=== PATIENT | female | born 1980 | race Caucasian/White ===

== ENCOUNTER 2020-06-25 10:57 | Emergency (ER) | payer MEDICAID, SELFPAY ==
[2020-06-25 11:21] VITALS: BP 126/80; PULSE 76; RESP 18; TEMP 36.8; O2SAT 98; BMI 48.7
--- NOTE | 2020-06-25 11:25 | CT_ITS ---
EXAMINATION: CT ABDOMEN AND PELVIS WITH CONTRAST CLINICAL INFORMATION: Diffuse abdominal pain with nausea, vomiting, and diarrhea COMPARISON: None TECHNIQUE: Multidetector volumetric images were obtained from the superior aspect of the liver through the pubic symphysis following administration 85 mL of Omnipaque 350 intravenous contrast. Sagittal and coronal reformatted images were obtained on the technologist's workstation. Oral contrast: No This CT examination was performed using dose optimization techniques as appropriate, variously including the following: *Automated exposure control *Adjustment of mA and/or kV according to patient size (this includes techniques or standardized protocols for targeted exams where dose is matched to indication/reason for exam; i.e. extremities or head) *Use of iterative reconstruction technique DLP: 1203 mGy-cm FINDINGS: LUNG BASES: The visualized lung bases are unremarkable. LIVER, GALLBLADDER, AND BILIARY TREE: The liver is normal in size, shape, and attenuation. A 0.4 cm calcified granuloma in the right hepatic lobe. No suspicious focal hepatic lesion or biliary ductal dilatation is present. The gallbladder is surgically absent. PANCREAS: Mild fatty atrophy of the pancreas. No evidence for pancreatic necrosis or peripancreatic fluid. SPLEEN: There are a few calcified granulomas within the spleen. No focal lesion. ADRENAL GLANDS: Unremarkable. KIDNEYS AND URETERS: The kidneys are normal in size, shape, and attenuation. No hydronephrosis, hydroureter, or calculi seen. No perinephric stranding. BLADDER: Unremarkable. GASTROINTESTINAL TRACT: There are postsurgical changes around the gastroesophageal junction. The small bowel is normal in appearance and is not dilated. There is a small to moderate amount of stool within the colon. No pericolonic inflammatory changes. The appendix is not clearly identified, but there are no pericecal inflammatory changes. ABDOMINAL WALL: No significant hernia is appreciated. LYMPH NODES: Normal. VASCULAR: Normal caliber of the abdominal aorta. Normal appearance of the inferior vena cava and portal venous system. PELVIC VISCERA: The uterus and adnexa are unremarkable. There are bilateral Essure devices in place. OSSEOUS STRUCTURES: No acute or suspicious osseous lesions. Multilevel degenerative changes of the spine. CT/CT abdomen pelvis w con IMPRESSION: No acute intra-abdominal pathology. Postsurgical changes around the gastroesophageal junction. No evidence for bowel obstruction or inflammation.
[2020-06-25 11:59] LABS: Basophils Percent Auto 0.4 % (0-2); Eosinophils Absolute Auto 0.9 X10*3/uL (0.0-0.4); Eosinophils Percent Auto 12.4 % (0-4); Hematocrit 39.7 % (37-47); Hemoglobin 12.8 g/dl (12.0-16.0); Imm Gran Abs Auto 0.03 X10*3/uL (0.00-0.03); Imm Gran Pct Auto 0.4 % (0.0-0.4); Lymphocytes Absolute Auto 1.9 X10*3/uL (1.2-4.9); Lymphocytes Percent Auto 27.5 % (20-40); MANUAL DIFF FLAG NO; Mean Corpuscular HGB Conc 32.2 g/dl (31.0-35.0); Mean Corpuscular Volume 96.1 fL (80-98); Mean Platelet Volume 11.3 fL (9.4-12.3); Monocytes Absolute Auto 0.5 X10*3/uL (0.1-1.2); Monocytes Percent Auto 6.7 % (2-11); Neutrophils Absolute Auto 3.6 X10*3/uL (2.0-8.3); Neutrophils Percent Auto 52.6 % (45-73); Platelet Count 223 X10*3/uL (160-400); Red Blood Count 4.13 X10*6/uL (4.20-5.50); Red Cell Distribution Width 12.8 % (11.0-16.0); White Blood Count 6.9 X10*3/uL (4.8-10.8)
[2020-06-25] MEDS: ondansetron HCL 4 MG/2 ML VIAL IVPUSH (12:02)
[2020-06-25] MEDS: Ketorolac Tromethamine 15 MG/ML VIAL 30 MG IV (12:02)
[2020-06-25] MEDS: 0.9 % Sodium Chloride 1,000 ML 999 ML IVCONT (12:02)
[2020-06-25 12:04] LABS: Glucose Urine UA NEG (NEG); Leukocyte Esterase Urine 1+ (NEG); Nitrite Urine NEG (NEG); PH 6.5 (5.0-8.0); Urine Blood NEG (NEG); Urine Ketones NEG (NEG); Urine Protein NEG (NEG-TRACE)
[2020-06-25 12:05] LABS: Appearance Urine HAZY; Color Urine YELLOW
[2020-06-25 12:06] LABS: Prothrombin Time 12.1 SEC (10.8-13.0)
[2020-06-25 12:11] LABS: UPreg QC Valid YES; Urine Pregnancy NEGATIVE (NEGATIVE)
[2020-06-25 12:24] LABS: Alanine Aminotransferase 12 U/L (0-31); Alkaline Phosphatase 65 U/L (39-117); Aspartate Amino Transferase 9 U/L (5-31); Bilirubin Direct 0.2 mg/dL (0.0-0.5); Bilirubin Total 0.4 mg/dL (0.0-1.0); Blood Urea Nitrogen 13 mg/dL (9-16); Calcium 8.6 mg/dL (8.4-10.2); Estimated Glomerular Filt Rate 59; Glucose Random 113 mg/dL (60-115); Magnesium 2.2 mg/dL (1.6-2.6); Total Protein 6.8 g/dL (6.5-8.0)
[2020-06-25 12:29] LABS: Bacteria Urine 1+ /LPF; RBC Urine 0 /HPF (0); Squamous Epithelial Cell Urine 3+ /LPF
--- NOTE | 2020-06-25 12:29 | ED.ABDPAIN ---
HPI - Abdominal Pain General Chief Complaint: Abdominal Pain Stated Complaint: MULTIPLE ISSUES Time Seen by Provider: 06/25/20 11:24 Source: patient Mode of arrival: ambulatory Limitations: no limitations History of Present Illness HPI narrative: 40yoF c PMHx of anxiety, hernia and PSHx of lap band, appendectomy and cholecystectomy presenting to the ED with complaints of diffuse abdominal pain for the past 3 days with associated N/V/D and feeling bloated. Denies any other associated symptoms. Denies recent travel or sick contacts. Denies bad food exposure. Related Data Allergies Allergy/AdvReac Type Severity Reaction Status Date / Time Penicillins [PENICILLINS] Allergy Severe HIVES Unverified 04/27/20 16:51 prochlorperazine Allergy Severe HIVES Unverified 04/27/20 16:51 [From COMPAZINE] promethazine [PROMETHAZINE] Allergy Intermediate HEADACHES Unverified 04/27/20 16:51 haloperidol [From HALDOL] AdvReac Severe HIVES Unverified 04/27/20 16:51 Review of Systems Review of Systems Constitutional : No Weight loss, No Fever, No Chills, No Night Sweats, No Fatigue, No Malaise ENT/Mouth: No ear pain, No sore throat, No Difficulty swallowing Cardiovascular : No Chest Pain, No SOB Respiratory : No Cough, No Sputum Gastrointestinal : + Nausea, + Vomiting, + Diarrhea, + abdominal Pain, No Hematochezia, No Melena Genitourinary : No irregular bleeding, No Dysuria, No Urinary Frequency, No Hematuria,No Urinary Incontinence, No Urgency, No Flank Pain Musculoskeletal : No joint pain, No Myalgias, No Joint Swelling Skin : No Skin Lesions, No rash Neuro : No Weakness, No Numbness, No Paresthesias, No Loss of Consciousness, NoDizziness, No Headache Psych : No Social Issues, Heme/Lymph: No Bruising, No Bleeding,No Lymphadenopathy Endocrine : No Polyuria, No Polydipsia, No Temperature Intolerance Yes all other systems are reviewed and are negative Physical Exam Vital Signs: Vital Signs: Last Vital Signs Temp 98.2 F 06/25/20 11:21 Pulse 79 06/25/20 12:56 Resp 18 06/25/20 12:56 BP 133/79 06/25/20 12:56 Pulse Ox 98 06/25/20 11:21 Body Mass Index 48.7 vital signs have been reviewed as normal and appeared to be correct. Blood pressure normal. Heart rate normal. Respiration rate normal. Temperature normal. Oxygen saturation normal. Appearance: Alert. Oriented X3. No acute distress. Head: Normal external exam. Normocephalic. Eyes: PERRLA. EOMI. Conjunctiva and sclera normal. Eyelids normal. ENT: Pharynx normal. Uvula midline. Moist mucous membranes. Neck: Normal inspection. Neck supple. FROM. No adenopathy. No meningeal signs. CVS: Normal heart rate and rhythm. Heart sound normal. No murmurs noted. Pulses normal throughout. Respiratory: No respiratory distress. Painless inspiration. Breath sounds normal. No wheezes/rales/rhonchi noted. Chest nontender. No accessory muscle usage noted or decreased air movement noted. Abdomen: Soft and TTP diffusely. No rigidity noted. Bowel sounds normal in all 4 quadrants. No distention noted. No organomegaly noted. No visible injury noted. Back: No CVA tenderness. Full range of motion noted. Skin: Skin warm and dry. Normal skin color. Normal skin turgor. No rashes/lesions/lacerations noted. Extremities: Extremities exhibit normal range of motion. Extremities nontender. Neuro: Oriented X 3. No motor deficit. No sensory deficit. Reflexes normal. Course Course Course Narrative: 11:25am - 40yoF c PMHx of anxiety, hernia and PSHx of lap band, appendectomy and cholecystectomy presenting to the ED with complaints of diffuse abdominal pain for the past 3 days with associated N/V/D and feeling bloated. - Concern for Viral syndrome vs Bowel obstruction. - Plan: Labs, UA, UHCG, CT scan of abd/pelvis c IV contrast. Provide a L of IV fluids, 30 mg of Toradol and 4 mg of Zofran and re-evaluate. Reevaluation(s) Reevaluation #1: All labs within normal limits. CT scan of abdomen and pelvis within normal limits chronic changes no acute processes noted. Patient is now tolerating p.o. fluids requesting to leave at this time. I offered the patient a COVID swab and she also declined. Will DC home with symptomatic treatment long instructions return if any new or worsening symptoms to follow-up with primary care provider. Patient understands agrees the plan. Time: 14:35 [facility] - Abdominal Pain Medical Records Attestation: I reviewed the patient's medical records. Lab Data Attestation: I reviewed the patient's lab results. Result diagrams: 06/25/20 11:54 06/25/20 11:54 Labs: Lab Results 06/25/20 06/25/20 06/25/20 Range/Units 11:46 11:54 11:54 WBC 6.9 (4.8-10.8) X10*3/uL RBC 4.13 L (4.20-5.50) X10*6/uL Hgb 12.8 (12.0-16.0) g/dl Hct 39.7 (37-47) % MCV 96.1 (80-98) fL MCH 31.0 (27.0-33.0) pg MCHC 32.2 (31.0-35.0) g/dl RDW 12.8 (11.0-16.0) % Plt Count 223 (160-400) X10*3/uL MPV 11.3 (9.4-12.3) fL Immature Gran % (Auto) 0.4 (0.0-0.4) % Neut % (Auto) 52.6 (45-73) % Lymph % (Auto) 27.5 (20-40) % Overton % (Auto) 6.7 (2-11) % Eos % (Auto) 12.4 H (0-4) % Baso % (Auto) 0.4 (0-2) % Lymph # (Auto) 1.9 (1.2-4.9) X10*3/uL Overton # (Auto) 0.5 (0.1-1.2) X10*3/uL Eos # (Auto) 0.9 H (0.0-0.4) X10*3/uL Baso # (Auto) 0.0 (0.0-0.2) X10*3/uL Abs Immat Gran (auto) 0.03 (0.00-0.03) X10*3/uL Absolute Neuts (auto) 3.6 (2.0-8.3) X10*3/uL Absolute Nucleated RBC 0.000 (0.0-0.012) X10*3/uL Nucleated RBC % (auto) 0.0 (0.0-0.2) /100WBC Hold Purple Top SEE NOTE PT (10.8-13.0) SEC INR (0.9-1.1) Sodium (135-145) mmol/L Potassium (3.3-5.1) mmol/l Chloride (96-108) mmol/L Carbon Dioxide (22-29) mmol/L Anion Gap (12-20) BUN (9-16) mg/dL Creatinine (0.5-1.4) mg/dL Estim Creat Clear Calc Estimated GFR Random Glucose (60-115) mg/dL Calcium (8.4-10.2) mg/dL Magnesium (1.6-2.6) mg/dL Total Bilirubin (0.0-1.0) mg/dL Direct Bilirubin (0.0-0.5) mg/dL AST (5-31) U/L ALT (0-31) U/L Alkaline Phosphatase (39-117) U/L Total Protein (6.5-8.0) g/dL Albumin (3.5-5.0) g/dL Urine Color YELLOW Urine Appearance HAZY Urine pH 6.5 (5.0-8.0) Ur Specific [place] 1.020 (1.005-1.025) Urine Protein NEG (NEG-TRACE) MG/DL Urine Glucose (UA) NEG (NEG) MG/DL Urine Ketones NEG (NEG) MG/DL Urine Blood NEG (NEG) Urine Nitrite NEG (NEG) Ur Leukocyte Esterase 1+ H (NEG) Urine RBC 0 (0) /HPF Urine WBC 1-4 (0-4) /HPF Ur Squamous Epith Cells 3+ /LPF Urine Bacteria 1+ /LPF Urine Test NEGATIVE (NEGATIVE) 06/25/20 06/25/20 Range/Units 11:54 11:54 WBC (4.8-10.8) X10*3/uL RBC (4.20-5.50) X10*6/uL Hgb (12.0-16.0) g/dl Hct (37-47) % MCV (80-98) fL MCH (27.0-33.0) pg MCHC (31.0-35.0) g/dl RDW (11.0-16.0) % Plt Count (160-400) X10*3/uL MPV (9.4-12.3) fL Immature Gran % (Auto) (0.0-0.4) % Neut % (Auto) (45-73) % Lymph % (Auto) (20-40) % Overton % (Auto) (2-11) % Eos % (Auto) (0-4) % Baso % (Auto) (0-2) % Lymph # (Auto) (1.2-4.9) X10*3/uL Overton # (Auto) (0.1-1.2) X10*3/uL Eos # (Auto) (0.0-0.4) X10*3/uL Baso # (Auto) (0.0-0.2) X10*3/uL Abs Immat Gran (auto) (0.00-0.03) X10*3/uL Absolute Neuts (auto) (2.0-8.3) X10*3/uL Absolute Nucleated RBC (0.0-0.012) X10*3/uL Nucleated RBC % (auto) (0.0-0.2) /100WBC Hold Purple Top PT 12.1 (10.8-13.0) SEC INR 1.0 (0.9-1.1) Sodium 138 (135-145) mmol/L Potassium 3.8 (3.3-5.1) mmol/l Chloride 104 (96-108) mmol/L Carbon Dioxide 27 (22-29) mmol/L Anion Gap 11 L (12-20) BUN 13 (9-16) mg/dL Creatinine 1.03 (0.5-1.4) mg/dL Estim Creat Clear Calc 113.0 Estimated GFR 59 Random Glucose 113 (60-115) mg/dL Calcium 8.6 (8.4-10.2) mg/dL Magnesium 2.2 (1.6-2.6) mg/dL Total Bilirubin 0.4 (0.0-1.0) mg/dL Direct Bilirubin 0.2 (0.0-0.5) mg/dL AST 9 (5-31) U/L ALT 12 (0-31) U/L Alkaline Phosphatase 65 (39-117) U/L Total Protein 6.8 (6.5-8.0) g/dL Albumin 4.0 (3.5-5.0) g/dL Urine Color Urine Appearance Urine pH (5.0-8.0) Ur Specific [place] (1.005-1.025) Urine Protein (NEG-TRACE) MG/DL Urine Glucose (UA) (NEG) MG/DL Urine Ketones (NEG) MG/DL Urine Blood (NEG) Urine Nitrite (NEG) Ur Leukocyte Esterase (NEG) Urine RBC (0) /HPF Urine WBC (0-4) /HPF Ur Squamous Epith Cells /LPF Urine Bacteria /LPF Urine Test (NEGATIVE) Imaging Data CT scan - abdomen: Attestation: I personally reviewed and interpreted this imaging study as follows: Radiologist's impression: FINDINGS: LUNG BASES: The visualized lung bases are unremarkable. LIVER, GALLBLADDER, AND BILIARY TREE: The liver is normal in size, shape, and attenuation. A 0.4 cm calcified granuloma in the right hepatic lobe. No suspicious focal hepatic lesion or biliary ductal dilatation is present. The gallbladder is surgically absent. PANCREAS: Mild fatty atrophy of the pancreas. No evidence for pancreatic necrosis or peripancreatic fluid. SPLEEN: There are a few calcified granulomas within the spleen. No focal lesion. ADRENAL GLANDS: Unremarkable. KIDNEYS AND URETERS: The kidneys are normal in size, shape, and attenuation. No hydronephrosis, hydroureter, or calculi seen. No perinephric stranding. BLADDER: Unremarkable. GASTROINTESTINAL TRACT: There are postsurgical changes around the gastroesophageal junction. The small bowel is normal in appearance and is not dilated. There is a small to moderate amount of stool within the colon. No pericolonic inflammatory changes. The appendix is not clearly identified, but there are no pericecal inflammatory changes. ABDOMINAL WALL: No significant hernia is appreciated. LYMPH NODES: Normal. VASCULAR: Normal caliber of the abdominal aorta. Normal appearance of the inferior vena cava and portal venous system. PELVIC VISCERA: The uterus and adnexa are unremarkable. There are bilateral Essure devices in place. OSSEOUS STRUCTURES: No acute or suspicious osseous lesions. Multilevel degenerative changes of the spine. CT/CT abdomen pelvis w con IMPRESSION: No acute intra-abdominal pathology. Postsurgical changes around the gastroesophageal junction. No evidence for bowel obstruction or inflammation. Discharge Plan Discharge Clinical Impression: Acute viral syndrome, Abdominal pain, Nausea & vomiting, Diarrhea Patient Disposition: Home, Self-Care Instructions: Acute Nausea and Vomiting (ED), Viral Syndrome (ED) PMFSH Past Medical History Attestation statement: The following information was validated with the patient. Medical History Anxiety Hernia Surgical History History of appendectomy LAP-BAND surgery status Social History Social History Alcohol intake: unknown Smoking Status: Unknown if ever smoked Use of substances other than those prescribed or required for medical reasons: Unknown Advance Directives: No Advance Directives Information Provided: Yes
[2020-06-25 12:34] LABS: Anion Gap 11 (12-20); Carbon Dioxide 27 mmol/L (22-29); Chloride 104 mmol/L (96-108); Potassium 3.8 mmol/l (3.3-5.1); Sodium 138 mmol/L (135-145)
[2020-06-25 12:56] VITALS: BP 133/79; PULSE 79; RESP 18
[2020-06-25] MEDS: iohexoL 350 MG/ML 100 ML INFUS..BTL IV (13:32)
[2020-06-25 14:49] VITALS: BP 133/79; PULSE 76; RESP 14; TEMP 36.8; O2SAT 98
== END 2020-06-25 15:01 | disposition home or self-care (01) ==
PROVIDERS: Physician Assistant Medical; Emergency Provider Emergency Medicine
DX: B34.9 Viral infection, unspecified (principal); R10.9 Unspecified abdominal pain; R11.2 Nausea with vomiting, unspecified; F41.1 Generalized anxiety disorder; F43.0 Acute stress reaction; Z98.84 Bariatric surgery status
CPT/HCPCS: 36415; 74177; 80048; 80076; 81001; 81025; 83735; 85025; 85610; 87086; 87147; 96361; 96374; 96375; 99284; J1885; J2405; Q9967

== ENCOUNTER 2021-05-23 01:02 | Inpatient (IN) | payer OTHER, SELFPAY ==
[2021-05-23 01:37] VITALS: BMI 53.1
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
[2021-05-23 06:00] VITALS: BP 123/89; PULSE 95; RESP 16; TEMP 36.6; O2SAT 98
[2021-05-23] MEDS: busPIRone HCl 5 MG TABLET 15 MG PO ×2 (08:51→20:56)
[2021-05-23] MEDS: Topiramate 100 MG TABLET PO ×2 (08:52→20:53)
[2021-05-23 10:16] VITALS: BP 106/53; PULSE 72
--- NOTE | 2021-05-23 10:27 | P.HPPS_ITS ---
[facility] Date of Service: 05/23/21 Chief Complaint: Schizoaffective disorder, bipolar Sources of Information: patient interviewed, chart reviewed and crisis/core team assessment reviewed Additional Sources of Information: Patient is a 41-year-old female with history of depression, PTSD, panic attacks, substance abuse mostly in sustained remission and carries a diagnosis of bipolar disorder who presents for depression, auditory hallucinations and fleeting SI in the face of psychosocial stressors. Patient reports that she has done well on the current medication regimen for years, including Seroquel 400 at bedtime Topamax, propranolol and trazodone. The patient has been sober from substance abuse for 1 and half years except 1 time just prior to this admission. Patient has been living with her boyfriend for the past year while her parents have custody of her children whom she visits regularly; patient says that this relationship has worked well and again she has remained stable. Unfortunately her boyfriend was incarcerated on March 15; they lost their car and she had to move into her parent's home where her child also lives. Patient said this is been very triggering as there is a long history of troubled relationships (Not only is she currently homeless and without her boyfriend, but she is now living with her parents who have custody of her child making for a very complicated and triggering environment). Patient said that 2 and half weeks ago depression returned, auditory hallucinations return saying you should not be here and panic attacks also resumed. Patient did use crack cocaine 1 time to stop the voices but has otherwise remained sober. Patient said that she has had ephemoral thoughts of suicidality but they have remained just thoughts with no intent or plans. Patient assumed that her medications which had worked for years suddenly stopped working and wanted medication change. Upon further discussion patient agrees that it is very possible that she has recently decompensated because of the numerous stressors in her life and that her medications are still effective. Patient added that when her father dropped her off at [place] [facility] he said to the staff there she is not my daughter... she is not allowed to return... she is driving me crazy... Patient agrees to wait a couple days on the unit, allowing her anxiety to subside and process her feelings before making a decision to stop Seroquel and started other medication. Patient endorses extensive history of trauma but this was not discussed; she says she has a history of being diagnosed with bipolar disorder however it is currently unclear if her episodes are due to combination of PTSD and substance abuse or organic bipolar disorder. Patient is complaining of extreme sciatic pain. She is currently in physical therapy having completed 3/12 sessions after which she will receive a steroid injection if she remains in pain. She is asking for either Vicodin or prednisone to treat her discomfort while on the unit. Patient says BuSpar is not helping for anxiety and agreed to low-dose Thorazine for anxiety as a p.r.n.. Patient is currently not suicidal. HPI Subjective Notes: Leach Warning and Conditional Voluntary Past Psychiatric History: last hospitalization 7 years ago Medical Evaluation Reviewed: Hospitalist Rosana Pending [facility] Medical History (Updated 05/23/21 @ 14:53 by Juancarlos Cr MD) Anxiety Bipolar disorder Cocaine abuse Hernia Opioid abuse PTSD (post-traumatic stress disorder) Surgical History History of appendectomy LAP-BAND surgery status Family History: deferred Social History: Has 3 children youngest 8-year-old all 3 in the custody of parents Lives with boyfriend for the past year who was recently incarcerated now patient is homeless; hopefully he is returning in a few weeks Patient currently not working receives disability Substance History: Sober for the past 1.5 years; used crack cocaine 1 time just prior to admission to get rid of the voices Trauma History: Extensive, severe childhood and adult Diagnostics Vital Signs (24Hr): Vital Signs - 24 hr 05/23/21 06:00 05/23/21 10:16 Temperature 97.8 F Pulse Rate 95 72 Respiratory Rate 16 Blood Pressure 123/89 106/53 L Pulse Oximetry 98 Body Mass Index 53.1 Meds/Allergies Meds Home Medications Acetaminophen (Acetaminophen 325 Mg Tablet) 650 mg PO Q6H PRN PRN Reason: Headache/Pain Mild Scale (1-3) Last Admin: 05/23/21 12:53 Dose: 650 mg Documented by: Al Hydroxide/Mg Hydroxide (Magnesium Hydrox/Alum Hydrox 30 Ml Oral.Susp) 30 ml PO Q6H PRN PRN Reason: Heartburn/Nausea Buspirone HCl (Buspirone Hcl 5 Mg Tablet) 15 mg PO BID [facility] Last Admin: 05/23/21 08:51 Dose: 15 mg Documented by: Fluticasone Propionate (Fluticasone Propionate Nasal 16 Gm Shirley) 2 spray NOSTRIL-B DAILY [facility] Last Admin: 05/23/21 10:58 Dose: Not Given Documented by: Hydroxyzine HCl (Hydroxyzine Hcl 25 Mg Tablet) 25 mg PO Q6H PRN PRN Reason: Anxiety Magnesium Hydroxide (Milk Of Magnesia 30 Ml Oral.Susp) 30 ml PO DAILY PRN PRN Reason: Constipation Prazosin HCl (Prazosin Hcl 1 Mg Capsule) 2 mg PO BEDTIME NIKHIL; Protocol Propranolol HCl (Propranolol Hcl 20 Mg Tablet) 40 mg PO BID NIKHIL; Protocol Last Admin: 05/23/21 10:16 Dose: Not Given Documented by: Quetiapine Fumarate (Quetiapine Fumarate 400 Mg Tablet) 400 mg PO BEDTIME NIKHIL Topiramate (Topiramate 100 Mg Tablet) 100 mg PO BID [facility] Last Admin: 05/23/21 08:52 Dose: 100 mg Documented by: Trazodone HCl (Trazodone Hcl 50 Mg Tablet) 50 mg PO BEDTIME PRN PRN Reason: Insomnia Trazodone HCl (Trazodone Hcl 50 Mg Tablet) 150 mg PO BEDTIME [facility] Allergies Allergies Allergy/AdvReac Type Severity Reaction Status Date / Time Penicillins [PENICILLINS] Allergy Severe HIVES Unverified 04/27/20 16:51 prochlorperazine Allergy Severe HIVES Unverified 04/27/20 16:51 [From COMPAZINE] promethazine [PROMETHAZINE] Allergy Intermediate HEADACHES Unverified 04/27/20 16:51 haloperidol [From HALDOL] AdvReac Severe HIVES Unverified 04/27/20 16:51 Mental Status Exam Mental Status Exam Narrative: Pt is alert and oriented; behavior is cooperative but in emotional distress; dressed in casual attire; unkempt; mood is described as depressed and anxious and affect congruent; eye contact appropriate; Speech is normal rate, volume and prosody and not pressured; no psychomotor agitation/retardation present; thought process is organized and goal directed; Thought content is on getting tx; otherwise pertinent to relevant topics and without any delusional content, paranoid ideations or grandiosity; denies any SI/HI. Pt has AH that say mean things; Patients insight and judgment appear impaired. Assessment & Plan Assessment & Plan (1) PTSD (post-traumatic stress disorder): Status: Acute Code(s): F43.10 - Post-traumatic stress disorder, unspecified (2) Bipolar disorder: Status: Chronic Code(s): F31.9 - Bipolar disorder, unspecified (3) Cocaine abuse: Status: Acute Code(s): F14.10 - Cocaine abuse, uncomplicated Assessment and Plan: IMPRESSION: Patient is a 41-year-old female with history of depression, PTSD, panic attacks, substance abuse mostly in sustained remission and carries a diagnosis of bipolar disorder who presents for depression, auditory hallucinations and fleeting SI in the face of psychosocial stressors. SI is currently resolved Patient reports that she has been stable on current med regimen for close to 7 years. Suddenly about 2 and half weeks ago, patient decompensated and got depressed with panic attacks and auditory hallucinations. It is unlikely that her medications would suddenly stop working and seems much more likely that this decompensation is due to situational events of losing her boyfriend, losing housing and moving back in to her parent's house which is an exceedingly triggering environment given their relational history and the fact that they have custody of her 8-year-old child who was also living there. Patient agrees to remain on current med regimen for now to see if once she has gotten some rest and distance from her family she can better assess her medication regimens effectiveness. -patient complains of severe sciatic pain; she is currently in physical therapy as an outpatient; she wants either Vicodin or prednisone. [employer] called hospitalist who recommended waiting for hospitalist to do admission physical (patient says Tylenol, ibuprofen, gabapentin, muscle relaxants all did not work) PLAN: Patient on CV Q 15 minutes checks for safety Continue current medication regimen Propranolol 40 mg b.i.d. Trazodone 150 mg Prazosin 2 mg; patient says this stopped working a few months ago BuSpar 15 mg b.i.d.; patient says this is not very helpful Seroquel 400 mg q.h.s. Will add Thorazine 25 mg q.i.d. p.r.n. for anxiety; may titrate to clinical need. Hospitalist consult placed Reason for continued inpatient stay Substantial Risk for: rapid decompensation
--- NOTE | 2021-05-23 10:36 | PC.NURSE ---
Addendum entered by Mariya Eden RN 05/23/21 13:04: Pt continues to complain of pain due to really bad sciatica. Tylenol 650mg administered. Pt requesting Vicodin or anything stronger than tylenol. Pt showing signs of discomfort when transitioning from lying to sitting in bed. Prescribing doctor notified. This nurse also suggested walking/stretching and showering as non-medicinal interventions. Original Note: When assessed for pain, pt reports back pain 05/20. Reports taking Vicodin in the ER and states she understands there should be an order for every four hours. No order listed. This nurses observes pt rising from lying to sitting, getting up out of bed to use the bathroom, and returning to lying position in bed without obvious signs of distress (no crying out or grimacing, no hesitation or accommodation in movement, appears to have normal gait). Pt. refuses Tylenol, No just the Vicodin. I'll talk to the doctor.
[2021-05-23] MEDS: Acetaminophen 325 MG TABLET 650 MG PO (12:53)
[2021-05-23] MEDS: predniSONE 20 MG TABLET PO (16:19)
[2021-05-23 17:13] LABS: Appearance Urine CLEAR; Color Urine YELLOW; Glucose Urine UA NEG (NEG); Leukocyte Esterase Urine NEG (NEG); Nitrite Urine NEG (NEG); PH 7.5 (5.0-8.0); Urine Blood TRACE (NEG); Urine Ketones NEG (NEG); Urine Protein NEG (NEG-TRACE)
[2021-05-23 17:15] LABS: UPreg QC Valid YES; Urine Pregnancy NEGATIVE (NEGATIVE)
[2021-05-23 17:24] LABS: Bacteria Urine TRACE /LPF; Squamous Epithelial Cell Urine TRACE /LPF
[2021-05-23 17:25] LABS: Amorphous Sediment Urine TRACE /LPF; WBC Urine 0-2 /HPF (0-4)
[2021-05-23 18:00] VITALS: BP 179/84; PULSE 85; RESP 16; TEMP 36.3; O2SAT 100
[2021-05-23 20:51] VITALS: BP 167/117; PULSE 120; RESP 17; TEMP 36.5; O2SAT 97
[2021-05-23] MEDS: QUEtiapine Fumarate 400 MG TABLET PO (20:53)
[2021-05-23] MEDS: traZODone HCL 50 MG TABLET 150 MG PO (20:54)
[2021-05-23 20:55] VITALS: BP 167/117; PULSE 120
[2021-05-23] MEDS: Propranolol HCL 20 MG TABLET 40 MG PO (20:55)
[2021-05-23 20:57] VITALS: BP 167/117; PULSE 120
[2021-05-23] MEDS: Prazosin HCL 1 MG CAPSULE 2 MG PO (20:57)
[2021-05-24 06:00] VITALS: BP 136/80; PULSE 85; RESP 18; TEMP 36.3; O2SAT 98
[2021-05-24 07:00] VITALS: BMI 52.4
[2021-05-24 08:16] VITALS: BP 145/83; PULSE 92
[2021-05-24] MEDS: Propranolol HCL 20 MG TABLET 40 MG PO ×2 (08:16→21:44)
[2021-05-24] MEDS: Topiramate 100 MG TABLET PO ×2 (08:16→21:42)
[2021-05-24] MEDS: busPIRone HCl 5 MG TABLET 15 MG PO ×2 (08:17→21:40)
[2021-05-24 08:43] LABS: MANUAL DIFF FLAG SCAN; PLT CLUMP 1; SCAN SMEAR FLAG 1
[2021-05-24 08:45] LABS: Basophils Percent Auto 0.4 % (0-2); Eosinophils Absolute Auto 0.1 X10*3/uL (0.0-0.4); Eosinophils Percent Auto 0.8 % (0-4); Hematocrit 44.8 % (37-47); Hemoglobin 14.7 g/dl (12.0-16.0); Imm Gran Abs Auto 0.04 X10*3/uL (0.00-0.03); Imm Gran Pct Auto 0.4 % (0.0-0.4); Lymphocytes Absolute Auto 2.3 X10*3/uL (1.2-4.9); Lymphocytes Percent Auto 20.5 % (20-40); Mean Corpuscular HGB Conc 32.8 g/dl (31.0-35.0); Mean Corpuscular Volume 94.5 fL (80-98); Monocytes Absolute Auto 0.8 X10*3/uL (0.1-1.2); Neutrophils Absolute Auto 7.9 X10*3/uL (2.0-8.3); Neutrophils Percent Auto 70.9 % (45-73); PLT ABN DIST 1; Red Blood Count 4.74 X10*6/uL (4.20-5.50); White Blood Count 11.1 X10*3/uL (4.8-10.8)
[2021-05-24 08:56] LABS: Estimated Average Glucose 108 mg/dL; Hemoglobin A1c % 5.4 %
[2021-05-24 09:04] LABS: SLIDE REVIEW VERIFIED
[2021-05-24 09:16] LABS: Alanine Aminotransferase 19 U/L (0-31); Albumin Level 4.2 g/dL (3.5-5.0); Alkaline Phosphatase 67 U/L (39-117); Anion Gap 11 (12-20); Aspartate Amino Transferase 12 U/L (5-31); Bilirubin Direct < 0.2 mg/dL (0.0-0.5); Bilirubin Total 0.2 mg/dL (0.0-1.0); Blood Urea Nitrogen 9 mg/dL (9-16); Carbon Dioxide 22 mmol/L (22-29); Chloride 108 mmol/L (96-108); Cholesterol 182 mg/dL; Creatinine Clr Calc Pharmacy 154.4; Estimated Glomerular Filt Rate > 60; HDL Cholesterol 53 mg/dL; LDL Cholesterol Calculated 109 mg/dl; Potassium 4.3 mmol/L (3.3-5.1); Sodium 137 mmol/L (135-145); Total Protein 7.2 g/dL (6.5-8.0); Triglycerides 100 mg/dL
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
[2021-05-24] MEDS: oxyCODONE HCl Immed Release 5 MG TABLET PO (16:51)
--- NOTE | 2021-05-24 17:28 | HO.PSYCHPN ---
Subjective Subjective Date of Service: 05/24/21 Reason For Visit: Schizoaffective disorder, bipolar Subjective Notes: Conditional Voluntary Interim History: Pt resting in bed reporting back pain. She has asked for steroids. Dr. Kumari has seen pt and made several recommendations. PT consult ordered, steroids are NOT suggested, Oxycodone 5 mg tid with Tylenol or Ibuprofen 600-800 mg tid with meals along with obtaining MRI results from [facility] (completed 2020). Pt reports the origin of psychiatric sx is untreated pain. She would like no psychotropic changes until pain is better managed so she can sort through symptoms and review each agent with us. Reports mood to be depressed, sleep poor due to pain and discomfort in bed. Encouraged pt to begin to get involved in milieu, groups and with team to begin to identify what changes she needs to work with. Medication Compliance: Yes Side effects from medications: No Attending Groups: No Review of Systems Acute medical concerns: No Medical Review of Systems: unchanged Review of Systems Musculoskeletal: Reports back pain (Arthritis L3-6) Reports behavioral changes Psychiatric: Reports abnormal sleep pattern, Reports anxiety, Reports behavioral changes, Reports depression, Reports difficulty concentrating, Reports hopelessness, Reports irritability, Reports anhedonia and Reports suicidal ideation Mental Status Exam Mental Status Exam Patient Appearance: Appropriate Patient Orientation: Person, Place, Time and Situation Level of Consciousness: Awake and Alert Patient Behavior: Talkative, Cooperative, Restless, Anxious, Fatigued and Good Eye Contact Mood Description: Constricted Affect Description: Constricted Patient Cognition Impaired: No Ability to Follow Directions: Good Speech Pattern: Clear, Appropriate and Spontaneous Speech Memory Description: Intact Hallucinations: None Delusions: Not Present Thought Process: Intact Thought Content: positive for Intact, positive for Circumstantial and positive for Suicidal Ideation Depressive Symptoms: Increased Anxiety, Insomnia, Increased Irritability, Difficulty Sleeping, Loss of Int. in Activity, Hopelessness, Unhappiness, Increased Fatigue, Thoughts of /Suicide and Loss of Energy Abnormal Motor Activity Signs and Symptoms: Restlessness Judgement: Fair Diagnostics Vital Signs (24Hr): Vital Signs - 24 hr 05/23/21 18:00 05/23/21 20:51 05/23/21 20:55 Temperature 97.4 F 97.7 F Pulse Rate 85 120 H 120 H Respiratory Rate 16 17 Blood Pressure 179/84 H 167/117 H 167/117 H Pulse Oximetry 100 97 05/23/21 20:57 05/24/21 06:00 05/24/21 08:16 Temperature 97.3 F Pulse Rate 120 H 85 92 Respiratory Rate 18 Blood Pressure 167/117 H 136/80 145/83 H Pulse Oximetry 98 Body Mass Index 52.4 Labs Results: 05/24/21 08:08 05/24/21 08:08 Labs: Laboratory Results - last 48 hr 05/23/21 05/23/21 05/24/21 16:57 16:58 08:08 WBC RBC Hgb Hct MCV MCH MCHC RDW Plt Count MPV Immature Gran % (Auto) Neut % (Auto) Lymph % (Auto) [place] % (Auto) Eos % (Auto) Baso % (Auto) Lymph # (Auto) [place] # (Auto) Eos # (Auto) Baso # (Auto) Abs Immat Gran (auto) Absolute Neuts (auto) Absolute Nucleated RBC Nucleated RBC % (auto) Smear Tech's Comments Sodium Potassium Chloride Carbon Dioxide Anion Gap BUN Creatinine Estim Creat Clear Calc Estimated GFR Estimat Average Glucose 108 Hemoglobin A1c % 5.4 Total Bilirubin Direct Bilirubin AST ALT Alkaline Phosphatase Total Protein Albumin Triglycerides Cholesterol LDL Cholesterol, Calc HDL Cholesterol Urine Color YELLOW Urine Appearance CLEAR Urine pH 7.5 Ur Specific [place] 1.010 Urine Protein NEG Urine Glucose (UA) NEG Urine Ketones NEG Urine Blood TRACE Urine Nitrite NEG Ur Leukocyte Esterase NEG Urine RBC 1-4 Urine WBC 0-2 Ur Squamous Epith Cells TRACE Amorphous Sediment TRACE Urine Bacteria TRACE Urine Test NEGATIVE 05/24/21 05/24/21 08:08 08:08 WBC 11.1 H RBC 4.74 Hgb 14.7 Hct 44.8 MCV 94.5 MCH 31.0 MCHC 32.8 RDW 13.0 Plt Count TNP MPV Not Reportable Immature Gran % (Auto) 0.4 Neut % (Auto) 70.9 Lymph % (Auto) 20.5 [place] % (Auto) 7.0 Eos % (Auto) 0.8 Baso % (Auto) 0.4 Lymph # (Auto) 2.3 [place] # (Auto) 0.8 Eos # (Auto) 0.1 Baso # (Auto) 0.0 Abs Immat Gran (auto) 0.04 H Absolute Neuts (auto) 7.9 Absolute Nucleated RBC 0.000 Nucleated RBC % (auto) 0.0 Smear Tech's Comments VERIFIED Sodium 137 Potassium 4.3 Chloride 108 Carbon Dioxide 22 Anion Gap 11 L BUN 9 Creatinine 0.78 Estim Creat Clear Calc 154.4 Estimated GFR > 60 Estimat Average Glucose Hemoglobin A1c % Total Bilirubin 0.2 Direct Bilirubin < 0.2 AST 12 ALT 19 Alkaline Phosphatase 67 Total Protein 7.2 Albumin 4.2 Triglycerides 100 Cholesterol 182 LDL Cholesterol, Calc 109 HDL Cholesterol 53 Urine Color Urine Appearance Urine pH Ur Specific [place] Urine Protein Urine Glucose (UA) Urine Ketones Urine Blood Urine Nitrite Ur Leukocyte Esterase Urine RBC Urine WBC Ur Squamous Epith Cells Amorphous Sediment Urine Bacteria Urine Test Medications Medications Current Medications Acetaminophen (Acetaminophen 325 Mg Tablet) 975 mg PO TID PRN PRN Reason: Headache/Pain Mild Scale (1-3) Al Hydroxide/Mg Hydroxide (Magnesium Hydrox/Alum Hydrox 30 Ml Oral.Susp) 30 ml PO Q6H PRN PRN Reason: Heartburn/Nausea Buspirone HCl (Buspirone Hcl 5 Mg Tablet) 15 mg PO BID [facility] Last Admin: 05/24/21 08:17 Dose: 15 mg Documented by: Calcium Carbonate (Calcium Carbonate 750 Mg Tab.Chew) 750 mg PO Q4H PRN PRN Reason: Heartburn Chlorpromazine HCl (Chlorpromazine Hcl 25 Mg Tablet) 25 mg PO QID PRN PRN Reason: Anxiety Diphenhydramine HCl (Diphenhydramine Hcl 25 Mg Tablet) 50 mg PO Q6H PRN PRN Reason: for hives; also for anxiety Fluticasone Propionate (Fluticasone Propionate Nasal 16 Gm [place]) 2 spray NOSTRIL-B DAILY [facility] Last Admin: 05/24/21 08:18 Dose: Not Given Documented by: Magnesium Hydroxide (Milk Of Magnesia 30 Ml Oral.Susp) 30 ml PO DAILY PRN PRN Reason: Constipation Omeprazole (Omeprazole 20 Mg Capsule.Dr) 20 mg PO DAILY@0630 [facility] Oxycodone HCl (Oxycodone Hcl Immed Release 5 Mg Tablet) 5 mg PO Q8H PRN PRN Reason: back pain Last Admin: 05/24/21 16:51 Dose: 5 mg Documented by: Prazosin HCl (Prazosin Hcl 1 Mg Capsule) 2 mg PO BEDTIME [facility]; Protocol Last Admin: 05/23/21 20:57 Dose: 2 mg Documented by: Propranolol HCl (Propranolol Hcl 20 Mg Tablet) 40 mg PO BID [facility]; Protocol Last Admin: 05/24/21 08:16 Dose: 40 mg Documented by: Quetiapine Fumarate (Quetiapine Fumarate 400 Mg Tablet) 400 mg PO BEDTIME [facility] Last Admin: 05/23/21 20:53 Dose: 400 mg Documented by: Topiramate (Topiramate 100 Mg Tablet) 100 mg PO BID [facility] Last Admin: 05/24/21 08:16 Dose: 100 mg Documented by: Trazodone HCl (Trazodone Hcl 50 Mg Tablet) 50 mg PO BEDTIME PRN PRN Reason: Insomnia Trazodone HCl (Trazodone Hcl 50 Mg Tablet) 150 mg PO BEDTIME [facility] Last Admin: 05/23/21 20:54 Dose: 150 mg Documented by: Allergies Allergies Allergy/AdvReac Type Severity Reaction Status Date / Time Penicillins [PENICILLINS] Allergy Severe HIVES Unverified 04/27/20 16:51 prochlorperazine Allergy Severe HIVES Unverified 04/27/20 16:51 [From COMPAZINE] promethazine [PROMETHAZINE] Allergy Intermediate HEADACHES Unverified 04/27/20 16:51 haloperidol [From HALDOL] AdvReac Severe HIVES Unverified 04/27/20 16:51 Assessment & Plan Assessment & Plan (1) Cocaine abuse: Status: Acute Code(s): F14.10 - Cocaine abuse, uncomplicated (2) Bipolar disorder: Status: Chronic Code(s): F31.9 - Bipolar disorder, unspecified (3) PTSD (post-traumatic stress disorder): Status: Acute Code(s): F43.10 - Post-traumatic stress disorder, unspecified (4) Anxiety: Status: Acute Code(s): F41.9 - Anxiety disorder, unspecified Assessment and Plan: 41 yo female, hx of Bipolar Disorder, depression, PTSD, panic disorder, substance abuse with stable medicine regime for 6.5 years. Recent sudden sx of decompensation-depression, SI, AH, panic with persistance of sx for approx 2 wks. Pt identifies several losses recently-boyfriend, housing, needing to move back in with parents which is difficult as they have custody of her 8 yo child. Pt is using the inital portion of the admission to gather some distance from these stressors and clarify her perspective. Today she was seen by Dr. Kumari and received a pain mgt plan with PT, Ibuprofen and Oxycontin/Tylenol. We will begin to work on her psychotropics when she had addressed these issues. -No changes in psychotropics today. Greater than 50% of the session was spent on counseling and/or coordination of care Patient educated on: diagnosis, medication risk/benefits, therapeutic strategies and medical condition Informed Consent: understands Reason for contiued inpatient stay Substantial Risk for: harm to self, inability to function, rapid decompensation and med/psych decompensation
[2021-05-24 21:40] VITALS: BP 142/90; PULSE 110; RESP 16; TEMP 36.4; O2SAT 95
[2021-05-24] MEDS: QUEtiapine Fumarate 400 MG TABLET PO (21:40)
[2021-05-24 21:43] VITALS: BP 142/90; PULSE 110
[2021-05-24] MEDS: Prazosin HCL 1 MG CAPSULE 2 MG PO (21:43)
[2021-05-24 21:44] VITALS: BP 142/90; PULSE 110
[2021-05-24] MEDS: traZODone HCL 50 MG TABLET 150 MG PO (21:45)
[2021-05-25] MEDS: oxyCODONE HCl Immed Release 5 MG TABLET PO ×3 (05:39→21:33)
[2021-05-25] MEDS: Omeprazole 20 MG CAPSULE.DR PO (05:40)
[2021-05-25 06:00] VITALS: BP 116/69; PULSE 80; RESP 16; TEMP 36.6; O2SAT 98
[2021-05-25 09:08] VITALS: BP 138/76; PULSE 91
[2021-05-25] MEDS: Topiramate 100 MG TABLET PO ×2 (09:08→20:25)
[2021-05-25] MEDS: busPIRone HCl 5 MG TABLET 15 MG PO ×2 (09:08→20:24)
[2021-05-25] MEDS: Propranolol HCL 20 MG TABLET 40 MG PO ×2 (09:08→20:25)
[2021-05-25] MEDS: Docusate Sodium 100 MG CAPSULE PO ×2 (11:31→20:25)
[2021-05-25] MEDS: Acetaminophen 325 MG TABLET 975 MG PO ×2 (13:28→21:32)
[2021-05-25] MEDS: chlorproMAZINE HCl 25 MG TABLET PO ×2 (14:38→21:33)
--- NOTE | 2021-05-25 15:39 | P.PNPSI_ITS ---
Subjective Subjective Date of Service: 05/25/21 Reason For Visit: Schizoaffective disorder, bipolar Subjective Notes: Conditional Voluntary Medical Problems Affecting Mental Status: Yes (Back Pain) Interim History: Reports chronic back pain. MRI results received from [facility], exam 11/18/20 with impression of degenerative changes of the lower thoracic and lumbar spine with no evidence of nerve root impingement. Pt seen by physical therapy. Review of medication regime with pt who plans to utilize prn Chlorpromazine however does not want to make any other changes. Reports regime to be stable for years, believes current situational changes and crisis have precipitated sx. Message left for OP team with [facility]. Pt pleased with plan for [facility] referral and snf options presented as she does not believe living with parents is a solid plan for her. Medication Compliance: Yes Side effects from medications: No Attending Groups: No Review of Systems Acute medical concerns: No Chronic back pain Medical Review of Systems: unchanged Review of Systems Musculoskeletal: Reports back pain (Arthritis L3-6) Reports behavioral changes Psychiatric: Reports abnormal sleep pattern, Reports anxiety, Reports behavioral changes, Reports depression, Reports difficulty concentrating, Reports hopelessness, Reports irritability, Reports anhedonia and Reports suicidal ideation Mental Status Exam Mental Status Exam Patient Appearance: Appropriate Patient Orientation: Person, Place, Time and Situation Level of Consciousness: Awake and Alert Patient Behavior: Talkative, Cooperative, Restless, Anxious, Fatigued and Good Eye Contact Mood Description: Constricted Affect Description: Constricted Patient Cognition Impaired: No Ability to Follow Directions: Good Speech Pattern: Clear, Appropriate and Spontaneous Speech Memory Description: Intact Hallucinations: None Delusions: Not Present Thought Process: Intact Thought Content: positive for Intact, positive for Circumstantial and positive for Suicidal Ideation Depressive Symptoms: Increased Anxiety, Insomnia, Increased Irritability, Difficulty Sleeping, Loss of Int. in Activity, Hopelessness, Unhappiness, Incre ased Fatigue, Thoughts of /Suicide and Loss of Energy Abnormal Motor Activity Signs and Symptoms: Restlessness Judgement: Fair Diagnostics Vital Signs (24Hr): Vital Signs - 24 hr 05/24/21 21:40 05/24/21 21:43 05/24/21 21:44 Temperature 97.5 F Pulse Rate 110 H 110 H 110 H Respiratory Rate 16 Blood Pressure 142/90 H 142/90 H 142/90 H Pulse Oximetry 95 05/25/21 06:00 05/25/21 09:08 Temperature 98 F Pulse Rate 80 91 Respiratory Rate 16 Blood Pressure 116/69 138/76 Pulse Oximetry 98 Body Mass Index 52.4 Labs Results: 05/24/21 08:08 05/24/21 08:08 Labs: Laboratory Results - last 48 hr 05/23/21 05/23/21 05/24/21 16:57 16:58 08:08 WBC RBC Hgb Hct MCV MCH MCHC RDW Plt Count MPV Immature Gran % (Auto) Neut % (Auto) Lymph % (Auto) [place] % (Auto) Eos % (Auto) Baso % (Auto) Lymph # (Auto) [place] # (Auto) Eos # (Auto) Baso # (Auto) Abs Immat Gran (auto) Absolute Neuts (auto) Absolute Nucleated RBC Nucleated RBC % (auto) Smear Tech's Comments Sodium Potassium Chloride Carbon Dioxide Anion Gap BUN Creatinine Estim Creat Clear Calc Estimated GFR Estimat Average Glucose 108 Hemoglobin A1c % 5.4 Total Bilirubin Direct Bilirubin AST ALT Alkaline Phosphatase Total Protein Albumin Triglycerides Cholesterol LDL Cholesterol, Calc HDL Cholesterol Urine Color YELLOW Urine Appearance CLEAR Urine pH 7.5 Ur Specific [place] 1.010 Urine Protein NEG Urine Glucose (UA) NEG Urine Ketones NEG Urine Blood TRACE Urine Nitrite NEG Ur Leukocyte Esterase NEG Urine RBC 1-4 Urine WBC 0-2 Ur Squamous Epith Cells TRACE Amorphous Sediment TRACE Urine Bacteria TRACE Urine Test NEGATIVE 05/24/21 05/24/21 08:08 08:08 WBC 11.1 H RBC 4.74 Hgb 14.7 Hct 44.8 MCV 94.5 MCH 31.0 MCHC 32.8 RDW 13.0 Plt Count TNP MPV Not Reportable Immature Gran % (Auto) 0.4 Neut % (Auto) 70.9 Lymph % (Auto) 20.5 [place] % (Auto) 7.0 Eos % (Auto) 0.8 Baso % (Auto) 0.4 Lymph # (Auto) 2.3 [place] # (Auto) 0.8 Eos # (Auto) 0.1 Baso # (Auto) 0.0 Abs Immat Gran (auto) 0.04 H Absolute Neuts (auto) 7.9 Absolute Nucleated RBC 0.000 Nucleated RBC % (auto) 0.0 Smear Tech's Comments VERIFIED Sodium 137 Potassium 4.3 Chloride 108 Carbon Dioxide 22 Anion Gap 11 L BUN 9 Creatinine 0.78 Estim Creat Clear Calc 154.4 Estimated GFR > 60 Estimat Average Glucose Hemoglobin A1c % Total Bilirubin 0.2 Direct Bilirubin < 0.2 AST 12 ALT 19 Alkaline Phosphatase 67 Total Protein 7.2 Albumin 4.2 Triglycerides 100 Cholesterol 182 LDL Cholesterol, Calc 109 HDL Cholesterol 53 Urine Color Urine Appearance Urine pH Ur Specific [place] Urine Protein Urine Glucose (UA) Urine Ketones Urine Blood Urine Nitrite Ur Leukocyte Esterase Urine RBC Urine WBC Ur Squamous Epith Cells Amorphous Sediment Urine Bacteria Urine Test Medications Medications Current Medications Acetaminophen (Acetaminophen 325 Mg Tablet) 975 mg PO TID PRN PRN Reason: Headache/Pain Mild Scale (1-3) Last Admin: 05/25/21 13:28 Dose: 975 mg Documented by: Al Hydroxide/Mg Hydroxide (Magnesium Hydrox/Alum Hydrox 30 Ml Oral.Susp) 30 ml PO Q6H PRN PRN Reason: Heartburn/Nausea Buspirone HCl (Buspirone Hcl 5 Mg Tablet) 15 mg PO BID [facility] Last Admin: 05/25/21 09:08 Dose: 15 mg Documented by: Calcium Carbonate (Calcium Carbonate 750 Mg Tab.Chew) 750 mg PO Q4H PRN PRN Reason: Heartburn Chlorpromazine HCl (Chlorpromazine Hcl 25 Mg Tablet) 25 mg PO QID PRN PRN Reason: Anxiety Last Admin: 05/25/21 14:38 Dose: 25 mg Documented by: Diphenhydramine HCl (Diphenhydramine Hcl 25 Mg Tablet) 50 mg PO Q6H PRN PRN Reason: for hives; also for anxiety Docusate Sodium (Docusate Sodium 100 Mg Capsule) 100 mg PO BID [facility] Last Admin: 05/25/21 11:31 Dose: 100 mg Documented by: Fluticasone Propionate (Fluticasone Propionate Nasal 16 Gm [place]) 2 spray NOSTRIL-B DAILY [facility] Last Admin: 05/25/21 09:11 Dose: Not Given Documented by: Ibuprofen (Ibuprofen 800 Mg Tablet) 800 mg PO TIDWM PRN PRN Reason: back pain Magnesium Hydroxide (Milk Of Magnesia 30 Ml Oral.Susp) 30 ml PO DAILY PRN PRN Reason: Constipation Omeprazole (Omeprazole 20 Mg Capsule.Dr) 20 mg PO DAILY@0630 [facility] Last Admin: 05/25/21 05:40 Dose: 20 mg Documented by: Oxycodone HCl (Oxycodone Hcl Immed Release 5 Mg Tablet) 5 mg PO Q8H PRN PRN Reason: back pain Last Admin: 05/25/21 13:28 Dose: 5 mg Documented by: Prazosin HCl (Prazosin Hcl 1 Mg Capsule) 2 mg PO BEDTIME [facility]; Protocol Last Admin: 05/24/21 21:43 Dose: 2 mg Documented by: Propranolol HCl (Propranolol Hcl 20 Mg Tablet) 40 mg PO BID [facility]; Protocol Last Admin: 05/25/21 09:08 Dose: 40 mg Documented by: Quetiapine Fumarate (Quetiapine Fumarate 400 Mg Tablet) 400 mg PO BEDTIME [facility] Last Admin: 05/24/21 21:40 Dose: 400 mg Documented by: Topiramate (Topiramate 100 Mg Tablet) 100 mg PO BID [facility] Last Admin: 05/25/21 09:08 Dose: 100 mg Documented by: Trazodone HCl (Trazodone Hcl 50 Mg Tablet) 50 mg PO BEDTIME PRN PRN Reason: Insomnia Trazodone HCl (Trazodone Hcl 50 Mg Tablet) 150 mg PO BEDTIME [facility] Last Admin: 05/24/21 21:45 Dose: 150 mg Documented by: Allergies Allergies Allergy/AdvReac Type Severity Reaction Status Date / Time Penicillins [PENICILLINS] Allergy Severe HIVES Unverified 04/27/20 16:51 prochlorperazine Allergy Severe HIVES Unverified 04/27/20 16:51 [From COMPAZINE] promethazine [PROMETHAZINE] Allergy Intermediate HEADACHES Unverified 04/27/20 16:51 haloperidol [From HALDOL] AdvReac Severe HIVES Unverified 04/27/20 16:51 Assessment & Plan Assessment & Plan (1) Cocaine abuse: Status: Acute Code(s): F14.10 - Cocaine abuse, uncomplicated (2) Bipolar disorder: Status: Chronic Code(s): F31.9 - Bipolar disorder, unspecified (3) PTSD (post-traumatic stress disorder): Status: Acute Code(s): F43.10 - Post-traumatic stress disorder, unspecified (4) Anxiety: Status: Acute Code(s): F41.9 - Anxiety disorder, unspecified Assessment and Plan: 41 yo female, hx of Bipolar Disorder, depression, PTSD, panic disorder, substance abuse with stable medicine regime for 6.5 years. Recent sudden sx of decompensation-depression, SI, AH, panic with persistance of sx for approx 2 wks. Pt identifies several losses recently-boyfriend, housing, needing to move back in with parents which is difficult as they have custody of her 8 yo child. Pt is using the inital portion of the admission to gather some distance from these stressors and clarify her perspective. Today she was seen by Dr. Kumari and received a pain mgt plan with PT, Ibuprofen and Oxycontin/Tylenol. We will begin to work on her psychotropics when she had addressed these issues. -No changes in psychotropics today. 05/25/21: Continue current regime. Pt to utilize prn chlorpromazine in trial for symptom mgt. Greater than 50% of the session was spent on counseling and/or coordination of care Patient educated on: medication risk/benefits and therapeutic strategies Informed Consent: understands Reason for contiued inpatient stay Substantial Risk for: harm to self, inability to function, rapid decompensation and med/psych decompensation
[2021-05-25] MEDS: traZODone HCL 50 MG TABLET 150 MG PO (20:24)
[2021-05-25 20:25] VITALS: BP 134/96; PULSE 111
[2021-05-25] MEDS: Prazosin HCL 1 MG CAPSULE 2 MG PO (20:25)
[2021-05-25] MEDS: QUEtiapine Fumarate 400 MG TABLET PO (20:25)
[2021-05-25 20:28] VITALS: BP 134/96; PULSE 111; RESP 20; TEMP 35.9; O2SAT 100
[2021-05-26] MEDS: oxyCODONE HCl Immed Release 5 MG TABLET PO ×3 (05:43→21:22)
[2021-05-26 06:00] VITALS: BP 127/59; PULSE 84; RESP 18; TEMP 36.3; O2SAT 95
[2021-05-26] MEDS: Omeprazole 20 MG CAPSULE.DR PO (06:19)
[2021-05-26] MEDS: Topiramate 100 MG TABLET PO ×2 (08:38→21:16)
[2021-05-26] MEDS: Docusate Sodium 100 MG CAPSULE PO ×2 (08:38→21:16)
[2021-05-26 08:39] VITALS: BP 117/64; PULSE 73
[2021-05-26] MEDS: Propranolol HCL 20 MG TABLET 40 MG PO ×2 (08:39→21:21)
[2021-05-26] MEDS: busPIRone HCl 5 MG TABLET 15 MG PO ×2 (08:39→21:22)
[2021-05-26] MEDS: Acetaminophen 325 MG TABLET 975 MG PO ×2 (13:21→21:17)
[2021-05-26] MEDS: chlorproMAZINE HCl 25 MG TABLET PO ×2 (13:22→21:22)
[2021-05-26 21:15] VITALS: BP 119/67; PULSE 99; TEMP 36.6
[2021-05-26] MEDS: traZODone HCL 50 MG TABLET 150 MG PO (21:18)
[2021-05-26 21:19] VITALS: BP 119/67; PULSE 99
[2021-05-26] MEDS: Prazosin HCL 1 MG CAPSULE 3 MG PO (21:19)
[2021-05-26 21:21] VITALS: BP 119/67; PULSE 99
[2021-05-26] MEDS: QUEtiapine Fumarate 400 MG TABLET PO (21:23)
--- NOTE | 2021-05-26 21:48 | P.PNPSI_ITS ---
Subjective Subjective Date of Service: 05/26/21 Reason For Visit: Schizoaffective disorder, bipolar Subjective Notes: Conditional Voluntary Healthcare Proxy: No Guardianship: No Interim History: Patient isolative and anxious dysphoric. Reports auditory hallucinations of a derogatory nature possibly more dissociated the nature Complains of severe nightmares and insomnia that is quite triggering for her. States that higher doses of prazosin were helpful feels Thorazine p.r.n. has been helpful Medication Compliance: Yes Side effects from medications: Yes Attending Groups: No Review of Systems Medical Review of Systems: unchanged Mental Status Exam Mental Status Exam Patient Appearance: Appropriate Patient Orientation: Person, Place, Time and Situation Level of Consciousness: Awake and Alert Patient Behavior: Talkative, Cooperative, Restless, Anxious, Fatigued and Good Eye Contact Mood Description: Constricted and Depressed Affect Description: Constricted Patient Cognition Impaired: No Ability to Follow Directions: Good Speech Pattern: Clear, Appropriate and Spontaneous Speech Memory Description: Intact Hallucinations: Auditory Delusions: Not Present Thought Process: Intact Thought Content: positive for Intact, positive for Circumstantial and positive for Suicidal Ideation Depressive Symptoms: Increased Anxiety, Insomnia, Increased Irritability, Difficulty Sleeping, Loss of Int. in Activity, Hopelessness, Unhappiness, Increased Fatigue, Thoughts of /Suicide and Loss of Energy Abnormal Motor Activity Signs and Symptoms: Restlessness Judgement: Fair Diagnostics Vital Signs (24Hr): Vital Signs - 24 hr 05/26/21 06:00 05/26/21 08:39 05/26/21 21:19 Temperature 97.3 F Pulse Rate 84 73 99 Respiratory Rate 18 Blood Pressure 127/59 L 117/64 119/67 Pulse Oximetry 95 05/26/21 21:21 Temperature Pulse Rate 99 Respiratory Rate Blood Pressure 119/67 Pulse Oximetry Body Mass Index 52.4 Labs Results: 05/24/21 08:08 05/24/21 08:08 Medications Medications Current Medications Acetaminophen (Acetaminophen 325 Mg Tablet) 975 mg PO TID PRN PRN Reason: Headache/Pain Mild Scale (1-3) Last Admin: 05/26/21 21:17 Dose: 975 mg Documented by: Al Hydroxide/Mg Hydroxide (Magnesium Hydrox/Alum Hydrox 30 Ml Oral.Susp) 30 ml PO Q6H PRN PRN Reason: Heartburn/Nausea Buspirone HCl (Buspirone Hcl 5 Mg Tablet) 15 mg PO BID [facility] Last Admin: 05/26/21 21:22 Dose: 15 mg Documented by: Calcium Carbonate (Calcium Carbonate 750 Mg Tab.Chew) 750 mg PO Q4H PRN PRN Reason: Heartburn Chlorpromazine HCl (Chlorpromazine Hcl 25 Mg Tablet) 25 mg PO QID PRN PRN Reason: Anxiety Last Admin: 05/26/21 21:22 Dose: 25 mg Documented by: Diphenhydramine HCl (Diphenhydramine Hcl 25 Mg Tablet) 50 mg PO Q6H PRN PRN Reason: for hives; also for anxiety Docusate Sodium (Docusate Sodium 100 Mg Capsule) 100 mg PO BID [facility] Last Admin: 05/26/21 21:16 Dose: 100 mg Documented by: Fluticasone Propionate (Fluticasone Propionate Nasal 16 Gm [place]) 2 spray N OSTRIL-B DAILY [facility] Last Admin: 05/26/21 08:43 Dose: Not Given Documented by: Ibuprofen (Ibuprofen 800 Mg Tablet) 800 mg PO TIDWM PRN PRN Reason: back pain Magnesium Hydroxide (Milk Of Magnesia 30 Ml Oral.Susp) 30 ml PO DAILY PRN PRN Reason: Constipation Omeprazole (Omeprazole 20 Mg Capsule.Dr) 20 mg PO DAILY@0630 [facility] Last Admin: 05/26/21 06:19 Dose: 20 mg Documented by: Oxycodone HCl (Oxycodone Hcl Immed Release 5 Mg Tablet) 5 mg PO Q8H PRN PRN Reason: back pain Last Admin: 05/26/21 21:22 Dose: 5 mg Documented by: Prazosin HCl (Prazosin Hcl 1 Mg Capsule) 3 mg PO BEDTIME [facility]; Protocol Last Admin: 05/26/21 21:19 Dose: 3 mg Documented by: Propranolol HCl (Propranolol Hcl 20 Mg Tablet) 40 mg PO BID [facility]; Protocol Last Admin: 05/26/21 21:21 Dose: 40 mg Documented by: Quetiapine Fumarate (Quetiapine Fumarate 400 Mg Tablet) 400 mg PO BEDTIME [facility] Last Admin: 05/26/21 21:23 Dose: 400 mg Documented by: Topiramate (Topiramate 100 Mg Tablet) 100 mg PO BID [facility] Last Admin: 05/26/21 21:16 Dose: 100 mg Documented by: Trazodone HCl (Trazodone Hcl 50 Mg Tablet) 50 mg PO BEDTIME PRN PRN Reason: Insomnia Trazodone HCl (Trazodone Hcl 50 Mg Tablet) 150 mg PO BEDTIME [facility] Last Admin: 05/26/21 21:18 Dose: 150 mg Documented by: Allergies Allergies Allergy/AdvReac Type Severity Reaction Status Date / Time Penicillins [PENICILLINS] Allergy Severe HIVES Unverified 04/27/20 16:51 prochlorperazine Allergy Severe HIVES Unverified 04/27/20 16:51 [From COMPAZINE] promethazine [PROMETHAZINE] Allergy Intermediate HEADACHES Unverified 04/27/20 16:51 haloperidol [From HALDOL] AdvReac Severe HIVES Unverified 04/27/20 16:51 Assessment & Plan Assessment & Plan (1) Cocaine abuse: Status: Acute Code(s): F14.10 - Cocaine abuse, uncomplicated (2) Bipolar disorder: Status: Chronic Code(s): F31.9 - Bipolar disorder, unspecified (3) PTSD (post-traumatic stress disorder): Status: Acute Code(s): F43.10 - Post-traumatic stress disorder, unspecified (4) Anxiety: Status: Acute Code(s): F41.9 - Anxiety disorder, unspecified Assessment and Plan: 41 yo female, hx of Bipolar Disorder, depression, PTSD, panic disorder, sub stance abuse with stable medicine regime for 6.5 years. Recent sudden sx of decompensation-depression, SI, AH, panic with persistance of sx for approx 2 wks. Pt identifies several losses recently-boyfriend, housing, needing to move back in with parents which is difficult as they have custody of her 8 yo child. Patient isolated to room reports intrusive nightmares mood anxious of overwhelmed trying to figure out her living situation her parents are very much not supportive emotionally Plan increase prazosin to 3 mg daily Consider Latuda for bipolar depression consider Lamictal given patient's bipolar diagnosis and PTSD Continue Seroquel Topamax monitor safety Greater than 50% of the session was spent on counseling and/or coordination of care Reason for contiued inpatient stay Substantial Risk for: harm to self and rapid decompensation
[2021-05-27] MEDS: Omeprazole 20 MG CAPSULE.DR PO (06:05)
[2021-05-27] MEDS: Acetaminophen 325 MG TABLET 975 MG PO ×3 (06:05→22:03)
[2021-05-27] MEDS: oxyCODONE HCl Immed Release 5 MG TABLET PO ×3 (06:06→22:03)
[2021-05-27] MEDS: busPIRone HCl 5 MG TABLET 15 MG PO ×2 (08:13→20:32)
[2021-05-27] MEDS: Docusate Sodium 100 MG CAPSULE PO ×2 (08:13→20:31)
[2021-05-27] MEDS: Topiramate 100 MG TABLET PO ×2 (08:13→20:33)
[2021-05-27 08:15] VITALS: BP 122/59; PULSE 87
[2021-05-27] MEDS: Propranolol HCL 20 MG TABLET 40 MG PO ×2 (08:15→20:32)
[2021-05-27 08:24] VITALS: RESP 16; TEMP 36.6; O2SAT 97
[2021-05-27] MEDS: OXcarbazepine 150 MG TABLET PO (12:54)
[2021-05-27] MEDS: Ibuprofen 800 MG TABLET PO (16:12)
--- NOTE | 2021-05-27 19:28 | HO.PSYCHPN ---
Subjective Subjective Date of Service: 05/27/21 Reason For Visit: Schizoaffective disorder, bipolar Subjective Notes: Conditional Voluntary Healthcare Proxy: No Guardianship: No Interim History: Patient reports a history of manic and impulsive behavior also ruminating on self-destructive and impulsive behavior. Has been diagnosed with bipolar disorder PTSD substance abuse was on lithium in the past Seroquel use to work for or auditory hallucinations appears no longer to be effective Patient hopeless helpless complains of nightmares negative voice telling her she should harm herself or to leave not otherwise psychotic Medication Compliance: Yes Mental Status Exam Mental Status Exam Patient Appearance: Well Grooomed and Appropriate Patient Orientation: Person, Place, Time and Situation Level of Consciousness: Awake and Alert Patient Behavior: Talkative, Cooperative, Restless, Anxious, Fatigued and Good Eye Contact Mood Description: Constricted and Depressed Affect Description: Constricted Patient Cognition Impaired: No Ability to Follow Directions: Good Speech Pattern: Clear, Appropriate and Spontaneous Speech Memory Description: Intact Hallucinations: Auditory Delusions: Not Present Thought Process: Intact Thought Content: positive for Intact, positive for Circumstantial and positive for Suicidal Ideation Depressive Symptoms: Increased Anxiety, Insomnia, Increased Irritability, Difficulty Sleeping, Loss of Int. in Activity, Hopelessness, Unhappiness, Increased Fatigue, Thoughts of /Suicide and Loss of Energy Abnormal Motor Activity Signs and Symptoms: Restlessness Judgement: Fair Diagnostics Vital Signs (24Hr): Vital Signs - 24 hr 05/26/21 21:15 05/26/21 21:19 05/26/21 21:21 Temperature 97.8 F Pulse Rate 99 99 99 Respiratory Rate Blood Pressure 119/67 119/67 119/67 Pulse Oximetry 05/27/21 08:15 05/27/21 08:24 Temperature 97.8 F Pulse Rate 87 Respiratory Rate 16 Blood Pressure 122/59 L Pulse Oximetry 97 Body Mass Index 52.4 Labs Results: 05/24/21 08:08 05/24/21 08:08 Medications Medications Current Medications Acetaminophen (Acetaminophen 325 Mg Tablet) 975 mg PO TID PRN PRN Reason: Headache/Pain Mild Scale (1-3) Last Admin: 05/27/21 14:12 Dose: 975 mg Documented by: Al Hydroxide/Mg Hydroxide (Magnesium Hydrox/Alum Hydrox 30 Ml Oral.Susp) 30 ml PO Q6H PRN PRN Reason: Heartburn/Nausea Buspirone HCl (Buspirone Hcl 5 Mg Tablet) 15 mg PO BID [facility] Last Admin: 05/27/21 08:13 Dose: 15 mg Documented by: Calcium Carbonate (Calcium Carbonate 750 Mg Tab.Chew) 750 mg PO Q4H PRN PRN Reason: Heartburn Chlorpromazine HCl (Chlorpromazine Hcl 25 Mg Tablet) 25 mg PO QID PRN PRN Reason: Anxiety Last Admin: 05/26/21 21:22 Dose: 25 mg Documented by: Diphenhydramine HCl (Diphenhydramine Hcl 25 Mg Tablet) 50 mg PO Q6H PRN PRN Reason: for hives; also for anxiety Docusate Sodium (Docusate Sodium 100 Mg Capsule) 100 mg PO BID [facility] Last Admin: 05/27/21 08:13 Dose: 100 mg Documented by: Fluticasone Propionate (Fluticasone Propionate Nasal 16 Gm [place]) 2 spray NOSTRIL-B DAILY [facility] Last Admin: 05/27/21 08:18 Dose: Not Given Documented by: Ibuprofen (Ibuprofen 800 Mg Tablet) 800 mg PO TIDWM PRN PRN Reason: back pain Last Admin: 05/27/21 16:12 Dose: 800 mg Documented by: Magnesium Hydroxide (Milk Of Magnesia 30 Ml Oral.Susp) 30 ml PO DAILY PRN PRN Reason: Constipation Omeprazole (Omeprazole 20 Mg Capsule.Dr) 20 mg PO DAILY@0630 [facility] Last Admin: 05/27/21 06:05 Dose: 20 mg Documented by: Oxcarbazepine (Oxcarbazepine 300 Mg Tablet) 300 mg PO BEDTIME [facility] Oxcarbazepine (Oxcarbazepine 150 Mg Tablet) 150 mg PO DAILY [facility] Last Admin: 05/27/21 12:54 Dose: 150 mg Documented by: Oxycodone HCl (Oxycodone Hcl Immed Release 5 Mg Tablet) 5 mg PO Q8H PRN PRN Reason: back pain Last Admin: 05/27/21 14:13 Dose: 5 mg Documented by: Prazosin HCl (Prazosin Hcl 1 Mg Capsule) 4 mg PO BEDTIME [facility]; Protocol Propranolol HCl (Propranolol Hcl 20 Mg Tablet) 40 mg PO BID [facility]; Protocol Last Admin: 05/27/21 08:15 Dose: 40 mg Documented by: Quetiapine Fumarate (Quetiapine Fumarate 400 Mg Tablet) 400 mg PO BEDTIME [facility] Last Admin: 05/26/21 21:23 Dose: 400 mg Documented by: Topiramate (Topiramate 100 Mg Tablet) 100 mg PO BID [facility] Last Admin: 05/27/21 08:13 Dose: 100 mg Documented by: Trazodone HCl (Trazodone Hcl 50 Mg Tablet) 50 mg PO BEDTIME PRN PRN Reason: Insomnia Trazodone HCl (Trazodone Hcl 50 Mg Tablet) 150 mg PO BEDTIME [facility] Last Admin: 05/26/21 21:18 Dose: 150 mg Documented by: Allergies Allergies Allergy/AdvReac Type Severity Reaction Status Date / Time Penicillins [PENICILLINS] Allergy Severe HIVES Unverified 04/27/20 16:51 prochlorperazine Allergy Severe HIVES Unverified 04/27/20 16:51 [From COMPAZINE] promethazine [PROMETHAZINE] Allergy Intermediate HEADACHES Unverified 04/27/20 16:51 haloperidol [From HALDOL] AdvReac Severe HIVES Unverified 04/27/20 16:51 Assessment & Plan Assessment & Plan (1) Cocaine abuse: Status: Acute Code(s): F14.10 - Cocaine abuse, uncomplicated (2) Bipolar disorder: Status: Chronic Code(s): F31.9 - Bipolar disorder, unspecified Assessment and Plan: Start Trileptal Education given should be helpful for mood disorder and PTSD strongly consider Latuda (3) PTSD (post-traumatic stress disorder): Status: Acute Code(s): F43.10 - Post-traumatic stress disorder, unspecified Assessment and Plan: Continue Topamax gabapentin prazosin increase prazosin to 4 mg at bedtime monitor for hypotension (4) Anxiety: Status: Acute Code(s): F41.9 - Anxiety disorder, unspecified Assessment and Plan: 41 yo female, hx of Bipolar Disorder, depression, PTSD, panic disorder, substance abuse with stable medicine regime for 6.5 years. Recent sudden sx of decompensation-depression, SI, AH, panic with persistance of sx for approx 2 wks. Pt identifies several losses recently-boyfriend, housing, needing to move back in with parents which is difficult as they have custody of her 8 yo child. Patient isolated to room reports intrusive nightmares mood anxious of overwhelmed trying to figure out her living situation her parents are very much not supportive emotionally Plan increase prazosin to 3 mg daily Consider Latuda for bipolar depression consider Lamictal given patient's bipolar diagnosis and PTSD Continue Seroquel Topamax monitor safety Greater than 50% of the session was spent on counseling and/or coordination of care Reason for contiued inpatient stay Substantial Risk for: harm to self and rapid decompensation
[2021-05-27] MEDS: OXcarbazepine 300 MG TABLET PO (20:32)
[2021-05-27] MEDS: traZODone HCL 50 MG TABLET 150 MG PO (20:32)
[2021-05-27] MEDS: Prazosin HCL 1 MG CAPSULE 4 MG PO (20:33)
[2021-05-27] MEDS: QUEtiapine Fumarate 400 MG TABLET PO (20:33)
[2021-05-27] MEDS: chlorproMAZINE HCl 25 MG TABLET PO (20:35)
[2021-05-27] MEDS: traZODone HCL 50 MG TABLET PO (22:03)
[2021-05-28] MEDS: oxyCODONE HCl Immed Release 5 MG TABLET PO ×3 (05:42→21:57)
[2021-05-28] MEDS: Omeprazole 20 MG CAPSULE.DR PO (05:43)
[2021-05-28 06:00] VITALS: BP 120/73; PULSE 79; RESP 18; TEMP 36.1; O2SAT 100
[2021-05-28 08:33] VITALS: BP 121/61; PULSE 77
[2021-05-28] MEDS: Fluticasone Propionate Nasal 16 GM SPRAY 2 SPRAY NOSTRIL-B (08:33)
[2021-05-28] MEDS: busPIRone HCl 5 MG TABLET 15 MG PO ×2 (08:33→20:12)
[2021-05-28] MEDS: Propranolol HCL 20 MG TABLET 40 MG PO ×2 (08:33→20:11)
[2021-05-28] MEDS: OXcarbazepine 150 MG TABLET PO (08:33)
[2021-05-28] MEDS: Topiramate 100 MG TABLET PO ×2 (08:34→20:13)
[2021-05-28] MEDS: Docusate Sodium 100 MG CAPSULE PO ×2 (08:34→20:13)
[2021-05-28] MEDS: Ibuprofen 800 MG TABLET PO (10:20)
--- NOTE | 2021-05-28 13:07 | HO.PSYCHPN ---
Subjective Subjective Date of Service: 05/28/21 Reason For Visit: Schizoaffective disorder, bipolar Interim History: Patient seen on 05/28 Patient reports continued depression and says she is waiting for new medication Trileptal to kick in. Patient has been on this for a few days and agrees to increase to 300 b.i.d.. Patient says she still gets intermittent and suicidal ideation and auditory hallucinations; she says they come and go and she has been using her coping skills such as journaling and other distractions which she says helps. Patient says this is not uncommon. She denies any active SI. Patient shared that she prefers to go to a assisted rather than return to live with her parents as that environment is just too triggering for her. Patient reports she did have a nightmare last night even though prazosin had been increased to 4 mg. She says it is probably just she because she was having a tough day and hopes that tonight will be nightmare free. Mental Status Exam Mental Status Exam Narrative: Patient Appearance:?adequately Groomed Patient Orientation:?Person, Place, Time and Situation Level of Consciousness:?Awake and Alert Patient Behavior:?Cooperative, calm; Good Eye Contact Mood Description:?depressed Affect Description:?Constricted Patient Cognition Impaired:?No Ability to Follow Directions:?Good Speech Pattern:?Clear, Appropriate and Spontaneous Speech Memory Description:?Intact Hallucinations:?Auditory Hallucinations saying mean things about her Delusions:?Not Present Thought Process:?Intact; linear, goal oriented Thought Content:? SI but passive; no HI; otherwise on treatment; no delusional content Abnormal Motor Activity Signs and Symptoms:?some psychomotor retardation Judgment/insight:?Fair Diagnostics Vital Signs (24Hr): Vital Signs - 24 hr 05/28/21 06:00 05/28/21 08:33 Temperature 96.9 F Pulse Rate 79 77 Respiratory Rate 18 Blood Pressure 120/73 121/61 Pulse Oximetry 100 Body Mass Index 52.4 Labs Results: 05/24/21 08:08 05/24/21 08:08 Medications Medications Current Medications Acetaminophen (Acetaminophen 325 Mg Tablet) 975 mg PO TID PRN PRN Reason: Headache/Pain Mild Scale (1-3) Last Admin: 05/27/21 22:03 Dose: 975 mg Documented by: Al Hydroxide/Mg Hydroxide (Magnesium Hydrox/Alum Hydrox 30 Ml Oral.Susp) 30 ml PO Q6H PRN PRN Reason: Heartburn/Nausea Buspirone HCl (Buspirone Hcl 5 Mg Tablet) 15 mg PO BID [facility] Last Admin: 05/28/21 08:33 Dose: 15 mg Documented by: Calcium Carbonate (Calcium Carbonate 750 Mg Tab.Chew) 750 mg PO Q4H PRN PRN Reason: Heartburn Chlorpromazine HCl (Chlorpromazine Hcl 25 Mg Tablet) 25 mg PO QID PRN PRN Reason: Anxiety Last Admin: 05/27/21 20:35 Dose: 25 mg Documented by: Diphenhydramine HCl (Diphenhydramine Hcl 25 Mg Tablet) 50 mg PO Q6H PRN PRN Reason: for hives; also for anxiety Docusate Sodium (Docusate Sodium 100 Mg Capsule) 100 mg PO BID [facility] Last Admin: 05/28/21 08:34 Dose: 100 mg Documented by: Fluticasone Propionate (Fluticasone Propionate Nasal 16 Gm [place]) 2 spray NOSTRIL-B DAILY [facility] Last Admin: 05/28/21 08:33 Dose: 2 spray Documented by: Ibuprofen (Ibuprofen 800 Mg Tablet) 800 mg PO TIDWM PRN PRN Reason: back pain Last Admin: 05/28/21 10:20 Dose: 800 mg Documented by: Magnesium Hydroxide (Milk Of Magnesia 30 Ml Oral.Susp) 30 ml PO DAILY PRN PRN Reason: Constipation Omeprazole (Omeprazole 20 Mg Capsule.Dr) 20 mg PO DAILY@0630 [facility] Last Admin: 05/28/21 05:43 Dose: 20 mg Documented by: Oxcarbazepine (Oxcarbazepine 300 Mg Tablet) 300 mg PO BEDTIME [facility] Last Admin: 05/27/21 20:32 Dose: 300 mg Documented by: Oxcarbazepine (Oxcarbazepine 150 Mg Tablet) 150 mg PO DAILY [facility] Last Admin: 05/28/21 08:33 Dose: 150 mg Documented by: Oxycodone HCl (Oxycodone Hcl Immed Release 5 Mg Tablet) 5 mg PO Q8H PRN PRN Reason: back pain Last Admin: 05/28/21 05:42 Dose: 5 mg Documented by: Prazosin HCl (Prazosin Hcl 1 Mg Capsule) 4 mg PO BEDTIME [facility]; Protocol Last Admin: 05/27/21 20:33 Dose: 4 mg Documented by: Propranolol HCl (Propranolol Hcl 20 Mg Tablet) 40 mg PO BID [facility]; Protocol Last Admin: 05/28/21 08:33 Dose: 40 mg Documented by: Quetiapine Fumarate (Quetiapine Fumarate 400 Mg Tablet) 400 mg PO BEDTIME [facility] Last Admin: 05/27/21 20:33 Dose: 400 mg Documented by: Topiramate (Topiramate 100 Mg Tablet) 100 mg PO BID [facility] Last Admin: 05/28/21 08:34 Dose: 100 mg Documented by: Trazodone HCl (Trazodone Hcl 50 Mg Tablet) 50 mg PO BEDTIME PRN PRN Reason: Insomnia Last Admin: 05/27/21 22:03 Dose: 50 mg Documented by: Trazodone HCl (Trazodone Hcl 50 Mg Tablet) 150 mg PO BEDTIME [facility] Last Admin: 05/27/21 20:32 Dose: 150 mg Documented by: Allergies Allergies Allergy/AdvReac Type Severity Reaction Status Date / Time Penicillins [PENICILLINS] Allergy Severe HIVES Unverified 04/27/20 16:51 prochlorperazine Allergy Severe HIVES Unverified 04/27/20 16:51 [From COMPAZINE] promethazine [PROMETHAZINE] Allergy Intermediate HEADACHES Unverified 04/27/20 16:51 haloperidol [From HALDOL] AdvReac Severe HIVES Unverified 04/27/20 16:51 Assessment & Plan Assessment & Plan (1) Cocaine abuse: Status: Acute Code(s): F14.10 - Cocaine abuse, uncomplicated (2) Bipolar disorder: Status: Chronic Code(s): F31.9 - Bipolar disorder, unspecified Assessment and Plan: Start Trileptal Education given should be helpful for mood disorder and PTSD strongly consider Latuda (3) PTSD (post-traumatic stress disorder): Status: Acute Code(s): F43.10 - Post-traumatic stress disorder, unspecified Assessment and Plan: Continue Topamax gabapentin prazosin increase prazosin to 4 mg at bedtime monitor for hypotension (4) Anxiety: Status: Acute Code(s): F41.9 - Anxiety disorder, unspecified Assessment and Plan: 41 yo female, hx of Bipolar Disorder, depression, PTSD, panic disorder, substance abuse with stable medicine regime for 6.5 years. Recent sudden sx of decompensation-depression, SI, AH, panic with persistance of sx for approx 2 wks. Pt identifies several losses recently-boyfriend, housing, needing to move back in with parents which is difficult as they have custody of her 8 yo child. Patient isolated to room reports intrusive nightmares mood anxious of overwhelmed trying to figure out her living situation her parents are very much not supportive emotionally Plan increase prazosin to 4mg daily Trileptal (had Consider Latuda for bipolar depression consider Lamictal) given patient's bipolar diagnosis and PTSD Continue Seroquel Topamax monitor safety PLAN Patient on CV Q 15 minutes checks Will increase Trileptal to 300 mg b.i.d. for ongoing mood dysregulation. Greater than 50% of the session was spent on counseling and/or coordination of care Reason for contiued inpatient stay Substantial Risk for: med/psych decompensation
[2021-05-28 20:00] VITALS: BP 121/79; PULSE 85; TEMP 35.8; O2SAT 100
[2021-05-28 20:11] VITALS: BP 121/79; PULSE 85
[2021-05-28] MEDS: traZODone HCL 50 MG TABLET 150 MG PO (20:11)
[2021-05-28 20:12] VITALS: BP 121/79; PULSE 85
[2021-05-28] MEDS: Prazosin HCL 1 MG CAPSULE 4 MG PO (20:12)
[2021-05-28] MEDS: OXcarbazepine 300 MG TABLET PO (20:13)
[2021-05-28] MEDS: QUEtiapine Fumarate 400 MG TABLET PO (20:13)
[2021-05-28] MEDS: Acetaminophen 325 MG TABLET 975 MG PO (21:56)
[2021-05-28] MEDS: chlorproMAZINE HCl 25 MG TABLET PO (21:56)
[2021-05-29 06:00] VITALS: BP 107/57; PULSE 74; RESP 18; TEMP 36.1; O2SAT 97
[2021-05-29] MEDS: Omeprazole 20 MG CAPSULE.DR PO (06:20)
[2021-05-29] MEDS: oxyCODONE HCl Immed Release 5 MG TABLET PO ×3 (06:20→22:37)
[2021-05-29 08:28] VITALS: BP 118/68; PULSE 78
[2021-05-29 08:31] VITALS: BP 118/68; PULSE 78
[2021-05-29] MEDS: Docusate Sodium 100 MG CAPSULE PO ×2 (08:31→22:05)
[2021-05-29] MEDS: busPIRone HCl 5 MG TABLET 15 MG PO ×2 (08:31→22:05)
[2021-05-29] MEDS: Topiramate 100 MG TABLET PO ×2 (08:31→22:07)
[2021-05-29] MEDS: Propranolol HCL 20 MG TABLET 40 MG PO ×2 (08:31→22:06)
[2021-05-29] MEDS: OXcarbazepine 300 MG TABLET PO ×2 (08:31→22:06)
[2021-05-29] MEDS: Ibuprofen 800 MG TABLET PO (09:01)
[2021-05-29] MEDS: chlorproMAZINE HCl 25 MG TABLET PO ×2 (16:14→22:38)
[2021-05-29 21:45] VITALS: BP 134/82; PULSE 90; TEMP 35.8; O2SAT 100
[2021-05-29 22:06] VITALS: BP 134/82; PULSE 90
[2021-05-29] MEDS: Prazosin HCL 1 MG CAPSULE 4 MG PO (22:06)
[2021-05-29] MEDS: QUEtiapine Fumarate 400 MG TABLET PO (22:07)
[2021-05-29] MEDS: traZODone HCL 50 MG TABLET 150 MG PO (22:08)
[2021-05-30 06:00] VITALS: BP 124/73; PULSE 99; TEMP 36.1; O2SAT 97
[2021-05-30 08:01] VITALS: BP 124/73; PULSE 99
[2021-05-30] MEDS: busPIRone HCl 5 MG TABLET 15 MG PO ×2 (08:01→20:22)
[2021-05-30] MEDS: oxyCODONE HCl Immed Release 5 MG TABLET PO ×2 (08:01→15:55)
[2021-05-30] MEDS: Topiramate 100 MG TABLET PO ×2 (08:01→20:23)
[2021-05-30] MEDS: Propranolol HCL 20 MG TABLET 40 MG PO ×2 (08:01→20:20)
[2021-05-30] MEDS: Omeprazole 20 MG CAPSULE.DR PO (08:01)
[2021-05-30] MEDS: Docusate Sodium 100 MG CAPSULE PO ×2 (08:01→20:22)
[2021-05-30] MEDS: OXcarbazepine 300 MG TABLET PO ×2 (08:02→20:24)
--- NOTE | 2021-05-30 09:11 | HO.PSYCHPN ---
Subjective Subjective Date of Service: 05/29/21 Reason For Visit: Schizoaffective disorder, bipolar Interim History: pt seen on 05/29 Patient reports that she still has intermittent SI and intermittent AH but that it is decreased in intensity; she feels that her mood is getting better little by little and any SI remains passive without intent or plans. Patient feels that coming to the unit was the right thing to do and she feels like she is getting her emotions under control. Patient asked web content writer if her team could help get her son Cali to bring her belongings so she could be prepared for discharge at the end of this week. She says she told her family but is worried that they will procrastinate. Hydrographer agreed to help. Patient denies medication side effects and has no other complaints or requests. She remains in good behavioral control, appropriate with peers and staff, attending groups. Mental Status Exam Mental Status Exam Narrative: Patient Appearance:?adequately Groomed Patient Orientation:?Person, Place, Time and Situation Level of Consciousness:?Awake and Alert Patient Behavior:?Cooperative, calm; Good Eye Contact Mood Description:?depressed but less so Affect Description:?euthymic Patient Cognition Impaired:?No Ability to Follow Directions:?Good Speech Pattern:?Clear, Appropriate and Spontaneous Speech Memory Description:?Intact Hallucinations:?intermittent Auditory Hallucinations saying mean things about her but less so Delusions:?Not Present Thought Process:?Intact; linear, goal oriented Thought Content:?intermittent SI but passive; no HI; otherwise on treatment; no delusional content Abnormal Motor Activity Signs and Symptoms:?some psychomotor retardation Judgment/insight:?Fair Diagnostics Vital Signs (24Hr): Vital Signs - 24 hr 05/29/21 21:45 05/29/21 22:06 05/30/21 06:00 Temperature 96.5 F L 96.9 F Pulse Rate 90 90 99 Blood Pressure 134/82 134/82 124/73 Pulse Oximetry 100 97 05/30/21 08:01 Temperature Pulse Rate 99 Blood Pressure 124/73 Pulse Oximetry Body Mass Index 52.4 Labs Results: 05/24/21 08:08 05/24/21 08:08 Medications Medications Current Medications Acetaminophen (Acetaminophen 325 Mg Tablet) 975 mg PO TID PRN PRN Reason: Headache/Pain Mild Scale (1-3) Last Admin: 05/28/21 21:56 Dose: 975 mg Documented by: Al Hydroxide/Mg Hydroxide (Magnesium Hydrox/Alum Hydrox 30 Ml Oral.Susp) 30 ml PO Q6H PRN PRN Reason: Heartburn/Nausea Buspirone HCl (Buspirone Hcl 5 Mg Tablet) 15 mg PO BID [facility] Last Admin: 05/30/21 08:01 Dose: 15 mg Documented by: Calcium Carbonate (Calcium Carbonate 750 Mg Tab.Chew) 750 mg PO Q4H PRN PRN Reason: Heartburn Chlorpromazine HCl (Chlorpromazine Hcl 25 Mg Tablet) 25 mg PO QID PRN PRN Reason: Anxiety Last Admin: 05/29/21 22:38 Dose: 25 mg Documented by: Diphenhydramine HCl (Diphenhydramine Hcl 25 Mg Tablet) 50 mg PO Q6H PRN PRN Reason: for hives; also for anxiety Docusate Sodium (Docusate Sodium 100 Mg Capsule) 100 mg PO BID [facility] Last Admin: 05/30/21 08:01 Dose: 100 mg Documented by: Fluticasone Propionate (Fluticasone Propionate Nasal 16 Gm [place]) 2 spray NOSTRIL-B DAILY [facility] Last Admin: 05/30/21 08:43 Dose: Not Given Documented by: Ibuprofen (Ibuprofen 800 Mg Tablet) 800 mg PO TIDWM PRN PRN Reason: back pain Last Admin: 05/29/21 09:01 Dose: 800 mg Documented by: Magnesium Hydroxide (Milk Of Magnesia 30 Ml Oral.Susp) 30 ml PO DAILY PRN PRN Reason: Constipation Omeprazole (Omeprazole 20 Mg Capsule.Dr) 20 mg PO DAILY@0630 [facility] Last Admin: 05/30/21 08:01 Dose: 20 mg Documented by: Oxcarbazepine (Oxcarbazepine 300 Mg Tablet) 300 mg PO BID [facility] Last Admin: 05/30/21 08:02 Dose: 300 mg Documented by: Oxycodone HCl (Oxycodone Hcl Immed Release 5 Mg Tablet) 5 mg PO Q8H PRN PRN Reason: Pain, Severe (Pain Scale 7-10) Last Admin: 05/30/21 08:01 Dose: 5 mg Documented by: Prazosin HCl (Prazosin Hcl 1 Mg Capsule) 4 mg PO BEDTIME [facility]; Protocol Last Admin: 05/29/21 22:06 Dose: 4 mg Documented by: Propranolol HCl (Propranolol Hcl 20 Mg Tablet) 40 mg PO BID [facility]; Protocol Last Admin: 05/30/21 08:01 Dose: 40 mg Documented by: Quetiapine Fumarate (Quetiapine Fumarate 400 Mg Tablet) 400 mg PO BEDTIME [facility] Last Admin: 05/29/21 22:07 Dose: 400 mg Documented by: Topiramate (Topiramate 100 Mg Tablet) 100 mg PO BID [facility] Last Admin: 05/30/21 08:01 Dose: 100 mg Documented by: Trazodone HCl (Trazodone Hcl 50 Mg Tablet) 50 mg PO BEDTIME PRN PRN Reason: Insomnia Last Admin: 05/27/21 22:03 Dose: 50 mg Documented by: Trazodone HCl (Trazodone Hcl 50 Mg Tablet) 150 mg PO BEDTIME [facility] Last Admin: 05/29/21 22:08 Dose: 150 mg Documented by: Allergies Allergies Allergy/AdvReac Type Severity Reaction Status Date / Time Penicillins [PENICILLINS] Allergy Severe HIVES Unverified 04/27/20 16:51 prochlorperazine Allergy Severe HIVES Unverified 04/27/20 16:51 [From COMPAZINE] promethazine [PROMETHAZINE] Allergy Intermediate HEADACHES Unverified 04/27/20 16:51 haloperidol [From HALDOL] AdvReac Severe HIVES Unverified 04/27/20 16:51 Assessment & Plan Assessment & Plan (1) Cocaine abuse: Status: Acute Code(s): F14.10 - Cocaine abuse, uncomplicated (2) Bipolar disorder: Status: Chronic Code(s): F31.9 - Bipolar disorder, unspecified Assessment and Plan: Start Trileptal Education given should be helpful for mood disorder and PTSD strongly consider Latuda (3) PTSD (post-traumatic stress disorder): Status: Acute Code(s): F43.10 - Post-traumatic stress disorder, unspecified Assessment and Plan: Continue Topamax gabapentin prazosin increase prazosin to 4 mg at bedtime monitor for hypotension (4) Anxiety: Status: Acute Code(s): F41.9 - Anxiety disorder, unspecified Assessment and Plan: 41 yo female, hx of Bipolar Disorder, depression, PTSD, panic disorder, substance abuse with stable medicine regime for 6.5 years. Recent sudden sx of decompensation-depression, SI, AH, panic with persistance of sx for approx 2 wks. Pt identifies several losses recently-boyfriend, housing, needing to move back in with parents which is difficult as they have custody of her 8 yo child. Patient isolated to room reports intrusive nightmares mood anxious of overwhelmed trying to figure out her living situation her parents are very much not supportive emotionally Plan increase prazosin to 4mg daily Trileptal well tolerated, seems to be helpful(had Consider Latuda for bipolar depression consider Lamictal) given patient's bipolar diagnosis and PTSD Continue Seroquel Topamax monitor safety Patient continues to have intermittent SI and AH however she says that she is able to cope with them and they are approaching baseline level PLAN Patient on CV Q 15 minutes checks Will increase Trileptal to 300 mg b.i.d. for ongoing mood dysregulation. I spent minutes with the patient and/or on the patient floor today, greater than?50% of which was spent counseling/coordinating care. Reason for contiued inpatient stay Substantial Risk for: med/psych decompensation
--- NOTE | 2021-05-30 10:24 | HO.PSYCHPN ---
Subjective Subjective Date of Service: 05/30/21 Reason For Visit: Schizoaffective disorder, bipolar Interim History: reports mood is better and that meds seem to be working; no side-effects; denies any SI. She says she still has intermittent negative AH which she says she can ignore. Pt says she feels ready for discharge; she [facility] saying it's too triggering and so prefers to go to alf which SW is helping set up. Mental Status Exam Mental Status Exam Narrative: atient Appearance:?adequately Groomed Patient Orientation:?Person, Place, Time and Situation Level of Consciousness:?Awake and Alert Patient Behavior:?Cooperative, calm; Good Eye Contact Mood Description:?euthymic Affect Description:?calm, appropriate Patient Cognition Impaired:?No Ability to Follow Directions:?Good Speech Pattern:?Clear, Appropriate and Spontaneous Speech Memory Description:?Intact Hallucinations:?intermittent Auditory Hallucinations but less so Delusions:?Not Present Thought Process:?Intact; linear, goal oriented Thought Content:?No SI; no HI; on treatment, discharge plans; no delusional content Abnormal Motor Activity Signs and Symptoms:?no psychomotor retardation Judgment/insight:?Fair Diagnostics Vital Signs (24Hr): Vital Signs - 24 hr 05/29/21 21:45 05/29/21 22:06 05/30/21 06:00 Temperature 96.5 F L 96.9 F Pulse Rate 90 90 99 Blood Pressure 134/82 134/82 124/73 Pulse Oximetry 100 97 05/30/21 08:01 Temperature Pulse Rate 99 Blood Pressure 124/73 Pulse Oximetry Body Mass Index 52.4 Labs Results: 05/24/21 08:08 05/24/21 08:08 Medications Medications Current Medications Acetaminophen (Acetaminophen 325 Mg Tablet) 975 mg PO TID PRN PRN Reason: Headache/Pain Mild Scale (1-3) Last Admin: 05/28/21 21:56 Dose: 975 mg Documented by: Al Hydroxide/Mg Hydroxide (Magnesium Hydrox/Alum Hydrox 30 Ml Oral.Susp) 30 ml PO Q6H PRN PRN Reason: Heartburn/Nausea Buspirone HCl (Buspirone Hcl 5 Mg Tablet) 15 mg PO BID [facility] Last Admin: 05/30/21 08:01 Dose: 15 mg Documented by: Calcium Carbonate (Calcium Carbonate 750 Mg Tab.Chew) 750 mg PO Q4H PRN PRN Reason: Heartburn Chlorpromazine HCl (Chlorpromazine Hcl 25 Mg Tablet) 25 mg PO QID PRN PRN Reason: Anxiety Last Admin: 05/29/21 22:38 Dose: 25 mg Documented by: Diphenhydramine HCl (Diphenhydramine Hcl 25 Mg Tablet) 50 mg PO Q6H PRN PRN Reason: for hives; also for anxiety Docusate Sodium (Docusate Sodium 100 Mg Capsule) 100 mg PO BID [facility] Last Admin: 05/30/21 08:01 Dose: 100 mg Documented by: Fluticasone Propionate (Fluticasone Propionate Nasal 16 Gm [place]) 2 spray NOSTRIL-B DAILY [facility] Last Admin: 05/30/21 08:43 Dose: Not Given Documented by: Ibuprofen (Ibuprofen 800 Mg Tablet) 800 mg PO TIDWM PRN PRN Reason: back pain Last Admin: 05/29/21 09:01 Dose: 800 mg Documented by: Magnesium Hydroxide (Milk Of Magnesia 30 Ml Oral.Susp) 30 ml PO DAILY PRN PRN Reason: Constipation Omeprazole (Omeprazole 20 Mg Capsule.Dr) 20 mg PO DAILY@0630 [facility] Last Admin: 05/30/21 08:01 Dose: 20 mg Documented by: Oxcarbazepine (Oxcarbazepine 300 Mg Tablet) 300 mg PO BID [facility] Last Admin: 05/30/21 08:02 Dose: 300 mg Documented by: Oxycodone HCl (Oxycodone Hcl Immed Release 5 Mg Tablet) 5 mg PO Q8H PRN PRN Reason: Pain, Severe (Pain Scale 7-10) Last Admin: 05/30/21 08:01 Dose: 5 mg Documented by: Prazosin HCl (Prazosin Hcl 1 Mg Capsule) 4 mg PO BEDTIME [facility]; Protocol Last Admin: 05/29/21 22:06 Dose: 4 mg Documented by: Propranolol HCl (Propranolol Hcl 20 Mg Tablet) 40 mg PO BID [facility]; Protocol Last Admin: 05/30/21 08:01 Dose: 40 mg Documented by: Quetiapine Fumarate (Quetiapine Fumarate 400 Mg Tablet) 400 mg PO BEDTIME [facility] Last Admin: 05/29/21 22:07 Dose: 400 mg Documented by: Topiramate (Topiramate 100 Mg Tablet) 100 mg PO BID [facility] Last Admin: 05/30/21 08:01 Dose: 100 mg Documented by: Trazodone HCl (Trazodone Hcl 50 Mg Tablet) 50 mg PO BEDTIME PRN PRN Reason: Insomnia Last Admin: 05/27/21 22:03 Dose: 50 mg Documented by: Trazodone HCl (Trazodone Hcl 50 Mg Tablet) 150 mg PO BEDTIME [facility] Last Admin: 05/29/21 22:08 Dose: 150 mg Documented by: Allergies Allergies Allergy/AdvReac Type Severity Reaction Status Date / Time Penicillins [PENICILLINS] Allergy Severe HIVES Unverified 04/27/20 16:51 prochlorperazine Allergy Severe HIVES Unverified 04/27/20 16:51 [From COMPAZINE] promethazine [PROMETHAZINE] Allergy Intermediate HEADACHES Unverified 04/27/20 16:51 haloperidol [From HALDOL] AdvReac Severe HIVES Unverified 04/27/20 16:51 Assessment & Plan Assessment & Plan (1) Cocaine abuse: Status: Acute Code(s): F14.10 - Cocaine abuse, uncomplicated (2) Bipolar disorder: Status: Chronic Code(s): F31.9 - Bipolar disorder, unspecified Assessment and Plan: Start Trileptal Education given should be helpful for mood disorder and PTSD strongly consider Latuda (3) PTSD (post-traumatic stress disorder): Status: Acute Code(s): F43.10 - Post-traumatic stress disorder, unspecified Assessment and Plan: Continue Topamax gabapentin prazosin increase prazosin to 4 mg at bedtime monitor for hypotension (4) Anxiety: Status: Acute Code(s): F41.9 - Anxiety disorder, unspecified Assessment and Plan: 41 yo female, hx of Bipolar Disorder, depression, PTSD, panic disorder, substance abuse with stable medicine regime for 6.5 years. Recent sudden sx of decompensation-depression, SI, AH, panic with persistance of sx for approx 2 wks. Pt identifies several losses recently-boyfriend, housing, needing to move back in with parents which is difficult as they have custody of her 8 yo child. Patient isolated to room reports intrusive nightmares mood anxious of overwhelmed trying to figure out her living situation her parents are very much not supportive emotionally Plan increase prazosin to 4mg daily Trileptal well tolerated, seems to be helpful(had Consider Latuda for bipolar depression consider Lamictal) given patient's bipolar diagnosis and PTSD Continue Seroquel Topamax monitor safety no SI; intermittent but ignorable AH; pt says meds are working, mood is better; she is feeling ready for discharge, just waiting for a bed. PLAN Patient on CV Q 15 minutes checks Trileptal to 300 mg b.i.d. I spent minutes with the patient and/or on the patient floor today, greater than?50% of which was spent counseling/coordinating care. Reason for contiued inpatient stay Substantial Risk for: stable for discharge
[2021-05-30] MEDS: chlorproMAZINE HCl 25 MG TABLET PO ×2 (15:53→20:25)
[2021-05-30 20:11] VITALS: BP 134/84; PULSE 86; RESP 16; TEMP 35.7; O2SAT 99
[2021-05-30 20:20] VITALS: BP 134/82; PULSE 86
[2021-05-30 20:21] VITALS: BP 134/82; PULSE 86
[2021-05-30] MEDS: Prazosin HCL 1 MG CAPSULE 4 MG PO (20:21)
[2021-05-30] MEDS: QUEtiapine Fumarate 400 MG TABLET PO (20:24)
[2021-05-30] MEDS: traZODone HCL 50 MG TABLET 150 MG PO (20:25)
[2021-05-31] MEDS: oxyCODONE HCl Immed Release 5 MG TABLET PO ×3 (03:11→19:36)
[2021-05-31 06:00] VITALS: RESP 16; TEMP 36.4; O2SAT 100
[2021-05-31 07:00] VITALS: BMI 54.6
[2021-05-31 08:10] VITALS: BP 132/88; PULSE 84
[2021-05-31] MEDS: OXcarbazepine 300 MG TABLET PO ×2 (08:10→22:01)
[2021-05-31] MEDS: Docusate Sodium 100 MG CAPSULE PO ×2 (08:10→22:01)
[2021-05-31] MEDS: Propranolol HCL 20 MG TABLET 40 MG PO ×2 (08:10→21:59)
[2021-05-31] MEDS: Topiramate 100 MG TABLET PO ×2 (08:11→22:01)
[2021-05-31] MEDS: busPIRone HCl 5 MG TABLET 15 MG PO ×2 (08:11→21:59)
[2021-05-31] MEDS: Omeprazole 20 MG CAPSULE.DR PO (08:11)
[2021-05-31] MEDS: Ibuprofen 800 MG TABLET PO ×2 (08:20→22:00)
[2021-05-31] MEDS: Acetaminophen 325 MG TABLET 975 MG PO (11:42)
--- NOTE | 2021-05-31 16:24 | HO.PSYCHPN ---
Subjective Subjective Date of Service: 05/31/21 Reason For Visit: Schizoaffective disorder, bipolar Interim History: Patient says ?I am getting there. ?. Patient reports that mood remains improved and anxiety lessened. No SI; intermittent AH that is ignore bowl and remains mood congruent. Patient was happy that she received her belongings from parent's house and feels ready for discharge tomorrow. She remains focused on going to a alf instead of returning to her parent's house which she finds triggering. Patient has no other complaints and is tolerating her medication regimen without side effects. Mental Status Exam Mental Status Exam Narrative: patient Appearance:?adequately Groomed Patient Orientation:?Person, Place, Time and Situation Level of Consciousness:?Awake and Alert Patient Behavior:?Cooperative, calm; Good Eye Contact Mood Description:? getting there Affect Description:?calm, appropriate Patient Cognition Impaired:?No Ability to Follow Directions:?Good Speech Pattern:?Clear, Appropriate and Spontaneous Speech Memory Description:?Intact Hallucinations:?intermittent Auditory Hallucinations? but less so and ignorable Delusions:?Not Present Thought Process:?Intact; linear, goal oriented Thought Content:?No SI; no HI; on treatment, discharge plans;? no delusional content Abnormal Motor Activity Signs and Symptoms:?no psychomotor retardation Judgment/insight:?Fair Diagnostics Vital Signs (24Hr): Vital Signs - 24 hr 05/30/21 20:11 05/30/21 20:20 05/30/21 20:21 Temperature 96.2 F L Pulse Rate 86 86 86 Respiratory Rate 16 Blood Pressure 134/84 134/82 134/82 Pulse Oximetry 99 05/31/21 06:00 05/31/21 08:10 Temperature 97.6 F Pulse Rate 84 Respiratory Rate 16 Blood Pressure 132/88 Pulse Oximetry 100 Body Mass Index 54.6 Labs Results: 05/24/21 08:08 05/24/21 08:08 Medications Medications Current Medications Acetaminophen (Acetaminophen 325 Mg Tablet) 975 mg PO TID PRN PRN Reason: Headache/Pain Mild Scale (1-3) Last Admin: 05/31/21 11:42 Dose: 975 mg Documented by: Al Hydroxide/Mg Hydroxide (Magnesium Hydrox/Alum Hydrox 30 Ml Oral.Susp) 30 ml PO Q6H PRN PRN Reason: Heartburn/Nausea Buspirone HCl (Buspirone Hcl 5 Mg Tablet) 15 mg PO BID [facility] Last Admin: 05/31/21 08:11 Dose: 15 mg Documented by: Calcium Carbonate (Calcium Carbonate 750 Mg Tab.Chew) 750 mg PO Q4H PRN PRN Reason: Heartburn Chlorpromazine HCl (Chlorpromazine Hcl 25 Mg Tablet) 25 mg PO QID PRN PRN Reason: Anxiety Last Admin: 05/30/21 20:25 Dose: 25 mg Documented by: Diphenhydramine HCl (Diphenhydramine Hcl 25 Mg Tablet) 50 mg PO Q6H PRN PRN Reason: for hives; also for anxiety Docusate Sodium (Docusate Sodium 100 Mg Capsule) 100 mg PO BID [facility] Last Admin: 05/31/21 08:10 Dose: 100 mg Documented by: Fluticasone Propionate (Fluticasone Propionate Nasal 16 Gm [place]) 2 spray NOSTRIL-B DAILY [facility] Last Admin: 05/31/21 08:38 Dose: Not Given Documented by: Ibuprofen (Ibuprofen 800 Mg Tablet) 800 mg PO TIDWM PRN PRN Reason: back pain Last Admin: 05/31/21 08:20 Dose: 800 mg Documented by: Magnesium Hydroxide (Milk Of Magnesia 30 Ml Oral.Susp) 30 ml PO DAILY PRN PRN Reason: Constipation Omeprazole (Omeprazole 20 Mg Capsule.Dr) 20 mg PO DAILY@0630 [facility] Last Admin: 05/31/21 08:11 Dose: 20 mg Documented by: Oxcarbazepine (Oxcarbazepine 300 Mg Tablet) 300 mg PO BID [facility] Last Admin: 05/31/21 08:10 Dose: 300 mg Documented by: Oxycodone HCl (Oxycodone Hcl Immed Release 5 Mg Tablet) 5 mg PO Q8H PRN PRN Reason: Pain, Severe (Pain Scale 7-10) Last Admin: 05/31/21 11:42 Dose: 5 mg Documented by: Prazosin HCl (Prazosin Hcl 1 Mg Capsule) 4 mg PO BEDTIME [facility]; Protocol Last Admin: 05/30/21 20:21 Dose: 4 mg Documented by: Propranolol HCl (Propranolol Hcl 20 Mg Tablet) 40 mg PO BID [facility]; Protocol Last Admin: 05/31/21 08:10 Dose: 40 mg Documented by: Quetiapine Fumarate (Quetiapine Fumarate 400 Mg Tablet) 400 mg PO BEDTIME [facility] Last Admin: 05/30/21 20:24 Dose: 400 mg Documented by: Topiramate (Topiramate 100 Mg Tablet) 100 mg PO BID [facility] Last Admin: 05/31/21 08:11 Dose: 100 mg Documented by: Trazodone HCl (Trazodone Hcl 50 Mg Tablet) 50 mg PO BEDTIME PRN PRN Reason: Insomnia Last Admin: 05/27/21 22:03 Dose: 50 mg Documented by: Trazodone HCl (Trazodone Hcl 50 Mg Tablet) 150 mg PO BEDTIME [facility] Last Admin: 05/30/21 20:25 Dose: 150 mg Documented by: Allergies Allergies Allergy/AdvReac Type Severity Reaction Status Date / Time Penicillins [PENICILLINS] Allergy Severe HIVES Unverified 04/27/20 16:51 prochlorperazine Allergy Severe HIVES Unverified 04/27/20 16:51 [From COMPAZINE] promethazine [PROMETHAZINE] Allergy Intermediate HEADACHES Unverified 04/27/20 16:51 haloperidol [From HALDOL] AdvReac Severe HIVES Unverified 04/27/20 16:51 Assessment & Plan Assessment & Plan (1) Cocaine abuse: Status: Acute Code(s): F14.10 - Cocaine abuse, uncomplicated (2) Bipolar disorder: Status: Chronic Code(s): F31.9 - Bipolar disorder, unspecified Assessment and Plan: Start Trileptal Education given should be helpful for mood disorder and PTSD strongly consider Latuda (3) PTSD (post-traumatic stress disorder): Status: Acute Code(s): F43.10 - Post-traumatic stress disorder, unspecified Assessment and Plan: Continue Topamax gabapentin prazosin increase prazosin to 4 mg at bedtime monitor for hypotension (4) Anxiety: Status: Acute Code(s): F41.9 - Anxiety disorder, unspecified Assessment and Plan: 41 yo female, hx of Bipolar Disorder, depression, PTSD, panic disorder, substance abuse with stable medicine regime for 6.5 years. Recent sudden sx of decompensation-depression, SI, AH, panic with persistance of sx for approx 2 wks. Pt identifies several losses recently-boyfriend, housing, needing to move back in with parents which is difficult as they have custody of her 8 yo child. Patient isolated to room reports intrusive nightmares mood anxious of overwhelmed trying to figure out her living situation her parents are very much not supportive emotionally Plan increase prazosin to 4mg daily Trileptal well tolerated, seems to be helpful(had Consider Latuda for bipolar depression consider Lamictal) given patient's bipolar diagnosis and PTSD Continue Seroquel Topamax monitor safety no SI; intermittent but ignorable AH; pt says meds are working, mood is better; she is feeling ready for discharge, just waiting for a bed. Remains stable and feels ready for discharge PLAN Patient on CV Q 15 minutes checks Trileptal to 300 mg b.i.d. I spent minutes with the patient and/or on the patient floor today, greater than?50% of which was spent counseling/coordinating care. Reason for contiued inpatient stay Substantial Risk for: stable for discharge
[2021-05-31] MEDS: chlorproMAZINE HCl 25 MG TABLET PO (19:36)
[2021-05-31 21:59] VITALS: BP 136/73; PULSE 73
[2021-05-31] MEDS: traZODone HCL 50 MG TABLET 150 MG PO (21:59)
[2021-05-31 22:00] VITALS: BP 136/80; PULSE 73
[2021-05-31] MEDS: Prazosin HCL 1 MG CAPSULE 4 MG PO (22:00)
[2021-05-31] MEDS: QUEtiapine Fumarate 400 MG TABLET PO (22:01)
[2021-06-01] MEDS: oxyCODONE HCl Immed Release 5 MG TABLET PO ×2 (02:54→11:07)
[2021-06-01 06:00] VITALS: BP 99/55; PULSE 73; RESP 20; TEMP 36.5; O2SAT 98
[2021-06-01] MEDS: Ibuprofen 800 MG TABLET PO (06:28)
[2021-06-01] MEDS: Omeprazole 20 MG CAPSULE.DR PO (06:28)
[2021-06-01 08:48] VITALS: BP 122/84; PULSE 84
[2021-06-01] MEDS: Propranolol HCL 20 MG TABLET 40 MG PO (08:48)
[2021-06-01] MEDS: busPIRone HCl 5 MG TABLET 15 MG PO (08:48)
[2021-06-01] MEDS: Topiramate 100 MG TABLET PO (08:49)
[2021-06-01] MEDS: OXcarbazepine 300 MG TABLET PO (08:49)
[2021-06-01] MEDS: Docusate Sodium 100 MG CAPSULE PO (08:49)
[2021-06-01 09:25] LABS: COVID-19 Test Negative (Negative)
--- NOTE | 2021-06-01 09:40 | PM.PSYDC ---
DS: Providers Provider Date of Service: 06/01/21 Date of admission: 05/23/21 01:02 Date of discharge: 06/01/21 Primary care physician: Unknown Physician Attending physician on admission: Juancarlos Cr Consults: 05/23/21 03:56 Consult to Hospitalist Routine Consulting Provider: Hospitalist Reason For Exam: new admit from [place] [facility] Attending physician on discharge: Juancarlos Cr DS: Diagnosis Discharge Diagnosis (1) PTSD (post-traumatic stress disorder): Status: Acute (2) Bipolar disorder: Status: Chronic (3) Cocaine abuse: Status: Acute (4) Anxiety: Status: Inactive DS: Medications Discharge Medications Home Medications: Previous Rx's Medication Instructions Recorded acetaminophen 325 mg tablet 975 mg PO TID PRN 7 Days #21 tab 06/01/21 buspirone 15 mg tablet 15 mg PO BID 30 Days #60 tab 06/01/21 chlorpromazine 25 mg tablet 25 mg PO QID PRN 30 Days #90 tab 06/01/21 fluticasone propionate 50 2 spray INTRANASAL DAILY PRN 30 06/01/21 mcg/actuation nasal Days #16 g spray,suspension ibuprofen 800 mg tablet 800 mg PO TIDWM PRN 7 Days #20 tab 06/01/21 omeprazole 20 mg capsule,delayed 20 mg PO DAILY@0630 30 Days #30 cap 06/01/21 release oxcarbazepine 300 mg tablet 300 mg PO BID 30 Days #60 tab 06/01/21 oxycodone 5 mg tablet 5 mg PO Q8H PRN 7 Days #18 tab 06/01/21 prazosin 1 mg capsule 4 mg PO BEDTIME 30 Days #120 cap 06/01/21 propranolol 40 mg tablet 40 mg PO BID 30 Days #60 tab 06/01/21 quetiapine 400 mg tablet 400 mg PO BEDTIME 30 Days #30 tab 06/01/21 topiramate 100 mg tablet 100 mg PO BID 30 Days #60 tab 06/01/21 trazodone 50 mg tablet 150 mg PO BEDTIME 30 Days #90 tab 06/01/21 Mental Status Exam Mental Status Exam Narrative: patient Appearance:?adequately Groomed Patient Orientation:?Person, Place, Time and Situation Level of Consciousness:?Awake and Alert Patient Behavior:?Cooperative, calm; Good Eye Contact Mood Description:? good' Affect Description:?calm, appropriate Patient Cognition Impaired:?No Ability to Follow Directions:?Good Speech Pattern:?Clear, Appropriate and Spontaneous Speech Memory Description:?Intact Hallucinations:?none Delusions:?Not Present Thought Process:?Intact; linear, goal oriented Thought Content:?No SI; no HI; , discharge plans;? no delusional content Abnormal Motor Activity Signs and Symptoms:?no psychomotor retardation Judgment/insight:?intact Data Data Completed and Pending Completed studies during hospitalization [Text1]: 06/01/21 08:57 COVID-19 ([facility]) Negative COVID-19 Clin Com See Note DS: Summary Hospital Course Hospital Course: 41 yo female, hx of Bipolar Disorder, depression, PTSD, panic disorder, substance abuse with stable medicine regime for 6.5 years. Recent sudden sx of decompensation-depression, SI, AH, panic with persistence of sx for approx 2 wks. Pt identifies several losses recently-boyfriend, housing, needing to move back in with parents which is difficult as they have custody of her? 8 yo child.? pt signed cV; SI resolved; she was at first continued on current med regimen to see if she'd stabilize with milue therapy; she remained reporting feeling depression and so she was eventually started on Trileptal which was titrated, tolerated and effective. Pt c/o nightmares and Prazosin increased to 4mg which was helpful. Pt's mood improved; passive SI and mood congruent AH would intermittently occur but pt said it was at baseline level and able to be ignored. Pt attended groups, got along well with staff and peers and demonstrated good behavioral and impulse control throughout admission. Pt said she felt ready to discharge and that she preferred to go to a prison instead of returning to live with parents, saying the environment is too triggering. She was in a good mood, without SI or AH, future oriented and looking forward to reuniting with boyfriend (who apparently is going to same prison). She was not in imminent risk for harm to self or others and request for discharge honored. . Status at Discharge Functional status at discharge: independent ambulation Overall status at discharge: patient is back to baseline Time Spent with Patient Time attestation: Total time spent providing and/or coordinating discharge services: Time spent: Less than 30 minutes Discharge Plan Discharge Patient Disposition: [facility] Discharge Diagnosis: PTSD, acute on chronic Referrals: SANDIRNE LANCE [Other] - 10/28/21 11:00 am (IN OFFICE fax [phone]) Amaury Roth [facility] (Respite) [Other] - 06/01/21 12:00 pm (You are being discharged to [facility] for continued stabilization and treatment) Department of Mental Health ([facility]) [Other] - 1 Week (You have been referred for [facility] Services. [facility] will contact you directly to complete the needs/means assessment within the next couple weeks.) Blossom Mejia (psychiatry) [Other] - 10/02/21 10:00 am (This is a Telehealth appointment) Psychiatry follow-up [Other] - 1 Week (You will be contacted directly sometime next week to schedule a follow-up psychiatry appointment within 30 days of your hospital discharge.) Discharge Medications: New prazosin 1 mg Capsule 4 mg PO BEDTIME 30 Days Qty: 120 RF: 0 acetaminophen 325 mg Tablet 975 mg PO TID PRN (Reason: Headache/Pain Mild Scale (1-3)) 7 Days Qty: 21 RF: 0 buspirone 15 mg tablet 15 mg PO BID 30 Days Qty: 60 RF: 0 propranolol 40 mg tablet 40 mg PO BID 30 Days Qty: 60 RF: 0 chlorpromazine 25 mg Tablet 25 mg PO QID PRN (Reason: Anxiety) 30 Days Qty: 90 RF: 0 oxcarbazepine 300 mg Tablet 300 mg PO BID 30 Days Qty: 60 RF: 0 quetiapine 400 mg Tablet 400 mg PO BEDTIME 30 Days Qty: 30 RF: 0 topiramate 100 mg Tablet 100 mg PO BID 30 Days Qty: 60 RF: 0 trazodone 50 mg Tablet 150 mg PO BEDTIME 30 Days Qty: 90 RF: 0 fluticasone propionate 50 mcg/actuation [place],Suspension 2 spray intranasal DAILY PRN (Reason: nasal congestion) 30 Days Qty: 16 RF: 0 omeprazole 20 mg Capsule,Delayed Release(Dr/Ec) 20 mg PO DAILY@0630 30 Days Qty: 30 RF: 0 ibuprofen 800 mg Tablet 800 mg PO TIDWM PRN (Reason: back pain) 7 Days Qty: 20 RF: 0 oxycodone 5 mg capsule 5 mg PO Q8H PRN (Reason: severe pain (scale score 7-10)) 7 Days Qty: 18 RF: 0 Discontinued hydrocodone-acetaminophen [Vicodin HP] 10-300 mg tablet 1 tab PO Q8H PRN (Reason: pain) Qty: 10 RF: 0 ondansetron HCl [Zofran] 4 mg tablet 4 mg PO Q8H PRN (Reason: nausea and vomiting) Qty: 10 RF: 0 Discharge Orders: Discharge Order (Routine); Ordered 06/01/21 Ordered By: Juancarlos Cr Diet: regular diet Activity on Discharge: As tolerated Stand Alone Forms: Patient Portal Discharge page, Community Support Care Plan Goals: Maintain mood and safe behaviors Take medications as prescribed Continue to pursue sobriety Practice coping skills Continue with outpatient providers and reach out to them as needed Health Concerns: Mood stability and behaviors Sobriety Sciatic pain Plan of Treatment: Follow up with your PCP, psychiatric provider and other outpatient providers regarding above concerns Take medications as prescribed Assessment: Risk assessment at time of discharge:? Patient was interviewed prior to discharge and found to be fully oriented and without any SI or HI. Patient has insight and demonstrates good judgment in terms of wanting to pursue treatment. Patient is not in imminent risk of harm to self or others and has a safety plan that includes presenting to the closest ER or calling 911 if feeling unsafe.? Patient has been observed closely by nursing and unit staff throughout admission; patient has not engaged in any behaviors that suggest dangerousness to self or others and has demonstrated appropriate behaviors and impulse control Discharge Date/Time: 06/01/21 11:30
[2021-06-01] MEDS: Naloxone HCl Nasal TAKE HOME 4 MG SPRAY NOSTRILALT (10:27)
[2021-06-01] MEDS: chlorproMAZINE HCl 25 MG TABLET PO (11:07)
[2021-06-01] MEDS: Acetaminophen 325 MG TABLET 975 MG PO (11:08)
== END 2021-06-01 11:30 | disposition home or self-care (01) | DRG 755 ==
PROVIDERS: Registered Nurse; Admitting Provider Psychiatry & Neurology Psychiatry; Visit Provider Psychiatry & Neurology Psychiatry
DX: F43.10 Post-traumatic stress disorder, unspecified (principal); R45.851 Suicidal ideations; R44.0 Auditory hallucinations; F31.9 Bipolar disorder, unspecified; F41.9 Anxiety disorder, unspecified; F14.10 Cocaine abuse, uncomplicated; M51.26 Other intervertebral disc displacement, lumbar region; K59.00 Constipation, unspecified; R12 Heartburn; F41.0 Panic disorder [episodic paroxysmal anxiety]; G89.29 Other chronic pain; M54.40 Lumbago with sciatica, unspecified side; F11.90 Opioid use, unspecified, uncomplicated; Z20.822 Contact with and (suspected) exposure to COVID-19; Z79.899 Other long term (current) drug therapy
CPT/HCPCS: 36415; 80051; 80061; 80076; 81001; 81025; 82565; 83036; 84520; 85025; 87635; 97161

== ENCOUNTER 2021-12-02 20:35 | Emergency (ER) | payer MEDICAID, SELFPAY ==
[2021-12-02 22:06] VITALS: PULSE 86; RESP 18; TEMP 37.1; O2SAT 97; BMI 55.0
[2021-12-02 22:26] LABS: MANUAL DIFF FLAG NO
[2021-12-02 22:36] LABS: Appearance Urine HAZY; Color Urine YELLOW; Glucose Urine UA NEG (NEG); Leukocyte Esterase Urine 2+ (NEG); Nitrite Urine NEG (NEG); Specific Gravity - Urine >= 1.030 (1.005-1.025); UACC Culture Trigger YES; Urine Blood NEG (NEG); Urine Ketones 5 MG/DL (NEG); Urine Protein TRACE MG/DL (NEG-TRACE)
[2021-12-02 22:37] LABS: Basophils Percent Auto 0.3 % (0-2); Eosinophils Absolute Auto 0.7 X10*3/uL (0.0-0.4); Eosinophils Percent Auto 10.1 % (0-4); Hematocrit 38.9 % (37.0-47.0); Hemoglobin 12.5 g/dl (12.0-16.0); Imm Gran Abs Auto 0.02 X10*3/uL (0.00-0.03); Imm Gran Pct Auto 0.3 % (0.0-0.4); Lymphocytes Absolute Auto 2.1 X10*3/uL (1.2-4.9); Lymphocytes Percent Auto 31.1 % (20-40); Mean Corpuscular HGB Conc 32.1 g/dl (31.0-35.0); Mean Corpuscular Hemoglobin 30.9 pg (27.0-33.0); Mean Corpuscular Volume 96.3 fL (80.0-98.0); Mean Platelet Volume 12.5 fL (9.4-12.3); Monocytes Absolute Auto 0.6 X10*3/uL (0.1-1.2); Monocytes Percent Auto 8.6 % (2-11); Neutrophils Absolute Auto 3.3 x10*3/uL (2.0-8.3); Neutrophils Percent Auto 49.6 % (45-73); Platelet Count 198 X10*3/uL (160-400); Red Blood Count 4.04 X10*6/uL (4.20-5.50); Red Cell Distribution Width 13.2 % (11.0-16.0); White Blood Count 6.7 X10*3/uL (4.8-10.8)
[2021-12-02 22:44] LABS: Bacteria Urine 2+ /LPF; Calcium Oxalate Crystals Urine 4+ /LPF; Mucus Urine 2+ /LPF; Squamous Epithelial Cell Urine 2+ /LPF
[2021-12-02 22:45] LABS: COVID-19 Test Negative (Negative)
[2021-12-02 22:45] LABS: Granular Casts Urine 0-2 /LPF
[2021-12-02 22:55] LABS: Alanine Aminotransferase 19 U/L (0-31); Albumin Level 3.5 g/dL (3.5-5.0); Alkaline Phosphatase 56 U/L (39-117); Anion Gap 8 (12-20); Aspartate Amino Transferase 10 U/L (5-31); Bilirubin Total 0.3 mg/dL (0.0-1.0); Blood Urea Nitrogen 9 mg/dL (9-16); Calcium 9.2 mg/dL (8.4-10.2); Carbon Dioxide 29 mmol/L (22-29); Chloride 108 mmol/L (96-108); Creatinine Clr Calc Pharmacy 147.7; Estimated Glomerular Filt Rate > 60; Glucose Random 115 mg/dL (60-115); Potassium 3.9 mmol/L (3.3-5.1); Sodium 141 mmol/L (135-145); Total Protein 6.2 g/dL (6.5-8.0)
--- NOTE | 2021-12-02 23:43 | ED_ITS ---
HPI - General Adult General Chief complaint: Dizziness Stated complaint: Blood sugar is low? Time Seen by Provider: 12/02/21 23:43 Source: patient Mode of arrival: ambulatory Limitations: no limitations History of Present Illness HPI narrative: Patient history of PTSD bipolar disorder start on metformin for weighted reduction been constipated for last 2 weeks complaining of dizzy nausea multiple complaints tired weak sleepy has not gained any extra weight Related Data Previous Rx's Medication Instructions Recorded acetaminophen 325 mg tablet 975 mg PO TID PRN 7 Days #21 tab 06/01/21 buspirone 15 mg tablet 15 mg PO BID 30 Days #60 tab 06/01/21 chlorpromazine 25 mg tablet 25 mg PO QID PRN 30 Days #90 tab 06/01/21 fluticasone propionate 50 2 spray INTRANASAL DAILY PRN 30 06/01/21 mcg/actuation nasal Days #16 g spray,suspension ibuprofen 800 mg tablet 800 mg PO TIDWM PRN 7 Days #20 tab 06/01/21 omeprazole 20 mg capsule,delayed 20 mg PO DAILY@0630 30 Days #30 cap 06/01/21 release oxcarbazepine 300 mg tablet 300 mg PO BID 30 Days #60 tab 06/01/21 oxycodone 5 mg capsule 5 mg PO Q8H PRN 7 Days #18 cap 06/01/21 prazosin 1 mg capsule 4 mg PO BEDTIME 30 Days #120 cap 06/01/21 propranolol 40 mg tablet 40 mg PO BID 30 Days #60 tab 06/01/21 quetiapine 400 mg tablet 400 mg PO BEDTIME 30 Days #30 tab 06/01/21 topiramate 100 mg tablet 100 mg PO BID 30 Days #60 tab 06/01/21 trazodone 50 mg tablet 150 mg PO BEDTIME 30 Days #90 tab 06/01/21 cefpodoxime 200 mg tablet 200 mg PO BID #14 tab 12/03/21 polyethylene glycol 3350 17 17 g PO DAILY PRN #510 g 12/03/21 gram/dose oral powder (Miralax) Allergies Allergy/AdvReac Type Severity Reaction Status Date / Time Penicillins [PENICILLINS] Allergy Severe HIVES Unverified 04/27/20 16:51 prochlorperazine Allergy Severe HIVES Unverified 04/27/20 16:51 [From COMPAZINE] promethazine [PROMETHAZINE] Allergy Intermediate HEADACHES Unverified 04/27/20 16:51 haloperidol [From HALDOL] AdvReac Severe HIVES Unverified 04/27/20 16:51 Review of Systems Review of Systems: Yes all other systems are reviewed and are negative [facility] Past Medical History Medical History Anxiety Bipolar disorder Cocaine abuse Hernia Opioid abuse PTSD (post-traumatic stress disorder) Surgical History History of appendectomy History of cholecystectomy LAP-BAND surgery status Social History Social History Household Members: Family Housing: House Do you presently have visiting nurse or other home services: No Alcohol intake: never Patient Tobacco Use Status: Current everyday Tobacco user Smoked in Last 30 Days: Yes Use of substances other than those prescribed or required for medical reasons: No Substance Use Type: Heroin Advance Directives: No service: No Sexual orientation: Did not discuss Physical Exam ED Vital Signs: Vital Signs - 24 hr 12/02/21 22:06 12/02/21 23:47 Temperature 98.7 F Pulse Rate 86 83 Respiratory Rate 18 18 Blood Pressure 125/85 Pulse Oximetry 97 100 BMI result Body Mass Index 55.0 Appearance: Alert. Oriented X3. No acute distress. Obese patient Eyes: PERRLA, No Nystagmus ENT: Pharynx normal. Oral Mucosa moist Neck: Normal inspection. Neck supple. CVS: Normal heart rate and rhythm. Pulses normal. Respiratory: No respiratory distress. Equal air entry bilateral, no wheezing/rales/rhonchi Abdomen: Soft and nontender. Bowel sounds are present, no mass palpable, no CVA tenderness Skin: Skin warm and dry. Normal skin color. Normal skin turgor. Extremities: No lower extremity edema. No calf tenderness Neuro: Oriented X 3. No motor deficit. No sensory deficit.No cerebellar signs , cranial nerves II-XII intact Medical Decision Making MDM Narrative Medical decision making narrative: Patient with chronic constipation multiple other complaint workup is negative will give her MiraLax and cefpodoxime Lab Data Lab results reviewed: Yes I reviewed the patient's lab results. Result diagrams: 12/02/21 22:22 12/02/21 22:22 Labs: Lab Results 12/02/21 12/02/21 12/02/21 Range/Units 22:22 22:22 22:22 WBC 6.7 (4.8-10.8) X10*3/uL RBC 4.04 L (4.20-5.50) X10*6/uL Hgb 12.5 (12.0-16.0) g/dl Hct 38.9 (37.0-47.0) % MCV 96.3 (80.0-98.0) fL MCH 30.9 (27.0-33.0) pg MCHC 32.1 (31.0-35.0) g/dl RDW 13.2 (11.0-16.0) % Plt Count 198 (160-400) X10*3/uL MPV 12.5 H (9.4-12.3) fL Immature Gran % (Auto) 0.3 (0.0-0.4) % Neut % (Auto) 49.6 (45-73) % Lymph % (Auto) 31.1 (20-40) % [place] % (Auto) 8.6 (2-11) % Eos % (Auto) 10.1 H (0-4) % Baso % (Auto) 0.3 (0-2) % Lymph # (Auto) 2.1 (1.2-4.9) X10*3/uL [place] # (Auto) 0.6 (0.1-1.2) X10*3/uL Eos # (Auto) 0.7 H (0.0-0.4) X10*3/uL Baso # (Auto) 0.0 (0.0-0.2) X10*3/uL Abs Immat Gran (auto) 0.02 (0.00-0.03) X10*3/uL Absolute Neuts (auto) 3.3 (2.0-8.3) x10*3/uL Absolute Nucleated RBC 0.000 (0.0-0.012) X10*3/uL Nucleated RBC % (auto) 0.0 (0.0-0.2) /100WBC Sodium 141 (135-145) mmol/L Potassium 3.9 (3.3-5.1) mmol/L Chloride 108 (96-108) mmol/L Carbon Dioxide 29 (22-29) mmol/L Anion Gap 8 L (12-20) BUN 9 (9-16) mg/dL Creatinine 0.84 (0.5-1.4) mg/dL Estim Creat Clear Calc 147.7 Estimated GFR > 60 Random Glucose 115 (60-115) mg/dL Calcium 9.2 D (8.4-10.2) mg/dL Total Bilirubin 0.3 (0.0-1.0) mg/dL AST 10 (5-31) U/L ALT 19 (0-31) U/L Alkaline Phosphatase 56 (39-117) U/L Total Protein 6.2 L (6.5-8.0) g/dL Albumin 3.5 (3.5-5.0) g/dL TSH 1.34 (0.32-4.0) uIU/mL Urine Color Urine Appearance Urine pH (5.0-8.0) Ur Specific [place] (1.005-1.025) Urine Protein (NEG-TRACE) MG/DL Urine Glucose (UA) (NEG) MG/DL Urine Ketones (NEG) MG/DL Urine Blood (NEG) Urine Nitrite (NEG) Ur Leukocyte Esterase (NEG) Urine RBC (0) /HPF Urine WBC (0-4) /HPF Ur Squamous Epith Cells /LPF Calcium Oxalate Crystal /LPF Urine Bacteria /LPF Granular Casts /LPF Urine Mucus /LPF COVID-19 ([facility]) Negative (Negative) COVID-19 Clin Com See Note 12/02/21 Range/Units 22:29 WBC (4.8-10.8) X10*3/uL RBC (4.20-5.50) X10*6/uL Hgb (12.0-16.0) g/dl Hct (37.0-47.0) % MCV (80.0-98.0) fL MCH (27.0-33.0) pg MCHC (31.0-35.0) g/dl RDW (11.0-16.0) % Plt Count (160-400) X10*3/uL MPV (9.4-12.3) fL Immature Gran % (Auto) (0.0-0.4) % Neut % (Auto) (45-73) % Lymph % (Auto) (20-40) % [place] % (Auto) (2-11) % Eos % (Auto) (0-4) % Baso % (Auto) (0-2) % Lymph # (Auto) (1.2-4.9) X10*3/uL [place] # (Auto) (0.1-1.2) X10*3/uL Eos # (Auto) (0.0-0.4) X10*3/uL Baso # (Auto) (0.0-0.2) X10*3/uL Abs Immat Gran (auto) (0.00-0.03) X10*3/uL Absolute Neuts (auto) (2.0-8.3) x10*3/uL Absolute Nucleated RBC (0.0-0.012) X10*3/uL Nucleated RBC % (auto) (0.0-0.2) /100WBC Sodium (135-145) mmol/L Potassium (3.3-5.1) mmol/L Chloride (96-108) mmol/L Carbon Dioxide (22-29) mmol/L Anion Gap (12-20) BUN (9-16) mg/dL Creatinine (0.5-1.4) mg/dL Estim Creat Clear Calc Estimated GFR Random Glucose (60-115) mg/dL Calcium (8.4-10.2) mg/dL Total Bilirubin (0.0-1.0) mg/dL AST (5-31) U/L ALT (0-31) U/L Alkaline Phosphatase (39-117) U/L Total Protein (6.5-8.0) g/dL Albumin (3.5-5.0) g/dL TSH (0.32-4.0) uIU/mL Urine Color YELLOW Urine Appearance HAZY Urine pH 6.0 (5.0-8.0) Ur Specific [place] >= 1.030 H (1.005-1.025) Urine Protein TRACE (NEG-TRACE) MG/DL Urine Glucose (UA) NEG (NEG) MG/DL Urine Ketones 5 (NEG) MG/DL Urine Blood NEG (NEG) Urine Nitrite NEG (NEG) Ur Leukocyte Esterase 2+ H (NEG) Urine RBC 1-4 (0) /HPF Urine WBC 1-4 (0-4) /HPF Ur Squamous Epith Cells 2+ /LPF Calcium Oxalate Crystal 4+ /LPF Urine Bacteria 2+ /LPF Granular Casts 0-2 /LPF Urine Mucus 2+ /LPF COVID-19 ([facility]) (Negative) COVID-19 Clin Com Discharge Plan Discharge Clinical Impression: UTI (urinary tract infection), Constipation Patient Disposition: Home, Self-Care Instructions: Constipation (ED), Urinary Tract Infection in Women (ED) Additional Instructions: Drink plenty of fluids Medicine for constipation daily Antibiotic as advised for urinary tract infection Follow-up with PCP Prescriptions: New polyethylene glycol 3350 [Miralax] 17 gram/dose powder 17 g PO DAILY PRN (Reason: constipation) Qty: 510 0RF cefpodoxime 200 mg tablet 200 mg PO BID Qty: 14 0RF Rx Instructions: must administer with a meal/food No Action prazosin 1 mg Capsule 4 mg PO BEDTIME 30 Days Qty: 120 0RF Protocol: Hold for SBP< HOLD for SBP < : 90 Rx Instructions: deliver to [place] [facility] acetaminophen 325 mg Tablet 975 mg PO TID PRN (Reason: Headache/Pain Mild Scale (1-3)) 7 Days Qty: 21 0RF Rx Instructions: DELIVER TO [place] [facility] buspirone 15 mg tablet 15 mg PO BID 30 Days Qty: 60 0RF propranolol 40 mg tablet 40 mg PO BID 30 Days Qty: 60 0RF Rx Instructions: DELIVER TO [place] [facility] chlorpromazine 25 mg Tablet 25 mg PO QID PRN (Reason: Anxiety) 30 Days Qty: 90 0RF oxcarbazepine 300 mg Tablet 300 mg PO BID 30 Days Qty: 60 0RF quetiapine 400 mg Tablet 400 mg PO BEDTIME 30 Days Qty: 30 0RF topiramate 100 mg Tablet 100 mg PO BID 30 Days Qty: 60 0RF trazodone 50 mg Tablet 150 mg PO BEDTIME 30 Days Qty: 90 0RF fluticasone propionate 50 mcg/actuation [place],Suspension 2 spray intranasal DAILY PRN (Reason: nasal congestion) 30 Days Qty: 16 0RF omeprazole 20 mg Capsule,Delayed Release(Dr/Ec) 20 mg PO DAILY@0630 30 Days Qty: 30 0RF ibuprofen 800 mg Tablet 800 mg PO TIDWM PRN (Reason: back pain) 7 Days Qty: 20 0RF oxycodone 5 mg capsule 5 mg PO Q8H PRN (Reason: severe pain (scale score 7-10)) 7 Days Qty: 18 0RF Interventions: ED Discharge Assessment Last Done: 12/03/21 00:46 Discharge Date/Time: 12/03/21 00:50
[2021-12-02 23:47] VITALS: BP 125/85; PULSE 83; RESP 18; O2SAT 100
[2021-12-02] MEDS: Magnesium Citrate 300 ML SOLUTION PO (23:53)
[2021-12-03 00:22] LABS: Thyroid Stimulating Hormone 1.34 uIU/mL (0.32-4.0)
[2021-12-07 12:15] LABS: Glucose, Whole Blood 103 mg/dL (60-115)
[2021-12-10 07:58] LABS: Glucose, Whole Blood 103 mg/dL (60-115)
== END 2021-12-03 00:50 | disposition home or self-care (01) ==
PROVIDERS: Emergency Provider Internal Medicine
DX: N39.0 Urinary tract infection, site not specified (principal); R42 Dizziness and giddiness; K59.00 Constipation, unspecified; F17.200 Nicotine dependence, unspecified, uncomplicated; Z20.822 Contact with and (suspected) exposure to COVID-19; Z79.899 Other long term (current) drug therapy; Z71.6 Tobacco abuse counseling
CPT/HCPCS: 80053; 81001; 82947; 84443; 85025; 87086; 87635; 99283; 99285

== ENCOUNTER 2021-12-09 19:26 | Emergency (ER) | payer MEDICAID, SELFPAY ==
[2021-12-09 20:44] VITALS: BP 138/82; PULSE 88; RESP 19; TEMP 36.7; O2SAT 99; BMI 52.1
== END 2021-12-10 01:16 | disposition left against medical advice (07) ==
LOC: HO.ED 12-10 01:15
PROVIDERS: Emergency Provider Emergency Medicine
DX: M79.89 Other specified soft tissue disorders (principal)
CPT/HCPCS: 99282; 99284

== ENCOUNTER 2022-10-16 01:00 | Emergency (ER) | payer MEDICAID, SELFPAY ==
[2022-10-16 01:06] VITALS: BP 146/94; PULSE 76; RESP 18; TEMP 37.2; O2SAT 95; BMI 49.2
--- NOTE | 2022-10-16 01:43 | ED_ITS ---
HPI - Skin/Abscess/Foreign Bdy General Chief complaint: Skin/Abscess/Foreign Body Stated complaint: Rash on entire body Time Seen by Provider: 10/16/22 01:34 Source: patient Mode of arrival: ambulatory Limitations: no limitations History of Present Illness HPI narrative: Patient comes with eczematous rash over abdominal wall and lower extremity for a month unknown cause patient is homeless sleeping on a couch near Cats no history of psoriasis in the past Related Data Previous Rx's Medication Instructions Recorded acetaminophen 325 mg tablet 975 mg PO TID PRN Headache/Pain 06/01/21 Mild Scale (1-3) 7 days #21 tabs buspirone 15 mg tablet 15 mg PO BID 30 days #60 tabs 06/01/21 chlorpromazine 25 mg tablet 25 mg PO QID PRN Anxiety 30 days 06/01/21 #90 tabs fluticasone propionate 50 2 spray intranasal DAILY PRN nasal 06/01/21 mcg/actuation nasal congestion 30 days #16 grams spray,suspension ibuprofen 800 mg tablet 800 mg PO TIDWM PRN back pain 7 06/01/21 days #20 tabs omeprazole 20 mg capsule,delayed 20 mg PO DAILY@0630 30 days #30 06/01/21 release caps oxcarbazepine 300 mg tablet 300 mg PO BID 30 days #60 tabs 06/01/21 oxycodone 5 mg capsule 5 mg PO Q8H PRN severe pain (scale 06/01/21 score 7-10) 7 days #18 caps prazosin 1 mg capsule 4 mg PO BEDTIME 30 days #120 caps 06/01/21 propranolol 40 mg tablet 40 mg PO BID 30 days #60 tabs 06/01/21 quetiapine 400 mg tablet 400 mg PO BEDTIME 30 days #30 tabs 06/01/21 topiramate 100 mg tablet 100 mg PO BID 30 days #60 tabs 06/01/21 trazodone 50 mg tablet 150 mg PO BEDTIME 30 days #90 tabs 06/01/21 cefpodoxime 200 mg tablet 200 mg PO BID #14 tabs 12/03/21 polyethylene glycol 3350 17 17 g PO DAILY PRN constipation 12/03/21 gram/dose oral powder (Miralax) #510 grams diphenhydramine HCl 25 mg capsule 50 mg PO TID PRN itching #30 caps 10/16/22 (Benadryl) prednisone 20 mg tablet 40 mg PO DAILY #10 tabs 10/16/22 Allergies Allergy/AdvReac Type Severity Reaction Status Date / Time Penicillins [PENICILLINS] Allergy Severe HIVES Verified 10/16/22 01:05 prochlorperazine Allergy Severe HIVES Verified 10/16/22 01:05 [From COMPAZINE] promethazine [PROMETHAZINE] Allergy Intermediate HEADACHES Verified 10/16/22 01:05 haloperidol [From HALDOL] AdvReac Severe HIVES Verified 10/16/22 01:05 Review of Systems Review of Systems: Yes all other systems are reviewed and are negative [facility] Past Medical History Medical History Anxiety Bipolar disorder Cocaine abuse Hernia Opioid abuse PTSD (post-traumatic stress disorder) Surgical History History of appendectomy History of cholecystectomy LAP-BAND surgery status Social History Social History Household Members: Family Housing: House Do you presently have visiting nurse or other home services: No Alcohol intake: never Patient Tobacco Use Status: Current everyday Tobacco user Substance Use Type: Heroin service: No Sexual orientation: Did not discuss Physical Exam Vital Signs: Vital Signs: Last Vital Signs Temp 98.9 F 10/16/22 01:06 Pulse 76 10/16/22 01:06 Resp 18 10/16/22 01:06 BP 146/94 H 10/16/22 01:06 Pulse Ox 95 10/16/22 01:06 O2 Del Method 10/16/22 01:06 BMI result Body Mass Index 49.2 Appearance: Alert. Oriented X3. No acute distress. ENT: Pharynx normal. Oral Mucosa moist Neck: Normal inspection. Neck supple. CVS: Normal heart rate and rhythm. Pulses normal. Respiratory: No respiratory distress. Equal air entry bilateral, no wheezing/rales/rhonchi Abdomen: Soft and nontender. Bowel sounds are present, no mass palpable Skin: Skin warm and dry. Eczematous lesion on abdominal wall Extremities: No lower extremity edema. Neuro: Oriented X 3. No motor deficit. Medical Decision Making Medical Decision Making MDM Narrative: Patient has eczematous lesion/parapsoriatic lesion will give a course of prednisone Discharge Plan Discharge Clinical Impression: Eczematous dermatitis Patient Disposition: Home, Self-Care Instructions: Dermatitis (ED) Additional Instructions: Benadryl for itching Prednisone as advised Follow-up with PCP if not better Prescriptions: New prednisone 20 mg tablet 40 mg PO DAILY Qty: 10 0RF diphenhydramine HCl [Benadryl] 25 mg capsule 50 mg PO TID PRN (Reason: itching) Qty: 30 0RF No Action prazosin 1 mg Capsule 4 mg PO BEDTIME 30 Days Qty: 120 0RF Protocol: Hold for SBP< HOLD for SBP < : 90 Rx Instructions: deliver to [facility] acetaminophen 325 mg Tablet 975 mg PO TID PRN (Reason: Headache/Pain Mild Scale (1-3)) 7 Days Qty: 21 0RF Rx Instructions: DELIVER TO [place] buspirone 15 mg tablet 15 mg PO BID 30 Days Qty: 60 0RF propranolol 40 mg tablet 40 mg PO BID 30 Days Qty: 60 0RF Rx Instructions: DELIVER TO [place] [facility] chlorpromazine 25 mg Tablet 25 mg PO QID PRN (Reason: Anxiety) 30 Days Qty: 90 0RF oxcarbazepine 300 mg Tablet 300 mg PO BID 30 Days Qty: 60 0RF quetiapine 400 mg Tablet 400 mg PO BEDTIME 30 Days Qty: 30 0RF topiramate 100 mg Tablet 100 mg PO BID 30 Days Qty: 60 0RF trazodone 50 mg Tablet 150 mg PO BEDTIME 30 Days Qty: 90 0RF fluticasone propionate 50 mcg/actuation [facility],Suspension 2 spray intranasal DAILY PRN (Reason: nasal congestion) 30 Days Qty: 16 0RF omeprazole 20 mg Capsule,Delayed Release(Dr/Ec) 20 mg PO DAILY@0630 30 Days Qty: 30 0RF ibuprofen 800 mg Tablet 800 mg PO TIDWM PRN (Reason: back pain) 7 Days Qty: 20 0RF oxycodone 5 mg capsule 5 mg PO Q8H PRN (Reason: severe pain (scale score 7-10)) 7 Days Qty: 18 0RF polyethylene glycol 3350 [Miralax] 17 gram/dose powder 17 g PO DAILY PRN (Reason: constipation) Qty: 510 0RF cefpodoxime 200 mg tablet 200 mg PO BID Qty: 14 0RF Rx Instructions: must administer with a meal/food
--- NOTE | 2022-10-16 01:44 | PC.NURSE ---
provider into assess pt, Will continue to monitor.
[2022-10-16] MEDS: dexAMETHasone 2 MG TABLET 10 MG PO (02:00)
[2022-10-16 02:10] VITALS: BP 156/56; PULSE 63; RESP 16; O2SAT 98
--- NOTE | 2022-10-16 02:12 | PC.NURSE ---
pt a&o, no sob or chest pain, medicated per mar, Reviewed discharge instructions wiht pt, pt verbalized understanding.
== END 2022-10-16 02:13 | disposition home or self-care (01) ==
LOC: HO.ED 02:05
PROVIDERS: Emergency Provider Internal Medicine
DX: L30.9 Dermatitis, unspecified (principal)
CPT/HCPCS: 99283; 99284; J8540

== ENCOUNTER 2022-10-23 14:27 | Emergency (ER) | payer MEDICAID, SELFPAY ==
--- NOTE | ~2022-10-23 | XR_ITS ---
EXAMINATION: XR CHEST CLINICAL INFORMATION: Cough. Difficulty breathing COMPARISON: None available. TECHNIQUE: Frontal view of the chest was obtained. FINDINGS: Lungs grossly are clear. Heart and pulmonary vessels normal. No congestive change. XR/XR chest 1V IMPRESSION: No active disease.
--- NOTE | 2022-10-23 15:15 | ED_ITS ---
HPI - URI/Sore Throat General Chief Complaint: Upper Respiratory Symptoms Stated Complaint: Cough Time Seen by Provider: 10/23/22 17:55 Source: patient Mode of arrival: ambulatory History of Present Illness HPI Narrative: 42yo w/PMHx anxiety, bipolar, PTSD, opiate abuse c/o dry cough cough, rhinorrhea, chest congestion x 1week. Taking OTC meds without relief. Denies fever, chills, chest pain, shortness of breath, abdominal pain, recent travel, sick contacts. Admits dander/cats exacerbate symptoms MD elicited complaint: cough and rhinorrhea Related Data Previous Rx's Medication Instructions Recorded acetaminophen 325 mg tablet 975 mg PO TID PRN Headache/Pain 06/01/21 Mild Scale (1-3) 7 days #21 tabs buspirone 15 mg tablet 15 mg PO BID 30 days #60 tabs 06/01/21 chlorpromazine 25 mg tablet 25 mg PO QID PRN Anxiety 30 days 06/01/21 #90 tabs fluticasone propionate 50 2 spray intranasal DAILY PRN nasal 06/01/21 mcg/actuation nasal congestion 30 days #16 grams spray,suspension ibuprofen 800 mg tablet 800 mg PO TIDWM PRN back pain 7 06/01/21 days #20 tabs omeprazole 20 mg capsule,delayed 20 mg PO DAILY@0630 30 days #30 06/01/21 release caps oxcarbazepine 300 mg tablet 300 mg PO BID 30 days #60 tabs 06/01/21 oxycodone 5 mg capsule 5 mg PO Q8H PRN severe pain (scale 06/01/21 score 7-10) 7 days #18 caps prazosin 1 mg capsule 4 mg PO BEDTIME 30 days #120 caps 06/01/21 propranolol 40 mg tablet 40 mg PO BID 30 days #60 tabs 06/01/21 quetiapine 400 mg tablet 400 mg PO BEDTIME 30 days #30 tabs 06/01/21 topiramate 100 mg tablet 100 mg PO BID 30 days #60 tabs 06/01/21 trazodone 50 mg tablet 150 mg PO BEDTIME 30 days #90 tabs 06/01/21 cefpodoxime 200 mg tablet 200 mg PO BID #14 tabs 12/03/21 polyethylene glycol 3350 17 17 g PO DAILY PRN constipation 04/25/22 gram/dose oral powder (Miralax) #510 grams diphenhydramine HCl 25 mg capsule 50 mg PO TID PRN itching #30 caps 10/16/22 (Benadryl) prednisone 20 mg tablet 40 mg PO DAILY #10 tabs 10/16/22 albuterol sulfate 90 mcg/actuation 2 puff inhalation Q4-6H PRN 10/23/22 aerosol inhaler shortness of breath or wheezing #6.7 grams benzonatate 100 mg capsule 100 mg PO TID PRN cough #14 caps 10/23/22 prednisone 20 mg tablet 40 mg PO DAILY 5 days #10 tabs 10/23/22 Allergies Allergy/AdvReac Type Severity Reaction Status Date / Time Penicillins [PENICILLINS] Allergy Severe HIVES Verified 10/23/22 15:16 prochlorperazine Allergy Severe HIVES Verified 10/23/22 15:16 [From COMPAZINE] promethazine [PROMETHAZINE] Allergy Intermediate HEADACHES Verified 10/23/22 15:16 haloperidol [From HALDOL] AdvReac Severe HIVES Verified 10/23/22 15:16 Review of Systems Review of Systems: Constitutional: No Fever, No Chills ENT/Mouth: No Ear Pain, No Nasal Congestion, No Sinus Pain, No Hoarseness, No s ore throat, + Rhinorrhea, No Swallowing Difficulty Cardiovascular: No Chest Pain, No SOB Respiratory: +Cough, No Sputum, No Wheezing Gastrointestinal: No Nausea, No Vomiting, No Diarrhea, No Constipation, No Abdominal pain Genitourinary: No Dysuria, No Urinary Frequency, No Hematuria, No Flank Pain Musculoskeletal: No joint pain, No Myalgias, No Joint Swelling Skin: No Skin Lesions, No rash Neuro: No Weakness Yes all other systems are reviewed and are negative Constitutional: Constitutional: Reports as per [facility] Past Medical History Attestation statement: The following information was validated with the patient. Medical History Anxiety Bipolar disorder Cocaine abuse Hernia Opioid abuse PTSD (post-traumatic stress disorder) Surgical History History of appendectomy History of cholecystectomy LAP-BAND surgery status Social History Social History Household Members: Family Housing: House Do you presently have visiting nurse or other home services: No Alcohol intake: never Patient Tobacco Use Status: Current everyday Tobacco user Substance Use Type: Heroin Advance Directives: No Advance Directives Information Provided: No service: No Sexual orientation: Did not discuss Physical Exam Vital Signs: Vital Signs: Last Vital Signs Temp 99.3 F 10/23/22 17:31 Pulse 99 10/23/22 17:31 Resp 18 10/23/22 17:31 BP 131/91 H 10/23/22 17:31 Pulse Ox 98 10/23/22 17:31 O2 Del Method 10/23/22 17:31 BMI result Body Mass Index 49.1 Const: General: cooperative, healthy appearing and no acute distress Orientation/consciousness: patient oriented x3 Limitations: no limitations HEENT: Head: Yes normal to inspection and Yes atraumatic Ears: hearing grossly normal bilaterally General nose exam: Normal external nose present Face and sinus: Yes normal facial exam Throat: Yes posterior oropharynx normal, Yes tonsils normal, Yes uvula midline, No uvula laterally displaced and No uvular edema Eyes: General: appearance normal, both eyes and all related structures EOM: EOMs intact bilaterally Neck: Neck: Yes normal visual inspection and Yes no meningeal signs Resp: Effort & Inspection: normal respiratory effort and no respiratory distress Auscultation: clear to auscultation bilaterally, no crackles, no rales, no rhonchi and no wheezes Cardio: Rate: regular rate Heart sounds: S1 normal heart sound present and S2 normal heart sound present Skin: Rashes: no rashes Wounds: no wounds Neuro: General: patient oriented x3, tone normal and no meningeal signs Gait exam (Neuro): Normal gait present Extrem: General: Yes normal to inspection Course Course Course Narrative: RME-- 42yo w/PMHx anxiety, bipolar, PTSD c/o cough, rhinorrhea, chest congestion x 1week. Taking OTC meds without relief Lungs CTA COVID/FLU, CXR ordered -1800--COVID and influenza negative. CXR unremarkable Results discussed with patient including worrisome signs and symptoms and strict return precautions, and when to return to the emergency department. They verbalized understanding and feel safe for discharge at this time. Medical Decision Making Medical Decision Making MDM Narrative: 42yo w/PMHx anxiety, bipolar, PTSD, opiate abuse c/o dry cough cough, rhinorrhea, chest congestion x 1week. On exam vital signs stable, NAD, nontoxic appearing, lungs CTA, or pharynx WNL. Concern for viral illness versus bronchitis. Lower suspicion for pneumonia, ACS, PE, CHF Plan: COVID-19/influenza testing, CXR Please refer to course for remaining clinical decision making, interpretation of labs/imaging results, and discussions with consultants and/or family members. Differential Diagnosis Differential Diagnoses: The differential diagnosis associated with the presentation includes As above Admission/Observation Consideration of admission/observation: Escalation of care including admission/observation considered Lab Data MDM Lab Attestation statement: I reviewed the patient's lab results. Labs: Lab Results 10/23/22 10/23/22 Range/Units 16:33 16:33 COVID-19 (VIOLETTE) Negative (Negative) COVID-19 Clin Com See Note Influenza Type A (MADELIN) Negative (Negative) Influenza Type B (MADELIN) Negative (Negative) Influenza A & B Note See Note Radiology Impression Discussion of test interpretation with radiology: I have reviewed the radiologist's reading. External Record Review External record reviewed: Inpatient record, Office record, Outpatient record, Prior outpatient labs, Prior outpatient radiology, Primary care record and Outside ED record Discharge Plan Discharge Clinical Impression: Bronchitis Patient Disposition: Home, Self-Care Instructions: Acute Bronchitis (ED) Additional Instructions: You tested negative for COVID in the flu Your x-rays unremarkable. You likely have bronchitis Prednisone as a steroid please take as prescribed Claudio Rodríguez for cough. Albuterol inhaler can be used or shortness of breath/wheezing Follow-up with your Dr. If symptoms persist or worsen return to the ED Prescriptions: New prednisone 20 mg tablet 40 mg PO DAILY 5 Days Qty: 10 0RF benzonatate 100 mg capsule 100 mg PO TID PRN (Reason: cough) Qty: 14 0RF albuterol sulfate 90 mcg/actuation HFA aerosol inhaler 2 puff inhalation Q4-6H PRN (Reason: shortness of breath or wheezing) Qty: 6.7 0RF No Action prazosin 1 mg Capsule 4 mg PO BEDTIME 30 Days Qty: 120 0RF Protocol: Hold for SBP< HOLD for SBP < : 90 Rx Instructions: deliver to [facility] acetaminophen 325 mg Tablet 975 mg PO TID PRN (Reason: Headache/Pain Mild Scale (1-3)) 7 Days Qty: 21 0RF Rx Instructions: DELIVER TO [place] [facility] buspirone 15 mg tablet 15 mg PO BID 30 Days Qty: 60 0RF propranolol 40 mg tablet 40 mg PO BID 30 Days Qty: 60 0RF Rx Instructions: DELIVER TO [place] [facility] chlorpromazine 25 mg Tablet 25 mg PO QID PRN (Reason: Anxiety) 30 Days Qty: 90 0RF oxcarbazepine 300 mg Tablet 300 mg PO BID 30 Days Qty: 60 0RF quetiapine 400 mg Tablet 400 mg PO BEDTIME 30 Days Qty: 30 0RF topiramate 100 mg Tablet 100 mg PO BID 30 Days Qty: 60 0RF trazodone 50 mg Tablet 150 mg PO BEDTIME 30 Days Qty: 90 0RF fluticasone propionate 50 mcg/actuation [facility],Suspension 2 spray intranasal DAILY PRN (Reason: nasal congestion) 30 Days Qty: 16 0RF omeprazole 20 mg Capsule,Delayed Release(Dr/Ec) 20 mg PO DAILY@0630 30 Days Qty: 30 0RF ibuprofen 800 mg Tablet 800 mg PO TIDWM PRN (Reason: back pain) 7 Days Qty: 20 0RF oxycodone 5 mg capsule 5 mg PO Q8H PRN (Reason: severe pain (scale score 7-10)) 7 Days Qty: 18 0RF polyethylene glycol 3350 [Miralax] 17 gram/dose powder 17 g PO DAILY PRN (Reason: constipation) Qty: 510 0RF cefpodoxime 200 mg tablet 200 mg PO BID Qty: 14 0RF Rx Instructions: must administer with a meal/food prednisone 20 mg tablet 40 mg PO DAILY Qty: 10 0RF diphenhydramine HCl [Benadryl] 25 mg capsule 50 mg PO TID PRN (Reason: itching) Qty: 30 0RF Referrals: Physician,Unknown J [Primary Care Provider] - 5 days
[2022-10-23 15:16] VITALS: BP 138/101; PULSE 98; RESP 16; TEMP 36.9; O2SAT 99; BMI 49.1
[2022-10-23 17:05] LABS: IDNOW Serial# 55D5AD1C; Influenza A Negative (Negative); Influenza B2 Negative (Negative)
[2022-10-23 17:06] LABS: COVID-19 Test Negative (Negative); IDNOW Serial# BCCEAD1C
[2022-10-23 17:31] VITALS: BP 131/91; PULSE 99; RESP 18; TEMP 37.4; O2SAT 98
== END 2022-10-23 18:13 | disposition home or self-care (01) ==
PROVIDERS: Physician Assistant; Emergency Provider Emergency Medicine
DX: J40 Bronchitis, not specified as acute or chronic (principal); R05.9 Cough, unspecified; R09.89 Other specified symptoms and signs involving the circulatory and respiratory systems; Z79.899 Other long term (current) drug therapy; F17.200 Nicotine dependence, unspecified, uncomplicated; Z71.6 Tobacco abuse counseling; Z20.822 Contact with and (suspected) exposure to COVID-19; Z20.828 Contact with and (suspected) exposure to other viral communicable diseases
CPT/HCPCS: 71045; 87502; 87635; 99282; 99283

== ENCOUNTER 2022-10-29 16:35 | Emergency (ER) | payer MEDICAID, SELFPAY ==
--- NOTE | ~2022-10-29 | XR_ITS ---
EXAMINATION: XR LUMBOSACRAL SPINE CLINICAL INFORMATION: Back pain, status post fall COMPARISON: None available. TECHNIQUE: Three views of the lumbosacral spine. FINDINGS: Vertebral body alignment is maintained. Vertebral body heights are maintained. No evidence of acute compression deformities. There is lumbar spondylosis. Moderate L3-L4 disc degeneration. Mild-moderate L4-L5 disc degeneration. Multilevel facet degeneration.. Surgical clips in the right mid abdomen. Essure devices seen in the pelvis.. Nonobstructive bowel gas pattern. XR/XR lumbar spine 2-3V IMPRESSION: No evidence of acute fracture. Lumbar spondylosis. Moderate L3-L4 disc degeneration.
--- NOTE | 2022-10-29 16:38 | ED_ITS ---
HPI - General Adult General Chief complaint: Back Pain/Injury <CHRISTIAN Guerrero - Last Filed: 10/29/22 16:42> Stated complaint: Fall/Back pain <CHRISTIAN Guerrero - Last Filed: 10/29/22 16:42> Time Seen by Provider: 10/29/22 18:19 <CHRISTIAN Guerrero - Last Filed: 10/29/22 16:42> Source: patient <Sera Yousif NP - Last Filed: 10/30/22 01:16> Mode of arrival: ambulatory <Sera Yousif NP - Last Filed: 10/30/22 01:16> Limitations: no limitations <Sera Yousif NP - Last Filed: 10/30/22 01:16> History of Present Illness HPI narrative: 42-year-old female presents for evaluation of lower back pain after falling down 4 steps. Patient states she slipped landed on her buttocks went down 4 stairs. She does have a history of degenerative disc disease, and when she throws her back out she normally requires stronger medications than muscle relaxers. Patient does not report any symptoms indicating cauda equina, did not hit her head or lose consciousness. Patient does not report any prodromal events prior to the fall. <Sera Yousif NP - Last Filed: 10/30/22 01:16> Location: back <Sera Yousif NP - Last Filed: 10/30/22 01:16> Severity: moderate <Sera Yousif NP - Last Filed: 10/30/22 01:16> Severity scale (1-10): 7 <Sera Yousif NP - Last Filed: 10/30/22 01:16> Quality: aching and constant <Sera Yousif NP - Last Filed: 10/30/22 01:16> Pain Consistency: constant <Sera Yousif NP - Last Filed: 10/30/22 01:16> Relieving factors: none <Sera Yousif NP - Last Filed: 10/30/22 01:16> Exacerbating factors: movement <Sera Yousif NP - Last Filed: 10/30/22 01:16> Associated symptoms: denies other symptoms <Sera Yousif NP - Last Filed: 10/30/22 01:16> Treatments prior to arrival: NSAID, cold therapy and heat therapy <Sera Yousif NP - Last Filed: 10/30/22 01:16> Related Data Home medications: Previous Rx's Medication Instructions Recorded acetaminophen 325 mg tablet 975 mg PO TID PRN Headache/Pain 06/01/21 Mild Scale (1-3) 7 days #21 tabs buspirone 15 mg tablet 15 mg PO BID 30 days #60 tabs 06/01/21 chlorpromazine 25 mg tablet 25 mg PO QID PRN Anxiety 30 days 06/01/21 #90 tabs fluticasone propionate 50 2 spray intranasal DAILY PRN nasal 06/01/21 mcg/actuation nasal congestion 30 days #16 grams spray,suspension ibuprofen 800 mg tablet 800 mg PO TIDWM PRN back pain 7 06/01/21 days #20 tabs omeprazole 20 mg capsule,delayed 20 mg PO DAILY@0630 30 days #30 06/01/21 release caps oxcarbazepine 300 mg tablet 300 mg PO BID 30 days #60 tabs 06/01/21 oxycodone 5 mg capsule 5 mg PO Q8H PRN severe pain (scale 06/01/21 score 7-10) 7 days #18 caps prazosin 1 mg capsule 4 mg PO BEDTIME 30 days #120 caps 06/01/21 propranolol 40 mg tablet 40 mg PO BID 30 days #60 tabs 06/01/21 quetiapine 400 mg tablet 400 mg PO BEDTIME 30 days #30 tabs 06/01/21 topiramate 100 mg tablet 100 mg PO BID 30 days #60 tabs 06/01/21 trazodone 50 mg tablet 150 mg PO BEDTIME 30 days #90 tabs 06/01/21 cefpodoxime 200 mg tablet 200 mg PO BID #14 tabs 12/03/21 polyethylene glycol 3350 17 17 g PO DAILY PRN constipation 12/03/21 gram/dose oral powder (Miralax) #510 grams diphenhydramine HCl 25 mg capsule 50 mg PO TID PRN itching #30 caps 10/16/22 (Benadryl) prednisone 20 mg tablet 40 mg PO DAILY #10 tabs 10/16/22 albuterol sulfate 90 mcg/actuation 2 puff inhalation Q4-6H PRN 10/23/22 aerosol inhaler shortness of breath or wheezing #6.7 grams benzonatate 100 mg capsule 100 mg PO TID PRN cough #14 caps 10/23/22 prednisone 20 mg tablet 40 mg PO DAILY 5 days #10 tabs 10/23/22 hydrocodone 5 mg-acetaminophen 325 1 tab PO DAILY PRN pain #3 tabs 10/29/22 mg tablet hydrocodone 5 mg-acetaminophen 325 1 tab PO DAILY PRN pain #3 tabs 10/29/22 mg tablet <CHRISTIAN Guerrero - Last Filed: 10/29/22 16:42> Allergies/adverse reactions: Allergies Allergy/AdvReac Type Severity Reaction Status Date / Time Penicillins [PENICILLINS] Allergy Severe HIVES Verified 10/29/22 16:43 prochlorperazine Allergy Severe HIVES Verified 10/29/22 16:43 [From COMPAZINE] promethazine [PROMETHAZINE] Allergy Intermediate HEADACHES Verified 10/29/22 16:43 haloperidol [From HALDOL] AdvReac Severe HIVES Verified 10/29/22 16:43 <CHRISTIAN Guerrero - Last Filed: 10/29/22 16:42> Review of Systems Review of Systems: Constitutional: No Fever, No Chills Cardiovascular: No Chest Pain, No SOB Respiratory: No Cough, No Dyspnea Gastrointestinal: No Nausea, No Vomiting, No Diarrhea, No abdominal Pain Genitourinary: No Dysuria, No Hematuria Musculoskeletal: positive lower back pain, No Myalgias, No Joint Swelling Skin: No Skin lacerations, No rash Neuro: No Weakness, No Numbness, No Paresthesias, No Dizziness, No Headache <Sera Yousif NP - Last Filed: 10/30/22 01:16> Yes all other systems are reviewed and are negative <Sera Yousif NP - Last Filed: 10/30/22 01:16> PMFSH Past Medical History Attestation statement: The following information was validated with the patient. <ANDRESSA Rasmussen Last Filed: 10/30/22 01:16> Source: old records reviewed <Sera Yousif NP - Last Filed: 10/30/22 01:16> Medical History: Medical History Anxiety Bipolar disorder Cocaine abuse Hernia Opioid abuse PTSD (post-traumatic stress disorder) <CHRISTIAN Guerrero - Last Filed: 10/29/22 16:42> Surgical History: Surgical History History of appendectomy History of cholecystectomy LAP-BAND surgery status <CHRISTIAN Guerrero - Last Filed: 10/29/22 16:42> Social History Social History: Social History Household Members: Family Housing: House Do you presently have visiting nurse or other home services: No Alcohol intake: never Patient Tobacco Use Status: Current everyday Tobacco user Substance Use Type: Heroin Advance Directives: No Advance Directives Information Provided: No service: No Sexual orientation: Did not discuss <CHRISTIAN Guerrero - Last Filed: 10/29/22 16:42> Physical Exam ED Vital Signs: Vital Signs - 24 hr 10/29/22 16:39 Temperature 97 F Pulse Rate 81 Respiratory Rate 18 Blood Pressure 137/80 Pulse Oximetry 98 Oxygen Delivery Method Room Air BMI result Body Mass Index 49.1 <CHRISTIAN Guerrero - Last Filed: 10/29/22 16:42> Vital Signs - 24 hr 10/29/22 16:39 Temperature 97 F Pulse Rate 81 Respiratory Rate 18 Blood Pressure 137/80 Pulse Oximetry 98 Oxygen Delivery Method Room Air BMI result Body Mass Index 49.1 <Sera Yousif NP - Last Filed: 10/30/22 01:16> Appearance: Alert. Oriented X3. Moderate distress. Eyes: Pupils equal, round and reactive to light. Neck: Normal inspection. Neck supple. CVS: Normal heart rate and rhythm. Pulses normal. Respiratory: No respiratory distress. Breath sounds normal. Abdomen: Soft and nontender. Skin: Skin warm and dry. Normal skin color. Normal skin turgor. Extremities: No lower extremity edema. Awkward but steady gait. Neuro: No motor deficit. No sensory deficit. Cranial nerves 2-12 intact. <Sera Yousif NP - Last Filed: 10/30/22 01:16> Course Course Course Narrative: This is an RME: Additional HPI, ROS, PE not included below will be deferred to primary provider. 42-year-old female history of bipolar disorder, PTSD, lap band surgery, presenting to the emergency department for evaluation of bilateral lower back pain status post tripping and falling down 4 stairs, patient tells me she fell onto her back, since then has been having pain. Intermittently radiates down both legs just above the knee. Difficulty with walking. Denies numbness, tingling, urine/bowel incontinence/retention, saddle paresthesias, weakness, fevers, chills. Patient tells me she has history of issues with L3-L5. No head strike, loss of consciousness. Not on blood thinners Pain with palpation to bilateral paraspinous lumbar regions. Plan imaging of lower back. Will give Toradol for pain. Lidoderm patch. <CHRISTIAN Guerrero - Last Filed: 10/29/22 16:42> This is an RME: Additional HPI, ROS, PE not included below will be deferred to primary provider. 42-year-old female history of bipolar disorder, PTSD, lap band surgery, presenting to the emergency department for evaluation of bilateral lower back pain status post tripping and falling down 4 stairs, patient tells me she fell onto her back, since then has been having pain. Intermittently radiates down both legs just above the knee. Difficulty with walking. Denies numbness, tingling, urine/bowel incontinence/retention, saddle paresthesias, weakness, fevers, chills. Patient tells me she has history of issues with L3-L5. No head strike, loss of consciousness. Not on blood thinner s Pain with palpation to bilateral paraspinous lumbar regions. Plan imaging of lower back. Will give Toradol for pain. Lidoderm patch. 18:30 42-year-old female presents with injuries sustained from a fall. Patient tripped down 4 stairs landing on her bottom. She does not have any symptoms indicating cauda equina, has full range of motion to all of her extremities, states to have sciatica like feelings radiating down both of her legs. Patient does have chronic pain, secondary to degenerative disc disease. Pain management Toradol and lidocaine patch given to patient while she was in the emergency department waiting room, lumbar spine x-rays negative. Review of records indicates that patient receives Vicodin on a regular basis, usually less than 10 tablets per time. Patient does seems sincere and is respectfully declining muscle relaxers. I did tell her that I would only give her 3 tablets of the medication that she requested and that this is not a general standard of practic e. Patient is in visible distress, and is having a difficult time ambulating. Palpable spasms noted to bilateral latissimus Banuelos. Patient did understand the significant dangers of narcotic medications. Patient verbalized understanding of discharge instructions. Verbalized understandings of signs and symptoms indicating need for emergent intervention. <Sera Yousif NP - Last Filed: 10/30/22 01:16> Medications Administered Discontinued Medications Generic Name Dose Route Start Last Admin Trade Name Freq PRN Reason Stop Dose Admin Ketorolac Tromethamine 30 mg 10/29/22 16:39 10/29/22 18:10 Ketorolac Tromethamine 15 Mg/Ml Vial IM 10/29/22 16:40 30 mg ONCE ONE Administration Lidocaine 1 patch 10/29/22 16:40 10/29/22 18:11 Lidocaine 4 % Patch Adh..Patch TRANSDERMA 10/29/22 16:41 1 patch ONCE ONE Administration Protocol <CHRISTIAN Guerrero - Last Filed: 10/29/22 16:42> Medications Administered Discontinued Medications Generic Name Dose Route Start Last Admin Trade Name Freq PRN Reason Stop Dose Admin Ketorolac Tromethamine 30 mg 10/29/22 16:39 10/29/22 18:10 Ketorolac Tromethamine 15 Mg/Ml Vial IM 10/29/22 16:40 30 mg ONCE ONE Administration Lidocaine 1 patch 10/29/22 16:40 10/29/22 18:11 Lidocaine 4 % Patch Adh..Patch TRANSDERMA 10/29/22 16:41 1 patch ONCE ONE Administration Protocol <Sera Yousif NP - Last Filed: 10/30/22 01:16> Medical Decision Making Differential Diagnosis Differential Diagnoses: The differential diagnosis associated with the presentation includes <Sera Yousif NP - Last Filed: 10/30/22 01:16> Degenerative disc disease, fracture, muscle spasm <Sera Yousif NP - Last Filed: 10/30/22 01:16> Independent Interpretation I performed an independent interpretation of an: Plain X-Ray <Sera Yousif NP - Last Filed: 10/30/22 01:16> Radiology Impression Discussion of test interpretation with radiology: I have reviewed the radiologist's reading. <ANDRESSA Rasmussen Last Filed: 10/30/22 01:16> Radiologist Impression: EXAMINATION: XR LUMBOSACRAL SPINE CLINICAL INFORMATION: Back pain, status post fall COMPARISON: None available. TECHNIQUE: Three views of the lumbosacral spine. FINDINGS: Vertebral body alignment is maintained. Vertebral body heights are maintained. No evidence of acute compression deformities. There is lumbar spondylosis. Moderate L3-L4 disc degeneration. Mild-moderate L4-L5 disc degeneration. Multilevel facet degeneration.. Surgical clips in the right mid abdomen. Essure devices seen in the pelvis.. Nonobstructive bowel gas pattern. XR/XR lumbar spine 2-3V IMPRESSION: No evidence of acute fracture. Lumbar spondylosis. Moderate L3-L4 disc degeneration. <ANDRESSA Rasmussen Last Filed: 10/30/22 01:16> Independent Historian Clinical information obtained from an independent historian. History obtained from or confirmed by: Spouse <Sera Yousif NP - Last Filed: 10/30/22 01:16> External Record Review External record reviewed: Inpatient record, Outpatient record, Prior outpatient labs and Prior outpatient radiology <Sera Yousif NP - Last Filed: 10/30/22 01:16> Prescription Management I considered prescription management with: Pain Medication <ANDRESSA Rasmussen Last Filed: 10/30/22 01:16> Chronic Conditions Patient?s care impacted by: Hypertension <Sera Yousif NP - Last Filed: 10/30/22 01:16> Social Determinants Patient?s care significantly limited by Social Determinants of Health including: Other Social Determinant of Health <ANDRESSA Rasmussen Last Filed: 10/30/22 01:16> Discharge Plan Discharge Clinical Impression: Degenerative disc disease, lumbar, Fall, Acute exacerbation of chronic low back pain <CHRISTIAN Guerrero - Last Filed: 10/29/22 16:42> Patient Disposition: Home, Self-Care <CHRISTIAN Guerrero - Last Filed: 10/29/22 16:42> Instructions: Acute Low Back Pain (ED), Back Pain (ED), Opioid Safety (ED), Non- pharmacological Pain Management Therapies for Adults (ED) <CHRISTIAN Guerrero - Last Filed: 10/29/22 16:42> Additional Instructions: You were evaluated for lower back pain after a fall. X-rays redemonstrate lumbar disc degeneration. I prescribed 3 tablets of Vicodin to help you with pain management. This medication is a narcotic and has high risk for addiction and abuse. Do not drive or operate machinery while taking this medication. This medication can delay reaction time, increased risk for falls, cause drowsiness, and co nstipation. Drink plenty of fluids and consider using MiraLax while taking this medication. Alternate Tylenol 650 mg every 6 hours as needed for pain management. Write down what time you take these medications to prevent accidental overdose. Tylenol is the same medication as acetaminophen. Thank you for choosing this emergency department for evaluation. Please follow-up with primary care physician as needed. Return to the emergency department for any new, concerning, or worsening symptoms. <CHRISTIAN Guerrero - Last Filed: 10/29/22 16:42> Prescriptions: New hydrocodone-acetaminophen 5-325 mg tablet 1 tab PO DAILY PRN (Reason: pain) Qty: 3 0RF Rx Instructions: Partial Fill upon patient request. hydrocodone-acetaminophen 5-325 mg tablet 1 tab PO DAILY PRN (Reason: pain) Qty: 3 0RF Rx Instructions: Partial Fill upon patient request. No Action prazosin 1 mg Capsule 4 mg PO BEDTIME 30 Days Qty: 120 0RF Protocol: Hold for SBP< HOLD for SBP < : 90 Rx Instructions: deliver to [facility] acetaminophen 325 mg Tablet 975 mg PO TID PRN (Reason: Headache/Pain Mild Scale (1-3)) 7 Days Qty: 21 0RF Rx Instructions: DELIVER TO [facility] buspirone 15 mg tablet 15 mg PO BID 30 Days Qty: 60 0RF propranolol 40 mg tablet 40 mg PO BID 30 Days Qty: 60 0RF Rx Instructions: DELIVER TO [facility] chlorpromazine 25 mg Tablet 25 mg PO QID PRN (Reason: Anxiety) 30 Days Qty: 90 0RF oxcarbazepine 300 mg Tablet 300 mg PO BID 30 Days Qty: 60 0RF quetiapine 400 mg Tablet 400 mg PO BEDTIME 30 Days Qty: 30 0RF topiramate 100 mg Tablet 100 mg PO BID 30 Days Qty: 60 0RF trazodone 50 mg Tablet 150 mg PO BEDTIME 30 Days Qty: 90 0RF fluticasone propionate 50 mcg/actuation [place],Suspension 2 spray intranasal DAILY PRN (Reason: nasal congestion) 30 Days Qty: 16 0RF omeprazole 20 mg Capsule,Delayed Release(Dr/Ec) 20 mg PO DAILY@0630 30 Days Qty: 30 0RF ibuprofen 800 mg Tablet 800 mg PO TIDWM PRN (Reason: back pain) 7 Days Qty: 20 0RF oxycodone 5 mg capsule 5 mg PO Q8H PRN (Reason: severe pain (scale score 7-10)) 7 Days Qty: 18 0RF prednisone 20 mg tablet 40 mg PO DAILY 5 Days Qty: 10 0RF benzonatate 100 mg capsule 100 mg PO TID PRN (Reason: cough) Qty: 14 0RF albuterol sulfate 90 mcg/actuation HFA aerosol inhaler 2 puff inhalation Q4-6H PRN (Reason: shortness of breath or wheezing) Qty: 6.7 0RF polyethylene glycol 3350 [Miralax] 17 gram/dose powder 17 g PO DAILY PRN (Reason: constipation) Qty: 510 0RF cefpodoxime 200 mg tablet 200 mg PO BID Qty: 14 0RF Rx Instructions: must administer with a meal/food prednisone 20 mg tablet 40 mg PO DAILY Qty: 10 0RF diphenhydramine HCl [Benadryl] 25 mg capsule 50 mg PO TID PRN (Reason: itching) Qty: 30 0RF <CHRISTIAN Guerrero - Last Filed: 10/29/22 16:42> Interventions: ED Discharge Assessment Last Done: 10/29/22 18:57 <CHRISTIAN Guerrero - Last Filed: 10/29/22 16:42> Discharge Date/Time: 10/29/22 18:58 <CHRISTIAN Guerrero - Last Filed: 10/29/22 16:42>
[2022-10-29 16:39] VITALS: BP 137/80; PULSE 81; RESP 18; TEMP 36.1; O2SAT 98; BMI 49.1
[2022-10-29] MEDS: Ketorolac Tromethamine 15 MG/ML VIAL 30 MG IM (18:10)
[2022-10-29] MEDS: Lidocaine 4 % Patch ADH..PATCH 1 PATCH TRANSDERMA (18:11)
== END 2022-10-29 18:58 | disposition home or self-care (01) ==
PROVIDERS: Emergency Provider Emergency Medicine
DX: M51.36 Other intervertebral disc degeneration, lumbar region (principal); M54.50 Low back pain, unspecified; Z79.899 Other long term (current) drug therapy
CPT/HCPCS: 72100; 96372; 99283; 99284; J1885

== ENCOUNTER 2023-04-15 01:06 | Emergency (ER) | payer OTHER, SELFPAY ==
[2023-04-15] VITALS (7 sets, daily range): BP systolic 128–142; BP diastolic 64–99; PULSE 79–98; RESP 16–25; TEMP 36.6; O2SAT 94–99; BMI 49.9
--- NOTE | ~2023-04-15 | CT_ITS ---
EXAMINATION: CT ANGIOGRAM OF THE CHEST WITH AND WITHOUT CONTRAST (CT PULMONARY ANGIOGRAM FOR PE) CLINICAL INFORMATION: Shortness of breath, suspect PE. COMPARISON: None available. TECHNIQUE: Prior to contrast administration, noncontrast localization images were obtained. Subsequently, multidetector volumetric imaging was performed from the thoracic inlet to below the diaphragms following the administration of 85 mL Omnipaque 350 intravenous contrast. No contrast reaction reported Sagittal, coronal, and MIP oblique sagittal reformatted images were obtained on the CT workstation, uploaded to PACS, and reviewed. This CT examination was performed using dose optimization techniques as appropriate, variously including the following: *Automated exposure control *Adjustment of mA and/or kV according to patient size (this includes techniques or standardized protocols for targeted exams where dose is matched to indication/reason for exam; i.e. extremities or head) *Use of iterative reconstruction technique Total exam dose-length product 349 mGy-cm FINDINGS: QUALITY OF STUDY/CONTRAST BOLUS: Satisfactory. The peripheral pulmonary arteries are attenuated. PULMONARY ARTERIES: No central pulmonary emboli or filling defects within the proximal pulmonary branches. THORACIC AORTA: No aneurysm. LUNG: No focal consolidation, nodules or masses. PLEURA: No pleural effusion or pneumothorax. MEDIASTINUM: Normal heart size. No pericardial effusion. No hilar or mediastinal lymphadenopathy. No evidence of septal bowing or right heart strain. CORONARY ARTERY CALCIFICATION: None visualized on this study. CHEST WALL/AXILLA: No axillary or internal mammary lymphadenopathy. OSSEOUS STRUCTURES: No acute or suspicious osseous abnormality. UPPER ABDOMEN: Unremarkable. No reflux of contrast into the hepatic veins to suggest elevated right heart pressures. CT/CT angio chest PE protocol IMPRESSION: No evidence for pulmonary embolism. No active cardiopulmonary disease. VTE:
--- NOTE | ~2023-04-15 | XR_ITS ---
EXAMINATION: XR CHEST CLINICAL INFORMATION: Shortness of breath. COMPARISON: 10/23/2022 TECHNIQUE: Frontal view of the chest was obtained. FINDINGS: The cardiomediastinal silhouette is stable. There is no focal lung consolidation or pleural effusion. The bony structures and the soft tissues are unremarkable. XR/XR chest 1V IMPRESSION: No active cardiopulmonary disease.
--- NOTE | 2023-04-15 01:11 | ECG_ITS ---
Test Reason : SOB Blood Pressure : / mmHG Vent. Rate : 094 BPM Atrial Rate : 094 BPM P-R Int : 190 ms QRS Dur : 096 ms QT Int : 366 ms P-R-T Axes : 055 040 025 degrees QTc Int : 457 ms Normal sinus rhythm Incomplete right bundle branch block Borderline ECG No previous ECGs available Referred By: Blossom Kelly Electronically Signed By:MELLISSA FONTAINE
--- NOTE | 2023-04-15 01:22 | ED.SOB ---
HPI - SOB/Dyspnea General Chief Complaint: Dyspnea Stated Complaint: SoB Time Seen by Provider: 04/15/23 01:10 Source: patient Mode of arrival: EMS History of Present Illness HPI Narrative: 43-year-old female who denies any history of asthma or COPD but she is noted to have an albuterol inhaler on her prescription list, she states that she began feeling short of breath approximately 5-6 hours ago without associated fever, chills, new cough denies any chest pain/palpitations or abdominal discomfort. She does report that she does completed a long driving trip with her daughter down to [place]. In addition, she complains of edematous right foot. Related Data Previous Rx's Medication Instructions Recorded acetaminophen 325 mg tablet 975 mg PO TID PRN Headache/Pain 06/01/21 Mild Scale (1-3) 7 days #21 tabs buspirone 15 mg tablet 15 mg PO BID 30 days #60 tabs 06/01/21 chlorpromazine 25 mg tablet 25 mg PO QID PRN Anxiety 30 days 06/01/21 #90 tabs fluticasone propionate 50 2 spray intranasal DAILY PRN nasal 06/01/21 mcg/actuation nasal congestion 30 days #16 grams spray,suspension ibuprofen 800 mg tablet 800 mg PO TIDWM PRN back pain 7 06/01/21 days #20 tabs omeprazole 20 mg capsule,delayed 20 mg PO DAILY@0630 30 days #30 06/01/21 release caps oxcarbazepine 300 mg tablet 300 mg PO BID 30 days #60 tabs 06/01/21 oxycodone 5 mg capsule 5 mg PO Q8H PRN severe pain (scale 06/01/21 score 7-10) 7 days #18 caps prazosin 1 mg capsule 4 mg PO BEDTIME 30 days #120 caps 06/01/21 propranolol 40 mg tablet 40 mg PO BID 30 days #60 tabs 06/01/21 quetiapine 400 mg tablet 400 mg PO BEDTIME 30 days #30 tabs 06/01/21 topiramate 100 mg tablet 100 mg PO BID 30 days #60 tabs 06/01/21 trazodone 50 mg tablet 150 mg PO BEDTIME 30 days #90 tabs 06/01/21 cefpodoxime 200 mg tablet 200 mg PO BID #14 tabs 12/03/21 polyethylene glycol 3350 17 17 g PO DAILY PRN constipation 12/03/21 gram/dose oral powder (Miralax) #510 grams diphenhydramine HCl 25 mg capsule 50 mg PO TID PRN itching #30 caps 10/16/22 (Benadryl) prednisone 20 mg tablet 40 mg PO DAILY #10 tabs 10/16/22 albuterol sulfate 90 mcg/actuation 2 puff inhalation Q4-6H PRN 10/23/22 aerosol inhaler shortness of breath or wheezing #6.7 grams benzonatate 100 mg capsule 100 mg PO TID PRN cough #14 caps 10/23/22 prednisone 20 mg tablet 40 mg PO DAILY 5 days #10 tabs 10/23/22 hydrocodone 5 mg-acetaminophen 325 1 tab PO DAILY PRN pain #3 tabs 10/29/22 mg tablet hydrocodone 5 mg-acetaminophen 325 1 tab PO DAILY PRN pain #3 tabs 10/29/22 mg tablet prednisone 50 mg tablet 50 mg PO DAILY 4 days #4 tabs 04/15/23 Allergies Allergy/AdvReac Type Severity Reaction Status Date / Time Penicillins [PENICILLINS] Allergy Severe HIVES Verified 10/29/22 16:43 prochlorperazine Allergy Severe HIVES Verified 10/29/22 16:43 [From COMPAZINE] promethazine [PROMETHAZINE] Allergy Intermediate HEADACHES Verified 10/29/22 16:43 haloperidol [From HALDOL] AdvReac Severe HIVES Verified 10/29/22 16:43 Review of Systems Review of Systems: Pertinent positives and negatives as stated in [facility] Past Medical History Source: nursing notes reviewed Medical History Anxiety Bipolar disorder Cocaine abuse Hernia Opioid abuse PTSD (post-traumatic stress disorder) Surgical History History of appendectomy History of cholecystectomy LAP-BAND surgery status Social History Social History Household Members: Family Housing: House Do you presently have visiting nurse or other home services: No Alcohol intake: former Patient Tobacco Use Status: Current everyday Tobacco user Smoked in Last 30 Days: No Use of substances other than those prescribed or required for medical reasons: No Substance Use Type: Heroin Advance Directives: No Advance Directives Information Provided: Yes service: No Sexual orientation: Did not discuss Physical Exam Vital Signs: Vital Signs: Last Vital Signs Temp 97.9 F 04/15/23 01:18 Pulse 79 04/15/23 04:47 Resp 19 04/15/23 04:47 BP 128/64 04/15/23 04:47 Pulse Ox 94 04/15/23 04:47 O2 Del Method Room Air 04/15/23 04:47 BMI result Body Mass Index 49.9 VITAL SIGNS: Reviewed. GENERAL: Elevated BMI, Well developed, well nourished, in no acute distress. HEAD: Normocephalic/atraumatic EYES: PERRLA, EOMI EARS: Ext canals without abnormality NOSE: Nares patent bilateral OROPHARYNX: no oral lesions noted, posterior pharynx clear NECK: Supple, no adenopathy LUNGS: Decreased breath sounds with significant expiratory wheeze bilaterally, tachypnea is present. SpO2<95> CARDIOVASCULAR: Regular rate and rhythm without noted murmurs, no JVD or lower extremity edema. ABDOMEN: Soft, non-tender, non-distended with bowel sounds. MUSCULOSKELETAL: No tenderness, deformities, or effusions noted on gross inspection. EXTREMITIES: No cyanosis, clubbing or edema. Bilateral lower extremities are large appearing but no pitting appreciated. SKIN: Inspection of the skin reveals no rashes, ulcerations, jaundice, pallor, or petechiae. NEUROLOGIC: Alert and oriented x 4. Strength and sensation to light touch were grossly intact x 4. Medications Administered Discontinued Medications Generic Name Dose Route Start Last Admin Trade Name Freq PRN Reason Stop Dose Admin Albuterol Sulfate 10 mg 04/15/23 01:21 04/15/23 01:32 Albuterol Sulfate (0.083%) 2.5 Mg/3 Ml Vial.Neb INHALE 04/15/23 01:22 10 mg ONCE ONE Administration Iohexol 85 ml 04/15/23 05:53 04/15/23 05:54 Iohexol 350 Mg/Ml 100 Ml Infus..Btl IV 04/15/23 05:54 85 ml ONCE ONE Administration Medical Decision Making Medical Decision Making MDM Narrative: 43-year-old female with history and clinical presentation, DDX: Acute asthma exacerbation, PE, viral syndrome and lower clinical suspicion for ACS or pneumonia INTERVENTION: 10 mg albuterol, patient is already received steroids by EMS. On re-evaluation patient has had improvement in expiratory wheeze. D-dimer was noted to be elevated and will pursue with CT angio for PE. I reviewed all investigations and hematologic indices do not indicate a evidence of systemic infection is there is no leukocytosis with left shift, there is no anemia or thrombocytopenia. As stated above D-dimer-287. Chemistry indices negative for a electrolyte or liver enzyme abnormalities and there is no ANNEMARIE. Otherwise, chemistry indices are not relevant to current presentation. Chest x-ray negative for infiltrate and otherwise my interpretation is in agreement with radiology's impression. EKG not significant for STEMI. I reviewed the results of CT angio for PE protocol, no VTE and otherwise my interpretation is in agreement with radiology's impression. Patient will go home with a Ventolin inhaler and a short course of steroids instructions to follow-up with primary care provider. Differential Diagnosis Differential Diagnoses: The differential diagnosis associated with the presentation includes Please see the discussion above Admission/Observation Consideration of admission/observation: Escalation of care including admission/observation considered Please see the discussion above Lab Data MDM Lab Attestation statement: I reviewed the patient's lab results. Please see the discussion above 04/15/23 01:37 04/15/23 01:37 Labs: Lab Results 04/15/23 04/15/23 04/15/23 Range/Units 01:37 01:37 01:37 WBC 10.4 (4.8-10.8) X10*3/uL RBC 4.13 L (4.20-5.50) X10*6/uL Hgb 12.5 (12.0-16.0) g/dl Hct 38.5 (37.0-47.0) % MCV 93.2 (80.0-98.0) fL MCH 30.3 (27.0-33.0) pg MCHC 32.5 (31.0-35.0) g/dl RDW 14.2 (11.0-16.0) % Plt Count 219 (160-400) X10*3/uL MPV 12.8 H (9.4-12.3) fL Immature Gran % (Auto) 0.3 (0.0-0.4) % Neut % (Auto) 61.9 (45-73) % Lymph % (Auto) 25.0 (20-40) % Cooper % (Auto) 5.2 (2-11) % Eos % (Auto) 7.0 H (0-4) % Baso % (Auto) 0.6 (0-2) % Lymph # (Auto) 2.6 (1.2-4.9) X10*3/uL Cooper # (Auto) 0.5 (0.1-1.2) X10*3/uL Eos # (Auto) 0.7 H (0.0-0.4) X10*3/uL Baso # (Auto) 0.1 (0.0-0.2) X10*3/uL Abs Immat Gran (auto) 0.03 (0.00-0.03) X10*3/uL Absolute Neuts (auto) 6.5 (2.0-8.3) x10*3/uL Absolute Nucleated RBC 0.000 (0.0-0.012) X10*3/uL Nucleated RBC % (auto) 0.0 (0.0-0.2) /100WBC D-Dimer High Sensitivty NG/ML Sodium 139 (135-145) mmol/L Potassium 3.9 (3.3-5.1) mmol/L Chloride 112 H (96-108) mmol/L Carbon Dioxide 20 L (22-29) mmol/L Anion Gap 11 L (12-20) BUN 11 (9-16) mg/dL Creatinine 0.97 (0.5-1.4) mg/dL Estim Creat Clear Calc 118.0 Estimated GFR > 60 Random Glucose 139 H (60-115) mg/dL Calcium 8.8 (8.4-10.2) mg/dL Total Bilirubin 0.3 (0.0-1.0) mg/dL AST 7 (5-31) U/L ALT 8 (0-31) U/L Alkaline Phosphatase 58 (39-117) U/L Total Protein 6.4 L (6.5-8.0) g/dL Albumin 3.7 (3.5-5.0) g/dL Beta HCG, Quant < 2 mIU/mL COVID-19 (VIOLETTE) (Negative) COVID-19 Clin Com Influenza Type A (MADELIN) Negative (Negative) Influenza Type B (MADELIN) Negative (Negative) Influenza A & B Note See Note 04/15/23 04/15/23 Range/Units 01:37 01:37 WBC (4.8-10.8) X10*3/uL RBC (4.20-5.50) X10*6/uL Hgb (12.0-16.0) g/dl Hct (37.0-47.0) % MCV (80.0-98.0) fL MCH (27.0-33.0) pg MCHC (31.0-35.0) g/dl RDW (11.0-16.0) % Plt Count (160-400) X10*3/uL MPV (9.4-12.3) fL Immature Gran % (Auto) (0.0-0.4) % Neut % (Auto) (45-73) % Lymph % (Auto) (20-40) % Cooper % (Auto) (2-11) % Eos % (Auto) (0-4) % Baso % (Auto) (0-2) % Lymph # (Auto) (1.2-4.9) X10*3/uL Cooper # (Auto) (0.1-1.2) X10*3/uL Eos # (Auto) (0.0-0.4) X10*3/uL Baso # (Auto) (0.0-0.2) X10*3/uL Abs Immat Gran (auto) (0.00-0.03) X10*3/uL Absolute Neuts (auto) (2.0-8.3) x10*3/uL Absolute Nucleated RBC (0.0-0.012) X10*3/uL Nucleated RBC % (auto) (0.0-0.2) /100WBC D-Dimer High Sensitivty 287 NG/ML Sodium (135-145) mmol/L Potassium (3.3-5.1) mmol/L Chloride (96-108) mmol/L Carbon Dioxide (22-29) mmol/L Anion Gap (12-20) BUN (9-16) mg/dL Creatinine (0.5-1.4) mg/dL Estim Creat Clear Calc Estimated GFR Random Glucose (60-115) mg/dL Calcium (8.4-10.2) mg/dL Total Bilirubin (0.0-1.0) mg/dL AST (5-31) U/L ALT (0-31) U/L Alkaline Phosphatase (39-117) U/L Total Protein (6.5-8.0) g/dL Albumin (3.5-5.0) g/dL Beta HCG, Quant mIU/mL COVID-19 (VIOLETTE) Negative (Negative) COVID-19 Clin Com See Note Influenza Type A (MADELIN) (Negative) Influenza Type B (MADELIN) (Negative) Influenza A & B Note Independent Interpretation I performed an independent interpretation of an: EKG Interpretation: Normal sinus rhythm, HR-94, no STEMI, MD/QRS/QTC is within normal limits. Radiology Impression Discussion of test interpretation with radiology: I have reviewed the radiologist's reading. Radiologist Impression: Please see the discussion above External Record Review External record reviewed: Outpatient record, Prior outpatient labs and Prior outpatient radiology Critical Care Time Critical Care Time Critical Care Time: Yes Total Critical Care Time: 30 Attestation: I personally attest to this time spent taking care of the patient. Discharge Plan Discharge Clinical Impression: Asthma exacerbation Patient Disposition: Home, Self-Care Instructions: Asthma (ED) Additional Instructions: 1. Resume all home medications as prescribed. 2. Please complete the short course of steroids. 3. Follow-up with your primary care provider next 1-2 days. Return to the ER for any worsening symptoms. Prescriptions: New prednisone 50 mg tablet 50 mg PO DAILY 4 Days Qty: 4 0RF No Action prazosin 1 mg Capsule 4 mg PO BEDTIME 30 Days Qty: 120 0RF Protocol: Hold for SBP< HOLD for SBP < : 90 Rx Instructions: deliver to [facility] acetaminophen 325 mg Tablet 975 mg PO TID PRN (Reason: Headache/Pain Mild Scale (1-3)) 7 Days Qty: 21 0RF Rx Instructions: DELIVER TO [place] [facility] buspirone 15 mg tablet 15 mg PO BID 30 Days Qty: 60 0RF propranolol 40 mg tablet 40 mg PO BID 30 Days Qty: 60 0RF Rx Instructions: DELIVER TO [place] [facility] chlorpromazine 25 mg Tablet 25 mg PO QID PRN (Reason: Anxiety) 30 Days Qty: 90 0RF oxcarbazepine 300 mg Tablet 300 mg PO BID 30 Days Qty: 60 0RF quetiapine 400 mg Tablet 400 mg PO BEDTIME 30 Days Qty: 30 0RF topiramate 100 mg Tablet 100 mg PO BID 30 Days Qty: 60 0RF trazodone 50 mg Tablet 150 mg PO BEDTIME 30 Days Qty: 90 0RF fluticasone propionate 50 mcg/actuation [place],Suspension 2 spray intranasal DAILY PRN (Reason: nasal congestion) 30 Days Qty: 16 0RF omeprazole 20 mg Capsule,Delayed Release(Dr/Ec) 20 mg PO DAILY@0630 30 Days Qty: 30 0RF ibuprofen 800 mg Tablet 800 mg PO TIDWM PRN (Reason: back pain) 7 Days Qty: 20 0RF oxycodone 5 mg capsule 5 mg PO Q8H PRN (Reason: severe pain (scale score 7-10)) 7 Days Qty: 18 0RF prednisone 20 mg tablet 40 mg PO DAILY 5 Days Qty: 10 0RF benzonatate 100 mg capsule 100 mg PO TID PRN (Reason: cough) Qty: 14 0RF albuterol sulfate 90 mcg/actuation HFA aerosol inhaler 2 puff inhalation Q4-6H PRN (Reason: shortness of breath or wheezing) Qty: 6.7 0RF hydrocodone-acetaminophen 5-325 mg tablet 1 tab PO DAILY PRN (Reason: pain) Qty: 3 0RF Rx Instructions: Partial Fill upon patient request. hydrocodone-acetaminophen 5-325 mg tablet 1 tab PO DAILY PRN (Reason: pain) Qty: 3 0RF Rx Instructions: Partial Fill upon patient request. polyethylene glycol 3350 [Miralax] 17 gram/dose powder 17 g PO DAILY PRN (Reason: constipation) Qty: 510 0RF cefpodoxime 200 mg tablet 200 mg PO BID Qty: 14 0RF Rx Instructions: must administer with a meal/food prednisone 20 mg tablet 40 mg PO DAILY Qty: 10 0RF diphenhydramine HCl [Benadryl] 25 mg capsule 50 mg PO TID PRN (Reason: itching) Qty: 30 0RF
[2023-04-15] MEDS: Albuterol Sulfate (0.083%) 2.5 MG/3 ML VIAL.NEB 10 MG INHALE (01:32)
--- NOTE | 2023-04-15 01:42 | MHC.EDTECH ---
This Tech assumed care of this pt upon arrival. EKG completed and handed to provider, Pt placed on radiation monitor Labs drawn and sent for processing. Red fall risk precaution wristband and socks placed on pt
[2023-04-15 01:43] LABS: MANUAL DIFF FLAG NO
[2023-04-15 01:44] LABS: Basophils Absolute Auto 0.1 X10*3/uL (0.0-0.2); Basophils Percent Auto 0.6 % (0-2); Eosinophils Absolute Auto 0.7 X10*3/uL (0.0-0.4); Hematocrit 38.5 % (37.0-47.0); Hemoglobin 12.5 g/dl (12.0-16.0); Imm Gran Abs Auto 0.03 X10*3/uL (0.00-0.03); Imm Gran Pct Auto 0.3 % (0.0-0.4); Lymphocytes Absolute Auto 2.6 X10*3/uL (1.2-4.9); Mean Corpuscular HGB Conc 32.5 g/dl (31.0-35.0); Mean Corpuscular Hemoglobin 30.3 pg (27.0-33.0); Mean Corpuscular Volume 93.2 fL (80.0-98.0); Mean Platelet Volume 12.8 fL (9.4-12.3); Monocytes Absolute Auto 0.5 X10*3/uL (0.1-1.2); Monocytes Percent Auto 5.2 % (2-11); Neutrophils Absolute Auto 6.5 x10*3/uL (2.0-8.3); Neutrophils Percent Auto 61.9 % (45-73); Platelet Count 219 X10*3/uL (160-400); Red Blood Count 4.13 X10*6/uL (4.20-5.50); Red Cell Distribution Width 14.2 % (11.0-16.0); White Blood Count 10.4 X10*3/uL (4.8-10.8)
[2023-04-15 01:52] LABS: D Dimer High Sensitivity 287 NG/ML
[2023-04-15 02:05] LABS: IDNOW Serial# 08D9AD1C; IDNOW Serial# BCCEAD1C; Influenza A Negative (Negative); Influenza B2 Negative (Negative)
[2023-04-15 02:06] LABS: COVID-19 Test Negative (Negative)
[2023-04-15 02:59] LABS: Alanine Aminotransferase 8 U/L (0-31); Albumin Level 3.7 g/dL (3.5-5.0); Alkaline Phosphatase 58 U/L (39-117); Anion Gap 11 (12-20); Aspartate Amino Transferase 7 U/L (5-31); Bilirubin Total 0.3 mg/dL (0.0-1.0); Blood Urea Nitrogen 11 mg/dL (9-16); Calcium 8.8 mg/dL (8.4-10.2); Carbon Dioxide 20 mmol/L (22-29); Chloride 112 mmol/L (96-108); Estimated Glomerular Filt Rate > 60; Glucose Random 139 mg/dL (60-115); Potassium 3.9 mmol/L (3.3-5.1); Sodium 139 mmol/L (135-145); Total Protein 6.4 g/dL (6.5-8.0)
[2023-04-15 03:08] LABS: HCG Quantitative < 2 mIU/mL
[2023-04-15] MEDS: iohexoL 350 MG/ML 100 ML INFUS..BTL 85 ML IV (05:54)
--- NOTE | 2023-04-15 07:31 | PC.NURSE ---
RT called and notified that provider wants t to receive breathing treatment before leaving. states that they will be here shortly. will discharge pt after pt receives full treatment.
[2023-04-15] MEDS: Albuterol Sulfate 90 MCG 8 GM INHALER 2 PUFF INHALE (07:39)
--- NOTE | 2023-04-15 07:42 | PC.NURSE ---
RT bedside w/ pt.
== END 2023-04-15 08:09 | disposition home or self-care (01) ==
PROVIDERS: Emergency Provider Student in an Organized Health Care Education/Training Program
DX: J45.901 Unspecified asthma with (acute) exacerbation (principal); R06.02 Shortness of breath; Z20.822 Contact with and (suspected) exposure to COVID-19; Z20.828 Contact with and (suspected) exposure to other viral communicable diseases; Z79.899 Other long term (current) drug therapy
CPT/HCPCS: 36415; 71045; 71275; 80053; 84702; 85025; 85379; 87502; 87635; 93005; 94640; 99284; 99285; Q9967

== ENCOUNTER 2023-12-09 14:20 | Inpatient (IN) | payer OTHER, SELFPAY ==
--- NOTE | 2023-12-09 14:37 | ED.PSYCH ---
HPI - Psych General Chief Complaint: Psychiatric Symptoms Stated Complaint: Crisis Time Seen by Provider: 12/09/23 14:34 Source: patient Mode of arrival: ambulatory Limitations: no limitations History of Present Illness HPI Narrative: Patient is a 43-year-old female with history of polysubstance use disorder, PTSD, bipolar disorder, anxiety presenting to the emergency department with complaint of increasing anxiety over the past few months. States that her symptoms were acutely exacerbated when her friend completed a suicide over the weekend. She states that the friends family has been sending her threatening text messages blaming her for his . She reports auditory and visual hallucinations but states this is her baseline and denies any command hallucinations to harm herself. She denies any suicidal or homicidal ideation. States that she has been stable on her medications for approximately the past 10 years. Does admit to using crack cocaine recently due to increased stress. States she has history of heroin use but has not used since 2018. Denies any alcohol use. MD complaint: feels depressed and anxiety Onset (ago): month(s) Duration: getting worse History of same: Yes Context: significant life stressor Associated psychiatric symptoms: depression Associated symptoms: denies other symptoms Treatments prior to arrival: none Related Data Home Medications ?Medication ?Instructions ?Recorded ?Confirmed buspirone 15 mg tablet 15 mg PO BID 12/09/23 12/09/23 cetirizine 10 mg tablet 10 mg PO DAILY 12/09/23 12/09/23 famotidine 20 mg tablet 20 mg PO BID 12/09/23 12/09/23 ibuprofen 800 mg tablet 800 mg PO TID PRN back pain 12/09/23 12/09/23 propranolol 40 mg tablet 40 mg PO BID 12/09/23 12/09/23 quetiapine 400 mg tablet 400 mg PO BEDTIME 12/09/23 12/09/23 sumatriptan succinate 100 mg tablet 100 mg PO 12/09/23 Previous Rx's ?Medication ?Instructions ?Recorded fluticasone propionate 50 2 spray intranasal DAILY PRN nasal 06/01/21 mcg/actuation nasal congestion 30 days #16 grams spray,suspension topiramate 100 mg tablet 100 mg PO BID 30 days #60 tabs 06/01/21 trazodone 50 mg tablet 150 mg (3 x 50 mg) PO BEDTIME 30 06/01/21 days #90 tabs Allergies Allergy/AdvReac Type Severity Reaction Status Date / Time Penicillins [PENICILLINS] Allergy Severe HIVES Verified 12/09/23 14:56 prochlorperazine Allergy Severe HIVES Verified 12/09/23 14:56 [From COMPAZINE] promethazine [PROMETHAZINE] Allergy Intermediate HEADACHES Verified 12/09/23 14:56 haloperidol [From HALDOL] AdvReac Severe HIVES Verified 12/09/23 14:56 morphine AdvReac Flushing Verified 12/09/23 14:56 Review of Systems Review of Systems: As per HPI. Yes all other systems are reviewed and are negative Constitutional: Constitutional: Reports as per HPI PMFSH Past Medical History Medical History Anxiety Bipolar disorder Cocaine abuse Hernia Opioid abuse PTSD (post-traumatic stress disorder) Surgical History History of appendectomy History of cholecystectomy LAP-BAND surgery status Social History Social History Household Members: Family Housing: House Do you presently have visiting nurse or other home services: No Alcohol intake: current Alcohol intake frequency: holidays/special occasions only Patient Tobacco Use Status: Current everyday Tobacco user Smoked in Last 30 Days: No Use of substances other than those prescribed or required for medical reasons: No Substance Use Type: Heroin Patient : No service: No Sexual orientation: Did not discuss Physical Exam Vital Signs: Vital Signs: Last Vital Signs Temp 97.8 F 12/09/23 14:54 Pulse 87 12/09/23 14:54 Resp 18 12/09/23 14:57 BP 138/100 H 12/09/23 14:54 Pulse Ox 96 12/09/23 14:54 O2 Del Method Room Air 12/09/23 14:54 BMI result Body Mass Index 51.7 Vital signs have been reviewed and appear to be correct. Blood pressure elevated. Heart rate normal. Respiratory rate normal. Temperature normal. Oxygen saturation normal. Const: General: cooperative, healthy appearing and no acute distress Orientation/consciousness: oriented to person, oriented to place, oriented to time and patient oriented x3 Limitations: no limitations HEENT: Head: Yes normocephalic and Yes atraumatic Ears: external ears normal General nose exam: Normal external nose present Face and sinus: Yes face symmetric Mouth: oropharynx normal and moist mucous membranes Throat: Yes uvula midline Eyes: Pupils: Equal, round and reactive pupils present Neck: Neck: Yes normal visual inspection and Yes supple Resp: Effort & Inspection: normal respiratory effort and able to speak in complete sentences Auscultation: clear to auscultation bilaterally Cardio: Rate: regular rate Rhythm: regular rhythm Heart sounds: S1 normal heart sound present and S2 normal heart sound present GI: Palpation (GI): Soft to palpation and nontender Auscultation: normoactive bowel sounds : General: Yes no CVA tenderness Back/Spine/Pelvis: Back: no CVA tenderness Skin: General skin exam: elasticity normal and turgor normal Neuro: General: oriented to person, oriented to place, oriented to time, patient oriented x3, moves all extremities, no focal motor deficits and CN's II-XI intact bilaterally Cranial nerves: Yes Equal, round and reactive pupils present Cognition (Neuro): normal cognition Extrem: General: Yes full ROM, Yes no pedal edema and Yes no calf tenderness Psych: Appearance: grossly normal Mental Status: mental status grossly normal Speech and movement: Normal speech and movement present Affect: Sad affect present Attitude: cooperative Thought process: Normal thought process present Thought content: suicidality, no homicidality, Hallucination(s) present auditory and visual and Depressive thoughts present Insight: Fair insight present (Psych) Judgement: Fair judgement present (Psych) Medical Decision Making Medical Decision Making MDM Narrative: Patient is a 43-year-old female with history of polysubstance use disorder, PTSD, bipolar disorder, anxiety presenting to the emergency department with complaint of increasing anxiety over the past few months. On exam patient is awake, A+Ox3, BP elevated, VS otherwise WNL, afebrile, normal neurological exam without focal deficits, physical exam findings as above. Given reported symptoms and physical exam findings, initial differential includes anxiety, depression, bipolar disorder. Plan: med clearance then CARE team eval UA notable for 1+ leukocytes, patient denies any urinary complaints. Urine drug screen positive for cocaine. Patient signed out to CHRISTIAN Jalloh pending labs/med clearance. Differential Diagnosis Differential Diagnoses: The differential diagnosis associated with the presentation includes As per MDM. Admission/Observation Consideration of admission/observation: Escalation of care including admission/observation considered Consult Healthcare Provider Management of the patient was discussed with: Behavioral Health Provider Lab Data [facility] Lab Attestation statement: I reviewed the patient's lab results. As per [facility]. Labs: Lab Results 12/09/23 Range/Units 14:56 Urine Color Yellow Urine Appearance Cloudy Urine pH 7.0 (5.0-9.0) Ur Specific [place] 1.020 (1.005-1.025) Urine Protein Negative (Neg-Trace) mg/dL Urine Glucose (UA) Negative (Negative) mg/dL Urine Ketones Negative (Negative) mg/dL Urine Blood Trace (Negative) Urine Nitrite Negative (Negative) Ur Leukocyte Esterase Small (1+) H (Negative) Urine RBC 0-2 (0-2) /HPF Urine WBC 0-5 (0-5) /HPF Ur Squamous Epith Cells 3-5 (0-2) /HPF Urine Bacteria 2+ (None Seen) Hyaline Casts 0-2 (0-2) /LPF Urine Opiates Screen Not Detected (Not Detect) Ur Buprenorphine Scrn Not Detected (Not Detect) ng/mL Ur Oxycodone Screen Not Detected (Not Detect) ng/mL Urine Methadone Screen Not Detected (Not Detect) ng/mL Urine Fentanyl Screen Not Detected (Not Detect) Ur Barbiturates Screen Not Detected (Not Detect) Ur Phencyclidine Scrn Not Detected (Not Detect) Ur Amphetamines Screen Not Detected (Not Detect) U Benzodiazepines Scrn Not Detected (Not Detect) Urine Cocaine Screen POSITIVE H (Not Detect) U Marijuana (THC) Screen Not Detected (Not Detect) External Record Review External record reviewed: Inpatient record, Office record and Outpatient record Discharge Plan Discharge Clinical Impression: Bipolar disorder, Depression Patient Disposition: Still a Patient Prescriptions: No Action topiramate 100 mg Tablet 100 mg PO BID 30 Days Qty: 60 0RF trazodone 50 mg Tablet 150 mg PO BEDTIME 30 Days Qty: 90 0RF fluticasone propionate 50 mcg/actuation Margaret,Suspension 2 spray intranasal DAILY PRN (Reason: nasal congestion) 30 Days Qty: 16 0RF cetirizine 10 mg tablet 10 mg PO DAILY sumatriptan succinate 100 mg tablet 100 mg PO propranolol 40 mg tablet 40 mg PO BID famotidine 20 mg tablet 20 mg PO BID buspirone 15 mg tablet 15 mg PO BID quetiapine 400 mg tablet 400 mg PO BEDTIME ibuprofen 800 mg tablet 800 mg PO TID PRN (Reason: back pain) Interventions: [place]-Suicide Risk Severity Scale Last Done: 12/09/23 14:59 Print Language: Nigerian
[2023-12-09 14:54] VITALS: BP 138/100; PULSE 87; RESP 16; TEMP 36.6; O2SAT 96; BMI 51.7
[2023-12-09 14:57] VITALS: RESP 18
[2023-12-09 15:06] LABS: Appearance Urine Cloudy; Color Urine Yellow; Glucose Urine UA Negative (Negative); Leukocyte Esterase Urine Small (1+) (Negative); Nitrite Urine Negative (Negative); UMIC TRIGGER UACC YES; Urine Blood Trace (Negative); Urine Ketones Negative (Negative); Urine Protein Negative (Neg-Trace)
[2023-12-09 15:39] LABS: Amphetamine Screen Urine Not Detected (Not Detect); Barbiturates, Urine Not Detected (Not Detect); Benzodiazepines Screen Urine Not Detected (Not Detect); Buprenorphine Scr Not Detected (Not Detect); Cannabinoid Screen Urine Not Detected (Not Detect); Cocaine Screen Urine POSITIVE (Not Detect); Fentanyl, urine Not Detected (Not Detect); Methadone Screen, Urine Not Detected (Not Detect); Opiate Screen Urine Not Detected (Not Detect); Oxycodone Screen Urine Not Detected (Not Detect); Phencyclidine Screen Urine Not Detected (Not Detect)
[2023-12-09 15:44] LABS: Bacteria Urine 2+ (None Seen); RBC Urine 0-2 /HPF (0-2); UACC Culture Trigger YES; WBC Urine 0-5 /HPF (0-5)
[2023-12-09 15:45] LABS: Hyaline Casts Urine 0-2 /LPF (0-2)
--- NOTE | 2023-12-09 19:13 | PC.NURSE ---
patient appears to remain at rest at present respirations are even and unlabored patient appears in no distress.
[2023-12-09 19:57] LABS: MANUAL DIFF FLAG NO
[2023-12-09 20:06] LABS: Basophils Percent Auto 0.5 % (0-2); Eosinophils Absolute Auto 0.4 X10*3/uL (0.0-0.4); Eosinophils Percent Auto 5.3 % (0-4); Hemoglobin 13.2 g/dl (12.0-16.0); Imm Gran Abs Auto 0.01 X10*3/uL (0.00-0.03); Imm Gran Pct Auto 0.1 % (0.0-0.4); Lymphocytes Absolute Auto 2.5 X10*3/uL (1.2-4.9); Lymphocytes Percent Auto 33.6 % (20-40); Mean Corpuscular HGB Conc 33.8 g/dl (31.0-35.0); Mean Corpuscular Hemoglobin 31.4 pg (27.0-33.0); Mean Corpuscular Volume 92.6 fL (80.0-98.0); Mean Platelet Volume 12.6 fL (9.4-12.3); Monocytes Absolute Auto 0.4 X10*3/uL (0.1-1.2); Neutrophils Absolute Auto 4.1 x10*3/uL (2.0-8.3); Neutrophils Percent Auto 55.5 % (45-73); Platelet Count 241 X10*3/uL (160-400); Red Blood Count 4.21 X10*6/uL (4.20-5.50); Red Cell Distribution Width 13.2 % (11.0-16.0); White Blood Count 7.4 X10*3/uL (4.8-10.8)
[2023-12-09 20:22] LABS: Alanine Aminotransferase 9 U/L (0-31); Albumin Level 3.8 g/dL (3.5-5.0); Alkaline Phosphatase 54 U/L (39-117); Anion Gap 12 (12-20); Aspartate Amino Transferase 7 U/L (5-31); Bilirubin Total 0.3 mg/dL (0.0-1.0); Blood Urea Nitrogen 10 mg/dL (9-16); Calcium 8.5 mg/dL (8.4-10.2); Carbon Dioxide 21 mmol/L (22-29); Chloride 111 mmol/L (96-108); Ethanol < 10 mg/dL; Glucose Random 103 mg/dL (60-115); Potassium 3.7 mmol/L (3.3-5.1); Sodium 140 mmol/L (135-145); Total Protein 6.8 g/dL (6.5-8.0)
[2023-12-09 20:24] LABS: Creatinine Clr Calc Pharmacy 147.2; Estimated Glomerular Filt Rate > 60
[2023-12-09 22:15] VITALS: BP 151/100; PULSE 68; RESP 20; TEMP 36.4; O2SAT 99
[2023-12-09 22:29] VITALS: BP 150/100; PULSE 80
[2023-12-09] MEDS: QUEtiapine Fumarate 400 MG TABLET PO (22:29)
[2023-12-09] MEDS: Propranolol HCL 40 MG TABLET PO (22:29)
[2023-12-09] MEDS: traZODone HCL 50 MG TABLET 150 MG PO (22:30)
[2023-12-09] MEDS: Topiramate 100 MG TABLET PO (22:30)
[2023-12-09] MEDS: busPIRone HCl 5 MG TABLET 15 MG PO (22:30)
[2023-12-09] MEDS: Famotidine 20 MG TABLET PO (22:30)
--- NOTE | 2023-12-10 | ECG_ITS ---
Test Reason : check qt Blood Pressure : / mmHG Vent. Rate : 059 BPM Atrial Rate : 059 BPM P-R Int : 180 ms QRS Dur : 098 ms QT Int : 434 ms P-R-T Axes : 037 057 042 degrees QTc Int : 429 ms Sinus bradycardia Otherwise normal ECG When compared with ECG of 15-APR-2023 01:14, Vent. rate has decreased BY 35 BPM Incomplete right bundle branch block is no longer Present Referred By: Tammy Bowles Electronically Signed By:LUCIUS BRADY
[2023-12-10 02:39] VITALS: BP 145/81; PULSE 77; RESP 18; TEMP 36.8; O2SAT 98
[2023-12-10 07:21] VITALS: BP 130/81; PULSE 65; RESP 12; TEMP 36.4; O2SAT 97
[2023-12-10 08:42] VITALS: BP 130/81; PULSE 65
[2023-12-10] MEDS: Propranolol HCL 40 MG TABLET PO ×2 (08:42→21:09)
[2023-12-10] MEDS: Topiramate 100 MG TABLET PO ×2 (08:42→21:10)
[2023-12-10] MEDS: LORazepam 1 MG TABLET PO (08:42)
[2023-12-10] MEDS: Famotidine 20 MG TABLET PO ×2 (08:44→21:09)
[2023-12-10] MEDS: busPIRone HCl 5 MG TABLET 15 MG PO ×2 (08:44→21:10)
[2023-12-10] MEDS: Loratadine 10 MG TABLET PO (08:44)
--- NOTE | 2023-12-10 08:58 | PC.NURSE ---
Assumed care of patient at 0645, patient awake sitting upright in bed, took all morning medications without issue. patient was reporting increased anxiety, MD ordered Ativan which was also given per MAR. Patient offers no complaints to this RN, respirations even and unlabored, patient aware of plan of care for inpatient bedsearch
[2023-12-10 12:18] VITALS: BP 121/85; PULSE 62; RESP 16; TEMP 36.6; O2SAT 98
[2023-12-10 12:59] VITALS: BMI 49.5
--- NOTE | 2023-12-10 14:12 | PC.ADMIT ---
Shavon was admitted to at 1210 from? [facility] on CV for treatment of AVH and depression. The precipitants of admission include the completion of suicide by a man she had been speaking to online (but states she had never met in real life) over the past six months. Apparently he left a note blaming her before sliting his wrists and hanging himself and now his family members are blaming her for the and threatening legal action. In addition, Shavon is at a moment of housing transition and is unable/unwilling to return to the home of the friend she had been staying with. She is cooperative with admission process, pleasant and able to engage in humor. Patient reports mood is depressed. She experiences auditory hallucinations of derogatory speech about herself, but no command SI. She also has occasional frightening VH. Her thought process is linear. Appetite is normal and she reports oversleeping due to depression. She has intermittent history of crack cocaine use last use 2 days ago.. Tox screen is positive for cocaine only.. Her only physical complaint is back pain due to multiple buldging lumbar discs. She denies ideation, plan or intent to harm self or others, but wanted to address her deteriorating mental health before reaching the point of SI. Patient is placed on 15 minute checks for safety.?
[2023-12-10] MEDS: Ibuprofen 800 MG TABLET PO ×2 (14:20→21:09)
[2023-12-10] MEDS: hydrOXYzine HCL 25 MG TABLET PO ×2 (14:20→21:09)
[2023-12-10] MEDS: Ketorolac Tromethamine 10 MG TABLET PO (15:51)
[2023-12-10] MEDS: LORazepam 0.5 MG TABLET PO (15:51)
[2023-12-10 20:00] VITALS: BP 148/80; PULSE 73; TEMP 36.6; O2SAT 100
[2023-12-10 21:09] VITALS: BP 148/80; PULSE 73
[2023-12-10] MEDS: QUEtiapine Fumarate 400 MG TABLET PO (21:10)
[2023-12-10] MEDS: traZODone HCL 50 MG TABLET 150 MG PO (21:10)
[2023-12-11 08:33] VITALS: PULSE 80; RESP 18; TEMP 36.1; O2SAT 99
[2023-12-11] MEDS: Ketorolac Tromethamine 10 MG TABLET PO (08:33)
[2023-12-11] MEDS: Topiramate 100 MG TABLET PO ×2 (08:34→22:44)
[2023-12-11] MEDS: busPIRone HCl 5 MG TABLET 15 MG PO ×2 (08:34→22:44)
[2023-12-11] MEDS: Loratadine 10 MG TABLET PO (08:34)
[2023-12-11] MEDS: Famotidine 20 MG TABLET PO ×2 (08:34→22:44)
[2023-12-11 08:59] LABS: Cholesterol 130 mg/dL (<200); HDL Cholesterol 35 mg/dL (>40); LDL Cholesterol Calculated 57 mg/dL (<100); Magnesium 2.1 mg/dL (1.6-2.6); Triglycerides 193 mg/dL (<150)
[2023-12-11 09:13] LABS: Estimated Average Glucose 103 mg/dL; Hemoglobin A1c % 5.2 % (<6.0)
[2023-12-11 09:15] LABS: Free T4 (Free Thyroxine) 0.83 ng/dL (0.71-1.85); Thyroid Stimulating Hormone 1.27 uIU/mL (0.32-4.0)
[2023-12-11 09:26] LABS: Folate 3.8 ng/mL (> or = 4.0); Vitamin B12 236 pg/mL (200-900)
[2023-12-11 10:04] VITALS: BP 122/78; PULSE 92
[2023-12-11] MEDS: Propranolol HCL 40 MG TABLET PO ×2 (10:04→22:43)
[2023-12-11] MEDS: Acetaminophen 325 MG TABLET 650 MG PO (14:55)
[2023-12-11] MEDS: LORazepam 0.5 MG TABLET PO (14:56)
[2023-12-11] MEDS: HYDROcodone Bit/Acetam 5/325 TABLET 1 TAB PO (16:42)
--- NOTE | 2023-12-11 19:09 | HO.PSYADMNOT ---
HPI Date of Service: 12/11/23 Chief Complaint: Bipolar Disorder Sources of Information: patient interviewed, chart reviewed and crisis/core team assessment reviewed Additional Sources of Information: Prescriber, Blossom Mejia APRN, [facility]- who reports pt has been on a stable regime for years, missed last appt. No suggestions offered at this time. HPI Subjective Notes: Leach Warning and 3 Day Healthcare Proxy: No Guardianship: No Medical Problems Affecting Mental Status: No Narrative: 43 yo female, history of Bipolar Disorder, PTSD, Polysubstance use presents to ER with reports of an increase in anxiety and decrease in medication efficacy over the past few months. Over the weekend, a friend she had been talking with online committed suicide. This friends' family began to send her threatening text messages, holding her responsible for his . Denies SI/HI. Reports AH, non command to harm herself. Reports crack-cocaine use recently. Pt states that she feels meds are not effective and have not been for a while with sx of depression, anxiety, AH, VH. She adds that she is newly homeless and did discuss the recent loss of her friend Past Psychiatric History: IP: [facility] 2020 OP: [facility]- Blossom Mejia APRN-Psychopharmacology Trials:Buspar, Lorazepam, Seroquel, Topamax, Trazodone, Propranolol, Abilify, Wellbutrin, Latuda. Medical Evaluation Reviewed: Yes [facility] Medical History (Updated 12/12/23 @ 14:14 by Argentina Goldsmith APRN) Cocaine use disorder Opioid abuse Cocaine abuse Bipolar disorder PTSD (post-traumatic stress disorder) Hernia Anxiety Surgical History History of cholecystectomy History of appendectomy LAP-BAND surgery status Family History: bipolar disorder, addiction Social History: Has 3 children youngest 8-year-old all 3 in the custody of parents. Pt is an only child Currently on SSDI Substance History: cocaine hx opiates, alcohol Reports hx of several detox admissions Trauma History: Extensive, severe childhood and adult Diagnostics Vital Signs (24Hr): Vital Signs - 24 hr 12/10/23 20:00 12/10/23 21:09 12/11/23 08:33 Temperature 97.8 F 97 F Pulse Rate 73 73 80 Respiratory Rate 18 Blood Pressure 148/80 H 148/80 H Pulse Oximetry 100 99 Oxygen Delivery Method Room Air Room Air 12/11/23 10:04 Temperature Pulse Rate 92 Respiratory Rate Blood Pressure 122/78 Pulse Oximetry Oxygen Delivery Method BMI result Body Mass Index 49.5 Labs 12/09/23 19:52 12/09/23 19:52 Labs: Laboratory Results - last 48 hr 12/09/23 12/09/23 12/11/23 14:56 19:52 08:28 WBC 7.4 RBC 4.21 Hgb 13.2 Hct 39.0 MCV 92.6 MCH 31.4 MCHC 33.8 RDW 13.2 Plt Count 241 MPV 12.6 H Immature Gran % (Auto) 0.1 Neut % (Auto) 55.5 Lymph % (Auto) 33.6 [place] % (Auto) 5.0 Eos % (Auto) 5.3 H Baso % (Auto) 0.5 Lymph # (Auto) 2.5 [place] # (Auto) 0.4 Eos # (Auto) 0.4 Baso # (Auto) 0.0 Abs Immat Gran (auto) 0.01 Absolute Neuts (auto) 4.1 Absolute Nucleated RBC 0.000 Nucleated RBC % (auto) 0.0 Sodium 140 Potassium 3.7 Chloride 111 H Carbon Dioxide 21 L Anion Gap 12 BUN 10 Creatinine 0.77 Estim Creat Clear Calc 147.2 Estimated GFR > 60 Random Glucose 103 Estimat Average Glucose 103 Hemoglobin A1c % 5.2 Calcium 8.5 Magnesium 2.1 Total Bilirubin 0.3 AST 7 ALT 9 Alkaline Phosphatase 54 Total Protein 6.8 Albumin 3.8 Triglycerides 193 H Cholesterol 130 LDL Cholesterol, Calc 57 HDL Cholesterol 35 L Vitamin B12 236 Folate 3.8 L TSH 1.27 Free T4 0.83 Urine Test NEGATIVE Ethyl Alcohol < 10 Meds/Allergies Meds Home Medications ?Medication ?Instructions ?Recorded ?Confirmed ?Type buspirone 15 mg tablet 15 mg PO BID 12/09/23 12/09/23 History cetirizine 10 mg tablet 10 mg PO DAILY 12/09/23 12/09/23 History famotidine 20 mg tablet 20 mg PO BID 12/09/23 12/09/23 History ibuprofen 800 mg tablet 800 mg PO TID PRN back pain 12/09/23 12/09/23 History propranolol 40 mg tablet 40 mg PO BID 12/09/23 12/09/23 History quetiapine 400 mg tablet 400 mg PO BEDTIME 12/09/23 12/09/23 History sumatriptan succinate 100 mg tablet 100 mg PO 12/09/23 History Allergies Allergies Allergy/AdvReac Type Severity Reaction Status Date / Time Penicillins [PENICILLINS] Allergy Severe HIVES Verified 12/09/23 14:56 prochlorperazine Allergy Severe HIVES Verified 12/09/23 14:56 [From COMPAZINE] promethazine [PROMETHAZINE] Allergy Intermediate HEADACHES Verified 12/09/23 14:56 haloperidol [From HALDOL] AdvReac Severe HIVES Verified 12/09/23 14:56 morphine AdvReac Flushing Verified 12/09/23 14:56 Mental Status Exam Mental Status Exam Patient Appearance: Fatigued and Appropriate Patient Orientation: Person, Place, Time and Situation Level of Consciousness: Alert Patient Behavior: Talkative and Good Eye Contact Mood Description: Depressed Affect Description: Flat Patient Cognition Impaired: No Ability to Follow Directions: Good Speech Pattern: Spontaneous Speech Memory Description: Intact Hallucinations: Auditory and Visual Perceptual Disturbances: Depersonalization and Derealization Thought Process: Rumination Thought Content: positive for Circumstantial Depressive Symptoms: Hopelessness, Unhappiness and Low Self Esteem Judgement: Fair Assessment & Plan Assessment & Plan (1) PTSD (post-traumatic stress disorder): Status: Acute Code(s): F43.10 - Post-traumatic stress disorder, unspecified (2) Bipolar disorder: Status: Chronic Code(s): F31.9 - Bipolar disorder, unspecified (3) Cocaine use disorder: Status: Acute Code(s): F14.10 - Cocaine abuse, uncomplicated Plan 43 yo female, history of PTSD, Bipolar Disorder, Substance use with recent relapse on cocaine. Pt reports inefficacy of regime, losing her housing, and over the weekend a friend she had been talking on line who suicided. She also has chronic pain from bulging discs which she has not yet implemented a suggested PT treatment plan. Plan: Contact with OP provider Vicodin for pain prn q12h Re-eval meds for titration, changes. Referral resources for housing assistance. Patient educated on: medication risk/benefits, therapeutic strategies and medical condition Informed Consent: understands Reason for continued inpatient stay Substantial Risk for: rapid decompensation and med/psych decompensation Statement Statement: I have reviewed the history and physical and performed a pertinent examination on my patient. No changes have occurred unless specified. If the History and Physical was not performed prior to admission, the Hospitalist's service will be consulted for completing the admission physical. Time Spent With Patient Time: Total time managing care of this patient today ____ minutes.
[2023-12-11 20:00] VITALS: BP 119/58; PULSE 84; TEMP 36.4; O2SAT 100
[2023-12-11] MEDS: traZODone HCL 50 MG TABLET 150 MG PO (22:42)
[2023-12-11 22:43] VITALS: BP 119/58; PULSE 84
[2023-12-11] MEDS: QUEtiapine Fumarate 400 MG TABLET PO (22:44)
[2023-12-12] MEDS: HYDROcodone Bit/Acetam 5/325 TABLET 1 TAB PO ×3 (02:11→18:31)
[2023-12-12 09:08] VITALS: BP 123/60; PULSE 72; RESP 16; TEMP 36.3; O2SAT 99
[2023-12-12 09:16] VITALS: BP 123/60
[2023-12-12] MEDS: Topiramate 100 MG TABLET PO ×2 (09:16→21:01)
[2023-12-12] MEDS: busPIRone HCl 5 MG TABLET 15 MG PO ×3 (09:16→21:00)
[2023-12-12] MEDS: Propranolol HCL 40 MG TABLET PO ×2 (09:16→21:01)
[2023-12-12] MEDS: Famotidine 20 MG TABLET PO ×2 (09:16→21:01)
[2023-12-12] MEDS: Loratadine 10 MG TABLET PO (09:16)
[2023-12-12] MEDS: Cariprazine HCl 1.5 MG CAPSULE PO (12:05)
[2023-12-12] MEDS: LORazepam 0.5 MG TABLET 0.25 MG PO (13:33)
--- NOTE | 2023-12-12 14:33 | HO.PSYCHPN ---
Subjective Subjective Date of Service: 12/12/23 Reason For Visit: Bipolar Disorder Subjective Notes: Conditional Voluntary Healthcare Proxy: No Guardianship: No Medical Problems Affecting Mental Status: No Interim History: Review of medications with pt and of message from out patient provider. Currently taking buspirone, lorazepam, propranolol, seroquel, topiramate, trazodone. Reports hx of abilify, wellbutrin, latuda, trileptal, chlorpromazine, prazosin. Discussed lamictal/vraylar combination. Pt will consider. Medication Compliance: Yes Side effects from medications: No Attending Groups: No Review of Systems Acute medical concerns: No Medical Review of Systems: unchanged Review of Systems Review of Systems chronic pain-bulging discs-pt reports she needs to complete a course of PT, then is eligible for steroid injections for her pain mgt. Mental Status Exam Mental Status Exam Patient Appearance: Fatigued and Appropriate Patient Orientation: Person, Place, Time and Situation Level of Consciousness: Alert Patient Behavior: Talkative and Good Eye Contact Mood Description: Depressed Affect Description: Flat Patient Cognition Impaired: No Ability to Follow Directions: Good Speech Pattern: Spontaneous Speech Memory Description: Intact Hallucinations: Auditory and Visual Perceptual Disturbances: Depersonalization and Derealization Thought Process: Rumination Thought Content: positive for Circumstantial Depressive Symptoms: Hopelessness, Unhappiness and Low Self Esteem Judgement: Fair Diagnostics Vital Signs (24Hr): Vital Signs - 24 hr 12/11/23 20:00 12/11/23 22:43 12/12/23 09:08 Temperature 97.5 F 97.3 F Pulse Rate 84 84 72 Respiratory Rate 16 Blood Pressure 119/58 L 119/58 L 123/60 Pulse Oximetry 100 99 Oxygen Delivery Method Room Air 12/12/23 09:16 Temperature Pulse Rate Respiratory Rate Blood Pressure 123/60 Pulse Oximetry Oxygen Delivery Method BMI result Body Mass Index 49.5 Labs 12/09/23 19:52 12/09/23 19:52 Labs: Laboratory Results - last 48 hr 12/11/23 08:28 Estimat Average Glucose 103 Hemoglobin A1c % 5.2 Magnesium 2.1 Triglycerides 193 H Cholesterol 130 LDL Cholesterol, Calc 57 HDL Cholesterol 35 L Vitamin B12 236 Folate 3.8 L TSH 1.27 Free T4 0.83 Medications Medications Current Medications Acetaminophen (Acetaminophen 325 Mg Tablet) 650 mg PO Q6H PRN PRN Reason: Headache/Pain Mild Scale (1-3) Last Admin: 12/11/23 14:55 Dose: 650 mg Hydrocodone Bitart/Acetaminophen (Hydrocodone Bit/Acetam 5/325 Tablet) 1 tab PO Q8H PRN PRN Reason: disc pain Last Admin: 12/12/23 10:11 Dose: 1 tab Al Hydroxide/Mg Hydroxide (Magnesium Hydrox/Alum Hydrox 30 Ml Oral.Susp) 30 ml PO Q6H PRN PRN Reason: Heartburn/Nausea Buspirone HCl (Buspirone Hcl 5 Mg Tablet) 15 mg PO TID [facility] Cariprazine (Cariprazine Hcl 1.5 Mg Capsule) 1.5 mg PO DAILY [facility] Last Admin: 12/12/23 12:05 Dose: 1.5 mg Famotidine (Famotidine 20 Mg Tablet) 20 mg PO BID [facility] Last Admin: 12/12/23 09:16 Dose: 20 mg Hydroxyzine HCl (Hydroxyzine Hcl 25 Mg Tablet) 25 mg PO Q6H PRN PRN Reason: Anxiety Last Admin: 12/10/23 21:09 Dose: 25 mg Ibuprofen (Ibuprofen 800 Mg Tablet) 800 mg PO TID PRN PRN Reason: back pain Last Admin: 12/10/23 21:09 Dose: 800 mg Lamotrigine (Lamotrigine 25 Mg Tablet) 25 mg PO BEDTIME [facility] Loratadine (Loratadine 10 Mg Tablet) 10 mg PO DAILY [facility] Last Admin: 12/12/23 09:16 Dose: 10 mg Lorazepam (Lorazepam 0.5 Mg Tablet) 0.25 mg PO BID PRN PRN Reason: Anxiety Last Admin: 12/12/23 13:33 Dose: 0.25 mg Magnesium Hydroxide (Milk Of Magnesia 30 Ml Oral.Susp) 30 ml PO DAILY PRN PRN Reason: Constipation Propranolol HCl (Propranolol Hcl 40 Mg Tablet) 40 mg PO BID [facility]; Protocol Last Admin: 12/12/23 09:16 Dose: 40 mg Quetiapine Fumarate (Quetiapine Fumarate 400 Mg Tablet) 400 mg PO BEDTIME [facility] Last Admin: 12/11/23 22:44 Dose: 400 mg Topiramate (Topiramate 100 Mg Tablet) 100 mg PO BID [facility] Last Admin: 12/12/23 09:16 Dose: 100 mg Trazodone HCl (Trazodone Hcl 50 Mg Tablet) 150 mg PO BEDTIME [facility] Last Admin: 12/11/23 22:42 Dose: 150 mg Trazodone HCl (Trazodone Hcl 50 Mg Tablet) 50 mg PO BEDTIME MRX1 PRN PRN Reason: Insomnia Allergies Allergies Allergy/AdvReac Type Severity Reaction Status Date / Time Penicillins [PENICILLINS] Allergy Severe HIVES Verified 12/09/23 14:56 prochlorperazine Allergy Severe HIVES Verified 12/09/23 14:56 [From COMPAZINE] promethazine [PROMETHAZINE] Allergy Intermediate HEADACHES Verified 12/09/23 14:56 haloperidol [From HALDOL] AdvReac Severe HIVES Verified 12/09/23 14:56 morphine AdvReac Flushing Verified 12/09/23 14:56 Assessment & Plan Assessment & Plan (1) PTSD (post-traumatic stress disorder): Status: Acute Code(s): F43.10 - Post-traumatic stress disorder, unspecified (2) Bipolar disorder: Status: Chronic Code(s): F31.9 - Bipolar disorder, unspecified (3) Cocaine use disorder: Status: Acute Code(s): F14.10 - Cocaine abuse, uncomplicated Plan 43 yo female, history of PTSD, Bipolar Disorder, Substance use with recent relapse on cocaine. Pt reports inefficacy of regime, losing her housing, and over the weekend a friend she had been talking on line who suicided. She also has chronic pain from bulging discs which she has not yet implemented a suggested PT treatment plan. Plan: Contact with OP provider Vicodin for pain prn q12h Re-eval meds for titration, changes. Referral resources for housing assistance. 12/11/24: Change Lorazepam to 0.25 mg bid Increase Buspirone to 15 mg tid Lamictal 25 mg HS Vraylar 1.5 mg a.m. Informed Consent: understands and further education needed Reason for continued inpatient stay Substantial Risk for: rapid decompensation Time Spent With Patient Time: Total time managing care of this patient today ____ minutes.
[2023-12-12] MEDS: Ibuprofen 800 MG TABLET PO (17:41)
[2023-12-12 20:00] VITALS: BP 120/64; PULSE 76; RESP 17; TEMP 36.6; O2SAT 98
[2023-12-12] MEDS: QUEtiapine Fumarate 400 MG TABLET PO (21:01)
[2023-12-12] MEDS: nitrofurantoin macrocrystaL 50 MG CAPSULE 100 MG PO (21:02)
[2023-12-12] MEDS: traZODone HCL 50 MG TABLET 150 MG PO (21:02)
[2023-12-12] MEDS: lamoTRIgine 25 MG TABLET PO (21:03)
[2023-12-13] MEDS: HYDROcodone Bit/Acetam 5/325 TABLET 1 TAB PO ×3 (01:57→18:04)
[2023-12-13] MEDS: Ibuprofen 800 MG TABLET PO (06:03)
[2023-12-13 07:50] VITALS: BP 129/66; PULSE 62; RESP 16; TEMP 36.6; O2SAT 98
[2023-12-13] MEDS: Cariprazine HCl 1.5 MG CAPSULE PO (08:43)
[2023-12-13] MEDS: nitrofurantoin macrocrystaL 50 MG CAPSULE 100 MG PO ×2 (08:43→20:45)
[2023-12-13] MEDS: Topiramate 100 MG TABLET PO ×2 (08:43→20:46)
[2023-12-13] MEDS: Famotidine 20 MG TABLET PO ×2 (08:43→20:46)
[2023-12-13] MEDS: Propranolol HCL 40 MG TABLET PO ×2 (08:43→20:46)
[2023-12-13] MEDS: Loratadine 10 MG TABLET PO (08:43)
[2023-12-13] MEDS: busPIRone HCl 5 MG TABLET 15 MG PO ×3 (08:43→20:45)
[2023-12-13] MEDS: LORazepam 0.5 MG TABLET 0.25 MG PO (12:13)
--- NOTE | 2023-12-13 15:30 | P.PNPSI_ITS ---
Subjective Subjective Date of Service: 12/13/23 Reason For Visit: Bipolar Disorder Interim History: Met with patient. Discussed with Nursing. Overall ongoing anxiety and non command auditory hallucinations. Endorses nightmares. We did discuss increasing prazosin. Pain under reasonable control with Vicodin. Feeling safe. Hopeful as hallucinations will improve as medication has just been started and therefore some time for effect Medication Compliance: Yes Side effects from medications: No Attending Groups: No Review of Systems Acute medical concerns: No Review of Systems Review of Systems unremarkable Mental Status Exam Mental Status Exam Patient Appearance: Fatigued and Appropriate Patient Orientation: Person, Place, Time and Situation Level of Consciousness: Alert Patient Behavior: Talkative and Good Eye Contact Mood Description: Depressed Affect Description: Flat Patient Cognition Impaired: No Ability to Follow Directions: Good Speech Pattern: Spontaneous Speech Memory Description: Intact Hallucinations: Auditory and Visual Thought Process: Rumination Thought Content: positive for Circumstantial Depressive Symptoms: Hopelessness, Unhappiness and Low Self Esteem Judgement: Fair Diagnostics Vital Signs (24Hr): Vital Signs - 24 hr 12/12/23 20:00 12/13/23 07:50 Temperature 97.9 F 98 F Pulse Rate 76 62 Respiratory Rate 17 16 Blood Pressure 120/64 129/66 Pulse Oximetry 98 98 Oxygen Delivery Method Room Air Room Air BMI result Body Mass Index 49.5 Labs 12/09/23 19:52 12/09/23 19:52 Medications Medications Current Medications Acetaminophen (Acetaminophen 325 Mg Tablet) 650 mg PO Q6H PRN PRN Reason: Headache/Pain Mild Scale (1-3) Last Admin: 12/11/23 14:55 Dose: 650 mg Hydrocodone Bitart/Acetaminophen (Hydrocodone Bit/Acetam 5/325 Tablet) 1 tab PO Q8H PRN PRN Reason: disc pain Last Admin: 12/13/23 10:03 Dose: 1 tab Al Hydroxide/Mg Hydroxide (Magnesium Hydrox/Alum Hydrox 30 Ml Oral.Susp) 30 ml PO Q6H PRN PRN Reason: Heartburn/Nausea Buspirone HCl (Buspirone Hcl 5 Mg Tablet) 15 mg PO TID [facility] Last Admin: 12/13/23 14:40 Dose: 15 mg Cariprazine (Cariprazine Hcl 1.5 Mg Capsule) 1.5 mg PO DAILY [facility] Last Admin: 12/13/23 08:43 Dose: 1.5 mg Famotidine (Famotidine 20 Mg Tablet) 20 mg PO BID [facility] Last Admin: 12/13/23 08:43 Dose: 20 mg Hydroxyzine HCl (Hydroxyzine Hcl 25 Mg Tablet) 25 mg PO Q6H PRN PRN Reason: Anxiety Last Admin: 12/10/23 21:09 Dose: 25 mg Ibuprofen (Ibuprofen 800 Mg Tablet) 800 mg PO TID PRN PRN Reason: back pain Last Admin: 12/13/23 06:03 Dose: 800 mg Lamotrigine (Lamotrigine 25 Mg Tablet) 25 mg PO BEDTIME [facility] Last Admin: 12/12/23 21:03 Dose: 25 mg Loratadine (Loratadine 10 Mg Tablet) 10 mg PO DAILY [facility] Last Admin: 12/13/23 08:43 Dose: 10 mg Lorazepam (Lorazepam 0.5 Mg Tablet) 0.25 mg PO BID PRN PRN Reason: Anxiety Last Admin: 12/13/23 12:13 Dose: 0.25 mg Magnesium Hydroxide (Milk Of Magnesia 30 Ml Oral.Susp) 30 ml PO DAILY PRN PRN Reason: Constipation Nitrofurantoin Macrocrystals (Nitrofurantoin Macrocrystal 50 Mg Capsule) 100 mg PO BID [facility] Stop: 12/20/23 21:00 Last Admin: 12/13/23 08:43 Dose: 100 mg Propranolol HCl (Propranolol Hcl 40 Mg Tablet) 40 mg PO BID [facility]; Protocol Last Admin: 12/13/23 08:43 Dose: 40 mg Quetiapine Fumarate (Quetiapine Fumarate 400 Mg Tablet) 400 mg PO BEDTIME [facility] Last Admin: 12/12/23 21:01 Dose: 400 mg Topiramate (Topiramate 100 Mg Tablet) 100 mg PO BID [facility] Last Admin: 12/13/23 08:43 Dose: 100 mg Trazodone HCl (Trazodone Hcl 50 Mg Tablet) 150 mg PO BEDTIME [facility] Last Admin: 12/12/23 21:02 Dose: 150 mg Trazodone HCl (Trazodone Hcl 50 Mg Tablet) 50 mg PO BEDTIME MRX1 PRN PRN Reason: Insomnia Allergies Allergies Allergy/AdvReac Type Severity Reaction Status Date / Time Penicillins [PENICILLINS] Allergy Severe HIVES Verified 12/09/23 14:56 prochlorperazine Allergy Severe HIVES Verified 12/09/23 14:56 [From COMPAZINE] promethazine [PROMETHAZINE] Allergy Intermediate HEADACHES Verified 12/09/23 14:56 haloperidol [From HALDOL] AdvReac Severe HIVES Verified 12/09/23 14:56 morphine AdvReac [place] Verified 12/09/23 14:56 Assessment & Plan Assessment & Plan (1) PTSD (post-traumatic stress disorder): Status: Acute Code(s): F43.10 - Post-traumatic stress disorder, unspecified (2) Bipolar disorder: Status: Chronic Code(s): F31.9 - Bipolar disorder, unspecified (3) Cocaine use disorder: Status: Acute Code(s): F14.10 - Cocaine abuse, uncomplicated Plan 43 yo female, history of PTSD, Bipolar Disorder, Substance use with recent relapse on cocaine. Pt reports inefficacy of regime, losing her housing, and over the weekend a friend she had been talking on line who suicided. She also has chronic pain from bulging discs which she has not yet implemented a suggested PT treatment plan. Plan: Contact with OP provider Vicodin for pain prn q12h Re-eval meds for titration, changes. Referral resources for housing assistance. 12/11/24: Change Lorazepam to 0.25 mg bid Increase Buspirone to 15 mg tid Lamictal 25 mg HS Vraylar 1.5 mg a.m. 12/13/2023: Will schedule prazosin 5 mg at bedtime. Patient reports being on 1- 2 mg pre-admission. Ongoing night terrors Reason for continued inpatient stay Substantial Risk for: inability to function Time Spent With Patient Time: Total time managing care of this patient today ____ minutes.
[2023-12-13 20:00] VITALS: BP 120/71; PULSE 80; RESP 18; TEMP 36.9; O2SAT 98
[2023-12-13 20:45] VITALS: BP 120/71
[2023-12-13] MEDS: traZODone HCL 50 MG TABLET 150 MG PO (20:45)
[2023-12-13] MEDS: Prazosin HCL 5 MG CAPSULE PO (20:45)
[2023-12-13 20:46] VITALS: BP 120/71; PULSE 80
[2023-12-13] MEDS: lamoTRIgine 25 MG TABLET PO (20:46)
[2023-12-13] MEDS: QUEtiapine Fumarate 400 MG TABLET PO (20:46)
[2023-12-14] MEDS: HYDROcodone Bit/Acetam 5/325 TABLET 1 TAB PO ×3 (02:06→18:19)
[2023-12-14 07:55] VITALS: BP 105/61; PULSE 69; RESP 16; TEMP 36.6; O2SAT 96
[2023-12-14] MEDS: Topiramate 100 MG TABLET PO ×2 (08:50→20:40)
[2023-12-14] MEDS: Loratadine 10 MG TABLET PO (08:50)
[2023-12-14] MEDS: busPIRone HCl 5 MG TABLET 15 MG PO ×3 (08:50→20:41)
[2023-12-14] MEDS: Cariprazine HCl 1.5 MG CAPSULE PO (08:50)
[2023-12-14] MEDS: nitrofurantoin macrocrystaL 50 MG CAPSULE 100 MG PO ×2 (08:50→20:41)
[2023-12-14] MEDS: Famotidine 20 MG TABLET PO ×2 (08:50→20:42)
[2023-12-14] MEDS: Propranolol HCL 40 MG TABLET PO ×2 (08:51→20:39)
--- NOTE | 2023-12-14 10:39 | P.PNPSI_ITS ---
Subjective Subjective Date of Service: 12/14/23 Reason For Visit: Bipolar Disorder Interim History: Met with patient. Discussed with Nursing. Overall ongoing anxiety and non command auditory hallucinations. Endorses nightmares. Prazosin given last night, still having nightmares, but will continue to try prazosin again tonight, Feeling safe. Will increase Seroquel at nighttime for hallucinations, which patient reports were worse last night. Medication Compliance: Yes Side effects from medications: No Attending Groups: No Review of Systems Acute medical concerns: No Review of Systems Review of Systems unremarkable Mental Status Exam Mental Status Exam Patient Appearance: Fatigued and Appropriate Patient Orientation: Person, Place, Time and Situation Level of Consciousness: Alert Patient Behavior: Talkative and Good Eye Contact Mood Description: Depressed Affect Description: Flat Patient Cognition Impaired: No Ability to Follow Directions: Good Speech Pattern: Spontaneous Speech Memory Description: Intact Perceptual Disturbances: Hallucinations Diagnostics Vital Signs (24Hr): Vital Signs - 24 hr 12/13/23 20:00 12/13/23 20:45 12/13/23 20:46 Temperature 98.5 F Pulse Rate 80 80 Respiratory Rate 18 Blood Pressure 120/71 120/71 120/71 Pulse Oximetry 98 Oxygen Delivery Method Room Air 12/14/23 07:55 Temperature 97.8 F Pulse Rate 69 Respiratory Rate 16 Blood Pressure 105/61 Pulse Oximetry 96 Oxygen Delivery Method Room Air BMI result Body Mass Index 49.5 Labs 12/09/23 19:52 12/09/23 19:52 Medications Medications Current Medications Acetaminophen (Acetaminophen 325 Mg Tablet) 650 mg PO Q6H PRN PRN Reason: Headache/Pain Mild Scale (1-3) Last Admin: 12/11/23 14:55 Dose: 650 mg Hydrocodone Bitart/Acetaminophen (Hydrocodone Bit/Acetam 5/325 Tablet) 1 tab PO Q8H PRN PRN Reason: disc pain Last Admin: 12/14/23 10:07 Dose: 1 tab Al Hydroxide/Mg Hydroxide (Magnesium Hydrox/Alum Hydrox 30 Ml Oral.Susp) 30 ml PO Q6H PRN PRN Reason: Heartburn/Nausea Buspirone HCl (Buspirone Hcl 5 Mg Tablet) 15 mg PO TID [facility] Last Admin: 12/14/23 08:50 Dose: 15 mg Cariprazine (Cariprazine Hcl 1.5 Mg Capsule) 1.5 mg PO DAILY [facility] Last Admin: 12/14/23 08:50 Dose: 1.5 mg Famotidine (Famotidine 20 Mg Tablet) 20 mg PO BID [facility] Last Admin: 12/14/23 08:50 Dose: 20 mg Hydroxyzine HCl (Hydroxyzine Hcl 25 Mg Tablet) 25 mg PO Q6H PRN PRN Reason: Anxiety Last Admin: 12/10/23 21:09 Dose: 25 mg Ibuprofen (Ibuprofen 800 Mg Tablet) 800 mg PO TID PRN PRN Reason: back pain Last Admin: 12/13/23 06:03 Dose: 800 mg Lamotrigine (Lamotrigine 25 Mg Tablet) 25 mg PO BEDTIME [facility] Last Admin: 12/13/23 20:46 Dose: 25 mg Loratadine (Loratadine 10 Mg Tablet) 10 mg PO DAILY [facility] Last Admin: 12/14/23 08:50 Dose: 10 mg Lorazepam (Lorazepam 0.5 Mg Tablet) 0.25 mg PO BID PRN PRN Reason: Anxiety Last Admin: 12/13/23 12:13 Dose: 0.25 mg Magnesium Hydroxide (Milk Of Magnesia 30 Ml Oral.Susp) 30 ml PO DAILY PRN PRN Reason: Constipation Nitrofurantoin Macrocrystals (Nitrofurantoin Macrocrystal 50 Mg Capsule) 100 mg PO BID [facility] Stop: 12/20/23 21:00 Last Admin: 12/14/23 08:50 Dose: 100 mg Prazosin HCl (Prazosin Hcl 5 Mg Capsule) 5 mg PO BEDTIME [facility]; Protocol Last Admin: 12/13/23 20:45 Dose: 5 mg Propranolol HCl (Propranolol Hcl 40 Mg Tablet) 40 mg PO BID [facility]; Protocol Last Admin: 12/14/23 08:51 Dose: 40 mg Quetiapine Fumarate (Quetiapine Fumarate 400 Mg Tablet) 400 mg PO BEDTIME [facility] Last Admin: 12/13/23 20:46 Dose: 400 mg Topiramate (Topiramate 100 Mg Tablet) 100 mg PO BID [facility] Last Admin: 12/14/23 08:50 Dose: 100 mg Trazodone HCl (Trazodone Hcl 50 Mg Tablet) 150 mg PO BEDTIME [facility] Last Admin: 12/13/23 20:45 Dose: 150 mg Trazodone HCl (Trazodone Hcl 50 Mg Tablet) 50 mg PO BEDTIME MRX1 PRN PRN Reason: Insomnia Allergies Allergies Allergy/AdvReac Type Severity Reaction Status Date / Time Penicillins [PENICILLINS] Allergy Severe HIVES Verified 12/09/23 14:56 prochlorperazine Allergy Severe HIVES Verified 12/09/23 14:56 [From COMPAZINE] promethazine [PROMETHAZINE] Allergy Intermediate HEADACHES Verified 12/09/23 14:56 haloperidol [From HALDOL] AdvReac Severe HIVES Verified 12/09/23 14:56 morphine AdvReac Flushing Verified 12/09/23 14:56 Assessment & Plan Assessment & Plan (1) PTSD (post-traumatic stress disorder): Status: Acute Code(s): F43.10 - Post-traumatic stress disorder, unspecified (2) Bipolar disorder: Status: Chronic Code(s): F31.9 - Bipolar disorder, unspecified (3) Cocaine use disorder: Status: Acute Code(s): F14.10 - Cocaine abuse, uncomplicated Plan 43 yo female, history of PTSD, Bipolar Disorder, Substance use with recent relapse on cocaine. Pt reports inefficacy of regime, losing her housing, and over the weekend a friend she had been talking on line who suicided. She also has chronic pain from bulging discs which she has not yet implemented a suggested PT treatment plan. Plan: Contact with OP provider Vicodin for pain prn q12h Re-eval meds for titration, changes. Referral resources for housing assistance. 12/11/24: Change Lorazepam to 0.25 mg bid Increase Buspirone to 15 mg tid Lamictal 25 mg HS Vraylar 1.5 mg a.m. 12/13/2023: Will schedule prazosin 5 mg at bedtime. Patient reports being on 1- 2 mg pre-admission. Ongoing night terrors 12/14/2023: Continue with prazosin 5 mg. Increase Seroquel to 500 mg at bedtime Reason for continued inpatient stay Substantial Risk for: inability to function Time Spent With Patient Time: Total time managing care of this patient today ____ minutes.
[2023-12-14] MEDS: Acetaminophen 325 MG TABLET 650 MG PO (18:21)
[2023-12-14 20:39] VITALS: BP 130/79; PULSE 77
[2023-12-14] MEDS: LORazepam 0.5 MG TABLET 0.25 MG PO (20:39)
[2023-12-14 20:40] VITALS: BP 130/79; BP 146/92; PULSE 77; RESP 19; TEMP 36.5; O2SAT 100
[2023-12-14] MEDS: Prazosin HCL 5 MG CAPSULE PO (20:40)
[2023-12-14] MEDS: lamoTRIgine 25 MG TABLET PO (20:40)
[2023-12-14] MEDS: QUEtiapine Fumarate 100 MG TABLET 500 MG PO (20:41)
[2023-12-14] MEDS: Ibuprofen 800 MG TABLET PO (20:41)
[2023-12-14] MEDS: traZODone HCL 50 MG TABLET 150 MG PO (20:41)
[2023-12-15] MEDS: HYDROcodone Bit/Acetam 5/325 TABLET 1 TAB PO ×3 (03:49→20:12)
[2023-12-15 08:00] VITALS: BP 106/62; PULSE 76; RESP 16; TEMP 36.4; O2SAT 98
[2023-12-15] MEDS: Famotidine 20 MG TABLET PO ×2 (09:44→20:13)
[2023-12-15] MEDS: busPIRone HCl 5 MG TABLET 15 MG PO ×3 (09:44→20:15)
[2023-12-15] MEDS: Topiramate 100 MG TABLET PO ×2 (09:44→20:15)
[2023-12-15] MEDS: Propranolol HCL 40 MG TABLET PO ×2 (09:44→20:17)
[2023-12-15] MEDS: Loratadine 10 MG TABLET PO (09:44)
[2023-12-15] MEDS: nitrofurantoin macrocrystaL 50 MG CAPSULE 100 MG PO ×2 (09:45→20:18)
[2023-12-15] MEDS: Cariprazine HCl 1.5 MG CAPSULE PO (09:45)
--- NOTE | 2023-12-15 10:15 | P.PNPSI_ITS ---
Subjective Subjective Date of Service: 12/15/23 Reason For Visit: Bipolar Disorder Subjective Notes: Conditional Voluntary Healthcare Proxy: No Guardianship: No Medical Problems Affecting Mental Status: No Interim History: Reports ongoing sx of depression, anxiety, AH. Reports poor sleep, one nightmare last evening with restart of Prazosin, and being awake q 1.5-2 hours. States she is reversing her sleep scheduled to 4am-12pm and wanting to interrupt this pattern as I will function better being awake all day. Seroquel increase over the weekend, discussed making some timing changes and adding Melatonin. Medication Compliance: Yes Side effects from medications: No Attending Groups: Intermittent Review of Systems Acute medical concerns: No Medical Review of Systems: unchanged Review of Systems Review of Systems UTI Resolving Mental Status Exam Mental Status Exam Patient Appearance: Fatigued and Appropriate Patient Orientation: Person, Place, Time and Situation Level of Consciousness: Alert Patient Behavior: Talkative and Good Eye Contact Mood Description: Depressed Affect Description: Flat Patient Cognition Impaired: No Ability to Follow Directions: Good Speech Pattern: Spontaneous Speech Memory Description: Intact Perceptual Disturbances: Hallucinations Diagnostics Vital Signs (24Hr): Vital Signs - 24 hr 12/14/23 20:39 12/14/23 20:40 12/14/23 20:40 Temperature 97.7 F Pulse Rate 77 77 Respiratory Rate 19 Blood Pressure 130/79 130/79 146/92 H Pulse Oximetry 100 Oxygen Delivery Method Room Air BMI result Body Mass Index 49.5 Labs 12/09/23 19:52 12/09/23 19:52 Medications Medications Current Medications Acetaminophen (Acetaminophen 325 Mg Tablet) 650 mg PO Q6H PRN PRN Reason: Headache/Pain Mild Scale (1-3) Last Admin: 12/14/23 18:21 Dose: 650 mg Hydrocodone Bitart/Acetaminophen (Hydrocodone Bit/Acetam 5/325 Tablet) 1 tab PO Q8H PRN PRN Reason: disc pain Last Admin: 12/15/23 03:49 Dose: 1 tab Al Hydroxide/Mg Hydroxide (Magnesium Hydrox/Alum Hydrox 30 Ml Oral.Susp) 30 ml PO Q6H PRN PRN Reason: Heartburn/Nausea Buspirone HCl (Buspirone Hcl 5 Mg Tablet) 15 mg PO TID [facility] Last Admin: 12/15/23 09:44 Dose: 15 mg Cariprazine (Cariprazine Hcl 1.5 Mg Capsule) 1.5 mg PO DAILY [facility] Last Admin: 12/15/23 09:45 Dose: 1.5 mg Famotidine (Famotidine 20 Mg Tablet) 20 mg PO BID [facility] Last Admin: 12/15/23 09:44 Dose: 20 mg Hydroxyzine HCl (Hydroxyzine Hcl 25 Mg Tablet) 25 mg PO Q6H PRN PRN Reason: Anxiety Last Admin: 12/10/23 21:09 Dose: 25 mg Ibuprofen (Ibuprofen 800 Mg Tablet) 800 mg PO TID PRN PRN Reason: back pain Last Admin: 12/14/23 20:41 Dose: 800 mg Lamotrigine (Lamotrigine 25 Mg Tablet) 25 mg PO BEDTIME [facility] Last Admin: 12/14/23 20:40 Dose: 25 mg Loratadine (Loratadine 10 Mg Tablet) 10 mg PO DAILY [facility] Last Admin: 12/15/23 09:44 Dose: 10 mg Lorazepam (Lorazepam 0.5 Mg Tablet) 0.25 mg PO BID PRN PRN Reason: Anxiety Last Admin: 12/14/23 20:39 Dose: 0.25 mg Magnesium Hydroxide (Milk Of Magnesia 30 Ml Oral.Susp) 30 ml PO DAILY PRN PRN Reason: Constipation Nitrofurantoin Macrocrystals (Nitrofurantoin Macrocrystal 50 Mg Capsule) 100 mg PO BID [facility] Stop: 12/20/23 21:00 Last Admin: 12/15/23 09:45 Dose: 100 mg Prazosin HCl (Prazosin Hcl 5 Mg Capsule) 5 mg PO BEDTIME [facility]; Protocol Last Admin: 12/14/23 20:40 Dose: 5 mg Propranolol HCl (Propranolol Hcl 40 Mg Tablet) 40 mg PO BID [facility]; Protocol Last Admin: 12/15/23 09:44 Dose: 40 mg Quetiapine Fumarate (Quetiapine Fumarate 100 Mg Tablet) 500 mg PO BEDTIME [facility] Last Admin: 12/14/23 20:41 Dose: 500 mg Topiramate (Topiramate 100 Mg Tablet) 100 mg PO BID [facility] Last Admin: 12/15/23 09:44 Dose: 100 mg Trazodone HCl (Trazodone Hcl 50 Mg Tablet) 150 mg PO BEDTIME [facility] Last Admin: 12/14/23 20:41 Dose: 150 mg Trazodone HCl (Trazodone Hcl 50 Mg Tablet) 50 mg PO BEDTIME MRX1 PRN PRN Reason: Insomnia Allergies Allergies Allergy/AdvReac Type Severity Reaction Status Date / Time Penicillins [PENICILLINS] Allergy Severe HIVES Verified 12/09/23 14:56 prochlorperazine Allergy Severe HIVES Verified 12/09/23 14:56 [From COMPAZINE] promethazine [PROMETHAZINE] Allergy Intermediate HEADACHES Verified 12/09/23 14:56 haloperidol [From HALDOL] AdvReac Severe HIVES Verified 12/09/23 14:56 morphine AdvReac Flushing Verified 12/09/23 14:56 Assessment & Plan Assessment & Plan (1) PTSD (post-traumatic stress disorder): Status: Acute Code(s): F43.10 - Post-traumatic stress disorder, unspecified (2) Bipolar disorder: Status: Chronic Code(s): F31.9 - Bipolar disorder, unspecified (3) Cocaine use disorder: Status: Acute Code(s): F14.10 - Cocaine abuse, uncomplicated Plan 43 yo female, history of PTSD, Bipolar Disorder, Substance use with recent relapse on cocaine. Pt reports inefficacy of regime, losing her housing, and over the weekend a friend she had been talking on line who suicided. She also has chronic pain from bulging discs which she has not yet implemented a suggested PT treatment plan. Plan: Contact with OP provider Vicodin for pain prn q12h Re-eval meds for titration, changes. Referral resources for housing assistance. 12/11/24: Change Lorazepam to 0.25 mg bid Increase Buspirone to 15 mg tid Lamictal 25 mg HS Vraylar 1.5 mg a.m. 12/13/2023: Will schedule prazosin 5 mg at bedtime. Patient reports being on 1- 2 mg pre-admission. Ongoing night terrors 12/14/2023: Continue with prazosin 5 mg. Increase Seroquel to 500 mg at bedtime 12/15/23: Change HS med schedule to 1999. Melatonin 6 mg hs Patient educated on: medication risk/benefits and therapeutic strategies Informed Consent: understands Reason for continued inpatient stay Substantial Risk for: rapid decompensation Time Spent With Patient Time: Total time managing care of this patient today ____ minutes.
[2023-12-15] MEDS: LORazepam 0.5 MG TABLET 0.25 MG PO (14:05)
--- NOTE | 2023-12-15 14:38 | P.PNPSI_ITS ---
Subjective Subjective Reason For Visit: Bipolar Disorder Diagnostics Vital Signs (24Hr): Vital Signs - 24 hr 12/14/23 20:39 12/14/23 20:40 12/14/23 20:40 Temperature 97.7 F Pulse Rate 77 77 Respiratory Rate 19 Blood Pressure 130/79 130/79 146/92 H Pulse Oximetry 100 Oxygen Delivery Method Room Air 12/15/23 08:00 Temperature 97.5 F Pulse Rate 76 Respiratory Rate 16 Blood Pressure 106/62 Pulse Oximetry 98 Oxygen Delivery Method Room Air BMI result Body Mass Index 49.5 Labs 12/09/23 19:52 12/09/23 19:52 Medications Medications Current Medications Acetaminophen (Acetaminophen 325 Mg Tablet) 650 mg PO Q6H PRN PRN Reason: Headache/Pain Mild Scale (1-3) Last Admin: 12/14/23 18:21 Dose: 650 mg Hydrocodone Bitart/Acetaminophen (Hydrocodone Bit/Acetam 5/325 Tablet) 1 tab PO Q8H PRN PRN Reason: disc pain Last Admin: 12/15/23 11:51 Dose: 1 tab Al Hydroxide/Mg Hydroxide (Magnesium Hydrox/Alum Hydrox 30 Ml Oral.Susp) 30 ml PO Q6H PRN PRN Reason: Heartburn/Nausea Buspirone HCl (Buspirone Hcl 5 Mg Tablet) 15 mg PO TID [facility] Last Admin: 12/15/23 14:07 Dose: 15 mg Cariprazine (Cariprazine Hcl 1.5 Mg Capsule) 1.5 mg PO DAILY [facility] Last Admin: 12/15/23 09:45 Dose: 1.5 mg Famotidine (Famotidine 20 Mg Tablet) 20 mg PO BID [facility] Last Admin: 12/15/23 09:44 Dose: 20 mg Hydroxyzine HCl (Hydroxyzine Hcl 25 Mg Tablet) 25 mg PO Q6H PRN PRN Reason: Anxiety Last Admin: 12/10/23 21:09 Dose: 25 mg Ibuprofen (Ibuprofen 800 Mg Tablet) 800 mg PO TID PRN PRN Reason: back pain Last Admin: 12/14/23 20:41 Dose: 800 mg Lamotrigine (Lamotrigine 25 Mg Tablet) 25 mg PO 2000 [facility] Loratadine (Loratadine 10 Mg Tablet) 10 mg PO DAILY [facility] Last Admin: 12/15/23 09:44 Dose: 10 mg Lorazepam (Lorazepam 0.5 Mg Tablet) 0.25 mg PO BID PRN PRN Reason: Anxiety Last Admin: 12/15/23 14:05 Dose: 0.25 mg Magnesium Hydroxide (Milk Of Magnesia 30 Ml Oral.Susp) 30 ml PO DAILY PRN PRN Reason: Constipation Melatonin (Melatonin 3 Mg Tablet) 6 mg PO 1999 [facility] Nitrofurantoin Macrocrystals (Nitrofurantoin Macrocrystal 50 Mg Capsule) 100 mg PO BID [facility] Stop: 12/20/23 21:00 Last Admin: 12/15/23 09:45 Dose: 100 mg Prazosin HCl (Prazosin Hcl 5 Mg Capsule) 5 mg PO 1999 [facility]; Protocol Propranolol HCl (Propranolol Hcl 40 Mg Tablet) 40 mg PO [facility]; Protocol Quetiapine Fumarate (Quetiapine Fumarate 100 Mg Tablet) 500 mg PO 1999 [facility] Topiramate (Topiramate 100 Mg Tablet) 100 mg PO BID [facility] Last Admin: 12/15/23 09:44 Dose: 100 mg Trazodone HCl (Trazodone Hcl 50 Mg Tablet) 50 mg PO BEDTIME MRX1 PRN PRN Reason: Insomnia Trazodone HCl (Trazodone Hcl 50 Mg Tablet) 150 mg PO 1999 [facility] Allergies Allergies Allergy/AdvReac Type Severity Reaction Status Date / Time Penicillins [PENICILLINS] Allergy Severe HIVES Verified 12/09/23 14:56 prochlorperazine Allergy Severe HIVES Verified 12/09/23 14:56 [From COMPAZINE] promethazine [PROMETHAZINE] Allergy Intermediate HEADACHES Verified 12/09/23 14:56 haloperidol [From HALDOL] AdvReac Severe HIVES Verified 12/09/23 14:56 morphine AdvReac Flushing Verified 12/09/23 14:56 Assessment & Plan Assessment & Plan (1) PTSD (post-traumatic stress disorder): Status: Acute Code(s): F43.10 - Post-traumatic stress disorder, unspecified (2) Bipolar disorder: Status: Chronic Code(s): F31.9 - Bipolar disorder, unspecified (3) Cocaine use disorder: Status: Acute Code(s): F14.10 - Cocaine abuse, uncomplicated Plan 43 yo female, history of PTSD, Bipolar Disorder, Substance use with recent relapse on cocaine. Pt reports inefficacy of regime, losing her housing, and over the weekend a friend she had been talking on line who suicided. She also has chronic pain from bulging discs which she has not yet implemented a suggested PT treatment plan. Plan: Contact with OP provider Vicodin for pain prn q12h Re-eval meds for titration, changes. Referral resources for housing assistance. 12/11/24: Change Lorazepam to 0.25 mg bid Increase Buspirone to 15 mg tid Lamictal 25 mg HS Vraylar 1.5 mg a.m. 12/13/2023: Will schedule prazosin 5 mg at bedtime. Patient reports being on 1- 2 mg pre-admission. Ongoing night terrors 12/14/2023: Continue with prazosin 5 mg. Increase Seroquel to 500 mg at bedtime 12/15/23: Change HS med schedule to 1999. Melatonin 6 mg hs Time Spent With Patient Time: Total time managing care of this patient today ____ minutes.
[2023-12-15 20:00] VITALS: BP 123/90; PULSE 87; TEMP 36.6; O2SAT 98
[2023-12-15] MEDS: traZODone HCL 50 MG TABLET 150 MG PO (20:14)
[2023-12-15] MEDS: QUEtiapine Fumarate 100 MG TABLET 500 MG PO (20:14)
[2023-12-15] MEDS: lamoTRIgine 25 MG TABLET PO (20:16)
[2023-12-15] MEDS: Melatonin 3 MG TABLET 6 MG PO (20:16)
[2023-12-15] MEDS: Prazosin HCL 5 MG CAPSULE PO (20:16)
[2023-12-16] MEDS: Ibuprofen 800 MG TABLET PO ×2 (02:21→09:14)
[2023-12-16] MEDS: HYDROcodone Bit/Acetam 5/325 TABLET 1 TAB PO ×3 (05:36→21:29)
[2023-12-16 08:47] VITALS: BP 127/73; PULSE 74; RESP 16; TEMP 36.6; O2SAT 100
[2023-12-16] MEDS: Cariprazine HCl 1.5 MG CAPSULE PO (08:47)
[2023-12-16] MEDS: nitrofurantoin macrocrystaL 50 MG CAPSULE 100 MG PO ×2 (08:47→20:09)
[2023-12-16] MEDS: Propranolol HCL 40 MG TABLET PO ×2 (08:47→20:09)
[2023-12-16] MEDS: busPIRone HCl 5 MG TABLET 15 MG PO ×3 (08:47→20:10)
[2023-12-16] MEDS: Loratadine 10 MG TABLET PO (08:47)
[2023-12-16] MEDS: Topiramate 100 MG TABLET PO ×2 (08:47→20:16)
[2023-12-16] MEDS: Famotidine 20 MG TABLET PO ×2 (08:47→20:11)
--- NOTE | 2023-12-16 10:26 | P.PNPSI_ITS ---
Subjective Subjective Date of Service: 12/16/23 Reason For Visit: Bipolar Disorder Subjective Notes: Conditional Voluntary Healthcare Proxy: No Guardianship: No Medical Problems Affecting Mental Status: No Interim History: Reports ongoing anxiety depression auditory perceptual alterations. Reports some improvement in her sleep, asleep by 11pm however -nightmares about alligators eating her fingers/toes. Discussed Trazodone potential for nightmares. Will hold it tonight. Reports difficult interaction with night team, plans to talk with assistant director of nursing today Medication Compliance: Yes Side effects from medications: Yes (?nightmares from Trazodone) Attending Groups: No Review of Systems Acute medical concerns: No Medical Review of Systems: unchanged Review of Systems Review of Systems chronic back/disc pain Mental Status Exam Mental Status Exam Patient Appearance: Fatigued and Appropriate Patient Orientation: Person, Place, Time and Situation Level of Consciousness: Alert Patient Behavior: Talkative and Good Eye Contact Mood Description: Depressed Affect Description: Flat Patient Cognition Impaired: No Ability to Follow Directions: Good Speech Pattern: Spontaneous Speech Memory Description: Intact Perceptual Disturbances: Hallucinations Diagnostics Vital Signs (24Hr): Vital Signs - 24 hr 12/15/23 20:00 12/16/23 08:47 12/16/23 08:47 Temperature 97.9 F 97.9 F Pulse Rate 87 74 Respiratory Rate 16 Blood Pressure 123/90 H 127/73 Pulse Oximetry 98 100 Oxygen Delivery Method Room Air Room Air BMI result Body Mass Index 49.5 Labs 12/09/23 19:52 12/09/23 19:52 Medications Medications Current Medications Acetaminophen (Acetaminophen 325 Mg Tablet) 650 mg PO Q6H PRN PRN Reason: Headache/Pain Mild Scale (1-3) Last Admin: 12/14/23 18:21 Dose: 650 mg Hydrocodone Bitart/Acetaminophen (Hydrocodone Bit/Acetam 5/325 Tablet) 1 tab PO Q8H PRN PRN Reason: disc pain Last Admin: 12/16/23 05:36 Dose: 1 tab Al Hydroxide/Mg Hydroxide (Magnesium Hydrox/Alum Hydrox 30 Ml Oral.Susp) 30 ml PO Q6H PRN PRN Reason: Heartburn/Nausea Buspirone HCl (Buspirone Hcl 5 Mg Tablet) 15 mg PO TID [facility] Last Admin: 12/16/23 08:47 Dose: 15 mg Cariprazine (Cariprazine Hcl 1.5 Mg Capsule) 1.5 mg PO DAILY [facility] Last Admin: 12/16/23 08:47 Dose: 1.5 mg Famotidine (Famotidine 20 Mg Tablet) 20 mg PO BID [facility] Last Admin: 12/16/23 08:47 Dose: 20 mg Hydroxyzine HCl (Hydroxyzine Hcl 25 Mg Tablet) 25 mg PO Q6H PRN PRN Reason: Anxiety Last Admin: 12/10/23 21:09 Dose: 25 mg Ibuprofen (Ibuprofen 800 Mg Tablet) 800 mg PO TID PRN PRN Reason: back pain Last Admin: 12/16/23 09:14 Dose: 800 mg Lamotrigine (Lamotrigine 25 Mg Tablet) 25 mg PO 1999 [facility] Last Admin: 12/15/23 20:16 Dose: 25 mg Loratadine (Loratadine 10 Mg Tablet) 10 mg PO DAILY [facility] Last Admin: 12/16/23 08:47 Dose: 10 mg Lorazepam (Lorazepam 0.5 Mg Tablet) 0.25 mg PO BID PRN PRN Reason: Anxiety Last Admin: 12/15/23 14:05 Dose: 0.25 mg Magnesium Hydroxide (Milk Of Magnesia 30 Ml Oral.Susp) 30 ml PO DAILY PRN PRN Reason: Constipation Melatonin (Melatonin 3 Mg Tablet) 6 mg PO 1999 [facility] Last Admin: 12/15/23 20:16 Dose: 6 mg Nitrofurantoin Macrocrystals (Nitrofurantoin Macrocrystal 50 Mg Capsule) 100 mg PO BID [facility] Stop: 12/20/23 21:00 Last Admin: 12/16/23 08:47 Dose: 100 mg Prazosin HCl (Prazosin Hcl 5 Mg Capsule) 5 mg PO 1999 [facility]; Protocol Last Admin: 12/15/23 20:16 Dose: 5 mg Propranolol HCl (Propranolol Hcl 40 Mg Tablet) 40 mg PO 899,1999 [facility]; Protocol Last Admin: 12/16/23 08:47 Dose: 40 mg Quetiapine Fumarate (Quetiapine Fumarate 100 Mg Tablet) 500 mg PO 1999 [facility] Last Admin: 12/15/23 20:14 Dose: 500 mg Topiramate (Topiramate 100 Mg Tablet) 100 mg PO BID [facility] Last Admin: 12/16/23 08:47 Dose: 100 mg Trazodone HCl (Trazodone Hcl 50 Mg Tablet) 50 mg PO BEDTIME MRX1 PRN PRN Reason: Insomnia Trazodone HCl (Trazodone Hcl 50 Mg Tablet) 150 mg PO 1999 [facility] Last Admin: 12/15/23 20:14 Dose: 150 mg Allergies Allergies Allergy/AdvReac Type Severity Reaction Status Date / Time Penicillins [PENICILLINS] Allergy Severe HIVES Verified 12/09/23 14:56 prochlorperazine Allergy Severe HIVES Verified 12/09/23 14:56 [From COMPAZINE] promethazine [PROMETHAZINE] Allergy Intermediate HEADACHES Verified 12/09/23 14:56 haloperidol [From HALDOL] AdvReac Severe HIVES Verified 12/09/23 14:56 morphine AdvReac Flushing Verified 12/09/23 14:56 Assessment & Plan Assessment & Plan (1) PTSD (post-traumatic stress disorder): Status: Acute Code(s): F43.10 - Post-traumatic stress disorder, unspecified (2) Bipolar disorder: Status: Chronic Code(s): F31.9 - Bipolar disorder, unspecified (3) Cocaine use disorder: Status: Acute Code(s): F14.10 - Cocaine abuse, uncomplicated Plan 12/16/23: Hold Trazodone this evening. Increase Vraylar to 3 mg on 12/17/23. Informed Consent: understands Reason for continued inpatient stay Substantial Risk for: rapid decompensation Time Spent With Patient Time: Total time managing care of this patient today ____ minutes.
[2023-12-16] MEDS: LORazepam 0.5 MG TABLET 0.25 MG PO ×2 (13:35→20:13)
[2023-12-16 20:00] VITALS: BP 127/84; PULSE 77; RESP 17; TEMP 36.8; O2SAT 98
[2023-12-16] MEDS: Melatonin 3 MG TABLET 6 MG PO (20:10)
[2023-12-16] MEDS: Prazosin HCL 5 MG CAPSULE PO (20:11)
[2023-12-16] MEDS: QUEtiapine Fumarate 100 MG TABLET 500 MG PO (20:11)
[2023-12-16] MEDS: lamoTRIgine 25 MG TABLET PO (21:29)
[2023-12-17] MEDS: Ibuprofen 800 MG TABLET PO ×2 (01:54→11:35)
[2023-12-17] MEDS: LORazepam 0.5 MG TABLET 0.25 MG PO (04:05)
[2023-12-17] MEDS: HYDROcodone Bit/Acetam 5/325 TABLET 1 TAB PO ×3 (06:28→18:30)
[2023-12-17 08:00] VITALS: BP 136/63; PULSE 86; RESP 18; TEMP 36.6; O2SAT 100
[2023-12-17] MEDS: nitrofurantoin macrocrystaL 50 MG CAPSULE 100 MG PO ×2 (08:54→20:52)
[2023-12-17] MEDS: Topiramate 100 MG TABLET PO ×2 (08:54→20:53)
[2023-12-17] MEDS: Cariprazine HCl 3 MG CAPSULE PO (08:54)
[2023-12-17 08:55] VITALS: BP 136/63; PULSE 86
[2023-12-17] MEDS: Loratadine 10 MG TABLET PO (08:55)
[2023-12-17] MEDS: Famotidine 20 MG TABLET PO ×2 (08:55→20:53)
[2023-12-17] MEDS: busPIRone HCl 5 MG TABLET 15 MG PO ×3 (08:55→20:52)
[2023-12-17] MEDS: Propranolol HCL 40 MG TABLET PO ×2 (08:55→20:52)
[2023-12-17] MEDS: risperiDONE 0.5 MG TABLET PO (11:35)
--- NOTE | 2023-12-17 13:01 | P.PNPSI_ITS ---
Subjective Subjective Date of Service: 12/17/23 Reason For Visit: Bipolar Disorder Subjective Notes: Conditional Voluntary Healthcare Proxy: No Guardianship: No Medical Problems Affecting Mental Status: No Interim History: Reports AH, VH-man's voice 2-8 x daily, telling her she is worthless and useless. Reports sleep 10:30pm, up 2-2:30am to use the bathroom, returned to sleep- nightmare, took anxiety meds, up at 630am with the same nightmare. Discussed voices,visions as ?PTSD related. Discussed Risperdal prn for grounding support. She will trial Medication Compliance: Yes Side effects from medications: No Attending Groups: Intermittent Review of Systems Acute medical concerns: No Medical Review of Systems: unchanged Review of Systems Review of Systems Disc pain Mental Status Exam Mental Status Exam Patient Appearance: Fatigued and Appropriate Patient Orientation: Person, Place, Time and Situation Level of Consciousness: Alert Patient Behavior: Talkative and Good Eye Contact Mood Description: Depressed Affect Description: Flat Patient Cognition Impaired: No Ability to Follow Directions: Good Speech Pattern: Spontaneous Speech Memory Description: Intact Perceptual Disturbances: Hallucinations Diagnostics Vital Signs (24Hr): Vital Signs - 24 hr 12/16/23 20:00 12/17/23 08:00 12/17/23 08:55 Temperature 98.2 F 97.9 F Pulse Rate 77 86 86 Respiratory Rate 17 18 Blood Pressure 127/84 136/63 136/63 Pulse Oximetry 98 100 Oxygen Delivery Method Room Air Room Air BMI result Body Mass Index 49.5 Labs 12/09/23 19:52 12/09/23 19:52 Medications Medications Current Medications Acetaminophen (Acetaminophen 325 Mg Tablet) 650 mg PO Q6H PRN PRN Reason: Headache/Pain Mild Scale (1-3) Last Admin: 12/14/23 18:21 Dose: 650 mg Hydrocodone Bitart/Acetaminophen (Hydrocodone Bit/Acetam 5/325 Tablet) 1 tab PO Q6H PRN PRN Reason: disc pain Last Admin: 12/17/23 12:34 Dose: 1 tab Al Hydroxide/Mg Hydroxide (Magnesium Hydrox/Alum Hydrox 30 Ml Oral.Susp) 30 ml PO Q6H PRN PRN Reason: Heartburn/Nausea Buspirone HCl (Buspirone Hcl 5 Mg Tablet) 15 mg PO TID [facility] Last Admin: 12/17/23 08:55 Dose: 15 mg Cariprazine (Cariprazine Hcl 3 Mg Capsule) 3 mg PO DAILY [facility] Last Admin: 12/17/23 08:54 Dose: 3 mg Famotidine (Famotidine 20 Mg Tablet) 20 mg PO BID [facility] Last Admin: 12/17/23 08:55 Dose: 20 mg Hydroxyzine HCl (Hydroxyzine Hcl 25 Mg Tablet) 25 mg PO Q6H PRN PRN Reason: Anxiety Last Admin: 12/10/23 21:09 Dose: 25 mg Ibuprofen (Ibuprofen 800 Mg Tablet) 800 mg PO TID PRN PRN Reason: back pain Last Admin: 12/17/23 11:35 Dose: 800 mg Lamotrigine (Lamotrigine 25 Mg Tablet) 25 mg PO 1999 [facility] Last Admin: 12/16/23 21:29 Dose: 25 mg Loratadine (Loratadine 10 Mg Tablet) 10 mg PO DAILY [facility] Last Admin: 12/17/23 08:55 Dose: 10 mg Lorazepam (Lorazepam 0.5 Mg Tablet) 0.25 mg PO BID PRN PRN Reason: Anxiety Last Admin: 12/16/23 20:13 Dose: 0.25 mg Magnesium Hydroxide (Milk Of Magnesia 30 Ml Oral.Susp) 30 ml PO DAILY PRN PRN Reason: Constipation Melatonin (Melatonin 3 Mg Tablet) 6 mg PO 1999 [facility] Last Admin: 12/16/23 20:10 Dose: 6 mg Nitrofurantoin Macrocrystals (Nitrofurantoin Macrocrystal 50 Mg Capsule) 100 mg PO BID [facility] Stop: 12/20/23 21:00 Last Admin: 12/17/23 08:54 Dose: 100 mg Prazosin HCl (Prazosin Hcl 5 Mg Capsule) 5 mg PO 1999 [facility]; Protocol Last Admin: 12/16/23 20:11 Dose: 5 mg Propranolol HCl (Propranolol Hcl 40 Mg Tablet) 40 mg PO [facility]; Protocol Last Admin: 12/17/23 08:55 Dose: 40 mg Quetiapine Fumarate (Quetiapine Fumarate 100 Mg Tablet) 500 mg PO 1999 [facility] Last Admin: 12/16/23 20:11 Dose: 500 mg Risperidone (Risperidone 0.5 Mg Tablet) 0.5 mg PO BID PRN PRN Reason: voices, grounding assistance Last Admin: 12/17/23 11:35 Dose: 0.5 mg Topiramate (Topiramate 100 Mg Tablet) 100 mg PO BID [facility] Last Admin: 12/17/23 08:54 Dose: 100 mg Trazodone HCl (Trazodone Hcl 50 Mg Tablet) 50 mg PO BEDTIME MRX1 PRN PRN Reason: Insomnia Trazodone HCl (Trazodone Hcl 50 Mg Tablet) 150 mg PO 1999 [facility] Last Admin: 12/15/23 20:14 Dose: 150 mg Allergies Allergies Allergy/AdvReac Type Severity Reaction Status Date / Time Penicillins [PENICILLINS] Allergy Severe HIVES Verified 12/09/23 14:56 prochlorperazine Allergy Severe HIVES Verified 12/09/23 14:56 [From COMPAZINE] promethazine [PROMETHAZINE] Allergy Intermediate HEADACHES Verified 12/09/23 14:56 haloperidol [From HALDOL] AdvReac Severe HIVES Verified 12/09/23 14:56 morphine AdvReac Flushing Verified 12/09/23 14:56 Assessment & Plan Assessment & Plan (1) PTSD (post-traumatic stress disorder): Status: Acute Code(s): F43.10 - Post-traumatic stress disorder, unspecified (2) Bipolar disorder: Status: Chronic Code(s): F31.9 - Bipolar disorder, unspecified (3) Cocaine use disorder: Status: Acute Code(s): F14.10 - Cocaine abuse, uncomplicated Plan 12/16/23: Hold Trazodone this evening. Increase Vraylar to 3 mg on 12/17/23. 12/17/23: Risperdal 0.5 mg bid prn grounding support for PTSD sx. Informed Consent: understands Reason for continued inpatient stay Substantial Risk for: rapid decompensation Time Spent With Patient Time: Total time managing care of this patient today ____ minutes.
[2023-12-17] MEDS: Milk of Magnesia 30 ML ORAL.SUSP PO (17:13)
[2023-12-17 20:00] VITALS: BP 160/94; PULSE 78; RESP 18; TEMP 36.6; O2SAT 99
[2023-12-17] MEDS: QUEtiapine Fumarate 100 MG TABLET 500 MG PO (20:54)
[2023-12-17] MEDS: Melatonin 3 MG TABLET 6 MG PO (20:54)
[2023-12-17] MEDS: lamoTRIgine 25 MG TABLET PO (21:04)
[2023-12-17] MEDS: Prazosin HCL 5 MG CAPSULE PO (21:06)
[2023-12-18] MEDS: HYDROcodone Bit/Acetam 5/325 TABLET 1 TAB PO ×4 (02:35→20:35)
[2023-12-18] MEDS: Ibuprofen 800 MG TABLET PO ×3 (05:02→18:12)
[2023-12-18 08:35] VITALS: BP 133/84; PULSE 87; RESP 16; TEMP 36.4; O2SAT 100
[2023-12-18] MEDS: Famotidine 20 MG TABLET PO ×2 (08:35→20:36)
[2023-12-18] MEDS: Propranolol HCL 40 MG TABLET PO ×2 (08:35→19:46)
[2023-12-18] MEDS: Cariprazine HCl 3 MG CAPSULE PO (08:35)
[2023-12-18] MEDS: Topiramate 100 MG TABLET PO ×2 (08:35→20:36)
[2023-12-18] MEDS: busPIRone HCl 5 MG TABLET 15 MG PO ×3 (08:35→19:47)
[2023-12-18] MEDS: nitrofurantoin macrocrystaL 50 MG CAPSULE 100 MG PO ×2 (08:35→20:36)
[2023-12-18] MEDS: Loratadine 10 MG TABLET PO (08:36)
[2023-12-18 10:35] VITALS: BMI 51.2
[2023-12-18] MEDS: LORazepam 0.5 MG TABLET 0.25 MG PO ×2 (11:37→20:34)
[2023-12-18] MEDS: risperiDONE 0.5 MG TABLET PO (11:38)
[2023-12-18] MEDS: Lidocaine 4 % Patch ADH..PATCH 1 PATCH TRANSDERMA (16:08)
--- NOTE | 2023-12-18 18:07 | P.PNPSI_ITS ---
Subjective Subjective Date of Service: 12/18/23 Reason For Visit: Bipolar Disorder Subjective Notes: Conditional Voluntary Healthcare Proxy: No Guardianship: No Medical Problems Affecting Mental Status: No Interim History: Reports six hours sleep, no nightmares, some dreaming, I am getting there . Reports improvement. Weight gain 12 lbs/9 days. Review of meds. Asks to decrease Seroquel will decrease from 500 mg to 250 mg and will stop Risperdal as it was not helpful for grounding. Medication Compliance: Yes Side effects from medications: No Attending Groups: Yes Review of Systems Acute medical concerns: No Medical Review of Systems: unchanged Review of Systems Review of Systems Disc pain Mental Status Exam Mental Status Exam Patient Appearance: Fatigued and Appropriate Patient Orientation: Person, Place, Time and Situation Level of Consciousness: Alert Patient Behavior: Talkative and Good Eye Contact Mood Description: Depressed Affect Description: Flat Patient Cognition Impaired: No Ability to Follow Directions: Good Speech Pattern: Spontaneous Speech Memory Description: Intact Perceptual Disturbances: Hallucinations Diagnostics Vital Signs (24Hr): Vital Signs - 24 hr 12/17/23 20:00 12/18/23 08:35 12/18/23 08:35 Temperature 98 F 97.6 F Pulse Rate 78 87 Respiratory Rate 18 16 Blood Pressure 160/94 H 133/84 133/84 Pulse Oximetry 99 100 Oxygen Delivery Method Room Air Room Air BMI result Body Mass Index 51.2 Labs 12/09/23 19:52 12/09/23 19:52 Medications Medications Current Medications Acetaminophen (Acetaminophen 325 Mg Tablet) 650 mg PO Q6H PRN PRN Reason: Headache/Pain Mild Scale (1-3) Last Admin: 12/14/23 18:21 Dose: 650 mg Hydrocodone Bitart/Acetaminophen (Hydrocodone Bit/Acetam 5/325 Tablet) 1 tab PO Q6H PRN PRN Reason: disc pain Last Admin: 12/18/23 14:36 Dose: 1 tab Al Hydroxide/Mg Hydroxide (Magnesium Hydrox/Alum Hydrox 30 Ml Oral.Susp) 30 ml PO Q6H PRN PRN Reason: Heartburn/Nausea Buspirone HCl (Buspirone Hcl 5 Mg Tablet) 15 mg PO TID [facility] Last Admin: 12/18/23 14:36 Dose: 15 mg Cariprazine (Cariprazine Hcl 3 Mg Capsule) 3 mg PO DAILY [facility] Last Admin: 12/18/23 08:35 Dose: 3 mg Famotidine (Famotidine 20 Mg Tablet) 20 mg PO BID [facility] Last Admin: 12/18/23 08:35 Dose: 20 mg Hydroxyzine HCl (Hydroxyzine Hcl 25 Mg Tablet) 25 mg PO Q6H PRN PRN Reason: Anxiety Last Admin: 12/10/23 21:09 Dose: 25 mg Ibuprofen (Ibuprofen 800 Mg Tablet) 800 mg PO TID PRN PRN Reason: back pain Last Admin: 12/18/23 11:37 Dose: 800 mg Lamotrigine (Lamotrigine 25 Mg Tablet) 25 mg PO 1999 [facility] Last Admin: 12/17/23 21:04 Dose: 25 mg Lidocaine (Lidocaine 4 % Patch Adh..Patch) 1 patch TRANSDERMA DAILY [facility]; Protocol Last Admin: 12/18/23 16:08 Dose: 1 patch Lidocaine (Lidocaine 4 % Patch Adh..Patch) 1 patch TRANSDERMA DAILY PRN; Protocol PRN Reason: back pain Loratadine (Loratadine 10 Mg Tablet) 10 mg PO DAILY [facility] Last Admin: 12/18/23 08:36 Dose: 10 mg Lorazepam (Lorazepam 0.5 Mg Tablet) 0.25 mg PO BID PRN PRN Reason: Anxiety Last Admin: 12/18/23 11:37 Dose: 0.25 mg Magnesium Hydroxide (Milk Of Magnesia 30 Ml Oral.Susp) 30 ml PO DAILY PRN PRN Reason: Constipation Last Admin: 12/17/23 17:13 Dose: 30 ml Melatonin (Melatonin 3 Mg Tablet) 6 mg PO 1999 [facility] Last Admin: 12/17/23 20:54 Dose: 6 mg Nitrofurantoin Macrocrystals (Nitrofurantoin Macrocrystal 50 Mg Capsule) 100 mg PO BID [facility] Stop: 12/20/23 21:00 Last Admin: 12/18/23 08:35 Dose: 100 mg Prazosin HCl (Prazosin Hcl 5 Mg Capsule) 5 mg PO 1999 [facility]; Protocol Last Admin: 12/17/23 21:06 Dose: 5 mg Propranolol HCl (Propranolol Hcl 40 Mg Tablet) 40 mg PO 899,1999 [facility]; Protocol Last Admin: 12/18/23 08:35 Dose: 40 mg Quetiapine Fumarate (Quetiapine Fumarate 50 Mg Tablet) 250 mg PO DAILY@1999 [facility] Topiramate (Topiramate 100 Mg Tablet) 100 mg PO BID [facility] Last Admin: 12/18/23 08:35 Dose: 100 mg Trazodone HCl (Trazodone Hcl 50 Mg Tablet) 50 mg PO BEDTIME MRX1 PRN PRN Reason: Insomnia Trazodone HCl (Trazodone Hcl 50 Mg Tablet) 150 mg PO 1999 [facility] Last Admin: 12/15/23 20:14 Dose: 150 mg Allergies Allergies Allergy/AdvReac Type Severity Reaction Status Date / Time Penicillins [PENICILLINS] Allergy Severe HIVES Verified 12/09/23 14:56 prochlorperazine Allergy Severe HIVES Verified 12/09/23 14:56 [From COMPAZINE] promethazine [PROMETHAZINE] Allergy Intermediate HEADACHES Verified 12/09/23 14:56 haloperidol [From HALDOL] AdvReac Severe HIVES Verified 12/09/23 14:56 morphine AdvReac Flushing Verified 12/09/23 14:56 Assessment & Plan Assessment & Plan (1) PTSD (post-traumatic stress disorder): Status: Acute Code(s): F43.10 - Post-traumatic stress disorder, unspecified (2) Bipolar disorder: Status: Chronic Code(s): F31.9 - Bipolar disorder, unspecified (3) Cocaine use disorder: Status: Acute Code(s): F14.10 - Cocaine abuse, uncomplicated Plan 12/16/23: Hold Trazodone this evening. Increase Vraylar to 3 mg on 12/17/23. 12/18/23: Decrease Seroquel to 250 mg HS Discontinue Risperdal Patient educated on: medication risk/benefits Informed Consent: understands Reason for continued inpatient stay Substantial Risk for: rapid decompensation Time Spent With Patient Time: Total time managing care of this patient today ____ minutes.
[2023-12-18 19:44] VITALS: BP 155/80; PULSE 84; TEMP 36.1; O2SAT 100
[2023-12-18] MEDS: Prazosin HCL 5 MG CAPSULE PO (19:47)
[2023-12-18] MEDS: Melatonin 3 MG TABLET 6 MG PO (19:47)
[2023-12-18] MEDS: lamoTRIgine 25 MG TABLET PO (19:48)
[2023-12-18] MEDS: QUEtiapine Fumarate 50 MG TABLET 250 MG PO (19:48)
[2023-12-19] MEDS: Ibuprofen 800 MG TABLET PO ×2 (00:51→16:37)
[2023-12-19] MEDS: Acetaminophen 325 MG TABLET 650 MG PO ×2 (00:51→23:53)
[2023-12-19] MEDS: HYDROcodone Bit/Acetam 5/325 TABLET 1 TAB PO ×4 (02:38→20:45)
[2023-12-19] MEDS: Lidocaine 4 % Patch ADH..PATCH 1 PATCH TRANSDERMA ×2 (05:03→14:36)
[2023-12-19 08:00] VITALS: BP 144/77; PULSE 86; RESP 16; TEMP 36.4; O2SAT 99
[2023-12-19] MEDS: busPIRone HCl 5 MG TABLET 15 MG PO ×3 (09:43→20:39)
[2023-12-19] MEDS: Famotidine 20 MG TABLET PO ×2 (09:44→20:44)
[2023-12-19] MEDS: Cariprazine HCl 3 MG CAPSULE PO (09:44)
[2023-12-19] MEDS: Topiramate 100 MG TABLET PO ×2 (09:44→20:40)
[2023-12-19] MEDS: Loratadine 10 MG TABLET PO (09:44)
[2023-12-19] MEDS: nitrofurantoin macrocrystaL 50 MG CAPSULE 100 MG PO ×2 (09:44→20:40)
[2023-12-19] MEDS: Propranolol HCL 40 MG TABLET PO ×2 (09:44→20:42)
[2023-12-19] MEDS: LORazepam 0.5 MG TABLET 0.25 MG PO ×2 (14:35→20:46)
--- NOTE | 2023-12-19 16:32 | P.PNPSI_ITS ---
Subjective Subjective Date of Service: 12/19/23 Reason For Visit: Bipolar Disorder Subjective Notes: Conditional Voluntary Healthcare Proxy: No Guardianship: No Medical Problems Affecting Mental Status: No Interim History: Reports 3 hours of sleep, total. Identifies issues: Pain, needing to urinate, worry about where she will go next week. Reports NO nightmares! Pattern: To bed 9-11pm,slept, up briefly, slept until 230am, up for pain meds and to utilize the restroom, back to sleep until 5-6am, then slept until 7am Tolerating decrease of Seroquel, holding of Trazodone-causing nightmares most likely. Tolerating Vraylar. Schedule to increase, day 15, on 01/01/24. Nitrofurantoin to end 12/19. As she has PCN allergy will reculture to assess if she needs another ABX to treat UTI. Denies any sx except nocturnal frequency. A1C and AEG are WNL. Discussed concerns about where she will go next week. She does not get paid until the end of the month and may be on the street for a few weeks which is causing anxiety. Medication Compliance: Yes Side effects from medications: Yes (sx as noted above, possibly, however doubtful) Attending Groups: Yes Review of Systems Acute medical concerns: No Medical Review of Systems: unchanged Review of Systems Review of Systems as noted in HPI Mental Status Exam Mental Status Exam Patient Appearance: Fatigued and Appropriate Patient Orientation: Person, Place, Time and Situation Level of Consciousness: Alert Patient Behavior: Talkative and Good Eye Contact Mood Description: Depressed, Anxious and Apprehensive Affect Description: Flat Patient Cognition Impaired: No Ability to Follow Directions: Good Speech Pattern: Spontaneous Speech Memory Description: Intact Perceptual Disturbances: Hallucinations Thought Content: positive for Circumstantial Depressive Symptoms: Increased Anxiety Abnormal Motor Activity Signs and Symptoms: Restlessness Judgement: Good Diagnostics Vital Signs (24Hr): Vital Signs - 24 hr 12/18/23 19:44 12/19/23 08:00 Temperature 97.0 F 97.5 F Pulse Rate 84 86 Respiratory Rate 16 Blood Pressure 155/80 H 144/77 H Pulse Oximetry 100 99 Oxygen Delivery Method Room Air Room Air BMI result Body Mass Index 51.2 Labs 12/09/23 19:52 12/09/23 19:52 Medications Medications Current Medications Acetaminophen (Acetaminophen 325 Mg Tablet) 650 mg PO Q6H PRN PRN Reason: Headache/Pain Mild Scale (1-3) Last Admin: 12/19/23 00:51 Dose: 650 mg Hydrocodone Bitart/Acetaminophen (Hydrocodone Bit/Acetam 5/325 Tablet) 1 tab PO Q6H PRN PRN Reason: disc pain Last Admin: 12/19/23 14:35 Dose: 1 tab Al Hydroxide/Mg Hydroxide (Magnesium Hydrox/Alum Hydrox 30 Ml Oral.Susp) 30 ml PO Q6H PRN PRN Reason: Heartburn/Nausea Bisacodyl (Bisacodyl 5 Mg Tablet.Dr) 10 mg PO DAILY PRN PRN Reason: Constipation Buspirone HCl (Buspirone Hcl 5 Mg Tablet) 15 mg PO TID [facility] Last Admin: 12/19/23 14:35 Dose: 15 mg Cariprazine (Cariprazine Hcl 3 Mg Capsule) 3 mg PO DAILY [facility] Last Admin: 12/19/23 09:44 Dose: 3 mg Famotidine (Famotidine 20 Mg Tablet) 20 mg PO BID [facility] Last Admin: 12/19/23 09:44 Dose: 20 mg Hydroxyzine HCl (Hydroxyzine Hcl 25 Mg Tablet) 25 mg PO Q6H PRN PRN Reason: Anxiety Last Admin: 12/10/23 21:09 Dose: 25 mg Ibuprofen (Ibuprofen 800 Mg Tablet) 800 mg PO TID PRN PRN Reason: back pain Last Admin: 12/19/23 00:51 Dose: 800 mg Lamotrigine (Lamotrigine 25 Mg Tablet) 25 mg PO 1999 [facility] Last Admin: 12/18/23 19:48 Dose: 25 mg Lidocaine (Lidocaine 4 % Patch Adh..Patch) 1 patch TRANSDERMA DAILY [facility]; Protocol Last Admin: 12/19/23 14:36 Dose: 1 patch Lidocaine (Lidocaine 4 % Patch Adh..Patch) 1 patch TRANSDERMA DAILY PRN; Protocol PRN Reason: back pain Last Admin: 12/19/23 05:03 Dose: 1 patch Loratadine (Loratadine 10 Mg Tablet) 10 mg PO DAILY [facility] Last Admin: 12/19/23 09:44 Dose: 10 mg Lorazepam (Lorazepam 0.5 Mg Tablet) 0.25 mg PO BID PRN PRN Reason: Anxiety Last Admin: 12/19/23 14:35 Dose: 0.25 mg Magnesium Hydroxide (Milk Of Magnesia 30 Ml Oral.Susp) 30 ml PO DAILY PRN PRN Reason: Constipation Last Admin: 12/17/23 17:13 Dose: 30 ml Melatonin (Melatonin 3 Mg Tablet) 6 mg PO 1999 [facility] Last Admin: 12/18/23 19:47 Dose: 6 mg Multivitamins/Vitamin C (Multivitamin Tablet) 1 tab PO DAILY [facility] Nitrofurantoin Macrocrystals (Nitrofurantoin Macrocrystal 50 Mg Capsule) 100 mg PO BID [facility] Stop: 12/20/23 21:00 Last Admin: 12/19/23 09:44 Dose: 100 mg Prazosin HCl (Prazosin Hcl 5 Mg Capsule) 5 mg PO 1999 [facility]; Protocol Last Admin: 12/18/23 19:47 Dose: 5 mg Propranolol HCl (Propranolol Hcl 40 Mg Tablet) 40 mg PO 899,1999 [facility]; Protocol Last Admin: 12/19/23 09:44 Dose: 40 mg Quetiapine Fumarate (Quetiapine Fumarate 50 Mg Tablet) 250 mg PO DAILY@1999 [facility] Last Admin: 12/18/23 19:48 Dose: 250 mg Topiramate (Topiramate 100 Mg Tablet) 100 mg PO BID [facility] Last Admin: 12/19/23 09:44 Dose: 100 mg Trazodone HCl (Trazodone Hcl 50 Mg Tablet) 50 mg PO BEDTIME MRX1 PRN PRN Reason: Insomnia Trazodone HCl (Trazodone Hcl 50 Mg Tablet) 150 mg PO 1999 [facility] Last Admin: 12/15/23 20:14 Dose: 150 mg Allergies Allergies Allergy/AdvReac Type Severity Reaction Status Date / Time Penicillins [PENICILLINS] Allergy Severe HIVES Verified 12/09/23 14:56 prochlorperazine Allergy Severe HIVES Verified 12/09/23 14:56 [From COMPAZINE] promethazine [PROMETHAZINE] Allergy Intermediate HEADACHES Verified 12/09/23 14:56 haloperidol [From HALDOL] AdvReac Severe HIVES Verified 12/09/23 14:56 morphine AdvReac Flushing Verified 12/09/23 14:56 Assessment & Plan Assessment & Plan (1) PTSD (post-traumatic stress disorder): Status: Acute Code(s): F43.10 - Post-traumatic stress disorder, unspecified (2) Bipolar disorder: Status: Chronic Code(s): F31.9 - Bipolar disorder, unspecified (3) Cocaine use disorder: Status: Acute Code(s): F14.10 - Cocaine abuse, uncomplicated Plan 12/16/23: Hold Trazodone this evening. Increase Vraylar to 3 mg on 12/17/23. 12/18/23: Decrease Seroquel to 250 mg HS Discontinue Risperdal 12/19/23: CBCD, CMP, Urine Culture Continue current regime at this time Patient educated on: medication risk/benefits, therapeutic strategies and medical condition Informed Consent: understands Reason for continued inpatient stay Substantial Risk for: rapid decompensation Time Spent With Patient Time: Total time managing care of this patient today ____ minutes.
[2023-12-19 20:00] VITALS: BP 152/86; PULSE 76; TEMP 36.6; O2SAT 100
[2023-12-19] MEDS: QUEtiapine Fumarate 50 MG TABLET 250 MG PO (20:38)
[2023-12-19] MEDS: Melatonin 3 MG TABLET 6 MG PO (20:39)
[2023-12-19] MEDS: Prazosin HCL 5 MG CAPSULE PO (20:41)
[2023-12-19] MEDS: lamoTRIgine 25 MG TABLET PO (20:44)
[2023-12-19] MEDS: hydrOXYzine HCL 25 MG TABLET PO (23:53)
[2023-12-20] MEDS: HYDROcodone Bit/Acetam 5/325 TABLET 1 TAB PO ×3 (01:44→15:39)
[2023-12-20] MEDS: Ibuprofen 800 MG TABLET PO ×3 (05:14→22:09)
[2023-12-20] MEDS: Acetaminophen 325 MG TABLET 650 MG PO ×2 (06:55→17:01)
[2023-12-20 07:50] LABS: MANUAL DIFF FLAG NO
[2023-12-20 07:54] LABS: Basophils Percent Auto 0.5 % (0-2); Eosinophils Absolute Auto 0.6 X10*3/uL (0.0-0.4); Eosinophils Percent Auto 7.5 % (0-4); Hematocrit 37.2 % (37.0-47.0); Hemoglobin 12.1 g/dl (12.0-16.0); Imm Gran Abs Auto 0.05 X10*3/uL (0.00-0.03); Imm Gran Pct Auto 0.6 % (0.0-0.4); Lymphocytes Absolute Auto 2.5 X10*3/uL (1.2-4.9); Lymphocytes Percent Auto 29.5 % (20-40); Mean Corpuscular HGB Conc 32.5 g/dl (31.0-35.0); Mean Corpuscular Hemoglobin 31.4 pg (27.0-33.0); Mean Corpuscular Volume 96.6 fL (80.0-98.0); Mean Platelet Volume 12.2 fL (9.4-12.3); Monocytes Absolute Auto 0.7 X10*3/uL (0.1-1.2); Monocytes Percent Auto 8.7 % (2-11); Neutrophils Absolute Auto 4.5 x10*3/uL (2.0-8.3); Neutrophils Percent Auto 53.2 % (45-73); Platelet Count 203 X10*3/uL (160-400); Red Blood Count 3.85 X10*6/uL (4.20-5.50); Red Cell Distribution Width 13.1 % (11.0-16.0); White Blood Count 8.5 X10*3/uL (4.8-10.8)
[2023-12-20 08:00] VITALS: BP 154/88; PULSE 74; RESP 16; TEMP 36.2; O2SAT 100
[2023-12-20 08:42] LABS: Alanine Aminotransferase 10 U/L (0-31); Albumin Level 3.5 g/dL (3.5-5.0); Alkaline Phosphatase 51 U/L (39-117); Anion Gap 11 (12-20); Aspartate Amino Transferase 8 U/L (5-31); Bilirubin Total 0.2 mg/dL (0.0-1.0); Blood Urea Nitrogen 12 mg/dL (9-16); Calcium 8.8 mg/dL (8.4-10.2); Carbon Dioxide 21 mmol/L (22-29); Chloride 111 mmol/L (96-108); Creatinine Clr Calc Pharmacy 157.3; Estimated Glomerular Filt Rate > 60; Glucose Random 105 mg/dL (60-115); Sodium 139 mmol/L (135-145); Total Protein 6.3 g/dL (6.5-8.0)
--- NOTE | 2023-12-20 08:47 | HO.PSYCHPN ---
Subjective Subjective Date of Service: 12/20/23 Reason For Visit: Bipolar Disorder Subjective Notes: Conditional Voluntary Interim History: 43 yo WF interested in finding answers to questions I don't have information for- referred her to for ? of days at respite She is hoping they will cover her till 01/02 when she has a check that she can pay her rent from- Discussed with pt this would likely be dependent on clinical presentation rather than # days- Also discussed with pt ? kianna and who would rx on dc- as she is taking it for bp due to not being able to get her heating pad here? Says she never became dependent on it before reports mood/anxiety are better Medication Compliance: Yes Side effects from medications: No Attending Groups: Yes Review of Systems Acute medical concerns: No Medical Review of Systems: unchanged Review of Systems: ongoing urinary issues with frequent nocturia Mental Status Exam Mental Status Exam Patient Appearance: Appropriate Patient Orientation: Person, Place, Time and Situation Level of Consciousness: Awake and Alert Patient Behavior: Appropriate Mood Description: Calm Affect Description: Appropriate Patient Cognition Impaired: No Ability to Follow Directions: Good Speech Pattern: Clear Hallucinations: None Delusions: Not Present Thought Process: Intact Thought Content: positive for Intact Judgement: Fair Diagnostics Vital Signs (24Hr): Vital Signs - 24 hr 12/19/23 20:00 12/20/23 08:00 Temperature 97.9 F 97.1 F Pulse Rate 76 74 Respiratory Rate 16 Blood Pressure 152/86 H 154/88 H Pulse Oximetry 100 100 Oxygen Delivery Method Room Air Room Air BMI result Body Mass Index 51.2 Labs 12/20/23 07:40 12/20/23 07:40 Labs: Laboratory Results - last 48 hr 12/20/23 07:40 WBC 8.5 RBC 3.85 L Hgb 12.1 Hct 37.2 MCV 96.6 MCH 31.4 MCHC 32.5 RDW 13.1 Plt Count 203 MPV 12.2 Immature Gran % (Auto) 0.6 H Neut % (Auto) 53.2 Lymph % (Auto) 29.5 [place] % (Auto) 8.7 Eos % (Auto) 7.5 H Baso % (Auto) 0.5 Lymph # (Auto) 2.5 [place] # (Auto) 0.7 Eos # (Auto) 0.6 H Baso # (Auto) 0.0 Abs Immat Gran (auto) 0.05 H Absolute Neuts (auto) 4.5 Absolute Nucleated RBC 0.000 Nucleated RBC % (auto) 0.0 Sodium 139 Potassium 4.0 Chloride 111 H Carbon Dioxide 21 L Anion Gap 11 L BUN 12 Creatinine 0.74 Estim Creat Clear Calc 157.3 Estimated GFR > 60 Random Glucose 105 Calcium 8.8 Total Bilirubin 0.2 AST 8 ALT 10 Alkaline Phosphatase 51 Total Protein 6.3 L Albumin 3.5 Medications Medications Current Medications Acetaminophen (Acetaminophen 325 Mg Tablet) 650 mg PO Q6H PRN PRN Reason: Headache/Pain Mild Scale (1-3) Last Admin: 12/20/23 06:55 Dose: 650 mg Hydrocodone Bitart/Acetaminophen (Hydrocodone Bit/Acetam 5/325 Tablet) 1 tab PO Q6H PRN PRN Reason: disc pain Last Admin: 12/20/23 01:44 Dose: 1 tab Al Hydroxide/Mg Hydroxide (Magnesium Hydrox/Alum Hydrox 30 Ml Oral.Susp) 30 ml PO Q6H PRN PRN Reason: Heartburn/Nausea Bisacodyl (Bisacodyl 5 Mg Tablet.Dr) 10 mg PO DAILY PRN PRN Reason: Constipation Buspirone HCl (Buspirone Hcl 5 Mg Tablet) 15 mg PO TID [facility] Last Admin: 12/19/23 20:39 Dose: 15 mg Cariprazine (Cariprazine Hcl 3 Mg Capsule) 3 mg PO DAILY [facility] Last Admin: 12/19/23 09:44 Dose: 3 mg Famotidine (Famotidine 20 Mg Tablet) 20 mg PO BID [facility] Last Admin: 12/19/23 20:44 Dose: 20 mg Hydroxyzine HCl (Hydroxyzine Hcl 25 Mg Tablet) 25 mg PO Q6H PRN PRN Reason: Anxiety Last Admin: 12/19/23 23:53 Dose: 25 mg Ibuprofen (Ibuprofen 800 Mg Tablet) 800 mg PO TID PRN PRN Reason: back pain Last Admin: 12/20/23 05:14 Dose: 800 mg Lamotrigine (Lamotrigine 25 Mg Tablet) 25 mg PO 1999 [facility] Last Admin: 12/19/23 20:44 Dose: 25 mg Lidocaine (Lidocaine 4 % Patch Adh..Patch) 1 patch TRANSDERMA DAILY [facility]; Protocol Last Admin: 12/19/23 14:36 Dose: 1 patch Lidocaine (Lidocaine 4 % Patch Adh..Patch) 1 patch TRANSDERMA DAILY PRN; Protocol PRN Reason: back pain Last Admin: 12/19/23 05:03 Dose: 1 patch Loratadine (Loratadine 10 Mg Tablet) 10 mg PO DAILY [facility] Last Admin: 12/19/23 09:44 Dose: 10 mg Lorazepam (Lorazepam 0.5 Mg Tablet) 0.25 mg PO BID PRN PRN Reason: Anxiety Last Admin: 12/19/23 20:46 Dose: 0.25 mg Magnesium Hydroxide (Milk Of Magnesia 30 Ml Oral.Susp) 30 ml PO DAILY PRN PRN Reason: Constipation Last Admin: 12/17/23 17:13 Dose: 30 ml Melatonin (Melatonin 3 Mg Tablet) 6 mg PO 1999 [facility] Last Admin: 12/19/23 20:39 Dose: 6 mg Multivitamins/Vitamin C (Multivitamin Tablet) 1 tab PO DAILY [facility] Nitrofurantoin Macrocrystals (Nitrofurantoin Macrocrystal 50 Mg Capsule) 100 mg PO BID [facility] Stop: 12/20/23 21:00 Last Admin: 12/19/23 20:40 Dose: 100 mg Prazosin HCl (Prazosin Hcl 5 Mg Capsule) 5 mg PO 1999 [facility]; Protocol Last Admin: 12/19/23 20:41 Dose: 5 mg Propranolol HCl (Propranolol Hcl 40 Mg Tablet) 40 mg PO 899,1999 [facility]; Protocol Last Admin: 12/19/23 20:42 Dose: 40 mg Quetiapine Fumarate (Quetiapine Fumarate 50 Mg Tablet) 250 mg PO DAILY@1999 [facility] Last Admin: 12/19/23 20:38 Dose: 250 mg Topiramate (Topiramate 100 Mg Tablet) 100 mg PO BID [facility] Last Admin: 12/19/23 20:40 Dose: 100 mg Trazodone HCl (Trazodone Hcl 50 Mg Tablet) 50 mg PO BEDTIME MRX1 PRN PRN Reason: Insomnia Trazodone HCl (Trazodone Hcl 50 Mg Tablet) 150 mg PO 1999 [facility] Last Admin: 12/15/23 20:14 Dose: 150 mg Allergies Allergies Allergy/AdvReac Type Severity Reaction Status Date / Time Penicillins [PENICILLINS] Allergy Severe HIVES Verified 12/09/23 14:56 prochlorperazine Allergy Severe HIVES Verified 12/09/23 14:56 [From COMPAZINE] promethazine [PROMETHAZINE] Allergy Intermediate HEADACHES Verified 12/09/23 14:56 haloperidol [From HALDOL] AdvReac Severe HIVES Verified 12/09/23 14:56 morphine AdvReac [place]ushing Verified 12/09/23 14:56 Assessment & Plan Assessment & Plan (1) PTSD (post-traumatic stress disorder): Status: Acute Code(s): F43.10 - Post-traumatic stress disorder, unspecified (2) Bipolar disorder: Status: Chronic Code(s): F31.9 - Bipolar disorder, unspecified (3) Cocaine use disorder: Status: Acute Code(s): F14.10 - Cocaine abuse, uncomplicated Plan 12/16/23: Hold Trazodone this evening. Increase Vraylar to 3 mg on 12/17/23. 12/18/23: Decrease Seroquel to 250 mg HS Discontinue Risperdal 12/19/23: CBCD, CMP, Urine Culture Continue current regime at this time 12/20/23 CTP Patient educated on: other Informed Consent: understands Reason for continued inpatient stay Substantial Risk for: rapid decompensation Time Spent With Patient Time: Total time managing care of this patient today ____ minutes.
[2023-12-20] MEDS: Loratadine 10 MG TABLET PO (09:40)
[2023-12-20] MEDS: nitrofurantoin macrocrystaL 50 MG CAPSULE 100 MG PO ×2 (09:40→21:00)
[2023-12-20] MEDS: Topiramate 100 MG TABLET PO ×2 (09:41→21:00)
[2023-12-20] MEDS: Cariprazine HCl 3 MG CAPSULE PO (09:41)
[2023-12-20] MEDS: busPIRone HCl 5 MG TABLET 15 MG PO ×3 (09:41→22:09)
[2023-12-20] MEDS: Famotidine 20 MG TABLET PO ×2 (09:41→20:59)
[2023-12-20] MEDS: Propranolol HCL 40 MG TABLET PO ×2 (09:41→21:01)
[2023-12-20] MEDS: Multivitamin TABLET 1 TAB PO (09:41)
[2023-12-20] MEDS: Lidocaine 4 % Patch ADH..PATCH 1 PATCH TRANSDERMA (09:41)
[2023-12-20] MEDS: LORazepam 0.5 MG TABLET 0.25 MG PO (14:55)
[2023-12-20] MEDS: bisacodyL 5 MG TABLET.DR 10 MG PO (15:39)
[2023-12-20] MEDS: Milk of Magnesia 30 ML ORAL.SUSP PO (15:39)
[2023-12-20] MEDS: hydrOXYzine HCL 25 MG TABLET PO (16:59)
[2023-12-20 20:50] VITALS: BP 165/87; PULSE 79; TEMP 36.7
[2023-12-20] MEDS: QUEtiapine Fumarate 50 MG TABLET 250 MG PO (20:57)
[2023-12-20] MEDS: Prazosin HCL 5 MG CAPSULE PO (20:58)
[2023-12-20] MEDS: Melatonin 3 MG TABLET 6 MG PO (20:59)
[2023-12-20] MEDS: lamoTRIgine 25 MG TABLET PO (21:00)
[2023-12-21] MEDS: HYDROcodone Bit/Acetam 5/325 TABLET 1 TAB PO ×4 (00:19→18:04)
[2023-12-21 08:00] VITALS: BP 144/80; PULSE 85; RESP 16; TEMP 36.3; O2SAT 100
[2023-12-21] MEDS: Lidocaine 4 % Patch ADH..PATCH 1 PATCH TRANSDERMA (08:58)
[2023-12-21] MEDS: Loratadine 10 MG TABLET PO (08:59)
[2023-12-21] MEDS: Multivitamin TABLET 1 TAB PO (08:59)
[2023-12-21] MEDS: Famotidine 20 MG TABLET PO ×2 (08:59→20:52)
[2023-12-21] MEDS: busPIRone HCl 5 MG TABLET 15 MG PO ×3 (08:59→20:50)
[2023-12-21] MEDS: Topiramate 100 MG TABLET PO ×2 (08:59→20:52)
[2023-12-21] MEDS: Cariprazine HCl 3 MG CAPSULE PO (08:59)
[2023-12-21] MEDS: Propranolol HCL 40 MG TABLET PO ×2 (08:59→20:50)
--- NOTE | 2023-12-21 10:31 | HO.PSYCHPN ---
Subjective Subjective Date of Service: 12/21/23 Reason For Visit: Bipolar Disorder Subjective Notes: Conditional Voluntary Interim History: 43 yo WF reports made own arrangements for dc ready to go tomorrow- does not need respit- her friend in [place] will take her and she can live there- just needs to be dced tomorrow after 5pm as friend is working and can not let her in till then- Also needs a ride- FEeling better mood/anxiety andrade, future oriented- Medication Compliance: Yes Side effects from medications: No Attending Groups: Yes Review of Systems Acute medical concerns: No ongoing back issues for which she seems to take frequent [place] Medical Review of Systems: unchanged Mental Status Exam Mental Status Exam Patient Appearance: Well Grooomed and Appropriate Patient Orientation: Person, Place, Time and Situation Level of Consciousness: Awake, Appropriate and Alert Patient Behavior: Appropriate, Cooperative and Good Eye Contact Mood Description: Calm Affect Description: Appropriate Patient Cognition Impaired: No Ability to Follow Directions: Good Speech Pattern: Clear Thought Process: Intact Thought Content: positive for Intact Judgement: Fair Diagnostics Vital Signs (24Hr): Vital Signs - 24 hr 12/20/23 20:50 Temperature 98.1 F Pulse Rate 79 Blood Pressure 165/87 H BMI result Body Mass Index 51.2 Labs 12/20/23 07:40 12/20/23 07:40 Labs: Laboratory Results - last 48 hr 12/20/23 07:40 WBC 8.5 RBC 3.85 L Hgb 12.1 Hct 37.2 MCV 96.6 MCH 31.4 MCHC 32.5 RDW 13.1 Plt Count 203 MPV 12.2 Immature Gran % (Auto) 0.6 H Neut % (Auto) 53.2 Lymph % (Auto) 29.5 [place] % (Auto) 8.7 Eos % (Auto) 7.5 H Baso % (Auto) 0.5 Lymph # (Auto) 2.5 [place] # (Auto) 0.7 Eos # (Auto) 0.6 H Baso # (Auto) 0.0 Abs Immat Gran (auto) 0.05 H Absolute Neuts (auto) 4.5 Absolute Nucleated RBC 0.000 Nucleated RBC % (auto) 0.0 Sodium 139 Potassium 4.0 Chloride 111 H Carbon Dioxide 21 L Anion Gap 11 L BUN 12 Creatinine 0.74 Estim Creat Clear Calc 157.3 Estimated GFR > 60 Random Glucose 105 Calcium 8.8 Total Bilirubin 0.2 AST 8 ALT 10 Alkaline Phosphatase 51 Total Protein 6.3 L Albumin 3.5 Medications Medications Current Medications Acetaminophen (Acetaminophen 325 Mg Tablet) 650 mg PO Q6H PRN PRN Reason: Headache/Pain Mild Scale (1-3) Last Admin: 12/20/23 17:01 Dose: 650 mg Hydrocodone Bitart/Acetaminophen (Hydrocodone Bit/Acetam 5/325 Tablet) 1 tab PO Q6H PRN PRN Reason: disc pain Last Admin: 12/21/23 06:20 Dose: 1 tab Al Hydroxide/Mg Hydroxide (Magnesium Hydrox/Alum Hydrox 30 Ml Oral.Susp) 30 ml PO Q6H PRN PRN Reason: Heartburn/Nausea Bisacodyl (Bisacodyl 5 Mg Tablet.Dr) 10 mg PO DAILY PRN PRN Reason: Constipation Last Admin: 12/20/23 15:39 Dose: 10 mg Buspirone HCl (Buspirone Hcl 5 Mg Tablet) 15 mg PO TID [facility] Last Admin: 12/21/23 08:59 Dose: 15 mg Cariprazine (Cariprazine Hcl 3 Mg Capsule) 3 mg PO DAILY [facility] Last Admin: 12/21/23 08:59 Dose: 3 mg Famotidine (Famotidine 20 Mg Tablet) 20 mg PO BID [facility] Last Admin: 12/21/23 08:59 Dose: 20 mg Hydroxyzine HCl (Hydroxyzine Hcl 25 Mg Tablet) 25 mg PO Q6H PRN PRN Reason: Anxiety Last Admin: 12/20/23 16:59 Dose: 25 mg Ibuprofen (Ibuprofen 800 Mg Tablet) 800 mg PO TID PRN PRN Reason: back pain Last Admin: 12/20/23 22:09 Dose: 800 mg Lamotrigine (Lamotrigine 25 Mg Tablet) 25 mg PO 1999 [facility] Last Admin: 12/20/23 21:00 Dose: 25 mg Lidocaine (Lidocaine 4 % Patch Adh..Patch) 1 patch TRANSDERMA DAILY [facility]; Protocol Last Admin: 12/21/23 08:58 Dose: 1 patch Lidocaine (Lidocaine 4 % Patch Adh..Patch) 1 patch TRANSDERMA DAILY PRN; Protocol PRN Reason: back pain Last Admin: 12/19/23 05:03 Dose: 1 patch Loratadine (Loratadine 10 Mg Tablet) 10 mg PO DAILY [facility] Last Admin: 12/21/23 08:59 Dose: 10 mg Lorazepam (Lorazepam 0.5 Mg Tablet) 0.25 mg PO BID PRN PRN Reason: Anxiety Last Admin: 12/20/23 14:55 Dose: 0.25 mg Magnesium Hydroxide (Milk Of Magnesia 30 Ml Oral.Susp) 30 ml PO DAILY PRN PRN Reason: Constipation Last Admin: 12/20/23 15:39 Dose: 30 ml Melatonin (Melatonin 3 Mg Tablet) 6 mg PO 1999 [facility] Last Admin: 12/20/23 20:59 Dose: 6 mg Multivitamins/Vitamin C (Multivitamin Tablet) 1 tab PO DAILY [facility] Last Admin: 12/21/23 08:59 Dose: 1 tab Prazosin HCl (Prazosin Hcl 5 Mg Capsule) 5 mg PO 1999 [facility]; Protocol Last Admin: 12/20/23 20:58 Dose: 5 mg Propranolol HCl (Propranolol Hcl 40 Mg Tablet) 40 mg PO 899,1999 [facility]; Protocol Last Admin: 12/21/23 08:59 Dose: 40 mg Quetiapine Fumarate (Quetiapine Fumarate 50 Mg Tablet) 250 mg PO DAILY@1999 [facility] Last Admin: 12/20/23 20:57 Dose: 250 mg Topiramate (Topiramate 100 Mg Tablet) 100 mg PO BID [facility] Last Admin: 12/21/23 08:59 Dose: 100 mg Trazodone HCl (Trazodone Hcl 50 Mg Tablet) 50 mg PO BEDTIME MRX1 PRN PRN Reason: Insomnia Trazodone HCl (Trazodone Hcl 50 Mg Tablet) 150 mg PO 1999 [facility] Last Admin: 12/15/23 20:14 Dose: 150 mg Allergies Allergies Allergy/AdvReac Type Severity Reaction Status Date / Time Penicillins [PENICILLINS] Allergy Severe HIVES Verified 12/09/23 14:56 prochlorperazine Allergy Severe HIVES Verified 12/09/23 14:56 [From COMPAZINE] promethazine [PROMETHAZINE] Allergy Intermediate HEADACHES Verified 12/09/23 14:56 haloperidol [From HALDOL] AdvReac Severe HIVES Verified 12/09/23 14:56 morphine AdvReac [place] Verified 12/09/23 14:56 Assessment & Plan Assessment & Plan (1) PTSD (post-traumatic stress disorder): Status: Acute Code(s): F43.10 - Post-traumatic stress disorder, unspecified (2) Bipolar disorder: Status: Chronic Code(s): F31.9 - Bipolar disorder, unspecified (3) Cocaine use disorder: Status: Acute Code(s): F14.10 - Cocaine abuse, uncomplicated Plan 12/16/23: Hold Trazodone this evening. Increase Vraylar to 3 mg on 12/17/23. 12/18/23: Decrease Seroquel to 250 mg HS Discontinue Risperdal 12/19/23: CBCD, CMP, Urine Culture Continue current regime at this time 12/20/23 CTP 12/21/23 pt hoping for dc in am Patient educated on: other (dc support for tomorrow) Informed Consent: further education needed (directed her to talk to SW tomorrow) Reason for continued inpatient stay Substantial Risk for: rapid decompensation Time Spent With Patient Time: Total time managing care of this patient today ____ minutes.
[2023-12-21] MEDS: LORazepam 0.5 MG TABLET 0.25 MG PO ×2 (11:13→16:04)
[2023-12-21 20:30] VITALS: BP 138/83; PULSE 79; RESP 16; TEMP 36.8; O2SAT 96
[2023-12-21 20:50] VITALS: BP 138/83; PULSE 79
[2023-12-21] MEDS: hydrOXYzine HCL 25 MG TABLET PO (20:50)
[2023-12-21 20:51] VITALS: BP 138/83
[2023-12-21] MEDS: QUEtiapine Fumarate 50 MG TABLET 250 MG PO (20:51)
[2023-12-21] MEDS: Prazosin HCL 5 MG CAPSULE PO (20:51)
[2023-12-21] MEDS: lamoTRIgine 25 MG TABLET PO (20:52)
[2023-12-21] MEDS: Melatonin 3 MG TABLET 6 MG PO (20:52)
[2023-12-21] MEDS: SUMAtriptan succinate 100 MG TABLET PO (22:30)
[2023-12-22] MEDS: HYDROcodone Bit/Acetam 5/325 TABLET 1 TAB PO ×2 (00:35→06:36)
[2023-12-22] MEDS: Ibuprofen 800 MG TABLET PO (02:50)
[2023-12-22 08:00] VITALS: BP 115/70; PULSE 81; RESP 18; TEMP 36.7; O2SAT 98
[2023-12-22 09:21] VITALS: BP 115/70; PULSE 81
[2023-12-22] MEDS: Propranolol HCL 40 MG TABLET PO (09:21)
[2023-12-22] MEDS: Multivitamin TABLET 1 TAB PO (09:21)
[2023-12-22] MEDS: Topiramate 100 MG TABLET PO (09:21)
[2023-12-22] MEDS: busPIRone HCl 5 MG TABLET 15 MG PO (09:21)
[2023-12-22] MEDS: Cariprazine HCl 3 MG CAPSULE PO (09:21)
[2023-12-22] MEDS: Famotidine 20 MG TABLET PO (09:21)
[2023-12-22] MEDS: Loratadine 10 MG TABLET PO (09:22)
[2023-12-22] MEDS: LORazepam 0.5 MG TABLET 0.25 MG PO (10:05)
[2023-12-22] MEDS: Lidocaine 4 % Patch ADH..PATCH 1 PATCH TRANSDERMA (10:06)
--- NOTE | 2023-12-22 10:19 | HO.PSYCHPN ---
Subjective Subjective Reason For Visit: Bipolar Disorder Diagnostics Vital Signs (24Hr): Vital Signs - 24 hr 12/21/23 20:30 12/21/23 20:50 12/21/23 20:51 Temperature 98.2 F Pulse Rate 79 79 Respiratory Rate 16 Blood Pressure 138/83 138/83 138/83 Pulse Oximetry 96 Oxygen Delivery Method Room Air 12/22/23 08:00 12/22/23 09:21 Temperature 98.0 F Pulse Rate 81 81 Respiratory Rate 18 Blood Pressure 115/70 115/70 Pulse Oximetry 98 Oxygen Delivery Method Room Air BMI result Body Mass Index 51.2 Labs 12/20/23 07:40 12/20/23 07:40 Medications Medications Current Medications Acetaminophen (Acetaminophen 325 Mg Tablet) 650 mg PO Q6H PRN PRN Reason: Headache/Pain Mild Scale (1-3) Last Admin: 12/20/23 17:01 Dose: 650 mg Hydrocodone Bitart/Acetaminophen (Hydrocodone Bit/Acetam 5/325 Tablet) 1 tab PO Q6H PRN PRN Reason: disc pain Last Admin: 12/22/23 06:36 Dose: 1 tab Al Hydroxide/Mg Hydroxide (Magnesium Hydrox/Alum Hydrox 30 Ml Oral.Susp) 30 ml PO Q6H PRN PRN Reason: Heartburn/Nausea Bisacodyl (Bisacodyl 5 Mg Tablet.Dr) 10 mg PO DAILY PRN PRN Reason: Constipation Last Admin: 12/20/23 15:39 Dose: 10 mg Buspirone HCl (Buspirone Hcl 5 Mg Tablet) 15 mg PO TID [facility] Last Admin: 12/22/23 09:21 Dose: 15 mg Cariprazine (Cariprazine Hcl 3 Mg Capsule) 3 mg PO DAILY [facility] Last Admin: 12/22/23 09:21 Dose: 3 mg Famotidine (Famotidine 20 Mg Tablet) 20 mg PO BID [facility] Last Admin: 12/22/23 09:21 Dose: 20 mg Hydroxyzine HCl (Hydroxyzine Hcl 25 Mg Tablet) 25 mg PO Q6H PRN PRN Reason: Anxiety Last Admin: 12/21/23 20:50 Dose: 25 mg Ibuprofen (Ibuprofen 800 Mg Tablet) 800 mg PO TID PRN PRN Reason: back pain Last Admin: 12/22/23 02:50 Dose: 800 mg Lamotrigine (Lamotrigine 25 Mg Tablet) 25 mg PO 2000 [facility] Last Admin: 12/21/23 20:52 Dose: 25 mg Lidocaine (Lidocaine 4 % Patch Adh..Patch) 1 patch TRANSDERMA DAILY [facility]; Protocol Last Admin: 12/22/23 10:06 Dose: 1 patch Lidocaine (Lidocaine 4 % Patch Adh..Patch) 1 patch TRANSDERMA DAILY PRN; Protocol PRN Reason: back pain Last Admin: 12/19/23 05:03 Dose: 1 patch Loratadine (Loratadine 10 Mg Tablet) 10 mg PO DAILY [facility] Last Admin: 12/22/23 09:22 Dose: 10 mg Lorazepam (Lorazepam 0.5 Mg Tablet) 0.25 mg PO BID PRN PRN Reason: Anxiety Last Admin: 12/22/23 10:05 Dose: 0.25 mg Magnesium Hydroxide (Milk Of Magnesia 30 Ml Oral.Susp) 30 ml PO DAILY PRN PRN Reason: Constipation Last Admin: 12/20/23 15:39 Dose: 30 ml Melatonin (Melatonin 3 Mg Tablet) 6 mg PO 1999 [facility] Last Admin: 12/21/23 20:52 Dose: 6 mg Multivitamins/Vitamin C (Multivitamin Tablet) 1 tab PO DAILY [facility] Last Admin: 12/22/23 09:21 Dose: 1 tab Prazosin HCl (Prazosin Hcl 5 Mg Capsule) 5 mg PO 1999 [facility]; Protocol Last Admin: 12/21/23 20:51 Dose: 5 mg Propranolol HCl (Propranolol Hcl 40 Mg Tablet) 40 mg PO 899,1999 [facility]; Protocol Last Admin: 12/22/23 09:21 Dose: 40 mg Quetiapine Fumarate (Quetiapine Fumarate 50 Mg Tablet) 250 mg PO DAILY@1999 [facility] Last Admin: 12/21/23 20:51 Dose: 250 mg Sumatriptan Succinate (Sumatriptan Succinate 100 Mg Tablet) 100 mg PO DAILY MRX1 PRN PRN Reason: Migraine Headache Last Admin: 12/21/23 22:30 Dose: 100 mg Topiramate (Topiramate 100 Mg Tablet) 100 mg PO BID [facility] Last Admin: 12/22/23 09:21 Dose: 100 mg Trazodone HCl (Trazodone Hcl 50 Mg Tablet) 50 mg PO BEDTIME MRX1 PRN PRN Reason: Insomnia Trazodone HCl (Trazodone Hcl 50 Mg Tablet) 150 mg PO 1999 [facility] Last Admin: 12/15/23 20:14 Dose: 150 mg Allergies Allergies Allergy/AdvReac Type Severity Reaction Status Date / Time Penicillins [PENICILLINS] Allergy Severe HIVES Verified 12/09/23 14:56 prochlorperazine Allergy Severe HIVES Verified 12/09/23 14:56 [From COMPAZINE] promethazine [PROMETHAZINE] Allergy Intermediate HEADACHES Verified 12/09/23 14:56 haloperidol [From HALDOL] AdvReac Severe HIVES Verified 12/09/23 14:56 morphine AdvReac [place] Verified 12/09/23 14:56 Assessment & Plan Assessment & Plan (1) PTSD (post-traumatic stress disorder): Status: Acute Code(s): F43.10 - Post-traumatic stress disorder, unspecified (2) Bipolar disorder: Status: Chronic Code(s): F31.9 - Bipolar disorder, unspecified (3) Cocaine use disorder: Status: Acute Code(s): F14.10 - Cocaine abuse, uncomplicated Plan 12/16/23: Hold Trazodone this evening. Increase Vraylar to 3 mg on 12/17/23. 12/18/23: Decrease Seroquel to 250 mg HS Discontinue Risperdal 12/19/23: CBCD, CMP, Urine Culture Continue current regime at this time 12/20/23 CTP 12/21/23 pt hoping for dc in am Time Spent With Patient Time: Total time managing care of this patient today ____ minutes.
--- NOTE | 2023-12-22 14:51 | P.DS_ITS ---
DS: Providers Provider Date of Service: 12/22/23 Date of admission: 12/10/23 11:28 Date of discharge: 12/22/23 Primary care physician: Kristel Physician Admitting clinician: Argentina Goldsmith Attending physician on admission: Teddy Hernandez Attending physician on discharge: Teddy Hernandez Discharging clinician: Argentina Goldsmith DS: Diagnosis Discharge Diagnosis (1) PTSD (post-traumatic stress disorder): Status: Acute (2) Bipolar disorder: Status: Chronic (3) Cocaine use disorder: Status: Acute DS: Medications Discharge Medications Home Medications: Home Medications ?Medication ?Instructions ?Recorded ?Confirmed sumatriptan succinate 100 mg tablet 100 mg PO DIRECTED PRN Migraine 12/09/23 12/21/23 Headache Previous Rx's ?Medication ?Instructions ?Recorded fluticasone propionate 50 2 spray intranasal DAILY PRN nasal 06/01/21 mcg/actuation nasal congestion 30 days #16 grams spray,suspension bisacodyl 5 mg tablet,delayed 10 mg (2 x 5 mg) PO DAILY PRN 12/22/23 release Constipation #30 tabs buspirone 5 mg tablet 15 mg (3 x 5 mg) PO TID #90 tabs 12/22/23 cariprazine 3 mg capsule (Vraylar) 3 mg PO DAILY #30 caps 12/22/23 cetirizine 10 mg tablet 10 mg PO DAILY #30 tabs 12/22/23 famotidine 20 mg tablet 20 mg PO BID #60 tabs 12/22/23 hydroxyzine HCl 25 mg tablet 25 mg PO Q6H PRN Anxiety #60 tabs 12/22/23 ibuprofen 800 mg tablet 800 mg PO TID PRN back pain #60 12/22/23 tabs lamotrigine 25 mg tablet 25 mg PO 2000 #30 tabs 12/22/23 lidocaine 4 % topical patch 1 patch transdermal DAILY #30 ea 12/22/23 (Lidocaine Pain Relief) lidocaine 4 % topical patch 1 patch transdermal DAILY PRN back 12/22/23 (Lidocaine Pain Relief) pain #30 ea lorazepam 0.5 mg tablet 0.25 mg (1/2 x 0.5 mg) PO BID PRN 12/22/23 Anxiety #7 tabs melatonin 3 mg tablet 6 mg (2 x 3 mg) PO 1999 #60 tabs 12/22/23 multivitamin (Daily-Franchesca tablet) 1 tab PO DAILY #30 tabs 12/22/23 prazosin 5 mg capsule 5 mg PO 2000 #30 caps 12/22/23 propranolol 40 mg tablet 40 mg PO BID #60 tabs 12/22/23 quetiapine 100 mg tablet (Seroquel) 100 mg PO BEDTIME #15 tabs 12/22/23 topiramate 100 mg tablet 100 mg PO BID 30 days #60 tabs 12/22/23 Mental Status Exam Mental Status Exam Patient Appearance: Well Grooomed and Appropriate Patient Orientation: Person, Place, Time and Situation Level of Consciousness: Awake, Appropriate and Alert Patient Behavior: Appropriate, Cooperative and Good Eye Contact Mood Description: Calm Affect Description: Appropriate Patient Cognition Impaired: No Ability to Follow Directions: Good Speech Pattern: Clear Thought Process: Intact Thought Content: positive for Intact Judgement: Fair Data Data Completed and Pending Completed studies during hospitalization [Text1]: 12/20/23 07:40 WBC 8.5 RBC 3.85 L Hgb 12.1 Hct 37.2 MCV 96.6 MCH 31.4 MCHC 32.5 RDW 13.1 Plt Count 203 MPV 12.2 Immature Gran % (Auto) 0.6 H Neut % (Auto) 53.2 Lymph % (Auto) 29.5 [place] % (Auto) 8.7 Eos % (Auto) 7.5 H Baso % (Auto) 0.5 Lymph # (Auto) 2.5 [place] # (Auto) 0.7 Eos # (Auto) 0.6 H Baso # (Auto) 0.0 Abs Immat Gran (auto) 0.05 H Absolute Neuts (auto) 4.5 Absolute Nucleated RBC 0.000 Nucleated RBC % (auto) 0.0 Sodium 139 Potassium 4.0 Chloride 111 H Carbon Dioxide 21 L Anion Gap 11 L BUN 12 Creatinine 0.74 Estim Creat Clear Calc 157.3 Estimated GFR > 60 Random Glucose 105 Calcium 8.8 Total Bilirubin 0.2 AST 8 ALT 10 Alkaline Phosphatase 51 Total Protein 6.3 L Albumin 3.5 12/19/23 13:53 Urine clean catch Urine Culture - Final No growth. 12/09/23 14:50 Urine clean catch - Urine rosario top Urine Culture - Final Strep agalactiae (Grp B) DS: Summary Hospital Course Hospital Course: Admission to adult psychiatry for exacerbation of PTSD, Bipolar Disorder and relapse on crack-cocaine. Reports an increase in anxiety and a decrease in medication efficacy [employer]. Identified stressors as being newly homeless, relapse on crack-cocaine and a friend whom she had been connecting with on line suicided, his family blaming pt for the and as a result sending her threatening messages. Medications were evaluated and adjusted. Vraylar and Lamictal were initiated, Seroquel was decreased. Pt participated in milieu groups. Pt plans to live with her friend Grady in [place] upon discharge, ret urn to her medication provider as they have a long, established relationship and pursue psychotherapy in the [place] area based upon friends recommendations. Status at Discharge Functional status at discharge: independent ambulation Overall status at discharge: patient is back to baseline Time Spent with Patient Time attestation: Total time managing care of this patient today ____ minutes. Time spent: Less than 30 minutes Discharge Plan Discharge Anticipated Discharge Date/Time: 12/22/23 16:00 Patient Disposition: Home, Self-Care Discharge Diagnosis: PTSD Bipolar Disorder Cocaine Use Disorder Referrals: Physician,None [Primary Care Provider] - 1 Week Discharge Medications: New multivitamin [Daily-Franchesca] Tablet 1 tab PO DAILY Qty: 30 0RF buspirone 5 mg Tablet 15 mg PO TID Qty: 90 0RF lidocaine [Lidocaine Pain Relief] 4 % Adhesive Patch,Medicated 1 patch transdermal DAILY Qty: 30 0RF Protocol: Apply to: Apply to: back lidocaine [Lidocaine Pain Relief] 4 % Adhesive Patch,Medicated 1 patch transdermal DAILY PRN (Reason: back pain) Qty: 30 0RF Protocol: Apply to: Apply to: back melatonin 3 mg Tablet 6 mg PO 1999 Qty: 60 0RF lamotrigine 25 mg Tablet 25 mg PO 1999 Qty: 30 0RF prazosin 5 mg Capsule 5 mg PO 1999 Qty: 30 0RF Protocol: Hold for SBP< HOLD for SBP < : 90 lorazepam 0.5 mg Tablet 0.25 mg PO BID PRN (Reason: Anxiety) Qty: 7 4RF hydroxyzine HCl 25 mg Tablet 25 mg PO Q6H PRN (Reason: Anxiety) Qty: 60 0RF bisacodyl 5 mg Tablet,Delayed Release (Dr/Ec) 10 mg PO DAILY PRN (Reason: Constipation) Qty: 30 0RF Vraylar 3 mg Capsule 3 mg PO DAILY Qty: 30 0RF quetiapine [Seroquel] 100 mg tablet 100 mg PO BEDTIME Qty: 15 1RF Continued fluticasone propionate 50 mcg/actuation [place],Suspension 2 spray intranasal DAILY PRN (Reason: nasal congestion) 30 Days Qty: 16 0RF sumatriptan succinate 100 mg tablet 100 mg PO DIRECTED MDD 200 PRN (Reason: Migraine Headache) Rx Instructions: may repeat dose in 2 hours if no relief. cetirizine 10 mg tablet 10 mg PO DAILY Qty: 30 0RF propranolol 40 mg tablet 40 mg PO BID Qty: 60 0RF famotidine 20 mg tablet 20 mg PO BID Qty: 60 0RF topiramate 100 mg Tablet 100 mg PO BID 30 Days Qty: 60 0RF Changed ibuprofen 800 mg tablet 800 mg PO TID PRN (Reason: back pain) Qty: 60 0RF Discontinued trazodone 50 mg Tablet 150 mg PO BEDTIME 30 Days Qty: 90 0RF buspirone 15 mg tablet 15 mg PO BID quetiapine 400 mg tablet 400 mg PO BEDTIME Discharge Orders: Discharge Order (Routine); Ordered 12/22/23 Ordered By: Argentina Goldsmith Diet: Regular diet Activity on Discharge: As tolerated Stand Alone Forms: Patient Portal Discharge page, Community Support Print Language: Bhutanese Care Plan Goals: Mood and Behavioral Stabilization Sobriety Health Concerns: Mood and Behavioral Stabilization Sobriety Plan of Treatment: Attend scheduled appointments Take medications as directed Pt plans to go to her friend Polina's home in [place] to stay. This offer came suddenly over the weekend. She will make contact with [facility] to schedule telehealth appointment with her medication provider, Blossom Mejia APRN She plans to seek psychotherapy services in the [place] area and will take recommendations from her friend as to her practice choice. Assessment: Pt interviewed prior to discharge and found to be fully oriented and without SI/HI. Pt has insight and demonstrates good judgment in terms of wanting to pursue treatment. Pt is not in imminent risk of harm to self or others and has a safety plan that includes presenting to the closest ER or calling 911 if feeling unsafe. Pt has been observed closely by nursing and unit staff throughout admission. Pt has not engaged in any behaviors that suggest dangerousness to self or others and has demonstrated appropriate behaviors and impulse control. Patient Instructions: Cariprazine (By mouth) Discharge Date/Time: 12/22/23 12:40
--- NOTE | 2024-01-07 12:13 | PM.EVENT ---
Documented by User: Argentina Goldsmith, ETTA 01/07/24 12:15 Event Note Date of Service: 01/07/24 Event Note: Call from pt. Psychiatry appt scheduled for 01/26. Prescriber needs copy of med list which was faxed to [phone]. Pt needs refills of Propranolol, Lamictal. Asks to trial clonidine 0.1 mg for prn for anxiety. #5 tabs sent Lidocaine patch insurance asks that pt purchase this on her own. Time Spent With Patient Time: Total time managing care of this patient today ____ minutes. Documented by User: Teddy Hernandez MD 01/16/24 21:16 Event Note Date of Service: 01/16/24
== END 2023-12-22 12:40 | disposition home or self-care (01) | DRG 885 ==
LOC: HO.ED 16:03 → HO.PM5 12-10 11:47
PROVIDERS: Admitting Provider Clinical Nurse Specialist Psychiatric/Mental Health, Adult; Emergency Provider Emergency Medicine; Visit Provider Clinical Nurse Specialist Psychiatric/Mental Health, Adult
DX: F31.9 Bipolar disorder, unspecified (principal); F43.10 Post-traumatic stress disorder, unspecified; F14.10 Cocaine abuse, uncomplicated; Z98.84 Bariatric surgery status; Z79.899 Other long term (current) drug therapy
CPT/HCPCS: 36415; 80053; 80061; 80307; 81001; 81025; 82607; 82746; 83036; 83735; 84439; 84443; 85025; 87086; 87147; 93005; 99285; S9485

== ENCOUNTER → 2023-12-10 09:02 | Outpatient (BNV) | payer OTHER, SELFPAY | PROVIDERS: Admitting Provider Clinical Nurse Specialist Psychiatric/Mental Health, Adult; Emergency Provider Emergency Medicine; Visit Provider Internal Medicine | DX: R00.1 Bradycardia, unspecified (principal) | CPT/HCPCS: 93010 ==

== ENCOUNTER → 2023-12-10 11:28 | Outpatient (BNV) | payer OTHER, SELFPAY | PROVIDERS: Admitting Provider Clinical Nurse Specialist Psychiatric/Mental Health, Adult; Emergency Provider Emergency Medicine; Visit Provider Clinical Nurse Specialist Psychiatric/Mental Health, Adult | DX: F31.4 Bipolar disorder, current episode depressed, severe, without psychotic features (principal); F14.10 Cocaine abuse, uncomplicated; F43.11 Post-traumatic stress disorder, acute | CPT/HCPCS: 90792; 99232; 99238; 99499 ==

== ENCOUNTER 2024-04-16 11:30 | Emergency (ER) | payer OTHER, SELFPAY ==
--- NOTE | ~2024-04-16 | XR_ITS ---
EXAMINATION: XR LUMBOSACRAL SPINE CLINICAL INFORMATION: Low back pain. Status post fall. COMPARISON: Lumbar spine radiographs dated October 29, 2022. TECHNIQUE: Three views of the lumbosacral spine. FINDINGS: Lumbar spinal alignment remains anatomic. Vertebral body heights are preserved. There is degenerative disc disease at L3-4 and L4-5, similar to slightly worse compared with the prior examination. There is facet arthropathy at L4-5 and L5-S1. No acute fracture. There are cholecystectomy clips. There are bilateral Essure devices. XR/XR lumbar spine 2-3V IMPRESSION: No acute osseous lumbar spine abnormality. Degenerative disc disease at L3-4 and L4-5. Electronically signed by: Moose Salas DO 04/16/2024 02:57 PM EDT
[2024-04-16 11:58] VITALS: BP 128/89; PULSE 83; RESP 18; TEMP 36.8; O2SAT 100; BMI 47.9
--- NOTE | 2024-04-16 12:00 | ED_ITS ---
HPI - General Adult General Chief complaint: Back Pain/Injury Stated complaint: Back Pain Injury 04/13/24 Time Seen by Provider: 04/16/24 12:49 Source: patient, RN notes reviewed and old records reviewed Mode of arrival: ambulatory Limitations: no limitations History of Present Illness ED Provider: JATIN SLAUGHTER PA-C HPI narrative: 44 year old female with pmhx significant for polysubstance use disorder, PTSD, bipolar disorder, anxiety presents to the ED today for evaluation of acute on chronic low back pain x3 days. Reports that while caring a large basket of clothes down her stairs, she missed a step causing her to fall down them. Reports landing on her blood in sliding down the stairs. Denies head strike or LOC. not on anticoagulation. Reports continued pain to her low back bilaterally. Taking ibuprofen at home with minimal relief. Last dose around 0700 this morning. She tells me that vicoden typically helps with her back pain. Denies history of IV drug use. Denies history of spinal surgery. Denies fever, chills, saddle anesthesia, numbness/tingling/weakness down the lower extremities, dysuria, hematuria. Related Data Home Medications ?Medication ?Instructions ?Recorded ?Confirmed sumatriptan succinate 100 mg tablet 100 mg PO DIRECTED PRN Migraine 12/09/23 12/21/23 Headache Previous Rx's ?Medication ?Instructions ?Recorded fluticasone propionate 50 2 spray intranasal DAILY PRN nasal 06/01/21 mcg/actuation nasal congestion 30 days #16 grams spray,suspension bisacodyl 5 mg tablet,delayed 10 mg (2 x 5 mg) PO DAILY PRN 12/22/23 release Constipation #30 tabs buspirone 5 mg tablet 15 mg (3 x 5 mg) PO TID #90 tabs 12/22/23 cariprazine 3 mg capsule (Vraylar) 3 mg PO DAILY #30 caps 12/22/23 cetirizine 10 mg tablet 10 mg PO DAILY #30 tabs 12/22/23 famotidine 20 mg tablet 20 mg PO BID #60 tabs 12/22/23 hydroxyzine HCl 25 mg tablet 25 mg PO Q6H PRN Anxiety #60 tabs 12/22/23 ibuprofen 800 mg tablet 800 mg PO TID PRN back pain #60 12/22/23 tabs lamotrigine 25 mg tablet 25 mg PO 1999 #30 tabs 12/22/23 lidocaine 4 % topical patch 1 patch transdermal DAILY #30 ea 12/22/23 (Lidocaine Pain Relief) lidocaine 4 % topical patch 1 patch transdermal DAILY PRN back 12/22/23 (Lidocaine Pain Relief) pain #30 ea lorazepam 0.5 mg tablet 0.25 mg (1/2 x 0.5 mg) PO BID PRN 12/22/23 Anxiety #7 tabs melatonin 3 mg tablet 6 mg (2 x 3 mg) PO 1999 #60 tabs 12/22/23 multivitamin (Daily-Franchesca tablet) 1 tab PO DAILY #30 tabs 12/22/23 prazosin 5 mg capsule 5 mg PO 1999 #30 caps 12/22/23 propranolol 40 mg tablet 40 mg PO BID #60 tabs 12/22/23 quetiapine 100 mg tablet (Seroquel) 100 mg PO BEDTIME #15 tabs 12/22/23 topiramate 100 mg tablet 100 mg PO BID 30 days #60 tabs 12/22/23 clonidine HCl 0.1 mg tablet 0.1 mg PO DAILY PRN anxiety #5 tabs 01/07/24 lamotrigine 25 mg tablet (Lamictal) 25 mg PO DAILY 30 days #30 tabs 01/07/24 propranolol 40 mg tablet 40 mg PO BID #60 tabs 01/07/24 cyclobenzaprine 5 mg tablet 5 mg PO Q8H #7 tabs 04/16/24 lidocaine 5 % topical patch 1 patch topical DAILY #15 ea 04/16/24 (Lidoderm) Allergies Allergy/AdvReac Type Severity Reaction Status Date / Time Penicillins [PENICILLINS] Allergy Severe HIVES Verified 04/16/24 12:00 prochlorperazine Allergy Severe HIVES Verified 04/16/24 12:00 [From COMPAZINE] promethazine [PROMETHAZINE] Allergy Intermediate HEADACHES Verified 04/16/24 12:00 haloperidol [From HALDOL] AdvReac Severe HIVES Verified 04/16/24 12:00 morphine AdvReac Flushing Verified 04/16/24 12:00 Review of Systems 2 Review of Systems: Constitutional: No fever, chills, fatigue, night sweats, weight changes ENT/Mouth: No ear pain, hearing loss, nasal congestion, sinus pain, rhinorrhea, sore throat Eyes: No eye pain, swelling, redness, vision changes, discharge Cardio: No chest pain, palpitations, STAPLES, orthopnea, peripheral edema Pulm: No SOB, cough, sputum, wheezing, dyspnea, hemoptysis GI: No nausea, vomiting, hematemesis, abdominal pain, diarrhea, constipation, hematochezia, melena : No irregular bleeding, dysuria, frequency, urgency, hesitancy, hematuria, flank pain, urinary flow changes, urinary incontinence or retention MSK: No neck pain, joint pain, myalgias, +back pain Skin: No lesions, rashes Neuro: No weakness, numbness, paresthesias, LOC, dizziness, headache Psych: No anxiety/panic, depression, SI/HI, AH/VH All other systems reviewed and are negative. [facility] Past Medical History Attestation statement: The following information was validated with the patient. Source: old records reviewed and nursing notes reviewed Medical History Cocaine use disorder Opioid abuse Cocaine abuse Bipolar disorder PTSD (post-traumatic stress disorder) Hernia Anxiety Surgical History History of cholecystectomy History of appendectomy LAP-BAND surgery status Social History Social History Household Members: None Housing: Unknown / Unable to assess Do you presently have visiting nurse or other home services: No Alcohol intake: current Alcohol intake frequency: holidays/special occasions only Patient Tobacco Use Status: Never used Tobacco Substance Use Type: Crack/Cocaine Advance Directives: No Advance Directives Information Provided: No Do you have a plan to hurt others: No Plan service: No Sexual orientation: Did not discuss Physical Exam ED Vital Signs: Vital Signs - 24 hr 04/16/24 11:58 04/16/24 15:16 Temperature 98.3 F 98.3 F Pulse Rate 83 83 Respiratory Rate 18 18 Blood Pressure 128/89 128/89 Pulse Oximetry 100 100 Oxygen Delivery Method Room Air Room Air BMI result Body Mass Index 47.9 Vital signs stable, afebrile General: Well appearing, in no acute distress. Skin: Warm, dry, intact. No rashes or lesions. Head: Normocephalic, atraumatic. Neck: Supple without LAD. FROM. No C-spine tenderness. Cardiac: Chest wall symmetric. RRR. Lungs: Normal respiratory effort without accessory muscle use. CTA bilaterally. No rales, rhonchi, or wheezes.? Abdomen: Soft, non-tender, non-distended. No rebound tenderness or guarding. Positive BS x4. No CVAT bilaterally. Back: No midline spinous or step-off deformity. There is bilateral lumbar paraspinal muscle tenderness to palpation without palpable mass, spasm, warmth, fluctuance. Ext: Upper and lower extremities atraumatic, without tenderness, deformity, swelling or erythema. Full ROM throughout. Capillary refill <2 seconds in all extremities. Pulses 2+ equal and bilateral. Neuro: AOx3. Normal speech. Strength 5/5 intact throughout. No saddle anesthesia. Sensation intact to light touch. NV intact distally. Reflexes 2+ bilaterally. Ambulating with steady gait. Psych: Appropriate mood and affect. Responds appropriately to questions. Course Course Course Narrative: RME performed by Yari Schuler PA-C. Patient is a 44 year old assigned female at presenting to the emergency department with low back pain. Patient states she has been having low back pain lately and has been taking ibuprofen but it hasn't been helping. Detailed physical exam and review of systems are deferred to the laborer beam house. Labs and imaging ordered. Patient placed back in the waiting room pending room availability and results. Reevaluation(s) Reevaluation #1: 1356 -- CBC without leukocytosis or left shift. No anemia. H&H stable. Chemistry without acute electrolyte abnormality requiring intervention. No ANNEMARIE. Normal liver function. Beta quant undetectable. Urine with small amount of blood secondary to patient's current menstrual period. Negative nitrites, leukocyte esterase. No urine bacteria. No urinary tract infection. Patient has tested negative for COVID, flu, RSV. EKG showing normal sinus rhythm with a rate of 75 beats per minute, QT 400, QTC 446, no acute ischemic changes or ST elevations. > x-ray lumbar spine pending > patient medicated with Toradol, Flexeril, lidocaine patch. Will re-evaluate. 1515 -- x-ray lumbar spine without acute fracture or subluxation. There is degenerative disc disease at L3/L4 and L4/L5. I did discuss these results with patient. Will send Flexeril and lidocaine patches to pharmacy for treatment. Advised to take Motrin and Tylenol at home. Patient has remained stable throughout ED visit today. Discussed worrisome signs and symptoms and when to return to the ED. All questions answered at this time. Patient is agreeable with disposition and stable for discharge. Medications Administered Discontinued Medications Generic Name Dose Route Start Last Admin Trade Name Franco PRN Reason Stop Dose Admin Cyclobenzaprine HCl 5 mg 04/16/24 13:32 04/16/24 14:51 Cyclobenzaprine Hcl 5 Mg Tablet PO 04/16/24 13:33 5 mg ONCE ONE Administration Ketorolac Tromethamine 30 mg 04/16/24 13:32 04/16/24 14:52 Ketorolac Tromethamine 30 Mg/Ml Vial IM 04/16/24 13:33 30 mg ONCE ONE Administration Lidocaine 1 patch 04/16/24 13:32 04/16/24 14:50 Lidocaine 4 % Patch Adh..Patch TRANSDERMA 04/16/24 13:33 1 patch ONCE ONE Administration Protocol Medical Decision Making Medical Decision Making MDM Narrative: 44 year old female with pmhx significant for polysubstance use disorder, PTSD, bipolar disorder, anxiety presents to the ED today for evaluation of acute on chronic low back pain x3 days. Vital signs stable. Afebrile. She is nontoxic appearing in no acute distress. Ambulating with steady gait to the bathroom. On exam, there is no midline spinous tenderness or step-off deformity. There is bilateral lumbar paraspinal muscle tenderness to palpation without palpable spasm, mass, fluctuance, warmth. Sensation intact throughout. Strength 5/5 intact throughout. Neurovascularly intact distally. No CVAT bilaterally. Differential diagnosis includes muscle spasm, lumbar strain. Lower suspicion for fracture, subluxation, sciatica, disc herniation. Unlikely urinary tract infection, nephrolithiasis, pyelonephritis, renal colic. Presentation not consistent with cauda equina, Guillain-Keo, epidural abscess or cord compression. Basic blood work and urinalysis obtained from triage. I have low suspicion for urinary tract infection or pyelo/hydronephrosis. Plan to review labs and urinalysis for infection. EKG obtained in triage. Low suspicion for ACS or arrhythmia. Will review. Viral swabs for COVID, flu, RSV obtained in triage. I have low suspicion for viral infection as patient does not have any upper respiratory symptoms at this time. X-ray lumbar spine ordered from triage. Low suspicion for fracture, plan to review and re-evaluate. Patient receiving Toradol, Flexeril and lidocaine patch in ED for pain control. Differential Diagnosis Differential Diagnoses: The differential diagnosis associated with the presentation includes as above. Admission/Observation not indicated. Lab Data MDM Lab Attestation statement: I reviewed the patient's lab results. as above. 04/16/24 12:20 04/16/24 12:20 Labs: Lab Results 04/16/24 04/16/24 Range/Units 12:20 13:02 WBC 6.9 (4.8-10.8) X10*3/uL RBC 4.50 (4.20-5.50) X10*6/uL Hgb 13.8 (12.0-16.0) g/dl Hct 42.0 (37.0-47.0) % MCV 93.3 (80.0-98.0) fL MCH 30.7 (27.0-33.0) pg MCHC 32.9 (31.0-35.0) g/dl RDW 13.6 (11.0-16.0) % Plt Count 289 D (160-400) X10*3/uL MPV 11.6 (9.4-12.3) fL Immature Gran % (Auto) 0.4 (0.0-0.4) % Neut % (Auto) 58.0 (45-73) % Lymph % (Auto) 30.7 (20-40) % Livingston % (Auto) 5.8 (2-11) % Eos % (Auto) 4.2 H (0-4) % Baso % (Auto) 0.9 (0-2) % Lymph # (Auto) 2.1 (1.2-4.9) X10*3/uL [place]ston # (Auto) 0.4 (0.1-1.2) X10*3/uL Eos # (Auto) 0.3 (0.0-0.4) X10*3/uL Baso # (Auto) 0.1 (0.0-0.2) X10*3/uL Abs Immat Gran (auto) 0.03 (0.00-0.03) X10*3/uL Absolute Neuts (auto) 4.0 (2.0-8.3) x10*3/uL Absolute Nucleated RBC 0.000 (0.0-0.012) X10*3/uL Nucleated RBC % (auto) 0.0 (0.0-0.2) /100WBC Sodium 142 (135-145) mmol/L Potassium 4.5 (3.3-5.1) mmol/L Chloride 114 H (96-108) mmol/L Carbon Dioxide 21 L (22-29) mmol/L Anion Gap 12 (12-20) BUN 14 (9-16) mg/dL Creatinine 1.07 (0.5-1.4) mg/dL Estim Creat Clear Calc 104.2 Estimated GFR 55 Random Glucose 108 (60-115) mg/dL Calcium 9.4 D (8.4-10.2) mg/dL Magnesium 2.2 (1.6-2.6) mg/dL Total Bilirubin 0.3 (0.0-1.0) mg/dL AST 8 (5-31) U/L ALT 9 (0-31) U/L Alkaline Phosphatase 66 (39-117) U/L Total Protein 6.7 (6.5-8.0) g/dL Albumin 3.9 (3.5-5.0) g/dL Beta HCG, Quant < 2 mIU/mL Urine Color Yellow Urine Appearance Clear Urine pH 5.5 (5.0-9.0) Ur Specific Benedict >= 1.030 H (1.005-1.025) Urine Protein Negative (Neg-Trace) mg/dL Urine Glucose (UA) Negative (Negative) mg/dL Urine Ketones Negative (Negative) mg/dL Urine Blood Small (1+) H (Negative) Urine Nitrite Negative (Negative) Ur Leukocyte Esterase Negative (Negative) Urine RBC 0-2 (0-2) /HPF Urine WBC 0-5 (0-5) /HPF Ur Squamous Epith Cells 0-2 (0-2) /HPF Urine Bacteria None Seen (None Seen) Hyaline Casts 0-2 (0-2) /LPF Influenza Type A (PCR) NEGATIVE (Negative) Influenza Type B (PCR) NEGATIVE (Negative) RSV RNA Qual (PCR) NEGATIVE (Negative) SARS-CoV-2 RNA (RT-PCR) NEGATIVE (Negative) Independent Interpretation I performed an independent interpretation of an: Plain X-Ray Interpretation: XR lumbar spine without acute fracture or subluxation, agree with radiologist's interpretation. Radiology Impression Discussion of test interpretation with radiology: I have reviewed the radiologist's reading. Radiologist Impression: EXAMINATION: XR LUMBOSACRAL SPINE CLINICAL INFORMATION: Low back pain. Status post fall. COMPARISON: Lumbar spine radiographs dated October 29, 2022. TECHNIQUE: Three views of the lumbosacral spine. FINDINGS: Lumbar spinal alignment remains anatomic. Vertebral body heights are preserved. There is degenerative disc disease at L3-4 and L4-5, similar to slightly worse compared with the prior examination. There is facet arthropathy at L4-5 and L5-S1. No acute fracture. There are cholecystectomy clips. There are bilateral Essure devices. XR/XR lumbar spine 2-3V IMPRESSION: No acute osseous lumbar spine abnormality. Degenerative disc disease at L3-4 and L4-5. Electronically signed by: Moose Salas DO 04/16/2024 02:57 PM EDT External Record Review External record reviewed: Inpatient record, Office record, Outpatient record, Prior outpatient labs, Prior outpatient radiology, Primary care record and Outside ED record Prescription Management I considered prescription management with: Other (Flexeril, lidocaine) Chronic Conditions Patient?s care impacted by: Other (chronic back pain) Social Determinants Patient?s care significantly limited by Social Determinants of Health including: Other Social Determinant of Health Critical Care Time Critical Care Time Critical Care Time: No Discharge Plan Discharge Clinical Impression: Lumbar spine strain Patient Disposition: Home, Self-Care Instructions: Muscle Strain (ED), Lower Back Exercises (ED) Additional Instructions: You were evaluated in the Emergency Department today for your back pain.? Your evaluation did not show signs of medical conditions requiring emergent intervention at this time. Avoid bending, lifting, or twisting. Use ice several times per day for 20 minutes at a time for the next 48 hours and then change to heat. We recommend you take 600mg ibuprofen every 6 hours or tylenol 650mg every 6 hours as needed for pain. If needed, you can alternate these medications so that you take one medication every 3 hours. For example, at noon take ibuprofen, then at 3pm take tylenol, then at 6pm take ibuprofen. Flexeril is a muscle relaxer. Take this at night as it makes you drowsy. Do not drive, drink alcohol, or operate machinery while taking it. Lidoderm patches are numbing patches. Apply to painful areas. Please schedule an appointment for follow-up with your primary care provider this week for further evaluation of your symptoms. Return to the Emergency Department if you experience worsening back pain, difficulty walking, fevers, numbness, tingling, incontinence, or any other concerning symptoms. In the case of an emergency call 911. Prescriptions: New cyclobenzaprine 5 mg tablet 5 mg PO Q8H Qty: 7 0RF lidocaine [Lidoderm] 5 % adhesive patch,medicated 1 patch topical DAILY Qty: 15 0RF Rx Instructions: leave on most painful area for up to 12 hrs No Action fluticasone propionate 50 mcg/actuation Haslet,Suspension 2 spray intranasal DAILY PRN (Reason: nasal congestion) 30 Days Qty: 16 0RF sumatriptan succinate 100 mg tablet 100 mg PO DIRECTED MDD 200 PRN (Reason: Migraine Headache) Rx Instructions: may repeat dose in 2 hours if no relief. multivitamin [Daily-Franchesca] Tablet 1 tab PO DAILY Qty: 30 0RF buspirone 5 mg Tablet 15 mg PO TID Qty: 90 0RF lidocaine [Lidocaine Pain Relief] 4 % Adhesive Patch,Medicated 1 patch transdermal DAILY Qty: 30 0RF Protocol: Apply to: Apply to: back lidocaine [Lidocaine Pain Relief] 4 % Adhesive Patch,Medicated 1 patch transdermal DAILY PRN (Reason: back pain) Qty: 30 0RF Protocol: Apply to: Apply to: back melatonin 3 mg Tablet 6 mg PO 1999 Qty: 60 0RF lamotrigine 25 mg Tablet 25 mg PO 1999 Qty: 30 0RF prazosin 5 mg Capsule 5 mg PO 1999 Qty: 30 0RF Protocol: Hold for SBP< HOLD for SBP < : 90 lorazepam 0.5 mg Tablet 0.25 mg PO BID PRN (Reason: Anxiety) Qty: 7 4RF hydroxyzine HCl 25 mg Tablet 25 mg PO Q6H PRN (Reason: Anxiety) Qty: 60 0RF bisacodyl 5 mg Tablet,Delayed Release (Dr/Ec) 10 mg PO DAILY PRN (Reason: Constipation) Qty: 30 0RF Vraylar 3 mg Capsule 3 mg PO DAILY Qty: 30 0RF quetiapine [Seroquel] 100 mg tablet 100 mg PO BEDTIME Qty: 15 1RF cetirizine 10 mg tablet 10 mg PO DAILY Qty: 30 0RF ibuprofen 800 mg tablet 800 mg PO TID PRN (Reason: back pain) Qty: 60 0RF propranolol 40 mg tablet 40 mg PO BID Qty: 60 0RF famotidine 20 mg tablet 20 mg PO BID Qty: 60 0RF topiramate 100 mg Tablet 100 mg PO BID 30 Days Qty: 60 0RF propranolol 40 mg tablet 40 mg PO BID Qty: 60 0RF lamotrigine [Lamictal] 25 mg tablet 25 mg PO DAILY 30 Days Qty: 30 0RF clonidine HCl 0.1 mg tablet 0.1 mg PO DAILY PRN (Reason: anxiety) Qty: 5 0RF Interventions: ED Discharge Assessment Last Done: 04/16/24 15:16 Discharge Date/Time: 04/16/24 15:25 Print Language: Irish
--- NOTE | 2024-04-16 12:01 | ECG_ITS ---
Test Reason : back pain Blood Pressure : / mmHG Vent. Rate : 075 BPM Atrial Rate : 075 BPM P-R Int : 190 ms QRS Dur : 086 ms QT Int : 400 ms P-R-T Axes : 021 001 002 degrees QTc Int : 446 ms Normal sinus rhythm Possible Inferior infarct , age undetermined Cannot rule out Anterior infarct , age undetermined Abnormal ECG When compared with ECG of 10-DEC-2023 09:02, Borderline criteria for Inferior infarct are now Present Referred By: Yari Schuler Electronically Signed By:MELLISSA FONTAINE
[2024-04-16 12:24] LABS: Basophils Absolute Auto 0.1 X10*3/uL (0.0-0.2); Basophils Percent Auto 0.9 % (0-2); Eosinophils Absolute Auto 0.3 X10*3/uL (0.0-0.4); Eosinophils Percent Auto 4.2 % (0-4); Hemoglobin 13.8 g/dl (12.0-16.0); Imm Gran Abs Auto 0.03 X10*3/uL (0.00-0.03); Imm Gran Pct Auto 0.4 % (0.0-0.4); Lymphocytes Absolute Auto 2.1 X10*3/uL (1.2-4.9); Lymphocytes Percent Auto 30.7 % (20-40); MANUAL DIFF FLAG NO; Mean Corpuscular HGB Conc 32.9 g/dl (31.0-35.0); Mean Corpuscular Hemoglobin 30.7 pg (27.0-33.0); Mean Corpuscular Volume 93.3 fL (80.0-98.0); Mean Platelet Volume 11.6 fL (9.4-12.3); Monocytes Absolute Auto 0.4 X10*3/uL (0.1-1.2); Monocytes Percent Auto 5.8 % (2-11); Platelet Count 289 X10*3/uL (160-400); Red Cell Distribution Width 13.6 % (11.0-16.0); White Blood Count 6.9 X10*3/uL (4.8-10.8)
[2024-04-16 12:44] LABS: Alanine Aminotransferase 9 U/L (0-31); Albumin Level 3.9 g/dL (3.5-5.0); Alkaline Phosphatase 66 U/L (39-117); Anion Gap 12 (12-20); Aspartate Amino Transferase 8 U/L (5-31); Bilirubin Total 0.3 mg/dL (0.0-1.0); Blood Urea Nitrogen 14 mg/dL (9-16); Calcium 9.4 mg/dL (8.4-10.2); Carbon Dioxide 21 mmol/L (22-29); Chloride 114 mmol/L (96-108); Creatinine Clr Calc Pharmacy 104.2; Estimated Glomerular Filt Rate 55; Glucose Random 108 mg/dL (60-115); Magnesium 2.2 mg/dL (1.6-2.6); Potassium 4.5 mmol/L (3.3-5.1); Sodium 142 mmol/L (135-145); Total Protein 6.7 g/dL (6.5-8.0)
[2024-04-16 12:47] LABS: HCG Quantitative < 2 mIU/mL
[2024-04-16 13:13] LABS: Appearance Urine Clear; Color Urine Yellow; Glucose Urine UA Negative (Negative); Leukocyte Esterase Urine Negative (Negative); Nitrite Urine Negative (Negative); PH 5.5 (5.0-9.0); Specific Gravity - Urine >= 1.030 (1.005-1.025); UMIC TRIGGER UACC YES; Urine Blood Small (1+) (Negative); Urine Ketones Negative (Negative); Urine Protein Negative (Neg-Trace)
[2024-04-16 13:17] LABS: Influenza A PCR NEGATIVE (Negative); Influenza B PCR NEGATIVE (Negative); Resp Syncy Virus RNA Qual PCR NEGATIVE (Negative); SARS COV2 PCR INHOUSE NEGATIVE (Negative)
[2024-04-16 13:20] LABS: Bacteria Urine None Seen (None Seen); Hyaline Casts Urine 0-2 /LPF (0-2); RBC Urine 0-2 /HPF (0-2); Squamous Epithelial Cell Urine 0-2 /HPF (0-2); WBC Urine 0-5 /HPF (0-5)
[2024-04-16] MEDS: Lidocaine 4 % Patch ADH..PATCH 1 PATCH TRANSDERMA (14:50)
[2024-04-16] MEDS: Cyclobenzaprine HCl 5 MG TABLET PO (14:51)
[2024-04-16] MEDS: Ketorolac Tromethamine 30 MG/ML VIAL IM (14:52)
[2024-04-16 15:16] VITALS: BP 128/89; PULSE 83; RESP 18; TEMP 36.8; O2SAT 100
== END 2024-04-16 15:25 | disposition home or self-care (01) ==
PROVIDERS: Physician Assistant Medical; Emergency Provider Emergency Medicine Emergency Medical Services
DX: S39.012A Strain of muscle, fascia and tendon of lower back, initial encounter (principal); W10.8XXA Fall (on) (from) other stairs and steps, initial encounter; Z03.818 Encounter for observation for suspected exposure to other biological agents ruled out; Y93.E2 Activity, laundry; Y92.9 Unspecified place or not applicable; Y99.9 Unspecified external cause status
CPT/HCPCS: 0241U; 72100; 80053; 81001; 83735; 84702; 85025; 93005; 96372; 99284; J1885

== ENCOUNTER 2024-05-07 14:04 | Inpatient (IN) | payer OTHER, SELFPAY ==
--- NOTE | 2024-05-07 | ECG_ITS ---
Test Reason : MED CLEARANCE Blood Pressure : / mmHG Vent. Rate : 060 BPM Atrial Rate : 060 BPM P-R Int : 184 ms QRS Dur : 102 ms QT Int : 434 ms P-R-T Axes : 053 057 047 degrees QTc Int : 434 ms Normal sinus rhythm with sinus arrhythmia Normal ECG When compared with ECG of 16-APR-2024 12:03, Borderline criteria for Inferior infarct are no longer Present T wave inversion no longer evident in Inferior leads Referred By: Marlen Prather Electronically Signed By:MELLISSA FONTAINE
[2024-05-07 14:08] VITALS: BP 141/99; PULSE 82; RESP 16; TEMP 36.3; O2SAT 97; BMI 47.6
[2024-05-07 14:25] LABS: MANUAL DIFF FLAG NO
[2024-05-07 14:29] LABS: Basophils Percent Auto 0.5 % (0-2); Eosinophils Absolute Auto 0.3 X10*3/uL (0.0-0.4); Eosinophils Percent Auto 3.5 % (0-4); Hematocrit 40.3 % (37.0-47.0); Hemoglobin 13.8 g/dl (12.0-16.0); Imm Gran Abs Auto 0.02 X10*3/uL (0.00-0.03); Imm Gran Pct Auto 0.3 % (0.0-0.4); Lymphocytes Absolute Auto 1.8 X10*3/uL (1.2-4.9); Lymphocytes Percent Auto 22.5 % (20-40); Mean Corpuscular HGB Conc 34.2 g/dl (31.0-35.0); Mean Corpuscular Hemoglobin 30.7 pg (27.0-33.0); Mean Corpuscular Volume 89.8 fL (80.0-98.0); Mean Platelet Volume 11.9 fL (9.4-12.3); Monocytes Absolute Auto 0.5 X10*3/uL (0.1-1.2); Monocytes Percent Auto 6.6 % (2-11); Neutrophils Absolute Auto 5.3 x10*3/uL (2.0-8.3); Neutrophils Percent Auto 66.6 % (45-73); Platelet Count 213 X10*3/uL (160-400); Red Blood Count 4.49 X10*6/uL (4.20-5.50); Red Cell Distribution Width 13.3 % (11.0-16.0)
--- NOTE | 2024-05-07 14:44 | ED_ITS ---
HPI - Psych General Chief Complaint: Psychiatric Symptoms Stated Complaint: hearing voices , seeing shadows Time Seen by Provider: 05/07/24 14:42 Source: patient Mode of arrival: ambulatory Limitations: no limitations History of Present Illness ED Provider: Rocío KIMBALL HPI Narrative: This is a 44-year-old female history of PTSD, bipolar disorder, cocaine use disorder, status post lap band surgery, hernia, anxiety presenting to the emergency department with complaints of hearing voices for the past week she also reports she is seeing shadows and these shadows and voices are scaring her. States the voices tell her she is worthless and should kill herself and others, she denies urge and plan to follow these through. She also feels very depressed. Denies suicidal and homicidal ideation. Unclear precipitating events. Denies alcohol use. States she smoked crack about an hour ago. No medical complaints. Denies chest pain, shortness breath, nausea, vomiting, abdominal pain, headache, vision changes, dizziness, weakness no fevers or chills Related Data Home Medications ?Medication ?Instructions ?Recorded ?Confirmed sumatriptan succinate 100 mg tablet 100 mg PO DIRECTED PRN Migraine 12/09/23 12/21/23 Headache Previous Rx's ?Medication ?Instructions ?Recorded fluticasone propionate 50 2 spray intranasal DAILY PRN nasal 06/01/21 mcg/actuation nasal congestion 30 days #16 grams spray,suspension bisacodyl 5 mg tablet,delayed 10 mg (2 x 5 mg) PO DAILY PRN 12/22/23 release Constipation #30 tabs buspirone 5 mg tablet 15 mg (3 x 5 mg) PO TID #90 tabs 12/22/23 cariprazine 3 mg capsule (Vraylar) 3 mg PO DAILY #30 caps 12/22/23 cetirizine 10 mg tablet 10 mg PO DAILY #30 tabs 12/22/23 famotidine 20 mg tablet 20 mg PO BID #60 tabs 12/22/23 hydroxyzine HCl 25 mg tablet 25 mg PO Q6H PRN Anxiety #60 tabs 12/22/23 ibuprofen 800 mg tablet 800 mg PO TID PRN back pain #60 12/22/23 tabs lamotrigine 25 mg tablet 25 mg PO 2000 #30 tabs 12/22/23 lidocaine 4 % topical patch 1 patch transdermal DAILY #30 ea 12/22/23 (Lidocaine Pain Relief) lidocaine 4 % topical patch 1 patch transdermal DAILY PRN back 12/22/23 (Lidocaine Pain Relief) pain #30 ea lorazepam 0.5 mg tablet 0.25 mg (1/2 x 0.5 mg) PO BID PRN 12/22/23 Anxiety #7 tabs melatonin 3 mg tablet 6 mg (2 x 3 mg) PO 1999 #60 tabs 12/22/23 multivitamin (Daily-Franchesca tablet) 1 tab PO DAILY #30 tabs 12/22/23 prazosin 5 mg capsule 5 mg PO 1999 #30 caps 12/22/23 propranolol 40 mg tablet 40 mg PO BID #60 tabs 12/22/23 quetiapine 100 mg tablet (Seroquel) 100 mg PO BEDTIME #15 tabs 12/22/23 topiramate 100 mg tablet 100 mg PO BID 30 days #60 tabs 12/22/23 clonidine HCl 0.1 mg tablet 0.1 mg PO DAILY PRN anxiety #5 tabs 01/07/24 lamotrigine 25 mg tablet (Lamictal) 25 mg PO DAILY 30 days #30 tabs 01/07/24 propranolol 40 mg tablet 40 mg PO BID #60 tabs 01/07/24 cyclobenzaprine 5 mg tablet 5 mg PO Q8H #7 tabs 04/16/24 lidocaine 5 % topical patch 1 patch topical DAILY #15 ea 04/16/24 (Lidoderm) Allergies Allergy/AdvReac Type Severity Reaction Status Date / Time Penicillins [PENICILLINS] Allergy Severe HIVES Verified 05/07/24 14:09 prochlorperazine Allergy Severe HIVES Verified 05/07/24 14:09 [From COMPAZINE] promethazine [PROMETHAZINE] Allergy Intermediate HEADACHES Verified 05/07/24 14:09 haloperidol [From HALDOL] AdvReac Severe HIVES Verified 05/07/24 14:09 morphine AdvReac Flushing Verified 05/07/24 14:09 Review of Systems 2 Review of Systems: Yes all other systems are reviewed and are negative PMFSH Past Medical History Attestation statement: The following information was validated with the patient. Source: old records reviewed and nursing notes reviewed Medical History Cocaine use disorder Opioid abuse Cocaine abuse Bipolar disorder PTSD (post-traumatic stress disorder) Hernia Anxiety Surgical History History of cholecystectomy History of appendectomy LAP-BAND surgery status Social History Social History Household Members: None Housing: Unknown / Unable to assess Do you presently have visiting nurse or other home services: No Alcohol intake: current Alcohol intake frequency: holidays/special occasions only Patient Tobacco Use Status: Never used Tobacco Substance Use Type: Crack/Cocaine Advance Directives: No Advance Directives Information Provided: No Do you have a plan to hurt others: No Plan service: No Sexual orientation: Did not discuss Physical Exam 2 Vital Signs: Vital Signs: Last Vital Signs Temp 97.3 F 05/07/24 14:08 Pulse 82 05/07/24 14:08 Resp 16 05/07/24 14:08 BP 141/99 H 05/07/24 14:08 Pulse Ox 97 05/07/24 14:08 O2 Del Method Room Air 05/07/24 14:08 BMI result Body Mass Index 47.6 vss Appearance: Alert.? Oriented X3.? No acute distress.? Head: Normocephalic, atraumatic, no step-offs or deformities Eyes: Pupils equal, round and reactive to light.? CVS: Normal heart rate and rhythm.? Pulses normal.? Respiratory: No respiratory distress.? Breath sounds normal.? Abdomen: Soft and nontender.? Skin: Skin warm and dry.? Normal skin color.? Normal skin turgor.? Extremities: No lower extremity edema.? No calf ttp. 5/5 strength to bilateral upper and lower extremities Neuro: Oriented X 3.? No motor deficit.? No sensory deficit. CN 2-12 intact. Psych: mood depressed affect congruent. Does not appear to be distracted by internal stimuli at time of exam. Course Reevaluation(s) Reevaluation #1: CBC unremarkable. Chemistry no acute findings needing intervention. UA likely contaminated no UTI symptoms unlikely urinary infection. UA positive for cocaine. Ethanol negative. Salicylates acetaminophen negative. At this time patient to be placed into observation to allow more time to be evaluated by care team. At time observation was started patient common cooperative no acute distress will continue to monitor Time: 15:15 Medical Decision Making Medical Decision Making [facility] Narrative: 44-year-old female presents with hallucinations ongoing for the past week Physical exam benign History and physical exam concerning for bipolar disorder with anxiety and depression, questionable schizoaffective disorder. Also concerned for PTSD. Unlikely metabolic derangements although will rule out. No signs of meningitis or encephalitis. Plan medical clearance evaluation by behavioral health team Differential Diagnosis Differential Diagnoses: The differential diagnosis associated with the presentation includes History and physical exam concerning for bipolar disorder with anxiety and depression, questionable schizoaffective disorder. . Also concerned for PTSD. Unlikely metabolic derangements although will rule out. No signs of meningitis or encephalitis. Admission/Observation Consideration of admission/observation: Escalation of care including admission/observation considered posisble Lab Data [facility] Lab Attestation statement: I reviewed the patient's lab results. 05/07/24 14:21 05/07/24 14:21 Labs: Lab Results 05/07/24 05/07/24 Range/Units 14:21 14:52 WBC 8.0 (4.8-10.8) X10*3/uL RBC 4.49 (4.20-5.50) X10*6/uL Hgb 13.8 (12.0-16.0) g/dl Hct 40.3 (37.0-47.0) % MCV 89.8 (80.0-98.0) fL MCH 30.7 (27.0-33.0) pg MCHC 34.2 (31.0-35.0) g/dl RDW 13.3 (11.0-16.0) % Plt Count 213 D (160-400) X10*3/uL MPV 11.9 (9.4-12.3) fL Immature Gran % (Auto) 0.3 (0.0-0.4) % Neut % (Auto) 66.6 (45-73) % Lymph % (Auto) 22.5 (20-40) % [place] % (Auto) 6.6 (2-11) % Eos % (Auto) 3.5 (0-4) % Baso % (Auto) 0.5 (0-2) % Lymph # (Auto) 1.8 (1.2-4.9) X10*3/uL [place] # (Auto) 0.5 (0.1-1.2) X10*3/uL Eos # (Auto) 0.3 (0.0-0.4) X10*3/uL Baso # (Auto) 0.0 (0.0-0.2) X10*3/uL Abs Immat Gran (auto) 0.02 (0.00-0.03) X10*3/uL Absolute Neuts (auto) 5.3 (2.0-8.3) x10*3/uL Absolute Nucleated RBC 0.000 (0.0-0.012) X10*3/uL Nucleated RBC % (auto) 0.0 (0.0-0.2) /100WBC Sodium 141 (135-145) mmol/L Potassium 3.4 D (3.3-5.1) mmol/L Chloride 112 H (96-108) mmol/L Carbon Dioxide 22 (22-29) mmol/L Anion Gap 10 L (12-20) BUN 7 L (9-16) mg/dL Creatinine 0.90 (0.5-1.4) mg/dL Estim Creat Clear Calc 122.3 Estimated GFR > 60 Random Glucose 130 H (60-115) mg/dL Calcium 9.2 (8.4-10.2) mg/dL Total Bilirubin 0.5 (0.0-1.0) mg/dL Direct Bilirubin 0.2 (0.0-0.5) mg/dL AST 11 (5-31) U/L ALT 15 (0-31) U/L Alkaline Phosphatase 67 (39-117) U/L Total Protein 6.6 (6.5-8.0) g/dL Albumin 3.9 (3.5-5.0) g/dL Urine Color Yellow Urine Appearance Clear Urine pH 6.0 (5.0-9.0) Ur Specific [place] 1.015 (1.005-1.025) Urine Protein Negative (Neg-Trace) mg/dL Urine Glucose (UA) Negative (Negative) mg/dL Urine Ketones Negative (Negative) mg/dL Urine Blood Negative (Negative) Urine Nitrite Negative (Negative) Ur Leukocyte Esterase Small (1+) H (Negative) Urine RBC 0-2 (0-2) /HPF Urine WBC 6-10 H (0-5) /HPF Ur Squamous Epith Cells 6-10 (0-2) /HPF Urine Bacteria 1+ (None Seen) Hyaline Casts 0-2 (0-2) /LPF Salicylates < 5.0 L (15-30) mg/dL Urine Opiates Screen Not Detected (Not Detect) Ur Buprenorphine Scrn Not Detected (Not Detect) ng/mL Ur Oxycodone Screen Not Detected (Not Detect) ng/mL Urine Methadone Screen Not Detected (Not Detect) ng/mL Urine Fentanyl Screen Not Detected (Not Detect) Acetaminophen < 3 (<30) mcg/mL Ur Barbiturates Screen Not Detected (Not Detect) Ur Phencyclidine Scrn Not Detected (Not Detect) Ur Amphetamines Screen Not Detected (Not Detect) U Benzodiazepines Scrn Not Detected (Not Detect) Urine Cocaine Screen POSITIVE H (Not Detect) U Marijuana (THC) Screen Not Detected (Not Detect) Ethyl Alcohol < 10 mg/dL External Record Review External record reviewed: Inpatient record, Office record, Outpatient record, Prior outpatient labs, Prior outpatient radiology, Primary care record and Outside ED record Chronic Conditions Patient?s care impacted by: Other (PTSD, bipolar disorder, polysubstance abuse,) Discharge Plan Discharge Clinical Impression: Bipolar disorder Patient Disposition: Still a Patient Prescriptions: No Action fluticasone propionate 50 mcg/actuation [place],Suspension 2 spray intranasal DAILY PRN (Reason: nasal congestion) 30 Days Qty: 16 0RF sumatriptan succinate 100 mg tablet 100 mg PO DIRECTED MDD 200 PRN (Reason: Migraine Headache) Rx Instructions: may repeat dose in 2 hours if no relief. multivitamin [Daily-Franchesca] Tablet 1 tab PO DAILY Qty: 30 0RF buspirone 5 mg Tablet 15 mg PO TID Qty: 90 0RF lidocaine [Lidocaine Pain Relief] 4 % Adhesive Patch,Medicated 1 patch transdermal DAILY Qty: 30 0RF Protocol: Apply to: Apply to: back lidocaine [Lidocaine Pain Relief] 4 % Adhesive Patch,Medicated 1 patch transdermal DAILY PRN (Reason: back pain) Qty: 30 0RF Protocol: Apply to: Apply to: back melatonin 3 mg Tablet 6 mg PO 1999 Qty: 60 0RF lamotrigine 25 mg Tablet 25 mg PO 1999 Qty: 30 0RF prazosin 5 mg Capsule 5 mg PO 1999 Qty: 30 0RF Protocol: Hold for SBP< HOLD for SBP < : 90 lorazepam 0.5 mg Tablet 0.25 mg PO BID PRN (Reason: Anxiety) Qty: 7 4RF hydroxyzine HCl 25 mg Tablet 25 mg PO Q6H PRN (Reason: Anxiety) Qty: 60 0RF bisacodyl 5 mg Tablet,Delayed Release (Dr/Ec) 10 mg PO DAILY PRN (Reason: Constipation) Qty: 30 0RF Vraylar 3 mg Capsule 3 mg PO DAILY Qty: 30 0RF quetiapine [Seroquel] 100 mg tablet 100 mg PO BEDTIME Qty: 15 1RF cetirizine 10 mg tablet 10 mg PO DAILY Qty: 30 0RF ibuprofen 800 mg tablet 800 mg PO TID PRN (Reason: back pain) Qty: 60 0RF propranolol 40 mg tablet 40 mg PO BID Qty: 60 0RF famotidine 20 mg tablet 20 mg PO BID Qty: 60 0RF topiramate 100 mg Tablet 100 mg PO BID 30 Days Qty: 60 0RF propranolol 40 mg tablet 40 mg PO BID Qty: 60 0RF lamotrigine [Lamictal] 25 mg tablet 25 mg PO DAILY 30 Days Qty: 30 0RF clonidine HCl 0.1 mg tablet 0.1 mg PO DAILY PRN (Reason: anxiety) Qty: 5 0RF cyclobenzaprine 5 mg tablet 5 mg PO Q8H Qty: 7 0RF lidocaine [Lidoderm] 5 % adhesive patch,medicated 1 patch topical DAILY Qty: 15 0RF Rx Instructions: leave on most painful area for up to 12 hrs Print Language: Lithuanian
[2024-05-07 14:48] LABS: Acetaminophen LAB < 3 mcg/mL (<30); Alanine Aminotransferase 15 U/L (0-31); Albumin Level 3.9 g/dL (3.5-5.0); Alkaline Phosphatase 67 U/L (39-117); Anion Gap 10 (12-20); Aspartate Amino Transferase 11 U/L (5-31); Bilirubin Direct 0.2 mg/dL (0.0-0.5); Bilirubin Total 0.5 mg/dL (0.0-1.0); Blood Urea Nitrogen 7 mg/dL (9-16); Calcium 9.2 mg/dL (8.4-10.2); Carbon Dioxide 22 mmol/L (22-29); Chloride 112 mmol/L (96-108); Creatinine Clr Calc Pharmacy 122.3; Estimated Glomerular Filt Rate > 60; Ethanol < 10 mg/dL; Glucose Random 130 mg/dL (60-115); Potassium 3.4 mmol/L (3.3-5.1); Salicylate < 5.0 mg/dL (15-30); Sodium 141 mmol/L (135-145); Total Protein 6.6 g/dL (6.5-8.0)
[2024-05-07 14:59] LABS: Appearance Urine Clear; Color Urine Yellow; Glucose Urine UA Negative (Negative); Leukocyte Esterase Urine Small (1+) (Negative); Nitrite Urine Negative (Negative); Specific Gravity - Urine 1.015 (1.005-1.025); UMIC TRIGGER UACC YES; Urine Blood Negative (Negative); Urine Ketones Negative (Negative); Urine Protein Negative (Neg-Trace)
[2024-05-07 15:01] LABS: Bacteria Urine 1+ (None Seen); Hyaline Casts Urine 0-2 /LPF (0-2); RBC Urine 0-2 /HPF (0-2); UACC Culture Trigger YES
[2024-05-07 15:10] LABS: Amphetamine Screen Urine Not Detected (Not Detect); Barbiturates, Urine Not Detected (Not Detect); Benzodiazepines Screen Urine Not Detected (Not Detect); Buprenorphine Scr Not Detected (Not Detect); Cannabinoid Screen Urine Not Detected (Not Detect); Cocaine Screen Urine POSITIVE (Not Detect); Fentanyl, urine Not Detected (Not Detect); Methadone Screen, Urine Not Detected (Not Detect); Opiate Screen Urine Not Detected (Not Detect); Oxycodone Screen Urine Not Detected (Not Detect); Phencyclidine Screen Urine Not Detected (Not Detect)
[2024-05-07 15:51] VITALS: RESP 14
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
--- NOTE | 2024-05-07 19:59 | PC.NURSE ---
patient appears to remain at rest presently awaiting placement on inpatient unit, appears in no distress.
[2024-05-07 20:50] VITALS: BP 145/94; PULSE 71; RESP 16; TEMP 37.1; O2SAT 100
[2024-05-07 23:16] VITALS: BP 121/84; PULSE 75; RESP 16; TEMP 36.6; O2SAT 100
[2024-05-08] MEDS: QUEtiapine Fumarate 400 MG TABLET PO ×2 (00:08→20:11)
[2024-05-08] MEDS: busPIRone HCl 5 MG TABLET 15 MG PO ×4 (00:08→20:12)
[2024-05-08] MEDS: QUEtiapine Fumarate 100 MG TABLET PO ×2 (00:08→20:11)
[2024-05-08] MEDS: Famotidine 20 MG TABLET PO ×3 (00:09→20:11)
[2024-05-08] MEDS: Topiramate 100 MG TABLET PO ×3 (00:09→20:11)
[2024-05-08] MEDS: hydrOXYzine HCL 25 MG TABLET PO ×4 (00:09→20:12)
[2024-05-08] MEDS: lamoTRIgine 25 MG TABLET PO ×3 (00:09→20:12)
[2024-05-08 00:13] VITALS: BP 130/69; PULSE 58
[2024-05-08] MEDS: Acetaminophen 325 MG TABLET 650 MG PO ×2 (03:13→20:20)
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
[2024-05-08 07:54] VITALS: BP 110/64; PULSE 70; RESP 14; TEMP 36.4; O2SAT 97
[2024-05-08 08:45] LABS: Alanine Aminotransferase 12 U/L (0-31); Albumin Level 3.5 g/dL (3.5-5.0); Alkaline Phosphatase 62 U/L (39-117); Anion Gap 9 (12-20); Aspartate Amino Transferase 9 U/L (5-31); Bilirubin Total 0.3 mg/dL (0.0-1.0); Blood Urea Nitrogen 7 mg/dL (9-16); Calcium 9.2 mg/dL (8.4-10.2); Carbon Dioxide 26 mmol/L (22-29); Chloride 111 mmol/L (96-108); Cholesterol 132 mg/dL (<200); Estimated Glomerular Filt Rate > 60; Glucose Fasting 96 mg/dL (60-99); HDL Cholesterol 35 mg/dL (>40); LDL Cholesterol Calculated 69 mg/dL (<100); Magnesium 2.2 mg/dL (1.6-2.6); Potassium 3.6 mmol/L (3.3-5.1); Sodium 142 mmol/L (135-145); Total Protein 5.8 g/dL (6.5-8.0); Triglycerides 143 mg/dL (<150)
[2024-05-08] MEDS: Cariprazine HCl 3 MG CAPSULE PO (09:06)
[2024-05-08] MEDS: Loratadine 10 MG TABLET PO (09:06)
[2024-05-08] MEDS: FLUoxetine HCl 20 MG CAPSULE PO (09:06)
[2024-05-08] MEDS: Propranolol HCL 40 MG TABLET PO ×2 (09:29→20:18)
--- NOTE | 2024-05-08 15:20 | P.HPPS_ITS ---
HPI Date of Service: 05/08/24 Chief Complaint: Psychosis cocaine Sources of Information: patient interviewed, chart reviewed and crisis/core team assessment reviewed HPI Subjective Notes: Conditional Voluntary Narrative: Patient is a 44 year old female.Patient carries a diagnosis of PTSD, and ?schizoaffective disorder. She presents to the hospital with increasing depression and command hallucinations and suicidal ideation.She reports her depression worsened in spite of her taking her medications. She also relapsed on cocaine. She also complained of seeing shadows. She had poor sleep and poor appetite. Poor self care. Since admission she reports her SI continues but is feeling safe and denies any intent of self harm. Past Psychiatric History: IP: [facility] 2020, December 2023 OP: [facility] Blossom Mejia APRN-Psychopharmacology Trials:Buspar, Lorazepam, Seroquel, Topamax, Trazodone, Propranolol, Abilify, Wellbutrin, Latuda. Medical Evaluation Reviewed: Yes [facility] Medical History Cocaine use disorder Opioid abuse Cocaine abuse Bipolar disorder PTSD (post-traumatic stress disorder) Hernia Anxiety Surgical History History of cholecystectomy History of appendectomy LAP-BAND surgery status Family History: bipolar disorder, addiction Social History: Has 3 children youngest 8-year-old all 3 in the custody of parents. Pt is an only child Currently on SSDI Substance History: Cocaine use Trauma History: Extensive, severe childhood and adult Diagnostics Vital Signs (24Hr): Vital Signs - 24 hr 05/07/24 15:51 05/07/24 20:50 05/07/24 23:16 Temperature 98.7 F 97.9 F Pulse Rate 71 75 Respiratory Rate 14 16 16 Blood Pressure 145/94 H 121/84 Pulse Oximetry 100 100 Oxygen Delivery Method Room Air Room Air 05/08/24 00:13 05/08/24 07:54 Temperature 97.5 F Pulse Rate 58 70 Respiratory Rate 14 Blood Pressure 130/69 110/64 Pulse Oximetry 97 Oxygen Delivery Method Room Air BMI result Body Mass Index 47.6 Labs 05/07/24 14:21 05/08/24 08:02 Labs: Laboratory Results - last 48 hr 05/07/24 05/07/24 05/08/24 14:21 14:52 08:02 WBC 8.0 RBC 4.49 Hgb 13.8 Hct 40.3 MCV 89.8 MCH 30.7 MCHC 34.2 RDW 13.3 Plt Count 213 D MPV 11.9 Immature Gran % (Auto) 0.3 Neut % (Auto) 66.6 Lymph % (Auto) 22.5 [place] % (Auto) 6.6 Eos % (Auto) 3.5 Baso % (Auto) 0.5 Lymph # (Auto) 1.8 [place] # (Auto) 0.5 Eos # (Auto) 0.3 Baso # (Auto) 0.0 Abs Immat Gran (auto) 0.02 Absolute Neuts (auto) 5.3 Absolute Nucleated RBC 0.000 Nucleated RBC % (auto) 0.0 Sodium 141 142 Potassium 3.4 D 3.6 Chloride 112 H 111 H Carbon Dioxide 22 26 Anion Gap 10 L 9 L BUN 7 L 7 L Creatinine 0.90 0.77 Estim Creat Clear Calc 122.3 143.0 Estimated GFR > 60 > 60 Random Glucose 130 H Fasting Glucose 96 Calcium 9.2 9.2 Magnesium 2.2 Total Bilirubin 0.5 0.3 Direct Bilirubin 0.2 AST 11 9 ALT 15 12 Alkaline Phosphatase 67 62 Total Protein 6.6 5.8 L Albumin 3.9 3.5 Triglycerides 143 Cholesterol 132 LDL Cholesterol, Calc 69 HDL Cholesterol 35 L Urine Color Yellow Urine Appearance Clear Urine pH 6.0 Ur Specific [place] 1.015 Urine Protein Negative Urine Glucose (UA) Negative Urine Ketones Negative Urine Blood Negative Urine Nitrite Negative Ur Leukocyte Esterase Small (1+) H Urine RBC 0-2 Urine WBC 6-10 H Ur Squamous Epith Cells 6-10 Urine Bacteria 1+ Hyaline Casts 0-2 Salicylates < 5.0 L Urine Opiates Screen Not Detected Ur Buprenorphine Scrn Not Detected Ur Oxycodone Screen Not Detected Urine Methadone Screen Not Detected Urine Fentanyl Screen Not Detected Acetaminophen < 3 Ur Barbiturates Screen Not Detected Ur Phencyclidine Scrn Not Detected Ur Amphetamines Screen Not Detected U Benzodiazepines Scrn Not Detected Urine Cocaine Screen POSITIVE H U Marijuana (THC) Screen Not Detected Ethyl Alcohol < 10 Meds/Allergies Meds Home Medications ?Medication ?Instructions ?Recorded ?Confirmed ?Type fluoxetine 20 mg capsule 20 mg PO DAILY 05/07/24 05/07/24 History hydroxyzine HCl 25 mg tablet 25 mg PO TID Anxiety 05/07/24 05/07/24 History ibuprofen 800 mg tablet 800 mg PO QID PRN back pain 05/07/24 05/07/24 History lamotrigine 25 mg tablet (Lamictal) 25 mg PO BID 05/07/24 05/07/24 History quetiapine 400 mg tablet 400 mg PO BEDTIME 05/07/24 05/07/24 History Allergies Allergies Allergy/AdvReac Type Severity Reaction Status Date / Time Penicillins [PENICILLINS] Allergy Severe HIVES Verified 05/07/24 14:09 prochlorperazine Allergy Severe HIVES Verified 05/07/24 14:09 [From COMPAZINE] promethazine [PROMETHAZINE] Allergy Intermediate HEADACHES Verified 05/07/24 14:09 haloperidol [From HALDOL] AdvReac Severe HIVES Verified 05/07/24 14:09 morphine AdvReac Flushing Verified 05/07/24 14:09 Mental Status Exam Mental Status Exam Narrative: General appearance: Hospital garb. Appears tired. Fair hygiene.? Eye contact: WNL. Musculoskeletal: Normal muscle strength/tone, Normal gait and station, No abnormal involuntary movements like tremors, EPS or dyskinesia. Psychomotor retardation. Normal posture.??? Manner/behavior: cooperative and not guarded Speech:? Low tone Language: No receptive or expressive language impairment? Mood: depressed Affect: Blunted range, congruent to mood and without lability? Thought process/associations: Linear with no flight of ideas or loose associations.?? Thought content:?No delusions or paranoia.?? Hallucinations: Auditory hallucinations, derogatory and reports seeing shadows. Suicidality/self-destructive behavior: +SI no intent.? ? Homicidally/violence: none.? Reliability: fair.? ? Judgment: fair.? ? Insight: fair Cognition: Alert and oriented to time, place and person. Attention, concentration and fund of knowledge are normal.? Impulse control and emotional regulation: preserved. Intelligence estimate: average.? Assessment & Plan Assessment & Plan (1) PTSD (post-traumatic stress disorder): Status: Acute Code(s): F43.10 - Post-traumatic stress disorder, unspecified (2) Bipolar disorder: Status: Chronic Code(s): F31.9 - Bipolar disorder, unspecified (3) Cocaine use disorder: Status: Acute Code(s): F14.10 - Cocaine abuse, uncomplicated Plan - Admit to inpatient psychiatry - CV - Collateral information from family and providers. - Milieu treatment and group therapy. - Medications: Continue current regimen. Reassess as cocaine effects subside. - Social work evaluation. - Disposition planning. Patient educated on: diagnosis Reason for continued inpatient stay Substantial Risk for: harm to self, inability to function and rapid decompensation Statement Statement: I have reviewed the history and physical and performed a pertinent examination on my patient. No changes have occurred unless specified. If the History and Physical was not performed prior to admission, the Hospitalist's service will be consulted for completing the admission physical. Time Spent With Patient Time: Total time managing care of this patient today ____ minutes.
[2024-05-08 20:00] VITALS: BP 119/71; PULSE 75; RESP 16; TEMP 37.1; O2SAT 98
[2024-05-08 20:18] VITALS: BP 119/71; PULSE 75
[2024-05-08] MEDS: Prazosin HCL 5 MG CAPSULE PO (20:18)
[2024-05-09] VITALS (7 sets, daily range): BP systolic 103–122; BP diastolic 68–81; PULSE 72–82; RESP 16; TEMP 36.4–36.7; O2SAT 98
[2024-05-09] MEDS: Acetaminophen 325 MG TABLET 650 MG PO (03:20)
[2024-05-09] MEDS: busPIRone HCl 5 MG TABLET 15 MG PO ×3 (08:50→20:52)
[2024-05-09] MEDS: Topiramate 100 MG TABLET PO ×2 (08:50→21:31)
[2024-05-09] MEDS: Propranolol HCL 40 MG TABLET PO ×2 (08:50→20:52)
[2024-05-09] MEDS: FLUoxetine HCl 20 MG CAPSULE PO (08:51)
[2024-05-09] MEDS: lamoTRIgine 25 MG TABLET PO ×2 (08:51→20:53)
[2024-05-09] MEDS: hydrOXYzine HCL 25 MG TABLET PO ×3 (08:51→20:52)
[2024-05-09] MEDS: Loratadine 10 MG TABLET PO (08:51)
[2024-05-09] MEDS: Cariprazine HCl 3 MG CAPSULE PO (08:51)
[2024-05-09] MEDS: Famotidine 20 MG TABLET PO ×2 (08:51→20:53)
--- NOTE | 2024-05-09 09:50 | HO.PSYCHPN ---
Subjective Subjective Date of Service: 05/09/24 Reason For Visit: Psychosis cocaine Interim History: Patient continues to report ongoing AH and anxiety. she is also upset her BF was able to come on the unit to visit when she doesn't want him to. Continues to have SI. Depressed. No withdrawals. She is reporting lack of effectiveness of Vraylar in controlling her psychosis. Asking for an alternative medication. Discussed Latuda as an alternative. Review of Systems Review of Systems Yes all other systems are reviewed and are negative Mental Status Exam Mental Status Exam Narrative: General appearance: Hospital garb. Appears tired. Fair hygiene.? Eye contact: WNL. Musculoskeletal: Normal muscle strength/tone, Normal gait and station, No abnormal involuntary movements like tremors, EPS or dyskinesia. Psychomotor retardation. Normal posture.??? Manner/behavior: cooperative and not guarded Speech:? Low tone Language: No receptive or expressive language impairment? Mood: depressed Affect: Blunted range, congruent to mood and without lability? Thought process/associations: Linear with no flight of ideas or loose associations.?? Thought content:?No delusions or paranoia.?? Hallucinations: Auditory hallucinations, derogatory and reports seeing shadows. Suicidality/self-destructive behavior: +SI no intent.? ? Homicidally/violence: none.? Reliability: fair.? ? Judgment: fair.? ? Insight: fair Cognition: Alert and oriented to time, place and person. Attention, concentration and fund of knowledge are normal.? Impulse control and emotional regulation: preserved. Intelligence estimate: average.? Diagnostics Vital Signs (24Hr): Vital Signs - 24 hr 05/08/24 20:00 05/08/24 20:18 05/08/24 20:18 Temperature 98.7 F Pulse Rate 75 75 Respiratory Rate 16 Blood Pressure 119/71 119/71 119/71 Pulse Oximetry 98 05/09/24 08:50 Temperature Pulse Rate 82 Respiratory Rate Blood Pressure 104/68 Pulse Oximetry BMI result Body Mass Index 47.6 Labs 05/07/24 14:21 05/08/24 08:02 Labs: Laboratory Results - last 48 hr 05/07/24 05/07/24 05/08/24 14:21 14:52 08:02 WBC 8.0 RBC 4.49 Hgb 13.8 Hct 40.3 MCV 89.8 MCH 30.7 MCHC 34.2 RDW 13.3 Plt Count 213 D MPV 11.9 Immature Gran % (Auto) 0.3 Neut % (Auto) 66.6 Lymph % (Auto) 22.5 [place] % (Auto) 6.6 Eos % (Auto) 3.5 Baso % (Auto) 0.5 Lymph # (Auto) 1.8 [place] # (Auto) 0.5 Eos # (Auto) 0.3 Baso # (Auto) 0.0 Abs Immat Gran (auto) 0.02 Absolute Neuts (auto) 5.3 Absolute Nucleated RBC 0.000 Nucleated RBC % (auto) 0.0 Sodium 141 142 Potassium 3.4 D 3.6 Chloride 112 H 111 H Carbon Dioxide 22 26 Anion Gap 10 L 9 L BUN 7 L 7 L Creatinine 0.90 0.77 Estim Creat Clear Calc 122.3 143.0 Estimated GFR > 60 > 60 Random Glucose 130 H Fasting Glucose 96 Calcium 9.2 9.2 Magnesium 2.2 Total Bilirubin 0.5 0.3 Direct Bilirubin 0.2 AST 11 9 ALT 15 12 Alkaline Phosphatase 67 62 Total Protein 6.6 5.8 L Albumin 3.9 3.5 Triglycerides 143 Cholesterol 132 LDL Cholesterol, Calc 69 HDL Cholesterol 35 L Urine Color Yellow Urine Appearance Clear Urine pH 6.0 Ur Specific [place] 1.015 Urine Protein Negative Urine Glucose (UA) Negative Urine Ketones Negative Urine Blood Negative Urine Nitrite Negative Ur Leukocyte Esterase Small (1+) H Urine RBC 0-2 Urine WBC 6-10 H Ur Squamous Epith Cells 6-10 Urine Bacteria 1+ Hyaline Casts 0-2 Salicylates < 5.0 L Urine Opiates Screen Not Detected Ur Buprenorphine Scrn Not Detected Ur Oxycodone Screen Not Detected Urine Methadone Screen Not Detected Urine Fentanyl Screen Not Detected Acetaminophen < 3 Ur Barbiturates Screen Not Detected Ur Phencyclidine Scrn Not Detected Ur Amphetamines Screen Not Detected U Benzodiazepines Scrn Not Detected Urine Cocaine Screen POSITIVE H U Marijuana (THC) Screen Not Detected Ethyl Alcohol < 10 Medications Medications Current Medications Acetaminophen (Acetaminophen 325 Mg Tablet) 650 mg PO Q6H PRN PRN Reason: Headache/Pain Mild Scale (1-3) Last Admin: 05/09/24 03:20 Dose: 650 mg Al Hydroxide/Mg Hydroxide (Magnesium Hydrox/Alum Hydrox 30 Ml Oral.Susp) 30 ml PO Q6H PRN PRN Reason: Heartburn/Nausea Buspirone HCl (Buspirone Hcl 5 Mg Tablet) 15 mg PO TID [facility] Last Admin: 05/09/24 08:50 Dose: 15 mg Cariprazine (Cariprazine Hcl 3 Mg Capsule) 3 mg PO DAILY [facility] Last Admin: 05/09/24 08:51 Dose: 3 mg Famotidine (Famotidine 20 Mg Tablet) 20 mg PO BID [facility] Last Admin: 05/09/24 08:51 Dose: 20 mg Fluoxetine HCl (Fluoxetine Hcl 20 Mg Capsule) 20 mg PO DAILY [facility] Last Admin: 05/09/24 08:51 Dose: 20 mg Hydroxyzine HCl (Hydroxyzine Hcl 25 Mg Tablet) 25 mg PO TID [facility] Last Admin: 05/09/24 08:51 Dose: 25 mg Ibuprofen (Ibuprofen 800 Mg Tablet) 800 mg PO QID PRN PRN Reason: back pain Lamotrigine (Lamotrigine 25 Mg Tablet) 25 mg PO BID [facility] Last Admin: 05/09/24 08:51 Dose: 25 mg Loratadine (Loratadine 10 Mg Tablet) 10 mg PO DAILY [facility] Last Admin: 05/09/24 08:51 Dose: 10 mg Magnesium Hydroxide (Milk Of Magnesia 30 Ml Oral.Susp) 30 ml PO DAILY PRN PRN Reason: Constipation Nicotine Polacrilex (Nicotine Polacrilex 2 Mg Gum) 2 mg BUCCAL Q2H PRN PRN Reason: Nicotine Cravings Prazosin HCl (Prazosin Hcl 5 Mg Capsule) 5 mg PO 1999 [facility]; Protocol Last Admin: 05/08/24 20:18 Dose: 5 mg Propranolol HCl (Propranolol Hcl 40 Mg Tablet) 40 mg PO BID [facility]; Protocol Last Admin: 05/09/24 08:50 Dose: 40 mg Quetiapine Fumarate (Quetiapine Fumarate 100 Mg Tablet) 100 mg PO BEDTIME [facility] Last Admin: 05/08/24 20:11 Dose: 100 mg Quetiapine Fumarate (Quetiapine Fumarate 400 Mg Tablet) 400 mg PO BEDTIME [facility] Last Admin: 05/08/24 20:11 Dose: 400 mg Sumatriptan Succinate (Sumatriptan Succinate 50 Mg Tablet) 50 mg PO DAILY PRN PRN Reason: Migraine Headache Topiramate (Topiramate 100 Mg Tablet) 100 mg PO BID [facility] Last Admin: 05/09/24 08:50 Dose: 100 mg Trazodone HCl (Trazodone Hcl 50 Mg Tablet) 50 mg PO BEDTIME MRX1 PRN PRN Reason: Insomnia Allergies Allergies Allergy/AdvReac Type Severity Reaction Status Date / Time Penicillins [PENICILLINS] Allergy Severe HIVES Verified 05/07/24 14:09 prochlorperazine Allergy Severe HIVES Verified 05/07/24 14:09 [From COMPAZINE] promethazine [PROMETHAZINE] Allergy Intermediate HEADACHES Verified 05/07/24 14:09 haloperidol [From HALDOL] AdvReac Severe HIVES Verified 05/07/24 14:09 morphine AdvReac [place] Verified 05/07/24 14:09 Assessment & Plan Assessment & Plan (1) PTSD (post-traumatic stress disorder): Status: Acute Code(s): F43.10 - Post-traumatic stress disorder, unspecified (2) Bipolar disorder: Status: Chronic Code(s): F31.9 - Bipolar disorder, unspecified (3) Cocaine use disorder: Status: Acute Code(s): F14.10 - Cocaine abuse, uncomplicated Plan - Admit to inpatient psychiatry - CV - Collateral information from family and providers. - Milieu treatment and group therapy. - Medications: Continue current regimen. Reassess as cocaine effects subside. - Social work evaluation. - Disposition planning. 05/09: DC Kathi. Start Latuda 40 mg daily. Start Clonidine 0.1 mg PRN anxiety with holding parameters for BP. Reason for continued inpatient stay Substantial Risk for: harm to self, inability to function and rapid decompensation Time Spent With Patient Time: Total time managing care of this patient today ____ minutes.
[2024-05-09] MEDS: cloNIDine HCL 0.1 MG TABLET PO ×2 (11:22→20:57)
[2024-05-09] MEDS: SUMAtriptan succinate 50 MG TABLET PO (16:48)
[2024-05-09] MEDS: QUEtiapine Fumarate 100 MG TABLET PO (20:52)
[2024-05-09] MEDS: Lurasidone HCl 40 MG TABLET PO (20:52)
[2024-05-09] MEDS: QUEtiapine Fumarate 400 MG TABLET PO (20:53)
[2024-05-09] MEDS: Prazosin HCL 5 MG CAPSULE PO (20:53)
[2024-05-10] VITALS (7 sets, daily range): BP systolic 94–123; BP diastolic 52–70; PULSE 62–76; TEMP 36.4; O2SAT 97–100
[2024-05-10] MEDS: Propranolol HCL 40 MG TABLET PO ×2 (08:28→20:13)
[2024-05-10] MEDS: lamoTRIgine 25 MG TABLET PO ×2 (08:28→20:09)
[2024-05-10] MEDS: busPIRone HCl 5 MG TABLET 15 MG PO ×3 (08:28→20:11)
[2024-05-10] MEDS: Famotidine 20 MG TABLET PO ×2 (08:28→20:09)
[2024-05-10] MEDS: hydrOXYzine HCL 25 MG TABLET PO ×3 (08:28→22:06)
[2024-05-10] MEDS: Loratadine 10 MG TABLET PO (08:28)
[2024-05-10] MEDS: FLUoxetine HCl 20 MG CAPSULE PO (08:29)
[2024-05-10] MEDS: Topiramate 100 MG TABLET PO ×2 (08:29→20:12)
--- NOTE | 2024-05-10 09:43 | P.PNPSI_ITS ---
Subjective Subjective Date of Service: 05/10/24 Reason For Visit: Psychosis cocaine Interim History: met with patient; discussed with team pt reports she was feeling dizzy past few days however it's dissipating. pt was feeling depressed, anxious and said she planned to use, waiting for her money to be available. She spent all her money on crack for 3 days; afterward she returned to depression pt reports depression which she started over past months without any obvious trigger. AH has accompanied depression as well as seeing upsetting shadows of people (psychotic symptoms only present during depression). She reports hx of manic episodes but it's difficult to discern if these episodes are actually due to bipolar esmer vs cocaine use/emotional reactivity...She says she talks fast during episodes.. Mental Status Exam Mental Status Exam Narrative: Pt is alert and oriented; behavior is cooperative, calm, isolative; patient is not in distress; dressed in casual attire, obese, adequate hygiene; mood is described as depressed and affect congruent, downcast; eye contact limited; Speech is slowed, softer; normal prosody and not pressured; psychomotor retardation present; thought process is organized and goal directed; Thought content is on psychosocial stressors, tx; otherwise pertinent to relevant topics and without any delusional content, paranoid ideations or grandiosity; intermittent SI; no HI. Auditory hallucinations present. Patients insight and judgment impaired Diagnostics Vital Signs (24Hr): Vital Signs - 24 hr 05/09/24 11:22 05/09/24 20:00 05/09/24 20:52 Temperature 98.1 F Pulse Rate 75 72 Blood Pressure 105/81 103/69 122/81 Pulse Oximetry 98 Oxygen Delivery Method Room Air 05/09/24 20:53 05/09/24 20:57 05/10/24 08:00 Temperature 97.6 F Pulse Rate 64 Blood Pressure 122/81 122/81 102/60 Pulse Oximetry 97 Oxygen Delivery Method Room Air BMI result Body Mass Index 47.6 Labs 05/07/24 14:21 05/08/24 08:02 Medications Medications Current Medications Acetaminophen (Acetaminophen 325 Mg Tablet) 650 mg PO Q6H PRN PRN Reason: Headache/Pain Mild Scale (1-3) Last Admin: 05/09/24 03:20 Dose: 650 mg Al Hydroxide/Mg Hydroxide (Magnesium Hydrox/Alum Hydrox 30 Ml Oral.Susp) 30 ml PO Q6H PRN PRN Reason: Heartburn/Nausea Buspirone HCl (Buspirone Hcl 5 Mg Tablet) 15 mg PO TID [facility] Last Admin: 05/10/24 08:28 Dose: 15 mg Clonidine HCl (Clonidine Hcl 0.1 Mg Tablet) 0.1 mg PO TID PRN; Protocol PRN Reason: Anxiety Last Admin: 05/09/24 20:57 Dose: 0.1 mg Famotidine (Famotidine 20 Mg Tablet) 20 mg PO BID [facility] Last Admin: 05/10/24 08:28 Dose: 20 mg Fluoxetine HCl (Fluoxetine Hcl 20 Mg Capsule) 20 mg PO DAILY [facility] Last Admin: 05/10/24 08:29 Dose: 20 mg Hydroxyzine HCl (Hydroxyzine Hcl 25 Mg Tablet) 25 mg PO TID [facility] Last Admin: 05/10/24 08:28 Dose: 25 mg Ibuprofen (Ibuprofen 800 Mg Tablet) 800 mg PO QID PRN PRN Reason: back pain Lamotrigine (Lamotrigine 25 Mg Tablet) 25 mg PO BID [facility] Last Admin: 05/10/24 08:28 Dose: 25 mg Loratadine (Loratadine 10 Mg Tablet) 10 mg PO DAILY [facility] Last Admin: 05/10/24 08:28 Dose: 10 mg Lurasidone HCl (Lurasidone Hcl 40 Mg Tablet) 40 mg PO BEDTIME [facility] Last Admin: 05/09/24 20:52 Dose: 40 mg Magnesium Hydroxide (Milk Of Magnesia 30 Ml Oral.Susp) 30 ml PO DAILY PRN PRN Reason: Constipation Nicotine Polacrilex (Nicotine Polacrilex 2 Mg Gum) 2 mg BUCCAL Q2H PRN PRN Reason: Nicotine Cravings Prazosin HCl (Prazosin Hcl 5 Mg Capsule) 5 mg PO 2000 [facility]; Protocol Last Admin: 05/09/24 20:53 Dose: 5 mg Propranolol HCl (Propranolol Hcl 40 Mg Tablet) 40 mg PO BID [facility]; Protocol Last Admin: 05/10/24 08:28 Dose: 40 mg Quetiapine Fumarate (Quetiapine Fumarate 100 Mg Tablet) 100 mg PO BEDTIME [facility] Last Admin: 05/09/24 20:52 Dose: 100 mg Quetiapine Fumarate (Quetiapine Fumarate 400 Mg Tablet) 400 mg PO BEDTIME [facility] Last Admin: 05/09/24 20:53 Dose: 400 mg Sumatriptan Succinate (Sumatriptan Succinate 50 Mg Tablet) 50 mg PO DAILY PRN PRN Reason: Migraine Headache Last Admin: 05/09/24 16:48 Dose: 50 mg Topiramate (Topiramate 100 Mg Tablet) 100 mg PO BID [facility] Last Admin: 05/10/24 08:29 Dose: 100 mg Trazodone HCl (Trazodone Hcl 50 Mg Tablet) 50 mg PO BEDTIME MRX1 PRN PRN Reason: Insomnia Allergies Allergies Allergy/AdvReac Type Severity Reaction Status Date / Time Penicillins [PENICILLINS] Allergy Severe HIVES Verified 05/07/24 14:09 prochlorperazine Allergy Severe HIVES Verified 05/07/24 14:09 [From COMPAZINE] promethazine [PROMETHAZINE] Allergy Intermediate HEADACHES Verified 05/07/24 14:09 haloperidol [From HALDOL] AdvReac Severe HIVES Verified 05/07/24 14:09 morphine AdvReac [place] Verified 05/07/24 14:09 Assessment & Plan Assessment & Plan (1) Bipolar disorder: Status: Chronic Code(s): F31.9 - Bipolar disorder, unspecified (2) PTSD (post-traumatic stress disorder): Status: Acute Code(s): F43.10 - Post-traumatic stress disorder, unspecified (3) Cocaine use disorder: Status: Acute Code(s): F14.10 - Cocaine abuse, uncomplicated Plan Patient is a 44 year old female.Patient carries a diagnosis of PTSD, and ?schizoaffective disorder. She presents to the hospital with increasing depression and command hallucinations and suicidal ideation.She reports her depression worsened in spite of her taking her medications. She also relapsed on cocaine. She also complained of seeing shadows. She had poor sleep and poor appetite. Poor self care. Since admission she reports her SI continues but is feeling safe and denies any intent of self harm. Hospital Course: 05/09: DC Vraylar. Start Latuda 40 mg daily. Start Clonidine 0.1 mg PRN anxiety with holding parameters for BP. 05/10 pt reports she was feeling dizzy past few days however it's dissipating. -pt was feeling depressed, anxious and said she planned to use, waiting for her money to be available. She spent all her money on crack for 3 days; afterward she returned to depression -pt reports depression which she started over past months without any obvious trigger. AH has accompanied depression as well as seeing upsetting shadows of people (psychotic symptoms only present during depression). She reports hx of manic episodes but it's difficult to discern if these episodes are actually due to bipolar esmer vs cocaine use/emotional reactivity...She says she talks fast during episodes.. discussed med regimen. for now Increasing Latuda; Holding off Trileptal for now for anxiety (was on 300mg BID in past) -reviewed meds pt on at last admissions PLAN: CV Q 15 minute checks Increasing Latuda to 60 mg daily with meal Vraylar discontinued Consider restarting Trileptal Continue Seroquel 400 mg q.h.s. Patient educated on: diagnosis, medication risk/benefits, substance abuse and therapeutic strategies Informed Consent: understands Reason for continued inpatient stay Substantial Risk for: rapid decompensation Time Spent With Patient Time: Total time managing care of this patient today ____ minutes.
[2024-05-10] MEDS: cloNIDine HCL 0.1 MG TABLET PO ×2 (13:38→20:12)
[2024-05-10] MEDS: Cyclobenzaprine HCl 10 MG TABLET PO ×2 (15:01→20:10)
[2024-05-10] MEDS: Lurasidone HCl 20 MG TABLET 60 MG PO (19:49)
[2024-05-10] MEDS: Prazosin HCL 5 MG CAPSULE PO (20:08)
[2024-05-10] MEDS: QUEtiapine Fumarate 100 MG TABLET PO (20:11)
[2024-05-10] MEDS: QUEtiapine Fumarate 400 MG TABLET PO (20:12)
[2024-05-11] MEDS: Ibuprofen 800 MG TABLET PO ×4 (03:14→20:43)
[2024-05-11 08:00] VITALS: BP 110/63; PULSE 65; TEMP 36.4; O2SAT 99
[2024-05-11] MEDS: Topiramate 100 MG TABLET PO ×2 (08:37→20:42)
[2024-05-11] MEDS: Loratadine 10 MG TABLET PO (08:37)
[2024-05-11] MEDS: hydrOXYzine HCL 25 MG TABLET PO ×3 (08:37→20:43)
[2024-05-11] MEDS: lamoTRIgine 25 MG TABLET PO ×2 (08:37→20:42)
[2024-05-11] MEDS: busPIRone HCl 5 MG TABLET 15 MG PO ×3 (08:38→20:43)
[2024-05-11] MEDS: FLUoxetine HCl 20 MG CAPSULE PO (08:38)
[2024-05-11] MEDS: Famotidine 20 MG TABLET PO ×2 (08:38→20:44)
[2024-05-11] MEDS: Propranolol HCL 40 MG TABLET PO ×2 (08:38→20:43)
[2024-05-11] MEDS: Cyclobenzaprine HCl 10 MG TABLET PO ×3 (08:43→20:41)
[2024-05-11 10:38] VITALS: BP 107/74
[2024-05-11] MEDS: cloNIDine HCL 0.1 MG TABLET PO ×2 (10:38→17:59)
--- NOTE | 2024-05-11 15:43 | MHC.RECOVRN ---
Met with pt. when on floor for [facility], per request of Nurse Pastor. Pt reports addiction with crack as her current drug of choice. She reports she is currently working with her residential case manager to get into [facility]. She is interested in MAT. T/W gave pt resources for MAT, Harm reduction and outpatient resources and requested [facility] f/u with pt. over next few days.
--- NOTE | 2024-05-11 16:53 | HO.PSYCHPN ---
Subjective Subjective Date of Service: 05/11/24 Reason For Visit: Psychosis cocaine Interim History: Met with patient; discussed with team Patient remains depressed with auditory hallucinations. Staying in bed most of the time, saying too depressed to get up. However she did shower and is willing to engage more. Discussed medication regimen and patient would like to hold off on Trileptal for now, since Latuda was just increased. Discussed substance abuse in the draw is crack cocaine but when that is not available she will turn to heroin/fentanyl which is about once a week. She was interested in possibly being on methadone; Suboxone and Vivitrol did not work well for her. However after further discussion of risks/side effects agreed to try baclofen for cocaine cravings Mental Status Exam Mental Status Exam Narrative: Pt is alert and oriented; behavior is cooperative, calm, isolative; patient is not in distress; dressed in casual attire, obese, adequate hygiene; mood is described as depressed and affect congruent, downcast; eye contact limited; Speech is slowed, softer; normal prosody and not pressured; psychomotor retardation present; thought process is organized and goal directed; Thought content is on psychosocial stressors, tx; otherwise pertinent to relevant topics and without any delusional content, paranoid ideations or grandiosity; intermittent SI; no HI. Auditory hallucinations present. Patients insight and judgment impaired Diagnostics Vital Signs (24Hr): Vital Signs - 24 hr 05/10/24 20:00 05/10/24 20:12 05/10/24 20:13 Temperature 97.6 F Pulse Rate 76 71 Blood Pressure 123/58 L 115/70 115/70 Pulse Oximetry 100 Oxygen Delivery Method Room Air 05/11/24 08:00 05/11/24 10:38 Temperature 97.6 F Pulse Rate 65 Blood Pressure 110/63 107/74 Pulse Oximetry 99 Oxygen Delivery Method Room Air BMI result Body Mass Index 47.6 Labs 05/07/24 14:21 05/08/24 08:02 Medications Medications Current Medications Acetaminophen (Acetaminophen 325 Mg Tablet) 650 mg PO Q6H PRN PRN Reason: Headache/Pain Mild Scale (1-3) Last Admin: 05/09/24 03:20 Dose: 650 mg Al Hydroxide/Mg Hydroxide (Magnesium Hydrox/Alum Hydrox 30 Ml Oral.Susp) 30 ml PO Q6H PRN PRN Reason: Heartburn/Nausea Baclofen (Baclofen 10 Mg Tablet) 10 mg PO BID [facility] Buspirone HCl (Buspirone Hcl 5 Mg Tablet) 15 mg PO TID [facility] Last Admin: 05/11/24 16:09 Dose: 15 mg Clonidine HCl (Clonidine Hcl 0.1 Mg Tablet) 0.1 mg PO TID PRN; Protocol PRN Reason: Anxiety Last Admin: 05/11/24 10:38 Dose: 0.1 mg Cyclobenzaprine HCl (Cyclobenzaprine Hcl 10 Mg Tablet) 10 mg PO TID PRN PRN Reason: back spasm Last Admin: 05/11/24 16:09 Dose: 10 mg Famotidine (Famotidine 20 Mg Tablet) 20 mg PO BID [facility] Last Admin: 05/11/24 08:38 Dose: 20 mg Fluoxetine HCl (Fluoxetine Hcl 20 Mg Capsule) 20 mg PO DAILY [facility] Last Admin: 05/11/24 08:38 Dose: 20 mg Hydroxyzine HCl (Hydroxyzine Hcl 25 Mg Tablet) 25 mg PO TID [facility] Last Admin: 05/11/24 16:09 Dose: 25 mg Ibuprofen (Ibuprofen 800 Mg Tablet) 800 mg PO QID PRN PRN Reason: back pain Last Admin: 05/11/24 16:08 Dose: 800 mg Lamotrigine (Lamotrigine 25 Mg Tablet) 25 mg PO BID [facility] Last Admin: 05/11/24 08:37 Dose: 25 mg Loratadine (Loratadine 10 Mg Tablet) 10 mg PO DAILY [facility] Last Admin: 05/11/24 08:37 Dose: 10 mg Lurasidone HCl (Lurasidone Hcl 20 Mg Tablet) 60 mg PO DAILY@1800 [facility] Last Admin: 05/10/24 19:49 Dose: 60 mg Magnesium Hydroxide (Milk Of Magnesia 30 Ml Oral.Susp) 30 ml PO DAILY PRN PRN Reason: Constipation Nicotine Polacrilex (Nicotine Polacrilex 2 Mg Gum) 2 mg BUCCAL Q2H PRN PRN Reason: Nicotine Cravings Prazosin HCl (Prazosin Hcl 5 Mg Capsule) 5 mg PO 1999 [facility]; Protocol Last Admin: 05/10/24 20:08 Dose: 5 mg Propranolol HCl (Propranolol Hcl 40 Mg Tablet) 40 mg PO BID [facility]; Protocol Last Admin: 05/11/24 08:38 Dose: 40 mg Quetiapine Fumarate (Quetiapine Fumarate 100 Mg Tablet) 100 mg PO BEDTIME [facility] Last Admin: 05/10/24 20:11 Dose: 100 mg Quetiapine Fumarate (Quetiapine Fumarate 400 Mg Tablet) 400 mg PO BEDTIME [facility] Last Admin: 05/10/24 20:12 Dose: 400 mg Sumatriptan Succinate (Sumatriptan Succinate 50 Mg Tablet) 50 mg PO DAILY PRN PRN Reason: Migraine Headache Last Admin: 05/09/24 16:48 Dose: 50 mg Topiramate (Topiramate 100 Mg Tablet) 100 mg PO BID [facility] Last Admin: 05/11/24 08:37 Dose: 100 mg Trazodone HCl (Trazodone Hcl 50 Mg Tablet) 50 mg PO BEDTIME MRX1 PRN PRN Reason: Insomnia Allergies Allergies Allergy/AdvReac Type Severity Reaction Status Date / Time Penicillins [PENICILLINS] Allergy Severe HIVES Verified 05/07/24 14:09 prochlorperazine Allergy Severe HIVES Verified 05/07/24 14:09 [From COMPAZINE] promethazine [PROMETHAZINE] Allergy Intermediate HEADACHES Verified 05/07/24 14:09 haloperidol [From HALDOL] AdvReac Severe HIVES Verified 05/07/24 14:09 morphine AdvReac [place] Verified 05/07/24 14:09 Assessment & Plan Assessment & Plan (1) Bipolar disorder: Status: Chronic Code(s): F31.9 - Bipolar disorder, unspecified (2) PTSD (post-traumatic stress disorder): Status: Acute Code(s): F43.10 - Post-traumatic stress disorder, unspecified (3) Cocaine use disorder: Status: Acute Code(s): F14.10 - Cocaine abuse, uncomplicated Plan Patient is a 44 year old female.Patient carries a diagnosis of PTSD, and ?schizoaffective disorder. She presents to the hospital with increasing depression and command hallucinations and suicidal ideation.She reports her depression worsened in spite of her taking her medications. She also relapsed on cocaine. She also complained of seeing shadows. She had poor sleep and poor appetite. Poor self care. Since admission she reports her SI continues but is feeling safe and denies any intent of self harm. Hospital Course: 05/09: DC Vraylar. Start Latuda 40 mg daily. Start Clonidine 0.1 mg PRN anxiety with holding parameters for BP. 05/10 pt reports she was feeling dizzy past few days however it's dissipating. -pt was feeling depressed, anxious and said she planned to use, waiting for her money to be available. She spent all her money on crack for 3 days; afterward she returned to depression -pt reports depression which she started over past months without any obvious trigger. AH has accompanied depression as well as seeing upsetting shadows of people (psychotic symptoms only present during depression). She reports hx of manic episodes but it's difficult to discern if these episodes are actually due to bipolar esmer vs cocaine use/emotional reactivity...She says she talks fast during episodes.. discussed med regimen. for now Increasing Latuda; Holding off Trileptal for now for anxiety (was on 300mg BID in past) -reviewed meds pt on at last admissions 05/11 remains very depressed; Latuda recently increased so will not make any further med changes for now PLAN: CV Q 15 minute checks Start baclofen 10 mg b.i.d. for cocaine cravings Increasing Latuda to 60 mg daily with meal Vraylar discontinued Consider restarting Trileptal Continue Seroquel 400 mg q.h.s. Patient educated on: diagnosis, medication risk/benefits, substance abuse and therapeutic strategies Informed Consent: understands Reason for continued inpatient stay Substantial Risk for: rapid decompensation Time Spent With Patient Time: Total time managing care of this patient today ____ minutes.
[2024-05-11 17:59] VITALS: BP 117/58
[2024-05-11] MEDS: Lurasidone HCl 20 MG TABLET 60 MG PO (17:59)
[2024-05-11 20:00] VITALS: BP 116/66; PULSE 71; RESP 16; TEMP 36.4; O2SAT 98
[2024-05-11] MEDS: QUEtiapine Fumarate 100 MG TABLET PO (20:41)
[2024-05-11 20:42] VITALS: BP 103/67
[2024-05-11] MEDS: Baclofen 10 MG TABLET PO (20:42)
[2024-05-11] MEDS: Prazosin HCL 5 MG CAPSULE PO (20:42)
[2024-05-11] MEDS: QUEtiapine Fumarate 400 MG TABLET PO (20:42)
[2024-05-11 20:43] VITALS: BP 109/67
[2024-05-12 01:45] VITALS: BP 89/53; PULSE 80; TEMP 36
[2024-05-12] MEDS: Acetaminophen 325 MG TABLET 650 MG PO ×2 (01:46→08:53)
[2024-05-12] MEDS: Cyclobenzaprine HCl 10 MG TABLET PO ×3 (01:47→16:15)
[2024-05-12 08:00] VITALS: BP 97/65; PULSE 76; RESP 16; TEMP 36.4; O2SAT 98
[2024-05-12] MEDS: Baclofen 10 MG TABLET PO ×2 (08:49→21:11)
[2024-05-12 08:50] VITALS: BP 108/70; PULSE 76
[2024-05-12] MEDS: Loratadine 10 MG TABLET PO (08:50)
[2024-05-12] MEDS: hydrOXYzine HCL 25 MG TABLET PO ×3 (08:50→21:12)
[2024-05-12] MEDS: lamoTRIgine 25 MG TABLET PO ×2 (08:50→21:11)
[2024-05-12] MEDS: Propranolol HCL 40 MG TABLET PO ×2 (08:50→21:11)
[2024-05-12] MEDS: FLUoxetine HCl 20 MG CAPSULE PO (08:50)
[2024-05-12] MEDS: Topiramate 100 MG TABLET PO ×2 (08:50→21:11)
[2024-05-12] MEDS: Famotidine 20 MG TABLET PO ×2 (08:51→21:11)
[2024-05-12] MEDS: busPIRone HCl 5 MG TABLET 15 MG PO ×3 (08:51→21:11)
--- NOTE | 2024-05-12 09:37 | P.PNPSI_ITS ---
Subjective Subjective Date of Service: 05/12/24 Reason For Visit: Psychosis cocaine Interim History: Met with patient; discussed with team Patient remains depressed with AH though is pushing herself to attend groups, attend to ADLs. Again discussed medications and she agrees to restart Trileptal; patient reports baclofen has been helping with chronic back pain and that she is sleeping much better which she thinks is helping. Mental Status Exam Mental Status Exam Narrative: Pt is alert and oriented; behavior is cooperative, calm, isolative; patient is not in distress; dressed in casual attire, obese, adequate hygiene; mood is described as depressed and affect congruent, downcast; eye contact limited; Speech is slowed, softer; normal prosody and not pressured; psychomotor retardation present; thought process is organized and goal directed; Thought content is on psychosocial stressors, tx; otherwise pertinent to relevant topics and without any delusional content, paranoid ideations or grandiosity; intermittent SI; no HI. Auditory hallucinations present. Patients insight and judgment impaired Diagnostics Vital Signs (24Hr): Vital Signs - 24 hr 05/11/24 10:38 05/11/24 17:59 05/11/24 20:00 Temperature 97.6 F Pulse Rate 71 Respiratory Rate 16 Blood Pressure 107/74 117/58 L 116/66 Pulse Oximetry 98 Oxygen Delivery Method Room Air 05/11/24 20:42 05/11/24 20:43 05/12/24 01:45 Temperature 96.8 F Pulse Rate 80 Respiratory Rate Blood Pressure 103/67 109/67 89/53 L Pulse Oximetry Oxygen Delivery Method 05/12/24 08:00 05/12/24 08:50 Temperature 97.5 F Pulse Rate 76 76 Respiratory Rate 16 Blood Pressure 97/65 108/70 Pulse Oximetry 98 Oxygen Delivery Method Room Air BMI result Body Mass Index 47.6 Labs 05/07/24 14:21 05/08/24 08:02 Medications Medications Current Medications Acetaminophen (Acetaminophen 325 Mg Tablet) 650 mg PO Q6H PRN PRN Reason: Headache/Pain Mild Scale (1-3) Last Admin: 05/12/24 08:53 Dose: 650 mg Al Hydroxide/Mg Hydroxide (Magnesium Hydrox/Alum Hydrox 30 Ml Oral.Susp) 30 ml PO Q6H PRN PRN Reason: Heartburn/Nausea Baclofen (Baclofen 10 Mg Tablet) 10 mg PO BID [facility] Last Admin: 05/12/24 08:49 Dose: 10 mg Buspirone HCl (Buspirone Hcl 5 Mg Tablet) 15 mg PO TID [facility] Last Admin: 05/12/24 08:51 Dose: 15 mg Clonidine HCl (Clonidine Hcl 0.1 Mg Tablet) 0.1 mg PO TID PRN; Protocol PRN Reason: Anxiety Last Admin: 05/11/24 17:59 Dose: 0.1 mg Cyclobenzaprine HCl (Cyclobenzaprine Hcl 10 Mg Tablet) 10 mg PO TID PRN PRN Reason: back spasm Last Admin: 05/12/24 08:52 Dose: 10 mg Famotidine (Famotidine 20 Mg Tablet) 20 mg PO BID [facility] Last Admin: 05/12/24 08:51 Dose: 20 mg Fluoxetine HCl (Fluoxetine Hcl 20 Mg Capsule) 20 mg PO DAILY [facility] Last Admin: 05/12/24 08:50 Dose: 20 mg Hydroxyzine HCl (Hydroxyzine Hcl 25 Mg Tablet) 25 mg PO TID [facility] Last Admin: 05/12/24 08:50 Dose: 25 mg Ibuprofen (Ibuprofen 800 Mg Tablet) 800 mg PO QID PRN PRN Reason: back pain Last Admin: 05/11/24 20:43 Dose: 800 mg Lamotrigine (Lamotrigine 25 Mg Tablet) 25 mg PO BID [facility] Last Admin: 05/12/24 08:50 Dose: 25 mg Loratadine (Loratadine 10 Mg Tablet) 10 mg PO DAILY [facility] Last Admin: 05/12/24 08:50 Dose: 10 mg Lurasidone HCl (Lurasidone Hcl 20 Mg Tablet) 60 mg PO DAILY@1800 [facility] Last Admin: 05/11/24 17:59 Dose: 60 mg Magnesium Hydroxide (Milk Of Magnesia 30 Ml Oral.Susp) 30 ml PO DAILY PRN PRN Reason: Constipation Nicotine Polacrilex (Nicotine Polacrilex 2 Mg Gum) 2 mg BUCCAL Q2H PRN PRN Reason: Nicotine Cravings Prazosin HCl (Prazosin Hcl 5 Mg Capsule) 5 mg PO 1999 [facility]; Protocol Last Admin: 05/11/24 20:42 Dose: 5 mg Propranolol HCl (Propranolol Hcl 40 Mg Tablet) 40 mg PO BID [facility]; Protocol Last Admin: 05/12/24 08:50 Dose: 40 mg Quetiapine Fumarate (Quetiapine Fumarate 100 Mg Tablet) 100 mg PO BEDTIME [facility] Last Admin: 05/11/24 20:41 Dose: 100 mg Quetiapine Fumarate (Quetiapine Fumarate 400 Mg Tablet) 400 mg PO BEDTIME [facility] Last Admin: 05/11/24 20:42 Dose: 400 mg Sumatriptan Succinate (Sumatriptan Succinate 50 Mg Tablet) 50 mg PO DAILY PRN PRN Reason: Migraine Headache Last Admin: 05/09/24 16:48 Dose: 50 mg Topiramate (Topiramate 100 Mg Tablet) 100 mg PO BID [facility] Last Admin: 05/12/24 08:50 Dose: 100 mg Trazodone HCl (Trazodone Hcl 50 Mg Tablet) 50 mg PO BEDTIME MRX1 PRN PRN Reason: Insomnia Allergies Allergies Allergy/AdvReac Type Severity Reaction Status Date / Time Penicillins [PENICILLINS] Allergy Severe HIVES Verified 05/07/24 14:09 prochlorperazine Allergy Severe HIVES Verified 05/07/24 14:09 [From COMPAZINE] promethazine [PROMETHAZINE] Allergy Intermediate HEADACHES Verified 05/07/24 14:09 haloperidol [From HALDOL] AdvReac Severe HIVES Verified 05/07/24 14:09 morphine AdvReac Flushing Verified 05/07/24 14:09 Assessment & Plan Assessment & Plan (1) Bipolar disorder: Status: Chronic Code(s): F31.9 - Bipolar disorder, unspecified (2) PTSD (post-traumatic stress disorder): Status: Acute Code(s): F43.10 - Post-traumatic stress disorder, unspecified (3) Cocaine use disorder: Status: Acute Code(s): F14.10 - Cocaine abuse, uncomplicated Plan Patient is a 44 year old female.Patient carries a diagnosis of PTSD, and ?schizoaffective disorder. She presents to the hospital with increasing depression and command hallucinations and suicidal ideation.She reports her depression worsened in spite of her taking her medications. She also relapsed on cocaine. She also complained of seeing shadows. She had poor sleep and poor appetite. Poor self care. Since admission she reports her SI continues but is feeling safe and denies any intent of self harm. Hospital Course: 05/09: DC Vraylar. Start Latuda 40 mg daily. Start Clonidine 0.1 mg PRN anxiety with holding parameters for BP. 05/10 pt reports she was feeling dizzy past few days however it's dissipating. -pt was feeling depressed, anxious and said she planned to use, waiting for her money to be available. She spent all her money on crack for 3 days; afterward she returned to depression -pt reports depression which she started over past months without any obvious trigger. AH has accompanied depression as well as seeing upsetting shadows of people (psychotic symptoms only present during depression). She reports hx of manic episodes but it's difficult to discern if these episodes are actually due to bipolar esmer vs cocaine use/emotional reactivity...She says she talks fast during episodes.. discussed med regimen. for now Increasing Latuda; Holding off Trileptal for now for anxiety (was on 300mg BID in past) -reviewed meds pt on at last admissions 05/11 remains very depressed; Latuda recently increased so will not make any further med changes for now 05/12 Patient remains depressed with AH though is pushing herself to attend groups, attend to ADLs. Again discussed medications and she agrees to restart Trileptal; patient reports baclofen has been helping with chronic back pain and that she is sleeping much better which she thinks is helping. Discussed longer- term plan and patient would very much like to get into a program for substance abuse treatment PLAN: CV Q 15 minute checks Continue baclofen 10 mg b.i.d. for cocaine cravings Continue Latuda to 60 mg daily with meal START Trileptal 150 mg b.i.d.; will likely titrate to 300 mg b.i.d. which she was on before Continue Seroquel 400 mg q.h.s. Vraylar discontinued Patient educated on: diagnosis, medication risk/benefits and therapeutic strategies Informed Consent: understands Reason for continued inpatient stay Substantial Risk for: rapid decompensation Time Spent With Patient Time: Total time managing care of this patient today ____ minutes.
[2024-05-12 11:54] VITALS: BP 105/64
[2024-05-12] MEDS: cloNIDine HCL 0.1 MG TABLET PO (11:54)
[2024-05-12] MEDS: Lurasidone HCl 20 MG TABLET 60 MG PO (17:47)
[2024-05-12 20:00] VITALS: BP 105/50; PULSE 73; RESP 16; TEMP 36.4; O2SAT 98
[2024-05-12] MEDS: OXcarbazepine 150 MG TABLET PO (21:11)
[2024-05-12] MEDS: QUEtiapine Fumarate 400 MG TABLET PO (21:11)
[2024-05-12] MEDS: QUEtiapine Fumarate 100 MG TABLET PO (21:11)
[2024-05-12] MEDS: Prazosin HCL 5 MG CAPSULE PO (21:11)
[2024-05-13] MEDS: Ibuprofen 800 MG TABLET PO (05:58)
[2024-05-13] MEDS: Cyclobenzaprine HCl 10 MG TABLET PO (05:58)
[2024-05-13 08:35] VITALS: BP 113/66; PULSE 81; RESP 16; TEMP 36.4; O2SAT 99
--- NOTE | 2024-05-13 09:49 | HO.PSYCHPN ---
Subjective Subjective Date of Service: 05/13/24 Reason For Visit: Psychosis cocaine Interim History: met with patient; discussed with team says she's depressed and AH remain, both an 8/10 (with 10 the worst); however says better than on admission. Pt going to groups and engaged in treatment. She agrees that being social, in groups is helping. Tolerating newly added Trileptal Mental Status Exam Mental Status Exam Narrative: Pt is alert and oriented; behavior is cooperative, calm, isolative but less so; more social; patient is not in distress; dressed in casual attire, obese, adequate hygiene; mood is described as depressed and affect congruent, downcast; eye contact improving; Speech is normal rate, volume, prosody and not pressured; psychomotor retardation present but a little less; thought process is organized and goal directed; Thought content is on psychosocial stressors, AH, tx; otherwise pertinent to relevant topics and without any delusional content, paranoid ideations or grandiosity; intermittent SI; no HI. Auditory hallucinations present. Patients insight and judgment impaired Diagnostics Vital Signs (24Hr): Vital Signs - 24 hr 05/12/24 11:54 05/12/24 20:00 05/13/24 08:35 Temperature 97.5 F 97.6 F Pulse Rate 73 81 Respiratory Rate 16 16 Blood Pressure 105/64 105/50 L 113/66 Pulse Oximetry 98 99 Oxygen Delivery Method Room Air Room Air BMI result Body Mass Index 47.6 Labs 05/07/24 14:21 05/08/24 08:02 Medications Medications Current Medications Acetaminophen (Acetaminophen 325 Mg Tablet) 650 mg PO Q6H PRN PRN Reason: Headache/Pain Mild Scale (1-3) Last Admin: 05/12/24 08:53 Dose: 650 mg Al Hydroxide/Mg Hydroxide (Magnesium Hydrox/Alum Hydrox 30 Ml Oral.Susp) 30 ml PO Q6H PRN PRN Reason: Heartburn/Nausea Baclofen (Baclofen 10 Mg Tablet) 10 mg PO BID [facility] Last Admin: 05/12/24 21:11 Dose: 10 mg Buspirone HCl (Buspirone Hcl 5 Mg Tablet) 15 mg PO TID [facility] Last Admin: 05/12/24 21:11 Dose: 15 mg Clonidine HCl (Clonidine Hcl 0.1 Mg Tablet) 0.1 mg PO TID PRN; Protocol PRN Reason: Anxiety Last Admin: 05/12/24 11:54 Dose: 0.1 mg Cyclobenzaprine HCl (Cyclobenzaprine Hcl 10 Mg Tablet) 10 mg PO TID PRN PRN Reason: back spasm Last Admin: 05/13/24 05:58 Dose: 10 mg Famotidine (Famotidine 20 Mg Tablet) 20 mg PO BID [facility] Last Admin: 05/12/24 21:11 Dose: 20 mg Fluoxetine HCl (Fluoxetine Hcl 20 Mg Capsule) 20 mg PO DAILY [facility] Last Admin: 05/12/24 08:50 Dose: 20 mg Hydroxyzine HCl (Hydroxyzine Hcl 25 Mg Tablet) 25 mg PO TID [facility] Last Admin: 05/12/24 21:12 Dose: 25 mg Ibuprofen (Ibuprofen 800 Mg Tablet) 800 mg PO QID PRN PRN Reason: back pain Last Admin: 05/13/24 05:58 Dose: 800 mg Lamotrigine (Lamotrigine 25 Mg Tablet) 25 mg PO BID [facility] Last Admin: 05/12/24 21:11 Dose: 25 mg Loratadine (Loratadine 10 Mg Tablet) 10 mg PO DAILY [facility] Last Admin: 05/12/24 08:50 Dose: 10 mg Lurasidone HCl (Lurasidone Hcl 20 Mg Tablet) 60 mg PO DAILY@1800 [facility] Last Admin: 05/12/24 17:47 Dose: 60 mg Magnesium Hydroxide (Milk Of Magnesia 30 Ml Oral.Susp) 30 ml PO DAILY PRN PRN Reason: Constipation Melatonin (Melatonin 3 Mg Tablet) 3 mg PO BEDTIME PRN PRN Reason: Insomnia Nicotine Polacrilex (Nicotine Polacrilex 2 Mg Gum) 2 mg BUCCAL Q2H PRN PRN Reason: Nicotine Cravings Oxcarbazepine (Oxcarbazepine 150 Mg Tablet) 150 mg PO BID [facility] Last Admin: 05/12/24 21:11 Dose: 150 mg Prazosin HCl (Prazosin Hcl 5 Mg Capsule) 5 mg PO 2000 [facility]; Protocol Last Admin: 05/12/24 21:11 Dose: 5 mg Propranolol HCl (Propranolol Hcl 40 Mg Tablet) 40 mg PO BID [facility]; Protocol Last Admin: 05/12/24 21:11 Dose: 40 mg Quetiapine Fumarate (Quetiapine Fumarate 100 Mg Tablet) 100 mg PO BEDTIME [facility] Last Admin: 05/12/24 21:11 Dose: 100 mg Quetiapine Fumarate (Quetiapine Fumarate 400 Mg Tablet) 400 mg PO BEDTIME [facility] Last Admin: 05/12/24 21:11 Dose: 400 mg Sumatriptan Succinate (Sumatriptan Succinate 50 Mg Tablet) 50 mg PO DAILY PRN PRN Reason: Migraine Headache Last Admin: 05/09/24 16:48 Dose: 50 mg Topiramate (Topiramate 100 Mg Tablet) 100 mg PO BID [facility] Last Admin: 05/12/24 21:11 Dose: 100 mg Trazodone HCl (Trazodone Hcl 50 Mg Tablet) 50 mg PO BEDTIME MRX1 PRN PRN Reason: Insomnia Allergies Allergies Allergy/AdvReac Type Severity Reaction Status Date / Time Penicillins [PENICILLINS] Allergy Severe HIVES Verified 05/07/24 14:09 prochlorperazine Allergy Severe HIVES Verified 05/07/24 14:09 [From COMPAZINE] promethazine [PROMETHAZINE] Allergy Intermediate HEADACHES Verified 05/07/24 14:09 haloperidol [From HALDOL] AdvReac Severe HIVES Verified 05/07/24 14:09 morphine AdvReac Flushing Verified 05/07/24 14:09 Assessment & Plan Assessment & Plan (1) Bipolar disorder: Status: Chronic Code(s): F31.9 - Bipolar disorder, unspecified (2) PTSD (post-traumatic stress disorder): Status: Acute Code(s): F43.10 - Post-traumatic stress disorder, unspecified (3) Cocaine use disorder: Status: Acute Code(s): F14.10 - Cocaine abuse, uncomplicated Plan Patient is a 44 year old female.Patient carries a diagnosis of PTSD, and ?schizoaffective disorder. She presents to the hospital with increasing depression and command hallucinations and suicidal ideation.She reports her depression worsened in spite of her taking her medications. She also relapsed on cocaine. She also complained of seeing shadows. She had poor sleep and poor appetite. Poor self care. Since admission she reports her SI continues but is feeling safe and denies any intent of self harm. Hospital Course: 05/09: DC Vraylar. Start Latuda 40 mg daily. Start Clonidine 0.1 mg PRN anxiety with holding parameters for BP. 05/10 pt reports she was feeling dizzy past few days however it's dissipating. -pt was feeling depressed, anxious and said she planned to use, waiting for her money to be available. She spent all her money on crack for 3 days; afterward she returned to depression -pt reports depression which she started over past months without any obvious trigger. AH has accompanied depression as well as seeing upsetting shadows of people (psychotic symptoms only present during depression). She reports hx of manic episodes but it's difficult to discern if these episodes are actually due to bipolar esmer vs cocaine use/emotional reactivity...She says she talks fast during episodes.. discussed med regimen. for now Increasing Latuda; Holding off Trileptal for now for anxiety (was on 300mg BID in past) -reviewed meds pt on at last admissions 05/11 remains very depressed; Latuda recently increased so will not make any further med changes for now 05/12 Patient remains depressed with AH though is pushing herself to attend groups, attend to ADLs. Again discussed medications and she agrees to restart Trileptal; patient reports baclofen has been helping with chronic back pain and that she is sleeping much better which she thinks is helping. Discussed longer-term plan and patient would very much like to get into a program for substance abuse treatment 05/13 continue tx plan PLAN: CV Q 15 minute checks Continue baclofen 10 mg b.i.d. for cocaine cravings Continue Latuda to 60 mg daily with meal START Trileptal 150 mg b.i.d.; will likely titrate to 300 mg b.i.d. which she was on before Continue Seroquel 400 mg q.h.s. Vraylar discontinued Patient educated on: diagnosis, medication risk/benefits and therapeutic strategies Informed Consent: understands Reason for continued inpatient stay Substantial Risk for: rapid decompensation Time Spent With Patient Time: Total time managing care of this patient today ____ minutes.
[2024-05-13] MEDS: busPIRone HCl 5 MG TABLET 15 MG PO ×3 (10:04→21:56)
[2024-05-13] MEDS: lamoTRIgine 25 MG TABLET PO ×2 (10:04→21:55)
[2024-05-13] MEDS: FLUoxetine HCl 20 MG CAPSULE PO (10:04)
[2024-05-13] MEDS: Loratadine 10 MG TABLET PO (10:04)
[2024-05-13] MEDS: Famotidine 20 MG TABLET PO ×2 (10:05→21:55)
[2024-05-13] MEDS: Propranolol HCL 40 MG TABLET PO ×2 (10:05→21:57)
[2024-05-13] MEDS: Baclofen 10 MG TABLET PO ×3 (10:05→21:57)
[2024-05-13] MEDS: hydrOXYzine HCL 25 MG TABLET PO ×3 (10:05→21:58)
[2024-05-13] MEDS: Topiramate 100 MG TABLET PO ×2 (10:05→21:57)
[2024-05-13] MEDS: OXcarbazepine 150 MG TABLET PO ×2 (10:25→21:56)
[2024-05-13] MEDS: Lurasidone HCl 20 MG TABLET 60 MG PO (18:07)
[2024-05-13 20:00] VITALS: BP 112/56; PULSE 78; RESP 16; TEMP 36.6; O2SAT 97
[2024-05-13] MEDS: QUEtiapine Fumarate 400 MG TABLET PO (21:57)
[2024-05-13] MEDS: QUEtiapine Fumarate 100 MG TABLET PO (21:57)
[2024-05-13] MEDS: Melatonin 3 MG TABLET PO (22:05)
[2024-05-13 22:24] VITALS: BP 120/60
[2024-05-13] MEDS: Prazosin HCL 5 MG CAPSULE PO (22:24)
[2024-05-14 08:49] VITALS: BP 108/65; PULSE 88; RESP 16; TEMP 36.4; O2SAT 99
[2024-05-14 08:50] VITALS: BP 108/65; PULSE 68
[2024-05-14] MEDS: Propranolol HCL 40 MG TABLET PO ×2 (08:50→20:49)
[2024-05-14] MEDS: OXcarbazepine 150 MG TABLET PO (08:50)
[2024-05-14] MEDS: lamoTRIgine 25 MG TABLET PO (08:50)
[2024-05-14] MEDS: FLUoxetine HCl 20 MG CAPSULE PO (08:51)
[2024-05-14] MEDS: busPIRone HCl 5 MG TABLET 15 MG PO ×3 (08:51→20:49)
[2024-05-14] MEDS: Baclofen 10 MG TABLET PO ×3 (08:51→20:49)
[2024-05-14] MEDS: Famotidine 20 MG TABLET PO ×2 (08:52→20:49)
[2024-05-14] MEDS: Loratadine 10 MG TABLET PO (08:52)
[2024-05-14] MEDS: Topiramate 100 MG TABLET PO ×2 (08:52→20:49)
[2024-05-14] MEDS: hydrOXYzine HCL 25 MG TABLET PO ×3 (08:52→20:49)
[2024-05-14 09:02] VITALS: BP 108/65
[2024-05-14] MEDS: cloNIDine HCL 0.1 MG TABLET PO (09:02)
--- NOTE | 2024-05-14 12:59 | HO.PSYCHPN ---
Subjective Subjective Date of Service: 05/14/24 Reason For Visit: Psychosis cocaine Interim History: met with pt; discussed with team remains depressed/AH; same as yesterday 03/20. however, continues to go to groups and attend to ADL's. Pt Agrees to increase Trileptal back to prior dose of 300mg BID; discussed lamictal and pt has been on same dose since november; agrees to increase Mental Status Exam Mental Status Exam Narrative: Pt is alert and oriented; behavior is cooperative, calm, isolative but less so; more social; patient is not in distress; dressed in casual attire, obese, adequate hygiene; mood is described as depressed and affect congruent, downcast; eye contact improving; Speech is normal rate, volume, prosody and not pressured; psychomotor retardation present but a little less; thought process is organized and goal directed; Thought content is on psychosocial stressors, AH, tx; otherwise pertinent to relevant topics and without any delusional content, paranoid ideations or grandiosity; intermittent SI; no HI. Auditory hallucinations present. Patients insight and judgment impaired Diagnostics Vital Signs (24Hr): Vital Signs - 24 hr 05/13/24 20:00 05/13/24 22:24 05/14/24 08:50 Temperature 97.8 F Pulse Rate 78 68 Respiratory Rate 16 Blood Pressure 112/56 L 120/60 108/65 Pulse Oximetry 97 Oxygen Delivery Method Room Air 05/14/24 09:02 Temperature Pulse Rate Respiratory Rate Blood Pressure 108/65 Pulse Oximetry Oxygen Delivery Method BMI result Body Mass Index 47.6 Labs 05/07/24 14:21 05/08/24 08:02 Medications Medications Current Medications Acetaminophen (Acetaminophen 325 Mg Tablet) 650 mg PO Q6H PRN PRN Reason: Headache/Pain Mild Scale (1-3) Last Admin: 05/12/24 08:53 Dose: 650 mg Al Hydroxide/Mg Hydroxide (Magnesium Hydrox/Alum Hydrox 30 Ml Oral.Susp) 30 ml PO Q6H PRN PRN Reason: Heartburn/Nausea Baclofen (Baclofen 10 Mg Tablet) 10 mg PO TID [facility] Last Admin: 05/14/24 08:51 Dose: 10 mg Buspirone HCl (Buspirone Hcl 5 Mg Tablet) 15 mg PO TID [facility] Last Admin: 05/14/24 08:51 Dose: 15 mg Clonidine HCl (Clonidine Hcl 0.1 Mg Tablet) 0.1 mg PO TID PRN; Protocol PRN Reason: Anxiety Last Admin: 05/14/24 09:02 Dose: 0.1 mg Cyclobenzaprine HCl (Cyclobenzaprine Hcl 10 Mg Tablet) 10 mg PO TID PRN PRN Reason: back spasm Last Admin: 05/13/24 05:58 Dose: 10 mg Famotidine (Famotidine 20 Mg Tablet) 20 mg PO BID [facility] Last Admin: 05/14/24 08:52 Dose: 20 mg Fluoxetine HCl (Fluoxetine Hcl 20 Mg Capsule) 20 mg PO DAILY [facility] Last Admin: 05/14/24 08:51 Dose: 20 mg Hydroxyzine HCl (Hydroxyzine Hcl 25 Mg Tablet) 25 mg PO TID [facility] Last Admin: 05/14/24 08:52 Dose: 25 mg Ibuprofen (Ibuprofen 800 Mg Tablet) 800 mg PO QID PRN PRN Reason: back pain Last Admin: 05/13/24 05:58 Dose: 800 mg Lamotrigine (Lamotrigine 25 Mg Tablet) 25 mg PO BID [facility] Last Admin: 05/14/24 08:50 Dose: 25 mg Loratadine (Loratadine 10 Mg Tablet) 10 mg PO DAILY [facility] Last Admin: 05/14/24 08:52 Dose: 10 mg Lurasidone HCl (Lurasidone Hcl 20 Mg Tablet) 60 mg PO DAILY@1800 [facility] Last Admin: 05/13/24 18:07 Dose: 60 mg Magnesium Hydroxide (Milk Of Magnesia 30 Ml Oral.Susp) 30 ml PO DAILY PRN PRN Reason: Constipation Melatonin (Melatonin 3 Mg Tablet) 6 mg PO BEDTIME [facility] Nicotine Polacrilex (Nicotine Polacrilex 2 Mg Gum) 2 mg BUCCAL Q2H PRN PRN Reason: Nicotine Cravings Oxcarbazepine (Oxcarbazepine 150 Mg Tablet) 150 mg PO BID [facility] Last Admin: 05/14/24 08:50 Dose: 150 mg Prazosin HCl (Prazosin Hcl 5 Mg Capsule) 5 mg PO 2000 [facility]; Protocol Last Admin: 05/13/24 22:24 Dose: 5 mg Propranolol HCl (Propranolol Hcl 40 Mg Tablet) 40 mg PO BID [facility]; Protocol Last Admin: 05/14/24 08:50 Dose: 40 mg Quetiapine Fumarate (Quetiapine Fumarate 100 Mg Tablet) 100 mg PO BEDTIME [facility] Last Admin: 05/13/24 21:57 Dose: 100 mg Quetiapine Fumarate (Quetiapine Fumarate 400 Mg Tablet) 400 mg PO BEDTIME [facility] Last Admin: 05/13/24 21:57 Dose: 400 mg Sumatriptan Succinate (Sumatriptan Succinate 50 Mg Tablet) 50 mg PO DAILY PRN PRN Reason: Migraine Headache Last Admin: 05/09/24 16:48 Dose: 50 mg Topiramate (Topiramate 100 Mg Tablet) 100 mg PO BID [facility] Last Admin: 05/14/24 08:52 Dose: 100 mg Trazodone HCl (Trazodone Hcl 50 Mg Tablet) 50 mg PO BEDTIME MRX1 PRN PRN Reason: Insomnia Allergies Allergies Allergy/AdvReac Type Severity Reaction Status Date / Time Penicillins [PENICILLINS] Allergy Severe HIVES Verified 05/07/24 14:09 prochlorperazine Allergy Severe HIVES Verified 05/07/24 14:09 [From COMPAZINE] promethazine [PROMETHAZINE] Allergy Intermediate HEADACHES Verified 05/07/24 14:09 haloperidol [From HALDOL] AdvReac Severe HIVES Verified 05/07/24 14:09 morphine AdvReac Flushing Verified 05/07/24 14:09 Assessment & Plan Assessment & Plan (1) Bipolar disorder: Status: Chronic Code(s): F31.9 - Bipolar disorder, unspecified (2) PTSD (post-traumatic stress disorder): Status: Acute Code(s): F43.10 - Post-traumatic stress disorder, unspecified (3) Cocaine use disorder: Status: Acute Code(s): F14.10 - Cocaine abuse, uncomplicated Plan Patient is a 44 year old female.Patient carries a diagnosis of PTSD, and ?schizoaffective disorder. She presents to the hospital with increasing depression and command hallucinations and suicidal ideation.She reports her depression worsened in spite of her taking her medications. She also relapsed on cocaine. She also complained of seeing shadows. She had poor sleep and poor appetite. Poor self care. Since admission she reports her SI continues but is feeling safe and denies any intent of self harm. Hospital Course: 05/09: DC Vraylar. Start Latuda 40 mg daily. Start Clonidine 0.1 mg PRN anxiety with holding parameters for BP. 05/10 pt reports she was feeling dizzy past few days however it's dissipating. -pt was feeling depressed, anxious and said she planned to use, waiting for her money to be available. She spent all her money on crack for 3 days; afterward she returned to depression -pt reports depression which she started over past months without any obvious trigger. AH has accompanied depression as well as seeing upsetting shadows of people (psychotic symptoms only present during depression). She reports hx of manic episodes but it's difficult to discern if these episodes are actually due to bipolar esmer vs cocaine use/emotional reactivity...She says she talks fast during episodes.. discussed med regimen. for now Increasing Latuda; Holding off Trileptal for now for anxiety (was on 300mg BID in past) -reviewed meds pt on at last admissions 05/11 remains very depressed; Latuda recently increased so will not make any further med changes for now 05/12 Patient remains depressed with AH though is pushing herself to attend groups, attend to ADLs. Again discussed medications and she agrees to restart Trileptal; patient reports baclofen has been helping with chronic back pain and that she is sleeping much better which she thinks is helping. Discussed longer-term plan and patient would very much like to get into a program for substance abuse treatment 05/13 continue tx plan emains depressed/AH;attending/ ADL's.-ncrease Trileptal back to prior dose of 300mg BID; -increase lamictal PLAN: CV Q 15 minute checks added Melatonin Icreased lamictal to 75mg (has been on 25mg BID since November) Continue baclofen 10 mg TID. for cocaine cravings Continue Latuda to 60 mg daily with meal Increase to Trileptal 300mg b.i.d.; will likely titrate to 300 mg b.i.d. which she was on before Continue Seroquel 400 mg q.h.s. Vraylar discontinued Patient educated on: diagnosis, medication risk/benefits and therapeutic strategies Informed Consent: understands Reason for continued inpatient stay Substantial Risk for: rapid decompensation Time Spent With Patient Time: Total time managing care of this patient today ____ minutes.
[2024-05-14] MEDS: Milk of Magnesia 30 ML ORAL.SUSP PO (15:24)
[2024-05-14] MEDS: Prazosin HCL 5 MG CAPSULE PO (20:48)
[2024-05-14] MEDS: QUEtiapine Fumarate 400 MG TABLET PO (20:49)
[2024-05-14] MEDS: lamoTRIgine 25 MG TABLET 75 MG PO (20:49)
[2024-05-14] MEDS: Melatonin 3 MG TABLET 6 MG PO (20:49)
[2024-05-14] MEDS: QUEtiapine Fumarate 100 MG TABLET PO (20:49)
[2024-05-14] MEDS: OXcarbazepine 300 MG TABLET PO (20:49)
[2024-05-14] MEDS: Lurasidone HCl 20 MG TABLET 60 MG PO (20:49)
[2024-05-15 08:20] VITALS: BP 123/66; PULSE 81; RESP 18; TEMP 36.4; O2SAT 98
[2024-05-15] MEDS: Topiramate 100 MG TABLET PO ×2 (08:22→21:00)
[2024-05-15] MEDS: Propranolol HCL 40 MG TABLET PO ×2 (08:22→21:00)
[2024-05-15] MEDS: busPIRone HCl 5 MG TABLET 15 MG PO ×3 (08:22→21:01)
[2024-05-15] MEDS: Baclofen 10 MG TABLET PO ×3 (08:22→21:00)
[2024-05-15] MEDS: OXcarbazepine 300 MG TABLET PO ×2 (08:22→21:00)
[2024-05-15] MEDS: Famotidine 20 MG TABLET PO ×2 (08:22→21:01)
[2024-05-15] MEDS: FLUoxetine HCl 20 MG CAPSULE PO (08:22)
[2024-05-15] MEDS: Loratadine 10 MG TABLET PO (08:22)
[2024-05-15] MEDS: hydrOXYzine HCL 25 MG TABLET PO ×3 (08:22→21:00)
--- NOTE | 2024-05-15 09:03 | P.PNPSI_ITS ---
Subjective Subjective Date of Service: 05/15/24 Reason For Visit: Psychosis cocaine Interim History: Met With patient; discussed with team pt reports continued depression/AH (03/20); says go up on something She had agreed to increase in Lamictal; Mental Status Exam Mental Status Exam Narrative: Pt is alert and oriented; behavior is cooperative, calm, isolative but less so; more social; patient is not in distress; dressed in casual attire, obese, adequate hygiene; mood is described as depressed and affect congruent, downcast; eye contact improving; Speech is normal rate, volume, prosody and not pressured; psychomotor retardation present but a little less; thought process is organized and goal directed; Thought content is on psychosocial stressors, AH, tx; otherwise pertinent to relevant topics and without any delusional content, paranoid ideations or grandiosity; intermittent SI; no HI. Auditory hallucinations present. Patients insight and judgment impaired Diagnostics Vital Signs (24Hr): Vital Signs - 24 hr 05/15/24 08:20 Temperature 97.5 F Pulse Rate 81 Respiratory Rate 18 Blood Pressure 123/66 Pulse Oximetry 98 Oxygen Delivery Method Room Air BMI result Body Mass Index 47.6 Labs 05/07/24 14:21 05/08/24 08:02 Medications Medications Current Medications Acetaminophen (Acetaminophen 325 Mg Tablet) 650 mg PO Q6H PRN PRN Reason: Headache/Pain Mild Scale (1-3) Last Admin: 05/12/24 08:53 Dose: 650 mg Al Hydroxide/Mg Hydroxide (Magnesium Hydrox/Alum Hydrox 30 Ml Oral.Susp) 30 ml PO Q6H PRN PRN Reason: Heartburn/Nausea Baclofen (Baclofen 10 Mg Tablet) 10 mg PO TID [facility] Last Admin: 05/15/24 08:22 Dose: 10 mg Buspirone HCl (Buspirone Hcl 5 Mg Tablet) 15 mg PO TID [facility] Last Admin: 05/15/24 08:22 Dose: 15 mg Clonidine HCl (Clonidine Hcl 0.1 Mg Tablet) 0.1 mg PO TID PRN; Protocol PRN Reason: Anxiety Last Admin: 05/14/24 09:02 Dose: 0.1 mg Cyclobenzaprine HCl (Cyclobenzaprine Hcl 10 Mg Tablet) 10 mg PO TID PRN PRN Reason: back spasm Last Admin: 05/13/24 05:58 Dose: 10 mg Famotidine (Famotidine 20 Mg Tablet) 20 mg PO BID [facility] Last Admin: 05/15/24 08:22 Dose: 20 mg Fluoxetine HCl (Fluoxetine Hcl 20 Mg Capsule) 20 mg PO DAILY [facility] Last Admin: 05/15/24 08:22 Dose: 20 mg Hydroxyzine HCl (Hydroxyzine Hcl 25 Mg Tablet) 25 mg PO TID [facility] Last Admin: 05/15/24 08:22 Dose: 25 mg Ibuprofen (Ibuprofen 800 Mg Tablet) 800 mg PO QID PRN PRN Reason: back pain Last Admin: 05/13/24 05:58 Dose: 800 mg Lamotrigine (Lamotrigine 25 Mg Tablet) 75 mg PO BEDTIME [facility] Last Admin: 05/14/24 20:49 Dose: 75 mg Loratadine (Loratadine 10 Mg Tablet) 10 mg PO DAILY [facility] Last Admin: 05/15/24 08:22 Dose: 10 mg Lurasidone HCl (Lurasidone Hcl 20 Mg Tablet) 60 mg PO DAILY@1800 [facility] Last Admin: 05/14/24 20:49 Dose: 60 mg Magnesium Hydroxide (Milk Of Magnesia 30 Ml Oral.Susp) 30 ml PO DAILY PRN PRN Reason: Constipation Last Admin: 05/14/24 15:24 Dose: 30 ml Melatonin (Melatonin 3 Mg Tablet) 6 mg PO BEDTIME [facility] Last Admin: 05/14/24 20:49 Dose: 6 mg Nicotine Polacrilex (Nicotine Polacrilex 2 Mg Gum) 2 mg BUCCAL Q2H PRN PRN Reason: Nicotine Cravings Oxcarbazepine (Oxcarbazepine 300 Mg Tablet) 300 mg PO BID [facility] Last Admin: 05/15/24 08:22 Dose: 300 mg Prazosin HCl (Prazosin Hcl 5 Mg Capsule) 5 mg PO 2000 [facility]; Protocol Last Admin: 05/14/24 20:48 Dose: 5 mg Propranolol HCl (Propranolol Hcl 40 Mg Tablet) 40 mg PO BID [facility]; Protocol Last Admin: 05/15/24 08:22 Dose: 40 mg Quetiapine Fumarate (Quetiapine Fumarate 100 Mg Tablet) 100 mg PO BEDTIME [facility] Last Admin: 05/14/24 20:49 Dose: 100 mg Quetiapine Fumarate (Quetiapine Fumarate 400 Mg Tablet) 400 mg PO BEDTIME [facility] Last Admin: 05/14/24 20:49 Dose: 400 mg Sumatriptan Succinate (Sumatriptan Succinate 50 Mg Tablet) 50 mg PO DAILY PRN PRN Reason: Migraine Headache Last Admin: 05/09/24 16:48 Dose: 50 mg Topiramate (Topiramate 100 Mg Tablet) 100 mg PO BID [facility] Last Admin: 05/15/24 08:22 Dose: 100 mg Trazodone HCl (Trazodone Hcl 50 Mg Tablet) 50 mg PO BEDTIME MRX1 PRN PRN Reason: Insomnia Allergies Allergies Allergy/AdvReac Type Severity Reaction Status Date / Time Penicillins [PENICILLINS] Allergy Severe HIVES Verified 05/07/24 14:09 prochlorperazine Allergy Severe HIVES Verified 05/07/24 14:09 [From COMPAZINE] promethazine [PROMETHAZINE] Allergy Intermediate HEADACHES Verified 05/07/24 14:09 haloperidol [From HALDOL] AdvReac Severe HIVES Verified 05/07/24 14:09 morphine AdvReac Flushing Verified 05/07/24 14:09 Assessment & Plan Assessment & Plan (1) Bipolar disorder: Status: Chronic Code(s): F31.9 - Bipolar disorder, unspecified (2) PTSD (post-traumatic stress disorder): Status: Acute Code(s): F43.10 - Post-traumatic stress disorder, unspecified (3) Cocaine use disorder: Status: Acute Code(s): F14.10 - Cocaine abuse, uncomplicated Plan Patient is a 44 year old female.Patient carries a diagnosis of PTSD, and ?schizoaffective disorder. She presents to the hospital with increasing depression and command hallucinations and suicidal ideation.She reports her depression worsened in spite of her taking her medications. She also relapsed on cocaine. She also complained of seeing shadows. She had poor sleep and poor appetite. Poor self care. Since admission she reports her SI continues but is feeling safe and denies any intent of self harm. Hospital Course: 05/09: DC Vraylar. Start Latuda 40 mg daily. Start Clonidine 0.1 mg PRN anxiety with holding parameters for BP. 05/10 pt reports she was feeling dizzy past few days however it's dissipating. -pt was feeling depressed, anxious and said she planned to use, waiting for her money to be available. She spent all her money on crack for 3 days; afterward she returned to depression -pt reports depression which she started over past months without any obvious trigger. AH has accompanied depression as well as seeing upsetting shadows of people (psychotic symptoms only present during depression). She reports hx of manic episodes but it's difficult to discern if these episodes are actually due to bipolar esmer vs cocaine use/emotional reactivity...She says she talks fast during episodes.. discussed med regimen. for now Increasing Latuda; Holding off Trileptal for now for anxiety (was on 300mg BID in past) -reviewed meds pt on at last admissions 05/11 remains very depressed; Latuda recently increased so will not make any further med changes for now 05/12 Patient remains depressed with AH though is pushing herself to attend groups, attend to ADLs. Again discussed medications and she agrees to restart Trileptal; patient reports baclofen has been helping with chronic back pain and that she is sleeping much better which she thinks is helping. Discussed longer- term plan and patient would very much like to get into a program for substance abuse treatment 05/13 continue tx plan emains depressed/AH;attending/ ADL's.-ncrease Trileptal back to prior dose of 300mg BID; -increase lamictal 05/15 depressed with AH; increasing Lamictal and Prozac (seems more likely MDD with psychosis than Bipolar) PLAN: CV Q 15 minute checks added Melatonin Increased lamictal to 100mg (has been on 25mg BID since November) Continue baclofen 10 mg TID. for cocaine cravings Continue Latuda to 60 mg daily with meal Increased to Trileptal 300mg b.i.d.; will likely titrate to 300 mg b.i.d. which she was on before Continue Seroquel 500 mg q.h.s. Increase prozac to 40mg Vraylar discontinued Patient educated on: diagnosis, medication risk/benefits and therapeutic strategies Informed Consent: understands Reason for continued inpatient stay Substantial Risk for: rapid decompensation Time Spent With Patient Time: Total time managing care of this patient today ____ minutes.
[2024-05-15] MEDS: Ibuprofen 800 MG TABLET PO (11:09)
[2024-05-15 11:36] VITALS: BP 108/65
[2024-05-15] MEDS: cloNIDine HCL 0.1 MG TABLET PO ×2 (11:36→18:23)
[2024-05-15] MEDS: Lurasidone HCl 20 MG TABLET 60 MG PO (17:54)
[2024-05-15 18:23] VITALS: BP 126/76
[2024-05-15 20:00] VITALS: BP 106/81; PULSE 83; TEMP 36.9; O2SAT 100
[2024-05-15] MEDS: lamoTRIgine 100 MG TABLET PO (21:00)
[2024-05-15] MEDS: Prazosin HCL 5 MG CAPSULE PO (21:00)
[2024-05-15] MEDS: QUEtiapine Fumarate 100 MG TABLET PO (21:00)
[2024-05-15] MEDS: QUEtiapine Fumarate 400 MG TABLET PO (21:01)
[2024-05-16 07:47] VITALS: BP 105/51; PULSE 80; RESP 18; TEMP 36.6; O2SAT 99
[2024-05-16] MEDS: OXcarbazepine 300 MG TABLET PO ×2 (08:33→20:24)
[2024-05-16] MEDS: FLUoxetine HCl 20 MG CAPSULE 40 MG PO (08:33)
[2024-05-16] MEDS: Topiramate 100 MG TABLET PO ×2 (08:33→20:25)
[2024-05-16] MEDS: Propranolol HCL 40 MG TABLET PO ×2 (08:33→20:24)
[2024-05-16] MEDS: busPIRone HCl 5 MG TABLET 15 MG PO ×3 (08:33→20:23)
[2024-05-16] MEDS: Baclofen 10 MG TABLET PO ×3 (08:33→20:24)
[2024-05-16] MEDS: hydrOXYzine HCL 25 MG TABLET PO ×3 (08:34→20:24)
[2024-05-16] MEDS: Famotidine 20 MG TABLET PO ×2 (08:34→20:25)
[2024-05-16] MEDS: Loratadine 10 MG TABLET PO (08:34)
[2024-05-16] MEDS: Acetaminophen 325 MG TABLET 650 MG PO (09:07)
--- NOTE | 2024-05-16 10:08 | P.PNPSI_ITS ---
Subjective Subjective Date of Service: 05/16/24 Reason For Visit: Psychosis cocaine Interim History: Met with patient; discussed with team Patient reports that she is feeling a little bit better and depression and AH are now a 7/10; patient is with brighter affect and more social in the milieu. She has had visits by her . Patient reports that her aftercare as changing and she and her are moving to [place]. She wants to get her medications further adjusted but says will not need aftercare program Mental Status Exam Mental Status Exam Narrative: Pt is alert and oriented; behavior is cooperative, calm; more social; patient is not in distress; dressed in casual attire, obese, adequate hygiene; mood is described as depressed but a little better and affect congruent, bright; eye contact appropriate; Speech is normal rate, volume, prosody and not pressured; psychomotor retardation present but less; thought process is organized and goal directed; Thought content is on treatment, plans, symptoms; otherwise pertinent to relevant topics and without any delusional content, paranoid ideations or grandiosity; intermittent, passive SI; no HI. Auditory hallucinations present. Patients insight and judgment impaired but much improved Diagnostics Vital Signs (24Hr): Vital Signs - 24 hr 05/15/24 11:36 05/15/24 18:23 05/15/24 20:00 Temperature 98.4 F Pulse Rate 83 Respiratory Rate Blood Pressure 108/65 126/76 106/81 Pulse Oximetry 100 Oxygen Delivery Method Room Air 05/16/24 07:47 Temperature 98 F Pulse Rate 80 Respiratory Rate 18 Blood Pressure 105/51 L Pulse Oximetry 99 Oxygen Delivery Method Room Air BMI result Body Mass Index 47.6 Labs 05/07/24 14:21 05/08/24 08:02 Medications Medications Current Medications Acetaminophen (Acetaminophen 325 Mg Tablet) 650 mg PO Q6H PRN PRN Reason: Headache/Pain Mild Scale (1-3) Last Admin: 05/16/24 09:07 Dose: 650 mg Al Hydroxide/Mg Hydroxide (Magnesium Hydrox/Alum Hydrox 30 Ml Oral.Susp) 30 ml PO Q6H PRN PRN Reason: Heartburn/Nausea Baclofen (Baclofen 10 Mg Tablet) 10 mg PO TID [facility] Last Admin: 05/16/24 08:33 Dose: 10 mg Buspirone HCl (Buspirone Hcl 5 Mg Tablet) 15 mg PO TID [facility] Last Admin: 05/16/24 08:33 Dose: 15 mg Clonidine HCl (Clonidine Hcl 0.1 Mg Tablet) 0.1 mg PO TID PRN; Protocol PRN Reason: Anxiety Last Admin: 05/15/24 18:23 Dose: 0.1 mg Cyclobenzaprine HCl (Cyclobenzaprine Hcl 10 Mg Tablet) 10 mg PO TID PRN PRN Reason: back spasm Last Admin: 05/13/24 05:58 Dose: 10 mg Famotidine (Famotidine 20 Mg Tablet) 20 mg PO BID [facility] Last Admin: 05/16/24 08:34 Dose: 20 mg Fluoxetine HCl (Fluoxetine Hcl 20 Mg Capsule) 40 mg PO DAILY [facility] Last Admin: 05/16/24 08:33 Dose: 40 mg Hydroxyzine HCl (Hydroxyzine Hcl 25 Mg Tablet) 25 mg PO TID [facility] Last Admin: 05/16/24 08:34 Dose: 25 mg Ibuprofen (Ibuprofen 800 Mg Tablet) 800 mg PO QID PRN PRN Reason: back pain Last Admin: 05/15/24 11:09 Dose: 800 mg Lamotrigine (Lamotrigine 100 Mg Tablet) 100 mg PO BEDTIME [facility] Last Admin: 05/15/24 21:00 Dose: 100 mg Loratadine (Loratadine 10 Mg Tablet) 10 mg PO DAILY [facility] Last Admin: 05/16/24 08:34 Dose: 10 mg Lurasidone HCl (Lurasidone Hcl 20 Mg Tablet) 60 mg PO DAILY@1800 [facility] Last Admin: 05/15/24 17:54 Dose: 60 mg Magnesium Hydroxide (Milk Of Magnesia 30 Ml Oral.Susp) 30 ml PO DAILY PRN PRN Reason: Constipation Last Admin: 05/14/24 15:24 Dose: 30 ml Melatonin (Melatonin 3 Mg Tablet) 6 mg PO BEDTIME PRN PRN Reason: Insomnia Nicotine Polacrilex (Nicotine Polacrilex 2 Mg Gum) 2 mg BUCCAL Q2H PRN PRN Reason: Nicotine Cravings Oxcarbazepine (Oxcarbazepine 300 Mg Tablet) 300 mg PO BID [facility] Last Admin: 05/16/24 08:33 Dose: 300 mg Prazosin HCl (Prazosin Hcl 5 Mg Capsule) 5 mg PO 2000 [facility]; Protocol Last Admin: 05/15/24 21:00 Dose: 5 mg Propranolol HCl (Propranolol Hcl 40 Mg Tablet) 40 mg PO BID [facility]; Protocol Last Admin: 05/16/24 08:33 Dose: 40 mg Quetiapine Fumarate (Quetiapine Fumarate 100 Mg Tablet) 100 mg PO BEDTIME [facility] Last Admin: 05/15/24 21:00 Dose: 100 mg Quetiapine Fumarate (Quetiapine Fumarate 400 Mg Tablet) 400 mg PO BEDTIME [facility] Last Admin: 05/15/24 21:01 Dose: 400 mg Sumatriptan Succinate (Sumatriptan Succinate 50 Mg Tablet) 50 mg PO DAILY PRN PRN Reason: Migraine Headache Last Admin: 05/09/24 16:48 Dose: 50 mg Topiramate (Topiramate 100 Mg Tablet) 100 mg PO BID [facility] Last Admin: 05/16/24 08:33 Dose: 100 mg Trazodone HCl (Trazodone Hcl 50 Mg Tablet) 50 mg PO BEDTIME MRX1 PRN PRN Reason: Insomnia Allergies Allergies Allergy/AdvReac Type Severity Reaction Status Date / Time Penicillins [PENICILLINS] Allergy Severe HIVES Verified 05/07/24 14:09 prochlorperazine Allergy Severe HIVES Verified 05/07/24 14:09 [From COMPAZINE] promethazine [PROMETHAZINE] Allergy Intermediate HEADACHES Verified 05/07/24 14:09 haloperidol [From HALDOL] AdvReac Severe HIVES Verified 05/07/24 14:09 morphine AdvReac Flushing Verified 05/07/24 14:09 Assessment & Plan Assessment & Plan (1) Bipolar disorder: Status: Chronic Code(s): F31.9 - Bipolar disorder, unspecified (2) PTSD (post-traumatic stress disorder): Status: Acute Code(s): F43.10 - Post-traumatic stress disorder, unspecified (3) Cocaine use disorder: Status: Acute Code(s): F14.10 - Cocaine abuse, uncomplicated Plan Patient is a 44 year old female.Patient carries a diagnosis of PTSD, and ?schizoaffective disorder. She presents to the hospital with increasing depression and command hallucinations and suicidal ideation.She reports her depression worsened in spite of her taking her medications. She also relapsed on cocaine. She also complained of seeing shadows. She had poor sleep and poor appetite. Poor self care. Since admission she reports her SI continues but is feeling safe and denies any intent of self harm. Hospital Course: 05/09: DC Vraylar. Start Latuda 40 mg daily. Start Clonidine 0.1 mg PRN anxiety with holding parameters for BP. 05/10 pt reports she was feeling dizzy past few days however it's dissipating. -pt was feeling depressed, anxious and said she planned to use, waiting for her money to be available. She spent all her money on crack for 3 days; afterward she returned to depression -pt reports depression which she started over past months without any obvious trigger. AH has accompanied depression as well as seeing upsetting shadows of people (psychotic symptoms only present during depression). She reports hx of manic episodes but it's difficult to discern if these episodes are actually due to bipolar esmer vs cocaine use/emotional reactivity...She says she talks fast during episodes.. discussed med regimen. for now Increasing Latuda; Holding off Trileptal for now for anxiety (was on 300mg BID in past) -reviewed meds pt on at last admissions 05/11 remains very depressed; Latuda recently increased so will not make any further med changes for now 05/12 Patient remains depressed with AH though is pushing herself to attend groups, attend to ADLs. Again discussed medications and she agrees to restart Trileptal; patient reports baclofen has been helping with chronic back pain and that she is sleeping much better which she thinks is helping. Discussed longer- term plan and patient would very much like to get into a program for substance abuse treatment 05/13 continue tx plan emains depressed/AH;attending/ ADL's.-ncrease Trileptal back to prior dose of 300mg BID; -increase lamictal 05/15 depressed with AH; increasing Lamictal and Prozac (seems more likely MDD with psychosis than Bipolar) 05/16 patient improving though still depressed and with AH, less so; affect noticeably brighter. Patient no longer wants [facility] but instead is moving to [place] with her PLAN: CV Q 15 minute checks added Melatonin Increased lamictal to 100mg (has been on 25mg BID since November) Continue baclofen 10 mg TID. for cocaine cravings Continue Latuda to 60 mg daily with meal Increased to Trileptal 300mg b.i.d.; will likely titrate to 300 mg b.i.d. which she was on before Continue Seroquel 500 mg q.h.s. Increase prozac to 40mg Vraylar discontinued Patient educated on: diagnosis, medication risk/benefits and therapeutic strategies Informed Consent: understands Reason for continued inpatient stay Substantial Risk for: stable for discharge and rapid decompensation Time Spent With Patient Time: Total time managing care of this patient today ____ minutes.
[2024-05-16] MEDS: Flu Vacc TS2024-25(6mos up)/PF 0.5 ML SYRINGE IM (12:16)
[2024-05-16] MEDS: Lurasidone HCl 20 MG TABLET 60 MG PO (18:42)
[2024-05-16 19:54] VITALS: BP 115/70; PULSE 76; RESP 18; TEMP 36.9; O2SAT 99
[2024-05-16] MEDS: lamoTRIgine 100 MG TABLET PO (20:24)
[2024-05-16] MEDS: QUEtiapine Fumarate 400 MG TABLET PO (20:25)
[2024-05-16] MEDS: QUEtiapine Fumarate 100 MG TABLET PO (20:25)
[2024-05-16] MEDS: cloNIDine HCL 0.1 MG TABLET PO (20:25)
[2024-05-16] MEDS: Prazosin HCL 5 MG CAPSULE PO (20:26)
[2024-05-17] MEDS: Ibuprofen 800 MG TABLET PO (01:38)
[2024-05-17 08:00] VITALS: BP 115/71; PULSE 81; RESP 16; TEMP 36.8; O2SAT 97
[2024-05-17] MEDS: Topiramate 100 MG TABLET PO ×2 (08:24→21:28)
[2024-05-17] MEDS: Loratadine 10 MG TABLET PO (08:24)
[2024-05-17] MEDS: FLUoxetine HCl 20 MG CAPSULE 40 MG PO (08:24)
[2024-05-17] MEDS: busPIRone HCl 5 MG TABLET 15 MG PO ×3 (08:24→21:27)
[2024-05-17] MEDS: Baclofen 10 MG TABLET PO ×3 (08:24→21:30)
[2024-05-17] MEDS: Propranolol HCL 40 MG TABLET PO ×2 (08:24→21:26)
[2024-05-17] MEDS: OXcarbazepine 300 MG TABLET PO ×2 (08:24→21:29)
[2024-05-17] MEDS: hydrOXYzine HCL 25 MG TABLET PO ×3 (08:25→21:29)
[2024-05-17] MEDS: Famotidine 20 MG TABLET PO ×2 (08:25→21:30)
[2024-05-17] MEDS: cloNIDine HCL 0.1 MG TABLET PO ×2 (08:48→21:39)
--- NOTE | 2024-05-17 09:44 | HO.PSYCHPN ---
Subjective Subjective Date of Service: 05/17/24 Reason For Visit: Psychosis cocaine Interim History: Met with patient; discussed with team Patient reports that her mood is much better; still with depression and intermittent AH but overall tolerable and she feels ready to go. Her /partner visiting who feels that she is ready to go as well. Patient described plan to move to [place] which is only temporary and her friends effort to get her away from drug dealers, to increase her time of sobriety. Patient intends to return to [place] and will continue with providers here. Mental Status Exam Mental Status Exam Narrative: Pt is alert and oriented; behavior is cooperative, friendly and calm; patient is not in distress; dressed in casual attire with adequate hygiene; mood is described as good and affect congruent, brighter, calm; eye contact appropriate; Speech is normal rate, volume and prosody and not pressured; no psychomotor agitation/retardation present; thought process is organized and goal directed; Thought content is on tx; otherwise pertinent to relevant topics and without any delusional content, paranoid ideations or grandiosity; denies any SI/HI. Intermittent AH but much less so and tolerable. Patients insight and judgment fair. Diagnostics Vital Signs (24Hr): Vital Signs - 24 hr 05/16/24 19:54 05/17/24 08:00 Temperature 98.4 F 98.2 F Pulse Rate 76 81 Respiratory Rate 18 16 Blood Pressure 115/70 115/71 Pulse Oximetry 99 97 Oxygen Delivery Method Room Air Room Air BMI result Body Mass Index 47.6 Labs 05/07/24 14:21 05/08/24 08:02 Medications Medications Current Medications Acetaminophen (Acetaminophen 325 Mg Tablet) 650 mg PO Q6H PRN PRN Reason: Headache/Pain Mild Scale (1-3) Last Admin: 05/16/24 09:07 Dose: 650 mg Al Hydroxide/Mg Hydroxide (Magnesium Hydrox/Alum Hydrox 30 Ml Oral.Susp) 30 ml PO Q6H PRN PRN Reason: Heartburn/Nausea Baclofen (Baclofen 10 Mg Tablet) 10 mg PO TID [facility] Last Admin: 05/17/24 08:24 Dose: 10 mg Buspirone HCl (Buspirone Hcl 5 Mg Tablet) 15 mg PO TID [facility] Last Admin: 05/17/24 08:24 Dose: 15 mg Clonidine HCl (Clonidine Hcl 0.1 Mg Tablet) 0.1 mg PO TID PRN; Protocol PRN Reason: Anxiety Last Admin: 05/17/24 08:48 Dose: 0.1 mg Cyclobenzaprine HCl (Cyclobenzaprine Hcl 10 Mg Tablet) 10 mg PO TID PRN PRN Reason: back spasm Last Admin: 05/13/24 05:58 Dose: 10 mg Famotidine (Famotidine 20 Mg Tablet) 20 mg PO BID [facility] Last Admin: 05/17/24 08:25 Dose: 20 mg Fluoxetine HCl (Fluoxetine Hcl 20 Mg Capsule) 40 mg PO DAILY [facility] Last Admin: 05/17/24 08:24 Dose: 40 mg Hydroxyzine HCl (Hydroxyzine Hcl 25 Mg Tablet) 25 mg PO TID [facility] Last Admin: 05/17/24 08:25 Dose: 25 mg Ibuprofen (Ibuprofen 800 Mg Tablet) 800 mg PO QID PRN PRN Reason: back pain Last Admin: 05/17/24 01:38 Dose: 800 mg Lamotrigine (Lamotrigine 100 Mg Tablet) 100 mg PO BEDTIME [facility] Last Admin: 05/16/24 20:24 Dose: 100 mg Loratadine (Loratadine 10 Mg Tablet) 10 mg PO DAILY [facility] Last Admin: 05/17/24 08:24 Dose: 10 mg Lurasidone HCl (Lurasidone Hcl 20 Mg Tablet) 60 mg PO DAILY@1800 [facility] Last Admin: 05/16/24 18:42 Dose: 60 mg Magnesium Hydroxide (Milk Of Magnesia 30 Ml Oral.Susp) 30 ml PO DAILY PRN PRN Reason: Constipation Last Admin: 05/14/24 15:24 Dose: 30 ml Melatonin (Melatonin 3 Mg Tablet) 6 mg PO BEDTIME PRN PRN Reason: Insomnia Nicotine Polacrilex (Nicotine Polacrilex 2 Mg Gum) 2 mg BUCCAL Q2H PRN PRN Reason: Nicotine Cravings Oxcarbazepine (Oxcarbazepine 300 Mg Tablet) 300 mg PO BID [facility] Last Admin: 05/17/24 08:24 Dose: 300 mg Prazosin HCl (Prazosin Hcl 5 Mg Capsule) 5 mg PO 1999 [facility]; Protocol Last Admin: 05/16/24 20:26 Dose: 5 mg Propranolol HCl (Propranolol Hcl 40 Mg Tablet) 40 mg PO BID [facility]; Protocol Last Admin: 05/17/24 08:24 Dose: 40 mg Quetiapine Fumarate (Quetiapine Fumarate 100 Mg Tablet) 100 mg PO BEDTIME [facility] Last Admin: 05/16/24 20:25 Dose: 100 mg Quetiapine Fumarate (Quetiapine Fumarate 400 Mg Tablet) 400 mg PO BEDTIME [facility] Last Admin: 05/16/24 20:25 Dose: 400 mg Sumatriptan Succinate (Sumatriptan Succinate 50 Mg Tablet) 50 mg PO DAILY PRN PRN Reason: Migraine Headache Last Admin: 05/09/24 16:48 Dose: 50 mg Topiramate (Topiramate 100 Mg Tablet) 100 mg PO BID [facility] Last Admin: 05/17/24 08:24 Dose: 100 mg Trazodone HCl (Trazodone Hcl 50 Mg Tablet) 50 mg PO BEDTIME MRX1 PRN PRN Reason: Insomnia Allergies Allergies Allergy/AdvReac Type Severity Reaction Status Date / Time Penicillins [PENICILLINS] Allergy Severe HIVES Verified 05/07/24 14:09 prochlorperazine Allergy Severe HIVES Verified 05/07/24 14:09 [From COMPAZINE] promethazine [PROMETHAZINE] Allergy Intermediate HEADACHES Verified 05/07/24 14:09 haloperidol [From HALDOL] AdvReac Severe HIVES Verified 05/07/24 14:09 morphine AdvReac Flushing Verified 05/07/24 14:09 Assessment & Plan Assessment & Plan (1) Bipolar disorder: Status: Chronic Code(s): F31.9 - Bipolar disorder, unspecified (2) PTSD (post-traumatic stress disorder): Status: Acute Code(s): F43.10 - Post-traumatic stress disorder, unspecified (3) Cocaine use disorder: Status: Acute Code(s): F14.10 - Cocaine abuse, uncomplicated Plan Patient is a 44 year old female.Patient carries a diagnosis of PTSD, and ?schizoaffective disorder. She presents to the hospital with increasing depression and command hallucinations and suicidal ideation.She reports her depression worsened in spite of her taking her medications. She also relapsed on cocaine. She also complained of seeing shadows. She had poor sleep and poor appetite. Poor self care. Since admission she reports her SI continues but is feeling safe and denies any intent of self harm. Hospital Course: 05/09: DC Vraylar. Start Latuda 40 mg daily. Start Clonidine 0.1 mg PRN anxiety with holding parameters for BP. 05/10 pt reports she was feeling dizzy past few days however it's dissipating. -pt was feeling depressed, anxious and said she planned to use, waiting for her money to be available. She spent all her money on crack for 3 days; afterward she returned to depression -pt reports depression which she started over past months without any obvious trigger. AH has accompanied depression as well as seeing upsetting shadows of people (psychotic symptoms only present during depression). She reports hx of manic episodes but it's difficult to discern if these episodes are actually due to bipolar esmer vs cocaine use/emotional reactivity...She says she talks fast during episodes.. discussed med regimen. for now Increasing Latuda; Holding off Trileptal for now for anxiety (was on 300mg BID in past) -reviewed meds pt on at last admissions 05/11 remains very depressed; Latuda recently increased so will not make any further med changes for now 05/12 Patient remains depressed with AH though is pushing herself to attend groups, attend to ADLs. Again discussed medications and she agrees to restart Trileptal; patient reports baclofen has been helping with chronic back pain and that she is sleeping much better which she thinks is helping. 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 Patient no longer wants [facility] but instead is moving to [place] with her 05/17 Patient reports that her mood is much better; still with depression and intermittent AH but overall tolerable and she feels ready to go. Her /partner visiting who feels that she is ready to go as well. Patient described plan to move to [place] which is only temporary and her friends effort to get her away from drug dealers, to increase her time of sobriety. Patient intends to return to [place] and will continue with providers here. Patient is either closer at baseline, with noticeably brighter affect, social in the milieu, enjoying interactions with peers and going to groups. She feels ready to discharge and is future oriented and optimistic about her sobriety. Patient feels that medications are helpful and will continue taking them. She is not in imminent risk for harm to self or others and her request for discharge honored. PLAN: CV Q 15 minute checks added Melatonin Increased lamictal to 100mg (has been on 25mg BID since November) Continue baclofen 10 mg TID. for cocaine cravings Continue Latuda to 60 mg daily with meal Increased to Trileptal 300mg b.i.d.; will likely titrate to 300 mg b.i.d. which she was on before Continue Seroquel 500 mg q.h.s. Increase prozac to 40mg Vraylar discontinued Patient educated on: diagnosis, medication risk/benefits, substance abuse and therapeutic strategies Informed Consent: understands Reason for continued inpatient stay Substantial Risk for: stable for discharge Time Spent With Patient Time: Total time managing care of this patient today ____ minutes.
[2024-05-17 11:22] LABS: UPreg QC Valid YES; Urine Pregnancy NEGATIVE (NEGATIVE)
[2024-05-17] MEDS: Lurasidone HCl 20 MG TABLET 60 MG PO (19:11)
[2024-05-17 20:00] VITALS: BP 127/62; PULSE 83; TEMP 36.6; O2SAT 99
[2024-05-17 21:26] VITALS: BP 127/62; PULSE 83
[2024-05-17 21:28] VITALS: BP 127/62
[2024-05-17] MEDS: QUEtiapine Fumarate 100 MG TABLET PO (21:28)
[2024-05-17] MEDS: Prazosin HCL 5 MG CAPSULE PO (21:28)
[2024-05-17] MEDS: QUEtiapine Fumarate 400 MG TABLET PO (21:28)
[2024-05-17] MEDS: lamoTRIgine 100 MG TABLET PO (21:30)
[2024-05-17 21:39] VITALS: BP 127/62
[2024-05-17] MEDS: Melatonin 3 MG TABLET PO (21:40)
[2024-05-18] MEDS: Cyclobenzaprine HCl 10 MG TABLET PO (02:17)
[2024-05-18 08:16] VITALS: BP 90/54; PULSE 78; TEMP 36.4; O2SAT 98
[2024-05-18] MEDS: Propranolol HCL 40 MG TABLET PO (08:53)
[2024-05-18] MEDS: Baclofen 10 MG TABLET PO (08:53)
[2024-05-18] MEDS: Famotidine 20 MG TABLET PO (08:53)
[2024-05-18] MEDS: FLUoxetine HCl 20 MG CAPSULE 40 MG PO (08:53)
[2024-05-18] MEDS: hydrOXYzine HCL 25 MG TABLET PO (08:53)
[2024-05-18] MEDS: OXcarbazepine 300 MG TABLET PO (08:54)
[2024-05-18] MEDS: Loratadine 10 MG TABLET PO (08:54)
[2024-05-18] MEDS: Topiramate 100 MG TABLET PO (08:54)
[2024-05-18] MEDS: busPIRone HCl 5 MG TABLET 15 MG PO (08:54)
--- NOTE | 2024-05-18 09:03 | PM.PSYDC ---
DS: Providers Provider Date of Service: 05/18/24 Date of admission: 05/07/24 20:34 Date of discharge: 05/18/24 Primary care physician: Kristel Physician Attending physician on admission: Juancarlos Cr Attending physician on discharge: Juancarlos Cr DS: Diagnosis Discharge Diagnosis (1) Bipolar disorder: Status: Chronic (2) PTSD (post-traumatic stress disorder): Status: Acute (3) Cocaine use disorder: Status: Acute DS: Medications Discharge Medications Home Medications: Home Medications ?Medication ?Instructions ?Recorded ?Confirmed ibuprofen 800 mg tablet 800 mg PO QID PRN back pain 05/07/24 05/07/24 Previous Rx's ?Medication ?Instructions ?Recorded baclofen 10 mg tablet 10 mg PO TID 30 days #90 tabs 05/18/24 buspirone 15 mg tablet 15 mg PO TID 30 days #90 tabs 05/18/24 cetirizine 10 mg tablet 10 mg PO DAILY 30 days #30 tabs 05/18/24 clonidine HCl 0.1 mg tablet 0.1 mg PO TID PRN Anxiety 30 days 05/18/24 #90 tabs cyclobenzaprine 10 mg tablet 10 mg PO TID PRN back spasm 30 05/18/24 days #60 tabs famotidine 20 mg tablet 20 mg PO BID 30 days #60 tabs 05/18/24 fluoxetine 40 mg capsule 40 mg PO DAILY 30 days #30 caps 05/18/24 hydroxyzine HCl 25 mg tablet 25 mg PO TID PRN Anxiety 30 days 05/18/24 #90 tabs lamotrigine 100 mg tablet 100 mg PO BID 30 days #60 tabs 05/18/24 lurasidone 60 mg tablet 60 mg PO DAILY@1800 30 days #30 05/18/24 tabs melatonin 3 mg tablet 3 mg PO BEDTIME PRN Insomnia 30 05/18/24 days #30 tabs prazosin 5 mg capsule 5 mg PO BEDTIME 30 days #30 caps 05/18/24 propranolol 40 mg tablet 40 mg PO BID 30 days #60 tabs 05/18/24 quetiapine 100 mg tablet (Seroquel) 100 mg PO BEDTIME 30 days #30 tabs 05/18/24 quetiapine 400 mg tablet 400 mg PO BEDTIME 30 days #30 tabs 05/18/24 sumatriptan succinate 50 mg tablet 50 mg PO DAILY PRN Migraine 05/18/24 Headache 30 days #10 tabs topiramate 100 mg tablet 100 mg PO BID 30 days #60 tabs 05/18/24 Mental Status Exam Mental Status Exam Narrative: Pt is alert and oriented; behavior is cooperative, friendly and calm; patient is not in distress; dressed in casual attire with adequate hygiene; mood is described as good and affect congruent, brighter, calm; eye contact appropriate; Speech is normal rate, volume and prosody and not pressured; no psychomotor agitation/retardation present; thought process is organized and goal directed; Thought content is on tx; otherwise pertinent to relevant topics and without any delusional content, paranoid ideations or grandiosity; denies any SI/HI. Intermittent AH but much less so and tolerable. Patients insight and judgment fair. Data Data Completed and Pending Completed studies during hospitalization [Text1]: 05/17/24 10:50 Urine Test NEGATIVE 05/07/24 15:03 Urine clean catch - Clean Catch Midstream Urine Culture - Final Lactobacillus species DS: Summary Hospital Course Hospital Course: HPI: Patient is a 44 year old female.Patient carries a diagnosis of PTSD, and ?schizoaffective disorder. She presents to the hospital with increasing depression and command hallucinations and suicidal ideation.She reports her depression worsened in spite of her taking her medications. She also relapsed on cocaine. She also complained of seeing shadows. She had poor sleep and poor appetite. Poor self care. Since admission she reports her SI continues but is feeling safe and denies any intent of self harm. Hospital Course: Rest with AH on admission; cooperative but with downcast affect and psychomotor retardation. Patient said Vraylar had not helped at all and patient was started on Latuda. 05/09: AMARI Armenta. Start Latuda 40 mg daily. Start Clonidine 0.1 mg PRN anxiety with holding parameters for BP. 05/10 pt reports she was feeling dizzy past few days however it's dissipating. -pt was feeling depressed, anxious and said she planned to use, waiting for her money to be available. She spent all her money on crack for 3 days; afterward she returned to depression -pt reports depression which she started over past months without any obvious trigger. AH has accompanied depression as well as seeing upsetting shadows of people (psychotic symptoms only present during depression). She reports hx of manic episodes but it's difficult to discern if these episodes are actually due to bipolar esmer vs cocaine use/emotional reactivity...She says she talks fast during episodes.. discussed med regimen. for now Increasing Latuda; Holding off Trileptal for now for anxiety (was on 300mg BID in past) -reviewed meds pt on at last admissions 05/11 remains very depressed; Latuda recently increased so will not make any further med changes for now 05/12 Patient remains depressed with AH though is pushing herself to attend groups, attend to ADLs. Again discussed medications and she agrees to restart Trileptal; patient reports baclofen has been helping with chronic back pain and that she is sleeping much better which she thinks is helping. 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 Patient no longer wants CSS but instead is moving to [place] with her 05/17 Patient reports that her mood is much better; still with some depression and intermittent AH but overall tolerable and she feels ready to go. Her /partner visiting who feels that she is ready to go as well. Patient described plan to move to [place] which is only temporary and her friends effort to get her away from drug dealers, to increase her time of sobriety. Patient intends to return to [place] and will continue with providers here. Patient tolerating medications well and is back on similar regimen that was effective for patient in the past, with additional Latuda for bipolar depression as Seroquel has been only partially helpful . Patient is close to or at baseline, with noticeably brighter affect, social in the milieu, enjoying interactions with peers and going to groups. She has remained in good behavioral and impulse control throughout her admission, appropriate with peers and staff and engaged in treatment, going to groups and forthcoming in 1 on 1 sessions. She has consistently denied any SI. Patient feels ready to discharge. She is future oriented and optimistic about her sobriety. While she will likely continue to struggle with her addiction issues and decompensation, this is a chronic issue that will not resolve with longer stay on inpatient unit and is 1 of which she is well aware and working on. She is not in imminent risk for harm to self or others and her request for discharge honored. Medications: Started Latuda to 60 mg for bipolar depression Continued Seroquel 500 mg q.h.s. for bipolar depression Restarted Trileptal 300mg b.i.d.; for anxiety Increased prozac to 40mg Increased lamictal to 100mg Started baclofen 10 mg TID. for cocaine cravings Vraylar discontinued Time spent discussing smoking cessation with patient: 3 to 10 minutes Status at Discharge Functional status at discharge: independent ambulation Overall status at discharge: patient is back to baseline Time Spent with Patient Time attestation: Total time managing care of this patient today _40___ minutes. Time spent: Greater than 30 minutes Specific discharge activities: Met with patient; discussed with team; prescriptions, charting Discharge Plan Discharge Anticipated Discharge Date/Time: 05/18/24 11:00 Patient Disposition: Home, Self-Care Discharge Diagnosis: bipolar disorder, unspecified Referrals: Department of Mental Health ([facility]) [Other] - 1 Week (Referral to Department of Mental Health Patient should follow-up on referral after discharge. [facility] has up to 90 days to review initial referral for services.) Brianna Mejia: [facility] [Other] - 09/22/24 3:00 pm (Scheduled appointment with psychiatric medication provider Staff at [facility] have added you to the cancellation list and will be in contact should an sooner appointment be available. ) Physician,None [Primary Care Provider] - 1 Week Discharge Medications: New baclofen 10 mg Tablet 10 mg PO TID 30 Days Qty: 90 1RF cyclobenzaprine 10 mg Tablet 10 mg PO TID PRN (Reason: back spasm) 30 Days Qty: 60 1RF clonidine HCl 0.1 mg Tablet 0.1 mg PO TID PRN (Reason: Anxiety) 30 Days Qty: 90 1RF Protocol: Hold for SBP< HOLD for SBP < : 90 lurasidone 60 mg tablet 60 mg PO DAILY@1800 30 Days Qty: 30 1RF Rx Instructions: must administer with food (at least 350 calories) sumatriptan succinate 50 mg Tablet 50 mg PO DAILY PRN (Reason: Migraine Headache) 30 Days Qty: 10 1RF melatonin 3 mg Tablet 3 mg PO BEDTIME PRN (Reason: Insomnia) 30 Days Qty: 30 1RF Continued ibuprofen 800 mg tablet 800 mg PO QID PRN (Reason: back pain) cetirizine 10 mg tablet 10 mg PO DAILY 30 Days Qty: 30 1RF quetiapine [Seroquel] 100 mg tablet 100 mg PO BEDTIME 30 Days Qty: 30 1RF Rx Instructions: take with 400mg tab propranolol 40 mg tablet 40 mg PO BID 30 Days Qty: 60 1RF famotidine 20 mg tablet 20 mg PO BID 30 Days Qty: 60 1RF topiramate 100 mg Tablet 100 mg PO BID 30 Days Qty: 60 1RF buspirone 15 mg tablet 15 mg PO TID 30 Days Qty: 90 1RF quetiapine 400 mg tablet 400 mg PO BEDTIME 30 Days Qty: 30 1RF Changed fluoxetine 40 mg capsule 40 mg PO DAILY 30 Days Qty: 30 1RF prazosin 5 mg Capsule 5 mg PO BEDTIME 30 Days Qty: 30 1RF Protocol: Hold for SBP< HOLD for SBP < : 90 hydroxyzine HCl 25 mg tablet 25 mg PO TID PRN (Reason: Anxiety) 30 Days Qty: 90 1RF lamotrigine 100 mg tablet 100 mg PO BID 30 Days Qty: 60 1RF Discontinued Vraylar 3 mg Capsule 3 mg PO DAILY Qty: 30 0RF Discharge Orders: Discharge Order (Routine); Ordered 05/18/24 Ordered By: Juancarlos Cr Diet: Regular diet Activity on Discharge: As tolerated Stand Alone Forms: Patient Portal Discharge page Print Language: Mozambican Care Plan Goals: Maintain mood and safe behaviors Take medications as prescribed Continue to pursue sobriety Practice coping skills Continue with outpatient providers and reach out to them as needed Health Concerns: Mood stability and behaviors Sobriety Chronic low back pain Plan of Treatment: Follow up with your PCP, psychiatric provider and other outpatient providers regarding above concerns Take medications as prescribed Assessment: Risk assessment at time of discharge:? Patient was interviewed prior to discharge and found to be fully oriented and without any SI or HI. Patient has improved insight and judgment and wants to continue treatment. Patient is not in imminent risk of harm to self or others and has a safety plan that includes presenting to the closest ER or calling 911 if feeling unsafe.? Patient has been observed closely by nursing and unit staff throughout admission; patient has not engaged in any behaviors that suggest dangerousness to self or others and has demonstrated appropriate behaviors and impulse control
[2024-05-18] MEDS: Naloxone HCl Nasal TAKE HOME 4 MG SPRAY 8 MG NOSTRILALT (10:34)
--- NOTE | 2024-05-18 11:15 | PC.NURSE ---
11:15AM Shavon discharged with . All belongings in possession.
== END 2024-05-18 11:15 | disposition home or self-care (01) | DRG 885 ==
LOC: HO.ED 14:54 → HO.PM5 22:24
PROVIDERS: Physician Assistant; Admitting Provider Psychiatry & Neurology Psychiatry; Emergency Provider Student in an Organized Health Care Education/Training Program; Visit Provider Psychiatry & Neurology Psychiatry
DX: F31.9 Bipolar disorder, unspecified (principal); R45.851 Suicidal ideations; F14.10 Cocaine abuse, uncomplicated; F43.10 Post-traumatic stress disorder, unspecified; Z23 Encounter for immunization; Z98.84 Bariatric surgery status; Z79.899 Other long term (current) drug therapy
CPT/HCPCS: 36415; 80048; 80053; 80061; 80076; 80143; 80179; 80307; 81001; 81025; 83735; 85025; 87086; 90656; 93005; 99285; S9485

== ENCOUNTER → 2024-05-07 20:34 | Outpatient (BNV) | payer OTHER, SELFPAY | PROVIDERS: Admitting Provider Psychiatry & Neurology Psychiatry; Emergency Provider Student in an Organized Health Care Education/Training Program; Visit Provider Psychiatry & Neurology Psychiatry | DX: F31.5 Bipolar disorder, current episode depressed, severe, with psychotic features (principal); F14.10 Cocaine abuse, uncomplicated; F43.11 Post-traumatic stress disorder, acute | CPT/HCPCS: 90792; 99231; 99232; 99239 ==

== ENCOUNTER 2024-10-27 21:10 | Emergency (ER) | payer OTHER, SELFPAY ==
[2024-10-27 21:21] VITALS: BP 117/74; BP 90/52; PULSE 85; PULSE 92; RESP 20; TEMP 36.3; O2SAT 95; O2SAT 96; BMI 53.2
--- NOTE | 2024-10-28 | ED_ITS ---
HPI - General Adult General Chief complaint: ETOH/Substance Use Stated complaint: Smoked a joint & started to nod off,bf gave narcan Time Seen by Provider: 10/27/24 23:51 Source: patient, RN notes reviewed and old records reviewed Mode of arrival: EMS Limitations: no limitations History of Present Illness ED Provider: Helder HPI narrative: 44-year-old female with past medical history significant for substance abuse, PTSD, gastric surgery presents for evaluation of substance abuse. Apparently the patient was smoking cocaine and heroin. She had began nodding off. Her fiance then gave nasal Narcan The patient responded well Patient denies any intent to harm herself. She was using substances recreationally. She awake and alert The patient denies any interest in detox Related Data Home Medications ?Medication ?Instructions ?Recorded ?Confirmed ibuprofen 800 mg tablet 800 mg PO QID PRN back pain 05/07/24 05/07/24 Previous Rx's ?Medication ?Instructions ?Recorded baclofen 10 mg tablet 10 mg PO TID 30 days #90 tabs 05/18/24 buspirone 15 mg tablet 15 mg PO TID 30 days #90 tabs 05/18/24 cetirizine 10 mg tablet 10 mg PO DAILY 30 days #30 tabs 05/18/24 clonidine HCl 0.1 mg tablet 0.1 mg PO TID PRN Anxiety 30 days 05/18/24 #90 tabs cyclobenzaprine 10 mg tablet 10 mg PO TID PRN back spasm 30 05/18/24 days #60 tabs famotidine 20 mg tablet 20 mg PO BID 30 days #60 tabs 05/18/24 fluoxetine 40 mg capsule 40 mg PO DAILY 30 days #30 caps 05/18/24 hydroxyzine HCl 25 mg tablet 25 mg PO TID PRN Anxiety 30 days 05/18/24 #90 tabs lamotrigine 100 mg tablet 100 mg PO BID 30 days #60 tabs 05/18/24 lurasidone 60 mg tablet 60 mg PO DAILY@1800 30 days #30 05/18/24 tabs melatonin 3 mg tablet 3 mg PO BEDTIME PRN Insomnia 30 05/18/24 days #30 tabs prazosin 5 mg capsule 5 mg PO BEDTIME 30 days #30 caps 05/18/24 propranolol 40 mg tablet 40 mg PO BID 30 days #60 tabs 05/18/24 quetiapine 100 mg tablet (Seroquel) 100 mg PO BEDTIME 30 days #30 tabs 05/18/24 quetiapine 400 mg tablet 400 mg PO BEDTIME 30 days #30 tabs 05/18/24 sumatriptan succinate 50 mg tablet 50 mg PO DAILY PRN Migraine 05/18/24 Headache 30 days #10 tabs topiramate 100 mg tablet 100 mg PO BID 30 days #60 tabs 05/18/24 Allergies Allergy/AdvReac Type Severity Reaction Status Date / Time Penicillins [PENICILLINS] Allergy Severe HIVES Verified 10/27/24 21:24 prochlorperazine Allergy Severe HIVES Verified 10/27/24 21:24 [From COMPAZINE] promethazine [PROMETHAZINE] Allergy Intermediate HEADACHES Verified 10/27/24 21:24 haloperidol [From HALDOL] AdvReac Severe HIVES Verified 10/27/24 21:24 morphine AdvReac Flushing Verified 10/27/24 21:24 Review of Systems Constitutional: Constitutional: Denies body ache(s), Denies chills and Denies fever(s) Eyes: Eyes: Denies blurry vision ENT: Denies vertigo and Denies dizziness Cardiovascular: Cardiovascular: Denies chest pain and Denies dyspnea Respiratory: Respiratory: Denies cough and Denies dyspnea Gastrointestinal: Gastrointestinal: Denies abdominal pain, Denies nausea and Denies vomiting Musculoskeletal: Musculoskeletal: Denies back pain Integumentary/Breasts: Skin/Breast: Denies rash Neurologic: Denies vertigo and Denies dizziness Psychiatric: Psychiatric: Denies anxiety, Denies visual hallucinations, Denies homicidal ideation and Denies suicidal ideation [facility] Past Medical History Medical History Cocaine use disorder Opioid abuse Cocaine abuse Bipolar disorder PTSD (post-traumatic stress disorder) Hernia Anxiety Surgical History History of cholecystectomy History of appendectomy LAP-BAND surgery status Social History Social History Household Members: None Housing: Homeless Do you presently have visiting nurse or other home services: No Alcohol intake: current Alcohol intake frequency: holidays/special occasions only Patient Tobacco Use Status: Never used Tobacco Substance Use Type: Crack/Cocaine Advance Directives: No Advance Directives Information Provided: No service: No Sexual orientation: Don't Know Physical Exam ED Vital Signs: Vital Signs - 24 hr 10/27/24 21:21 Temperature 97.3 F Pulse Rate 85 Respiratory Rate 20 Blood Pressure 90/52 L Pulse Oximetry 95 Oxygen Delivery Method Room Air BMI result Body Mass Index 53.2 Const General: healthy appearing, comfortable, no acute distress, alert and awake Nutritional Appearance: well nourished Orientation/consciousness: patient oriented x3 HENMT Head: Yes normocephalic and Yes atraumatic Eyes Eyelids: Yes eyelids normal Conjunctivae: conjunctivae normal Sclerae: sclerae normal Corneas: corneas normal Pupils: Equal, round and reactive pupils present EOM: EOMs intact bilaterally Neck Neck: Yes full ROM Resp Effort & Inspection: normal respiratory effort, able to speak in complete sentences and not labored Cardio Rate: regular rate Rhythm: regular rhythm GI Inspection: No distended Palpation (GI): Soft to palpation, not firm, nontender, no guarding and not rigid Skin General skin exam: elasticity normal Neuro General: patient oriented x3 Cranial nerves: Yes CN's II-XII intact bilaterally, Yes Equal, round and reactive pupils present and Yes Bilaterally intact EOM present Cognition (Neuro): normal cognition Extrem Other: Moving all extremities well without any obvious deformities Medical Decision Making Medical Decision Making MDM Narrative: 44-year-old female presents for evaluation of substance abuse. She admits to using substances, denies any intent to self-harm. She declines detox resources. She has been in the ER for over 3 hours, has remained awake, alert and oriented with stable vital signs. The patient is stable for discharge at this time. Family in the waiting room. She will be given Narcan for take home use Differential Diagnosis Differential Diagnoses: The differential diagnosis associated with the presentation includes Substance abuse Opiate overdose Accidental overdose Syncope less likely Discharge Plan Discharge Clinical Impression: Substance abuse Patient Disposition: Home, Self-Care Instructions: Opioid Use Disorder (ED) Additional Instructions: You were found unresponsive in the field. He responded to Narcan which means you likely had opioids in your system. You have been observed in the ER for a few hours and are safe to be discharged. You declined detox resources. Prescriptions: No Action ibuprofen 800 mg tablet 800 mg PO QID PRN (Reason: back pain) baclofen 10 mg Tablet 10 mg PO TID 30 Days Qty: 90 1RF cyclobenzaprine 10 mg Tablet 10 mg PO TID PRN (Reason: back spasm) 30 Days Qty: 60 1RF clonidine HCl 0.1 mg Tablet 0.1 mg PO TID PRN (Reason: Anxiety) 30 Days Qty: 90 1RF Protocol: Hold for SBP< HOLD for SBP < : 90 lurasidone 60 mg tablet 60 mg PO DAILY@1800 30 Days Qty: 30 1RF Rx Instructions: must administer with food (at least 350 calories) sumatriptan succinate 50 mg Tablet 50 mg PO DAILY PRN (Reason: Migraine Headache) 30 Days Qty: 10 1RF melatonin 3 mg Tablet 3 mg PO BEDTIME PRN (Reason: Insomnia) 30 Days Qty: 30 1RF fluoxetine 40 mg capsule 40 mg PO DAILY 30 Days Qty: 30 1RF cetirizine 10 mg tablet 10 mg PO DAILY 30 Days Qty: 30 1RF quetiapine [Seroquel] 100 mg tablet 100 mg PO BEDTIME 30 Days Qty: 30 1RF Rx Instructions: take with 400mg tab prazosin 5 mg Capsule 5 mg PO BEDTIME 30 Days Qty: 30 1RF Protocol: Hold for SBP< HOLD for SBP < : 90 propranolol 40 mg tablet 40 mg PO BID 30 Days Qty: 60 1RF famotidine 20 mg tablet 20 mg PO BID 30 Days Qty: 60 1RF hydroxyzine HCl 25 mg tablet 25 mg PO TID PRN (Reason: Anxiety) 30 Days Qty: 90 1RF topiramate 100 mg Tablet 100 mg PO BID 30 Days Qty: 60 1RF lamotrigine 100 mg tablet 100 mg PO BID 30 Days Qty: 60 1RF buspirone 15 mg tablet 15 mg PO TID 30 Days Qty: 90 1RF quetiapine 400 mg tablet 400 mg PO BEDTIME 30 Days Qty: 30 1RF Print Language: Egyptian
[2024-10-28] MEDS: Naloxone HCl Nasal TAKE HOME 4 MG SPRAY 8 MG NOSTRILALT (00:52)
[2024-10-28 00:53] VITALS: BP 133/95; PULSE 89; RESP 16; TEMP 36.4; O2SAT 100
== END 2024-10-28 00:53 | disposition home or self-care (01) ==
PROVIDERS: Emergency Provider Internal Medicine
DX: F11.10 Opioid abuse, uncomplicated (principal); F14.10 Cocaine abuse, uncomplicated; F10.10 Alcohol abuse, uncomplicated; Y90.9 Presence of alcohol in blood, level not specified; Z98.84 Bariatric surgery status; Z79.899 Other long term (current) drug therapy; Z71.51 Drug abuse counseling and surveillance of drug abuser
CPT/HCPCS: 99282; 99283